=== PATIENT | female | born 1980 | race Caucasian/White ===

== ENCOUNTER 2022-08-13 17:31 | Emergency (ER) | payer MEDICAID, SELFPAY ==
[2022-08-13] VITALS (8 sets, daily range): BP systolic 149–160; BP diastolic 99–107; PULSE 104; RESP 18; TEMP 36.6; O2SAT 95–100; BMI 33.6
[2022-08-13 17:39] LABS: Glucometer 401 mg/dL (74-106)
[2022-08-13] MEDS: ONDANSETRON PF 4 MG/2 ML VIAL IV (17:53)
[2022-08-13] MEDS: 0.9 % SODIUM CHLORIDE 1,000 ML 1000 ML IV (17:53)
--- NOTE | 2022-08-13 17:57 | ED_ITS ---
HPI - General Adult General Chief complaint: Weakness Stated complaint: hyperglycemia Time Seen by Provider: 08/13/22 17:38 Source: patient Mode of arrival: Wheelchair Limitations: no limitations History of Present Illness HPI narrative: 41-year-old female past medical history type II diabetic presents with an elevated blood sugar reading with dizziness and nausea that started today. She states that her blood sugar was in the 400s. She is only on metformin and was recently diagnosed 2 months ago. Patient states that she has been compliant with her metformin and it has been August and has not been compliant with her eating regimen. Denies vision changes, abd or back pain, dysuria, v/d, SOB or CP Related Data Home Medications Medication Instructions Recorded Confirmed albuterol sulfate 90 mcg/actuation 1 inh inhalation Q4H PRN shortness 08/13/22 08/13/22 breath activated powder inhaler of breath or wheezing (ProAir RespiClick) alprazolam 0.5 mg tablet 0.5 mg PO DAILY PRN anxiety 08/13/22 08/13/22 aripiprazole 5 mg tablet 5 mg PO DAILY 08/13/22 08/13/22 atenolol 25 mg tablet 25 mg PO DAILY 08/13/22 08/13/22 buspirone 5 mg tablet 5 mg PO DAILY 08/13/22 08/13/22 fluoxetine 40 mg capsule 40 mg PO DAILY 08/13/22 08/13/22 lisdexamfetamine 60 mg capsule 60 mg PO DAILY 08/13/22 08/13/22 (Vyvanse) metformin 500 mg tablet 500 mg PO BID 08/13/22 08/13/22 trazodone 50 mg tablet 50 mg PO QPM 08/13/22 08/13/22 Allergies Allergy/AdvReac Type Severity Reaction Status Date / Time No Known Drug Allergies Allergy Verified 08/13/22 17:35 Review of Systems ROS Status of ROS 10 or more systems reviewed and unremarkable except as noted in history and below [facility] Medical History (Updated 08/13/22 @ 18:24 by EDWAR Sharp) Surgical History (Updated 08/13/22 @ 17:45 by Autumn Schuler) Exam Narrative Exam Narrative: General: A&Ox3, no distress, talking in full an complete sentences skin: warm, dry, intact head: normocephalic, atraumatic eyes: EOMI nose: nares patent neck: supple, trachea midline cardiac: +S1/S1. no murmur respiratory: lungs CTA, non-labored, no wheezing, no retractions chest wall: NT abdomen: soft, NT extremities: FROM x 4, strength +5/5 neuro: A&Ox3 psych: appropriate mood and affect, cooperative Constitutional Vital Signs - 24 hr 08/13/22 17:35 08/13/22 17:59 08/13/22 17:55 Temperature 97.8 F Pulse Rate [Monitor] 104 H Respiratory Rate 18 Blood Pressure Blood Pressure [Left Arm] 149/99 H Pulse Oximetry 100 97 97 Oxygen Delivery Method Room Air Room Air 08/13/22 18:00 08/13/22 18:10 08/13/22 18:22 Temperature Pulse Rate [Monitor] Respiratory Rate Blood Pressure Blood Pressure [Left Arm] Pulse Oximetry 97 96 97 Oxygen Delivery Method 08/13/22 18:30 08/13/22 18:31 08/13/22 18:31 Temperature Pulse Rate [Monitor] Respiratory Rate Blood Pressure 160/107 H Blood Pressure [Left Arm] Pulse Oximetry 96 97 95 Oxygen Delivery Method 08/13/22 18:31 Temperature Pulse Rate [Monitor] Respiratory Rate Blood Pressure 160/107 H Blood Pressure [Left Arm] Pulse Oximetry 97 Oxygen Delivery Method Course Vital Signs Vital signs: Vital Signs Temperature 97.8 F 08/13/22 17:35 Pulse Rate 104 H 08/13/22 17:35 Respiratory Rate 18 08/13/22 17:35 Blood Pressure 149/99 H 08/13/22 17:35 Pulse Oximetry 100 08/13/22 17:35 Oxygen Delivery Method Room Air 08/13/22 17:35 Temperature 97.8 F 08/13/22 17:35 Pulse Rate 104 H 08/13/22 17:35 Respiratory Rate 18 08/13/22 17:35 Blood Pressure 160/107 H 08/13/22 18:31 Pulse Oximetry 97 08/13/22 18:31 Oxygen Delivery Method Room Air 08/13/22 17:59 Medical Decision Making MDM Narrative Medical decision making narrative: Fingerstick glucose 401. She is started on IV fluids and given Zofran. Bicarb normal no signs of DKA. Serum glucose 418. Magnesium 1.7 will be given 400 mg oral magnesium. No other significant lab abnormalities. Repeat fingerstick 262. F/u with PCP and to call tomorrow to review medications. afebrile, not tachycardic, not hypoxic, non toxic appearing and ambulating at baseline and hemodynamically stable to be d/c. answered all questions. pt in agreement with tx. educated when to return to ER. Lab Data Lab results reviewed: Yes I reviewed the patient's lab results Labs: Lab Results 08/13/22 08/13/22 Range/Units 17:37 17:40 WBC 9.8 (4.0-11.0) 10^3/uL RBC 5.03 (4.20-5.40) 10^6/uL Hgb 15.3 (12.0-16.0) g/dL Hct 43.6 (36.0-48.0) % MCV 86.7 (81.0-99.0) fL MCH 30.4 (26.7-34.0) pg MCHC 35.1 (29.9-35.2) g/dL RDW 12.5 (11.0-15.0) % Plt Count 248 (150-450) 10^3/uL MPV 10.7 (9.5-13.5) fL Neut % (Auto) 55.6 (43.0-75.0) % Lymph % (Auto) 32.6 (20.5-60.0) % [place] % (Auto) 6.9 (1.7-12.0) % Eos % (Auto) 3.6 (0.9-7.0) % Baso % (Auto) 0.5 (0.2-2.0) % Neut # (Auto) 5.5 (1.4-6.5) 10^3/uL Lymph # (Auto) 3.2 (1.2-3.8) 10^3/uL [place] # (Auto) 0.7 (0.3-0.8) 10^3/uL Eos # (Auto) 0.4 (0.0-0.7) 10^3/uL Baso # (Auto) 0.1 (0.0-0.1) 10^3/uL Abs Immat Gran (auto) 0.08 H (0.00-0.03) 10^3/uL Imm/Tot Granulo (auto) 0.8 H (0.0-0.5) % Sodium 133 L (136-145) mmol/L Potassium 3.7 (3.5-5.1) mmol/L Chloride 100 (98-107) mmol/L Carbon Dioxide 21.2 (21.0-32.0) mmol/L Anion Gap 15.5 BUN 12.0 (7.0-18.0) mg/dL Creatinine 0.95 (0.55-1.02) mg/dL Est GFR ( Amer) >60 (>=60) Est GFR (Non-Af Amer) >60 (>=60) BUN/Creatinine Ratio 12.6 Glucose 418 H (74-106) mg/dL Calcium 8.6 (8.5-10.1) mg/dL Magnesium 1.7 L (1.8-2.4) mg/dL Total Bilirubin 0.4 (0.2-1.0) mg/dL AST 17 (15-37) U/L ALT 27 (14-59) U/L Alkaline Phosphatase 71 (46-116) U/L Total Protein 7.5 (6.4-8.2) g/dL Albumin 4.0 (3.4-5.0) g/dL Globulin 3.5 g/dL Albumin/Globulin Ratio 1.1 POC Glucose 401 H (74-106) mg/dL Discharge Plan Discharge Chief Complaint: Weakness Clinical Impression: Hypomagnesemia Hyperglycemia due to type 2 diabetes mellitus Qualifiers: Diabetes mellitus extermination supervisor insulin use: without extermination supervisor use Qualified Code(s): E11.65 - Type 2 diabetes mellitus with hyperglycemia Patient Disposition: Home, Self-Care Time of Disposition Decision: 19:08 Condition: Good Mode of Transportation: Private Vehicle Prescriptions / Home Meds: No Action ProAir RespiClick 90 mcg/actuation aerosol powdr breath activated 1 inh INHALATION Q4H PRN (Reason: shortness of breath or wheezing) alprazolam 0.5 mg tablet 0.5 mg PO DAILY PRN (Reason: anxiety) aripiprazole 5 mg tablet 5 mg PO DAILY atenolol 25 mg tablet 25 mg PO DAILY buspirone 5 mg tablet 5 mg PO DAILY fluoxetine 40 mg capsule 40 mg PO DAILY Vyvanse 60 mg capsule 60 mg PO DAILY metformin 500 mg tablet 500 mg PO BID trazodone 50 mg tablet 50 mg PO QPM Instructions: Hypomagnesemia (ED), Diabetic Hyperglycemia (ED) Stand Alone Forms: Portal Instructions Referrals: COLTEN ARITA [Physician] - As soon as possible Physician,Non-Staff, [Primary Care Provider] - 1 week
[2022-08-13 18:02] LABS: Basophils Absolute Auto 0.1 10^3/uL (0.0-0.1); Basophils Percent Auto 0.5 % (0.2-2.0); Eosinophils Absolute Auto 0.4 10^3/uL (0.0-0.7); Eosinophils Percent Auto 3.6 % (0.9-7.0); Hematocrit 43.6 % (36.0-48.0); Hemoglobin 15.3 g/dL (12.0-16.0); Immature Granulocytes Abs Auto 0.08 10^3/uL (0.00-0.03); Immature Granulocytes Pct Auto 0.8 % (0.0-0.5); Lymphocytes Absolute Auto 3.2 10^3/uL (1.2-3.8); Lymphocytes Percent Auto 32.6 % (20.5-60.0); Mean Corpuscular HGB Conc 35.1 g/dL (29.9-35.2); Mean Corpuscular Hemoglobin 30.4 pg (26.7-34.0); Mean Corpuscular Volume 86.7 fL (81.0-99.0); Mean Platelet Volume 10.7 fL (9.5-13.5); Monocytes Absolute Auto 0.7 10^3/uL (0.3-0.8); Monocytes Percent Auto 6.9 % (1.7-12.0); Neutrophils Absolute Auto 5.5 10^3/uL (1.4-6.5); Neutrophils Percent Auto 55.6 % (43.0-75.0); Platelet Count 248 10^3/uL (150-450); Red Blood Count 5.03 10^6/uL (4.20-5.40); Red Cell Distribution Width 12.5 % (11.0-15.0); White Blood Count 9.8 10^3/uL (4.0-11.0)
[2022-08-13 18:17] LABS: Alanine Aminotransferase 27 U/L (14-59); Albumin Globulin Ratio 1.1; Alkaline Phosphatase 71 U/L (46-116); Anion Gap 15.5; Aspartate Amino Transferase 17 U/L (15-37); BUN Creatinine Ratio 12.6; Bilirubin Total 0.4 mg/dL (0.2-1.0); Calcium 8.6 mg/dL (8.5-10.1); Carbon Dioxide 21.2 mmol/L (21.0-32.0); Chloride 100 mmol/L (98-107); Estimated GFR (African America >60 (>=60); Estimated GFR (Non-African Ame >60 (>=60); Globulin 3.5 g/dL; Glucose 418 mg/dL (74-106); Magnesium 1.7 mg/dL (1.8-2.4); Potassium 3.7 mmol/L (3.5-5.1); Sodium 133 mmol/L (136-145); Total Protein 7.5 g/dL (6.4-8.2)
[2022-08-13] MEDS: INSULIN REGULAR 300 UNITS/3 ML 6 UNIT INJ (18:33)
[2022-08-13] MEDS: MAGNESIUM OXIDE 400 MG TABLET PO (18:34)
[2022-08-13 19:07] LABS: Glucometer 262 mg/dL (74-106)
== END 2022-08-13 19:39 | disposition home or self-care (01) ==
PROVIDERS: Physician Assistant; Emergency Provider Emergency Medicine Emergency Medical Services
DX: E83.42 Hypomagnesemia (principal); E11.65 Type 2 diabetes mellitus with hyperglycemia; Z79.84 Long term (current) use of oral hypoglycemic drugs; Z79.899 Other long term (current) drug therapy
CPT/HCPCS: 36415; 80053; 83735; 85025; 96374; 99284

== ENCOUNTER 2023-03-11 17:45 | Emergency (ER) | payer MEDICAID, SELFPAY ==
[2023-03-11 17:52] VITALS: BP 125/94; PULSE 87; RESP 18; TEMP 36.9; O2SAT 98; BMI 35.1
--- NOTE | 2023-03-11 17:56 | CT_ITS ---
[address] [address] Patient Name: MAHOGANY CARNES MRN: [id number] date: 1980 Sex: F Assigned Patient Location: ER Current Patient Location: ED.MAIN Accession/Order Number: [id number] Exam Date: 03/11/2023 19:18 Report Date: 03/11/2023 20:18 At the request of: CHRISTA ARNDT Procedure: CT abdomen pelvis w con EXAM: CT abdomen pelvis w con HISTORY: Abdominal pain COMPARISON: None. TECHNIQUE: Enhanced helical acquisition obtained through the abdomen and the pelvis. FINDINGS: The visualized lung bases and the pleural spaces are clear. Beam-hardening artifact from thoracolumbar spinal fusion hardware. Prior cholecystectomy. Mild hepatic steatosis. The spleen, pancreas, adrenal glands, and the kidneys are unremarkable. No enlarged lymph nodes within the abdomen or the pelvis. IUD is present. Normal appendix. There are a few scattered colonic diverticula. Scattered gas and stool within nondistended small and large bowel. Postsurgical changes of the supraumbilical midline abdominal wall. CT/CT abdomen pelvis w con IMPRESSION: 1. Normal appendix. Diverticulosis without radiographic evidence of diverticulitis. No inflammatory changes within the abdomen or the pelvis. 2. Prior cholecystectomy. Hepatic steatosis. Electronically authenticated by: LY LE Date: 03/11/2023 20:18
--- NOTE | 2023-03-11 18:04 | ED_ITS ---
HPI - General Adult General Chief complaint: Abdominal Pain Stated complaint: Abdominal Pain Time Seen by Provider: 03/11/23 17:55 Source: patient Mode of arrival: walk-in Limitations: no limitations History of Present Illness HPI narrative: Patient is a 42-year-old female who presents to the emergency department for 3- day history of abdominal cramping, nausea. She reports associated diarrhea. She states today she had an increase in pain which prompted her PCP to recommend coming to the emergency department. She has had no objective fevers, upper respiratory symptoms or urinary symptoms. She had a previous cholecystectomy in 2019 and had a strangulated hernia repair last year. No other abdominal surgeries. She is not concerned for . No medications given prior to arrival. Related Data Home Medications Medication Instructions Recorded Confirmed albuterol sulfate 90 mcg/actuation 1 inh inhalation Q4H PRN shortness 08/13/22 03/11/23 breath activated powder inhaler of breath or wheezing (ProAir RespiClick) alprazolam 0.5 mg tablet 0.5 mg PO DAILY PRN anxiety 08/13/22 03/11/23 atenolol 25 mg tablet 25 mg PO DAILY 08/13/22 03/11/23 buspirone 5 mg tablet 5 mg PO DAILY 08/13/22 03/11/23 lisdexamfetamine 60 mg capsule 60 mg PO DAILY 08/13/22 03/11/23 (Vyvanse) metformin 500 mg tablet 500 mg PO BID 08/13/22 03/11/23 trazodone 50 mg tablet 50 mg PO QPM 08/13/22 03/11/23 Previous Rx's Medication Instructions Recorded dicyclomine 20 mg tablet 20 mg PO QID PRN abdominal pain 03/11/23 #12 tabs ketorolac 10 mg tablet 10 mg PO TID PRN pain #10 tabs 03/11/23 ondansetron 4 mg disintegrating 4 mg PO Q6H PRN nausea and 03/11/23 tablet vomiting #12 tabs Allergies Allergy/AdvReac Type Severity Reaction Status Date / Time No Known Drug Allergies Allergy Verified 08/13/22 17:35 Review of Systems ROS Constitutional Denies: fever or chills Ears, nose, mouth, and throat Denies: throat pain or nasal congestion Cardiovascular Denies: chest pain Respiratory Denies: shortness of breath or cough Gastrointestinal Reports: abdominal pain, nausea and diarrhea Musculoskeletal Denies: back pain Integumentary/Breast Denies: rash Neurological Denies: headache Hematologic/Lymphatic Denies: easy bruising PFSH PFS Medical History (Updated 03/11/23 @ 20:08 by EDWAR Taveras) Anxiety ?F41.9 - Anxiety disorder, unspecified (ICD-10) Hypertension ?I10 - Essential (primary) hypertension (ICD-10) Diabetes ?E11.9 - Type 2 diabetes mellitus without complications (ICD-10) Surgical History (Updated 08/13/22 @ 17:45 by Autumn Schuler) History of cholecystectomy ?Z90.49 - Acquired absence of other specified parts of digestive tract (ICD- 10) History of ?Z98.891 - History of uterine scar from previous surgery (ICD-10) Social History Smoking status: Current some day smoker Exam Narrative Exam Narrative: Gen.: Awake, alert, in no distress Head: Normocephalic, atraumatic ENT: Moist mucous membranes Respiratory: No respiratory distress, lungs clear bilaterally Cardio: Regular rate and rhythm Gastrointestinal: Abdomen is soft, nondistended and Diffusely mildly tender across the bilateral lower quadrants of the abdomen with no guarding or rebound Extremities: Moves extremities equally Psych: Normal mood and affect Neuro: No focal neuro deficit Skin: Warm, dry, intact Constitutional Vital Signs, click to edit/add: Last Vital Signs Temp 98.4 F 03/11/23 17:52 Pulse 73 03/11/23 20:22 Resp 16 03/11/23 20:22 BP 138/90 03/11/23 20:22 Pulse Ox 98 03/11/23 20:22 O2 Del Method Room Air 03/11/23 20:22 Course Vital Signs Vital signs: Vital Signs Temperature 98.4 F 03/11/23 17:52 Pulse Rate 87 03/11/23 17:52 Respiratory Rate 18 03/11/23 17:52 Blood Pressure 125/94 H 03/11/23 17:52 Pulse Oximetry 98 03/11/23 17:52 Oxygen Delivery Method Room Air 03/11/23 17:52 Temperature 98.4 F 03/11/23 17:52 Pulse Rate 73 03/11/23 20:22 Respiratory Rate 16 03/11/23 20:22 Blood Pressure 138/90 03/11/23 20:22 Pulse Oximetry 98 03/11/23 20:22 Oxygen Delivery Method Room Air 03/11/23 20:22 Medical Decision Making MDM Narrative Medical decision making narrative: Laboratory studies reviewed and noted within normal limits. Patient had a CT of the abdomen and pelvis with IV and oral contrast showing normal appendix and diverticulosis with no diverticulitis or other acute abnormalities. She will be medicated for symptoms for home with Zofran, Bentyl, Toradol for pain. Follow- up with PCP and return to the ER if symptoms change or worsen. Medical Records Medical records reviewed: Yes I reviewed the patient's medical records Lab Data Lab results reviewed: Yes I reviewed the patient's lab results Labs: Lab Results 03/11/23 03/11/23 Range/Units 18:20 18:29 WBC 11.3 H (4.0-11.0) 10^3/uL RBC 4.59 (4.20-5.40) 10^6/uL Hgb 14.3 (12.0-16.0) g/dL Hct 41.7 (36.0-48.0) % MCV 90.8 (81.0-99.0) fL MCH 31.2 (26.7-34.0) pg MCHC 34.3 (29.9-35.2) g/dL RDW 12.3 (11.0-15.0) % Plt Count 257 (150-450) 10^3/uL MPV 10.8 (9.5-13.5) fL Neut % (Auto) 50.6 (43.0-75.0) % Lymph % (Auto) 40.2 (20.5-60.0) % [place] % (Auto) 5.6 (1.7-12.0) % Eos % (Auto) 2.3 (0.9-7.0) % Baso % (Auto) 0.6 (0.2-2.0) % Neut # (Auto) 5.7 (1.4-6.5) 10^3/uL Lymph # (Auto) 4.5 H (1.2-3.8) 10^3/uL [place] # (Auto) 0.6 (0.3-0.8) 10^3/uL Eos # (Auto) 0.3 (0.0-0.7) 10^3/uL Baso # (Auto) 0.1 (0.0-0.1) 10^3/uL Abs Immat Gran (auto) 0.08 H (0.00-0.03) 10^3/uL Imm/Tot Granulo (auto) 0.7 H (0.0-0.5) % Sodium 134 L (136-145) mmol/L Potassium 3.9 (3.5-5.1) mmol/L Chloride 102 (98-107) mmol/L Carbon Dioxide 24.7 (21.0-32.0) mmol/L Anion Gap 11.2 BUN 9.0 (7.0-18.0) mg/dL Creatinine 0.66 (0.55-1.02) mg/dL Est GFR ( Amer) >60 (>=60) Est GFR (Non-Af Amer) >60 (>=60) BUN/Creatinine Ratio 13.6 Glucose 128 H (74-106) mg/dL Lactate 1.5 (0.4-2.0) mmol/L Calcium 9.0 (8.5-10.1) mg/dL Total Bilirubin 0.5 (0.2-1.0) mg/dL AST 20 (15-37) U/L ALT 29 (14-59) U/L Alkaline Phosphatase 59 (46-116) U/L Total Protein 7.8 (6.4-8.2) g/dL Albumin 3.8 (3.4-5.0) g/dL Globulin 4.0 g/dL Albumin/Globulin Ratio 0.9 Lipase 41.0 (16.0-77.0) U/L Urine Color Lt. yellow (YELLOW) Urine Clarity Clear (CLEAR) Urine pH 6.0 (5.0-9.0) Ur Specific [place] <=1.005 A (1.005-1.025) Urine Protein Negative (NEG/TRACE) mg/dL Urine Glucose (UA) Negative (NEGATIVE) mg/dL Urine Ketones Negative (NEGATIVE) mg/dL Urine Occult Blood Negative (NEGATIVE) Urine Nitrite Negative (NEGATIVE) Urine Bilirubin Negative (NEGATIVE) Urine Urobilinogen 0.2 (0.2-1.0) EU/dL Ur Leukocyte Esterase Negative (NEGATIVE) Urine HCG, Qual Negative (NEGATIVE) Imaging Data CT scan - abdomen: Attestation: I have reviewed the pertinent imaging results. Radiologist's impression: ITS Impressions Abdomen/Pelvis CT 03/11/23 17:56 IMPRESSION: 1. Normal appendix. Diverticulosis without radiographic evidence of diverticulitis. No inflammatory changes within the abdomen or the pelvis. 2. Prior cholecystectomy. Hepatic steatosis. Electronically authenticated by: LY LE Date: 03/11/2023 20:18 Discharge Plan Discharge Chief Complaint: Abdominal Pain Clinical Impression: Diarrhea, Abdominal pain Patient Disposition: Home, Self-Care Time of Disposition Decision: 20:08 Condition: Good Mode of Transportation: Private Vehicle Prescriptions / Home Meds: New ketorolac 10 mg tablet 10 mg PO TID PRN (Reason: pain) Qty: 10 0RF dicyclomine 20 mg tablet 20 mg PO QID PRN (Reason: abdominal pain) Qty: 12 0RF ondansetron 4 mg tablet,disintegrating 4 mg PO Q6H PRN (Reason: nausea and vomiting) Qty: 12 0RF No Action ProAir RespiClick 90 mcg/actuation aerosol powdr breath activated 1 inh INHALATION Q4H PRN (Reason: shortness of breath or wheezing) alprazolam 0.5 mg tablet 0.5 mg PO DAILY PRN (Reason: anxiety) atenolol 25 mg tablet 25 mg PO DAILY buspirone 5 mg tablet 5 mg PO DAILY lisdexamfetamine [Vyvanse] 60 mg capsule 60 mg PO DAILY metformin 500 mg tablet 500 mg PO BID trazodone 50 mg tablet 50 mg PO QPM Instructions: Acute Diarrhea (ED), Acute Abdominal Pain (ED) Stand Alone Forms: Portal Instructions Referrals: Physician,Non-Staff, MD [Primary Care Provider] - 1 week Discharge Date/Time: 03/11/23 20:24
[2023-03-11] MEDS: HYOSCYAMINE SULFATE 0.125 MG TAB.SUBL SL (18:20)
[2023-03-11] MEDS: 0.9 % SODIUM CHLORIDE 1,000 ML 1000 ML IV (18:29)
[2023-03-11] MEDS: ONDANSETRON PF 4 MG/2 ML VIAL IV (18:30)
[2023-03-11] MEDS: KETOROLAC TROMETHAMINE 30 MG/ML VIAL IVP (18:30)
[2023-03-11 18:40] LABS: Basophils Absolute Auto 0.1 10^3/uL (0.0-0.1); Basophils Percent Auto 0.6 % (0.2-2.0); Eosinophils Absolute Auto 0.3 10^3/uL (0.0-0.7); Eosinophils Percent Auto 2.3 % (0.9-7.0); Hematocrit 41.7 % (36.0-48.0); Hemoglobin 14.3 g/dL (12.0-16.0); Immature Granulocytes Abs Auto 0.08 10^3/uL (0.00-0.03); Immature Granulocytes Pct Auto 0.7 % (0.0-0.5); Lymphocytes Absolute Auto 4.5 10^3/uL (1.2-3.8); Lymphocytes Percent Auto 40.2 % (20.5-60.0); Mean Corpuscular HGB Conc 34.3 g/dL (29.9-35.2); Mean Corpuscular Hemoglobin 31.2 pg (26.7-34.0); Mean Corpuscular Volume 90.8 fL (81.0-99.0); Mean Platelet Volume 10.8 fL (9.5-13.5); Monocytes Absolute Auto 0.6 10^3/uL (0.3-0.8); Monocytes Percent Auto 5.6 % (1.7-12.0); Neutrophils Absolute Auto 5.7 10^3/uL (1.4-6.5); Neutrophils Percent Auto 50.6 % (43.0-75.0); Platelet Count 257 10^3/uL (150-450); Red Blood Count 4.59 10^6/uL (4.20-5.40); Red Cell Distribution Width 12.3 % (11.0-15.0); White Blood Count 11.3 10^3/uL (4.0-11.0)
[2023-03-11 18:52] LABS: Bilirubin Urine NEGATIVE (NEGATIVE); Blood Urine NEGATIVE (NEGATIVE); Clarity Urine CLEAR (CLEAR); Color Urine LT. YELLOW (YELLOW); Glucose Urine UA NEGATIVE (NEGATIVE); Ketones Urine NEGATIVE (NEGATIVE); Leukocyte Esterase Urine NEGATIVE (NEGATIVE); Nitrite Urine NEGATIVE (NEGATIVE); Protein Urine NEGATIVE (NEG/TRACE); Specific Gravity Urine <=1.005 (1.005-1.025); Urobilinogen Urine 0.2 EU/dL (0.2-1.0)
[2023-03-11 18:55] LABS: HCG Qualitative Urine* NEGATIVE (NEGATIVE)
[2023-03-11 18:56] LABS: Urine Microscopic Indicated NO
[2023-03-11 19:11] LABS: Alanine Aminotransferase 29 U/L (14-59); Albumin Globulin Ratio 0.9; Albumin Level 3.8 g/dL (3.4-5.0); Alkaline Phosphatase 59 U/L (46-116); Anion Gap 11.2; Aspartate Amino Transferase 20 U/L (15-37); BUN Creatinine Ratio 13.6; Bilirubin Total 0.5 mg/dL (0.2-1.0); Carbon Dioxide 24.7 mmol/L (21.0-32.0); Chloride 102 mmol/L (98-107); Estimated GFR (African America >60 (>=60); Estimated GFR (Non-African Ame >60 (>=60); Glucose 128 mg/dL (74-106); Potassium 3.9 mmol/L (3.5-5.1); Sodium 134 mmol/L (136-145); Total Protein 7.8 g/dL (6.4-8.2)
[2023-03-11 19:16] LABS: Lactate/Lactic Acid 1.5 mmol/L (0.4-2.0)
[2023-03-11 20:22] VITALS: BP 138/90; PULSE 73; RESP 16; O2SAT 98
== END 2023-03-11 20:24 | disposition home or self-care (01) ==
PROVIDERS: Physician Assistant; Emergency Provider Emergency Medicine
DX: R10.9 Unspecified abdominal pain (principal); R19.7 Diarrhea, unspecified; Z90.49 Acquired absence of other specified parts of digestive tract; Z79.899 Other long term (current) drug therapy; F41.9 Anxiety disorder, unspecified; I10 Essential (primary) hypertension; E11.9 Type 2 diabetes mellitus without complications; Z98.891 History of uterine scar from previous surgery; F17.210 Nicotine dependence, cigarettes, uncomplicated
CPT/HCPCS: 36415; 74177; 80053; 81003; 83605; 83690; 84703; 85025; 96374; 96375; 99285; J1885; J2405; Q9967

== ENCOUNTER 2023-11-05 13:45 | Emergency (ER) | payer SELFPAY ==
[2023-11-05 13:48] VITALS: BP 129/87; PULSE 78; TEMP 36.8; O2SAT 98; BMI 33.7
--- NOTE | 2023-11-05 14:00 | CT_ITS ---
The [address] [address] Patient Name: MAHOGANY CARNES MRN: [id number] date: 1980 Sex: F Assigned Patient Location: ER Current Patient Location: ED.MAIN Accession/Order Number: [id number] Exam Date: 11/05/2023 14:20 Report Date: 11/05/2023 15:01 At the request of: CHRISTA ARNDT Procedure: CT head/brain wo con EXAMINATION: CT head/brain wo con HISTORY: Headache COMPARISON: No relevant comparison available. TECHNIQUE: Axial CT images were obtained without IV contrast. Dose reduction techniques were achieved by using automated exposure control and/or adjustment of mA and/or kV according to patient size and/or use of iterative reconstruction technique. FINDINGS: BRAIN: No edema, hemorrhage, mass, acute infarction, or inappropriate atrophy. CSF SPACES: No hydrocephalus, subarachnoid hemorrhage, or mass. Appropriate for age. SKULL: No fracture, mass, or other significant visible lesion. SINUSES: No significant mucosal thickening or fluid on the limited views. ORBITS: No appreciable abnormality on the limited views. OTHER: Negative CT/CT head/brain wo con IMPRESSION: 1. Normal examination. Electronically authenticated by: TOMAS BUSH Date: 11/05/2023 15:01
[2023-11-05 14:01] VITALS: O2SAT 98
--- NOTE | 2023-11-05 14:02 | ED.GENADUL1 ---
HPI HPI - General Adult General Chief complaint: Headache Stated complaint: HEADACHE, NECK PAIN, NAUSEOUS Time Seen by Provider: 11/05/23 13:56 Source: patient Mode of arrival: walk-in History of Present Illness HPI narrative: Patient is a 43-year-old female who presents to the emergency department for evaluation of a migraine. She states she has a history of migraines. She reports pain in the right frontal denominational with radiation to the neck. Headache has been present for the last 3 days. She states she received Nurtec and Toradol in the PCP office yesterday and was told she can take 1 additional Nurtec today. She states she had some improvement yesterday but the headache returned today and was not improved with medication. She has not had any other associated fevers. She reports some occasional blurred vision. Last episode of vomiting was 3 days ago but she is persistently nauseous. She has no concern for . She states the frontal pain is typical of previous migraines but this headache is lasting longer than normal for her. No injury. Related Data Home Medications ?Medication ?Instructions ?Recorded ?Confirmed albuterol sulfate 90 mcg/actuation 1 inh inhalation Q4H PRN shortness 08/13/22 03/11/23 breath activated powder inhaler of breath or wheezing (ProAir RespiClick) alprazolam 0.5 mg tablet 0.5 mg PO DAILY PRN anxiety 08/13/22 03/11/23 atenolol 25 mg tablet 25 mg PO DAILY 08/13/22 03/11/23 buspirone 5 mg tablet 5 mg PO DAILY 08/13/22 03/11/23 lisdexamfetamine 60 mg capsule 60 mg PO DAILY 08/13/22 03/11/23 (Vyvanse) metformin 500 mg tablet 500 mg PO BID 08/13/22 03/11/23 trazodone 50 mg tablet 50 mg PO QPM 08/13/22 03/11/23 Previous Rx's ?Medication ?Instructions ?Recorded dicyclomine 20 mg tablet 20 mg PO QID PRN abdominal pain 03/11/23 #12 tabs ketorolac 10 mg tablet 10 mg PO TID PRN pain #10 tabs 03/11/23 ondansetron 4 mg disintegrating 4 mg PO Q6H PRN nausea and 03/11/23 tablet vomiting #12 tabs ketorolac 10 mg tablet 10 mg PO TID PRN pain #10 tabs 11/05/23 metoclopramide HCl 10 mg tablet 10 mg PO Q6H PRN nausea and 11/05/23 (Reglan) vomiting #12 tabs Allergies Allergy/AdvReac Type Severity Reaction Status Date / Time No Known Drug Allergies Allergy Verified 08/13/22 17:35 Opioid HPI Opioid Management Most Recent Opioid Data: Last Pain Scale 7 03/11/23 18:38 Review of Systems ROS Constitutional Denies: fever or chills Eyes Reports: blurry vision Ears, nose, mouth, and throat Reports: neck pain; Denies: throat pain or nasal congestion Cardiovascular Denies: chest pain Respiratory Denies: shortness of breath or cough Gastrointestinal Reports: nausea and vomiting Musculoskeletal Reports: neck pain; Denies: back pain, extremity pain, extremity swelling or joint pain Integumentary/Breast Denies: rash Neurological Reports: headache; Denies: numbness in extremities, weakness in extremities or dizziness Hematologic/Lymphatic Denies: easy bruising or easy bleeding PFSH PFSH Medical History (Updated 11/05/23 @ 15:13 by EDWAR Taveras) Anxiety ?F41.9 - Anxiety disorder, unspecified (ICD-10) Hypertension ?I10 - Essential (primary) hypertension (ICD-10) Diabetes ?E11.9 - Type 2 diabetes mellitus without complications (ICD-10) Surgical History (Updated 08/13/22 @ 17:45 by Autumn Schuler) History of cholecystectomy ?Z90.49 - Acquired absence of other specified parts of digestive tract (ICD-10) History of ?Z98.891 - History of uterine scar from previous surgery (ICD-10) Social History Smoking status: Current some day smoker Exam Narrative Exam Narrative: Gen.: Awake, alert, in no distress Head: Normocephalic, atraumatic ENT: Moist mucous membranes, no nuchal rigidity, no meningismus Respiratory: No respiratory distress Extremities: Moves extremities equally Psych: Normal mood and affect Neuro: No focal neuro deficit Skin: Warm, dry, intact Constitutional Vital Signs, click to edit/add: Last Vital Signs Temp 98.2 F 11/05/23 13:48 Pulse 78 11/05/23 13:48 Resp 16 11/05/23 13:48 BP 129/87 11/05/23 13:48 Pulse Ox 98 11/05/23 14:01 O2 Del Method Room Air 11/05/23 14:01 Course Vital Signs Vital signs: Vital Signs Temperature 98.2 F 11/05/23 13:48 Pulse Rate 78 11/05/23 13:48 Respiratory Rate 16 11/05/23 13:48 Blood Pressure 129/87 11/05/23 13:48 Pulse Oximetry 98 11/05/23 13:48 Oxygen Delivery Method Room Air 11/05/23 13:48 Temperature 98.2 F 11/05/23 13:48 Pulse Rate 78 11/05/23 13:48 Respiratory Rate 16 11/05/23 13:48 Blood Pressure 129/87 11/05/23 13:48 Pulse Oximetry 98 11/05/23 14:01 Oxygen Delivery Method Room Air 11/05/23 14:01 Medical Decision Making MDM Narrative Medical decision making narrative: Patient was treated with IV fluids, Reglan, Benadryl, Toradol. She was given additional IV Decadron. CT of the brain was performed which is unremarkable. Patient reports improvement with these medications. She will be discharged home with a copy of her CT scan for her primary care provider if she was supposed to have this test done as an outpatient. She will be discharged home with Toradol, Reglan for home. Follow-up with primary care and return to the ER if symptoms change or worsen. SHARED APC VISIT, PHYSICIAN ATTESTATION: [id number] I performed a substantive part of the MDM during the patient?s E/M visit. I personally evaluated and examined the patient. I personally made or approved the documented management plan and acknowledge its risk of complications. ? Medical Records Medical records reviewed: Yes I reviewed the patient's medical records Imaging Data CT scan - head: Attestation: I have reviewed the pertinent imaging results. Radiologist's impression: ITS Impressions Head CT 11/05/23 14:00 IMPRESSION: 1. Normal examination. Electronically authenticated by: TOMAS BUSH Date: 11/05/2023 15:01 Discharge Plan Discharge Chief Complaint: Headache Clinical Impression: Headache Patient Disposition: Home, Self-Care Time of Disposition Decision: 15:13 Condition: Good Prescriptions / Home Meds: New ketorolac 10 mg tablet 10 mg PO TID PRN (Reason: pain) Qty: 10 0RF metoclopramide HCl [Reglan] 10 mg tablet 10 mg PO Q6H PRN (Reason: nausea and vomiting) Qty: 12 0RF No Action ProAir RespiClick 90 mcg/actuation aerosol powdr breath activated 1 inh INHALATION Q4H PRN (Reason: shortness of breath or wheezing) alprazolam 0.5 mg tablet 0.5 mg PO DAILY PRN (Reason: anxiety) atenolol 25 mg tablet 25 mg PO DAILY buspirone 5 mg tablet 5 mg PO DAILY lisdexamfetamine [Vyvanse] 60 mg capsule 60 mg PO DAILY metformin 500 mg tablet 500 mg PO BID trazodone 50 mg tablet 50 mg PO QPM ketorolac 10 mg tablet 10 mg PO TID PRN (Reason: pain) Qty: 10 0RF dicyclomine 20 mg tablet 20 mg PO QID PRN (Reason: abdominal pain) Qty: 12 0RF ondansetron 4 mg tablet,disintegrating 4 mg PO Q6H PRN (Reason: nausea and vomiting) Qty: 12 0RF Print Language: Somali Instructions: Acute Headache (ED) Referrals: Physician,Non-Staff, MD [Primary Care Provider] - 1 week
--- OUTSIDE RECORDS SUMMARY | 2023-11-05 14:13 | XMS_ITS | CCD ---
Author Organization [facility] Care Team Providers Care Prick Stitcher Name Role Phone KEYANNA GARCIAS Consulting Unavailable REINECK, KEYANNA Correia Admitting Unavailable REINKEYANNA RUVALCABA Attending Unavailable MISC, DOCTOR Primary Care Unavailable MAST, LAZARO Consulting Unavailable MISC, DOCTOR Primary Care Unavailable REINECK, KEYANNA Correia Admitting Unavailable KEYANNA GARCIAS Attending Unavailable TAMARA MAYES Consulting Unavailable Case, SENIOR NETWORK ADMINISTRATOR-C Colten Crisostomo Primary Care Provider [phone] MD Rj Breen Emergency Provider VANESA Ro Attending Provider Cara Ro Unavailable MARBELLA Hendrix Attending Provider MD Martin Goodman Attending Provider MAST, LAZARO E Primary Care Physician MD James White Admitting Unavailable NONE, XXXX Referring Unavailable James White Attending Unavailable Case, SENIOR NETWORK ADMINISTRATOR-Crystal Crisostomo Primary Care Provider LAURA Munguia Emergency Provider [phone] Lázaro ROSS, Deirdre Chilel Primary Care Provider Case SENIOR NETWORK ADMINISTRATORColten Unavailable [phone] NON STAFF Primary Care Provider Unavailabl e Case, SENIOR NETWORK ADMINISTRATOR-Crystal Crisostomo Attending Provider Della Munguia Attending Unavailable Della Munguia Admitting Unavailable Case, Colten Crisostomo Primary Care Unavailable Case, Colten Crisostomo Attending Unavailable Case, Colten Crisostomo Admitting Unavailable NON STAFF Primary Care Unavailable Agustin Hendrix Attending Unavailable Agustin Hendrix Admitting Unavailable Case, Colten Crisostomo Primary Care Unavailable SARAH PÉREZ Attending Unavailable CASECOLTEN Attending Unavailable CASE, COLTEN Crisostomo Attending Unavailable CHERYL QUINTERO Attending Unavailab le CHERYL QUINTERO Attending Unavailab le COLTEN ARITA Attending Unavailable CHAZ OCONNELL Attending Unavailable CHAZ OCONNELL Referring Unavailable AGUSTIN HENDRIX Attending Unavailable AGUSTIN HENDRIX Referring Unavailable AGUSTIN HENDRIX Attending Unavailable CHERYL QUINTERO Attending Unavailab JAIRO Lovell Attending Unavailable Medications Current Medications Medication Drug Class(es) Dates Sig (Normalized) Sig (Original) acetaminophen 325 mg / HYDROcodone bitartrate 5 mg oral tablet (4 sources) Opioid Agonist Start: 03-13-2022 take 1 tablet by mouth every six hours Hydrocodone-Acetam inophen Active 1 TAB PO Q6H 28 March 13, 2022 amoxicillin 500 mg oral capsule (2 sources) Penicillin-class Antibacterial Start: 06-07-2023 take 500 mg by mouth three times daily Amoxicillin Active 500 MG PO Three times daily 08 12June 07, 2023 12:00am ARIPiprazole 5 mg oral tablet (9 sources) Atypical Antipsychotic Start: 11-20-2022 ARIPiprazole (Abilify) 5 MG tablet Indications: Mixed anxiety and depressive disorder Take 11/2 tabs 45 tablet 1 11/20/2022 Active Start: 02-27-2022 take 5 mg by mouth o nce daily in the morning Aripiprazole Active 5 MG PO Every morning February 27, 2022 1:00am ascorbic acid 60 mg / beta carotene 5000 unt / copper sulfate 40 mg / dl-alpha tocopheryl acetate 30 unt / sodium selenite 0.04 mg / zinc oxide 40 mg oral tablet (4 sources) Vitamin C Multiple Vitamin (Multivitamin Adult) tablet as directed Orally 0 Active atenolol 25 mg oral tablet (15 sources) beta-Adrenergic Zandra Start: 12-26-2021 take 25 mg by mouth once daily in the morning Atenolol Active 25 MG PO Every morning December 26, 2021 1:00am Start: 12-26-2021 Atenolol Activ e MG TABLET December 26, 2021 12:00am dicyclomine hydrochloride 20 mg oral tablet (15 sources) Anticholinergic Start: 12-26-2021 End: 03-23-2023 take 20 mg by mouth four times daily Dicyclomine Active 20 MG PO Four times daily February 27, 2022 2:56pm 0.5 ml dulaglutide 3 mg/ml auto-injector (4 sources) GLP-1 Receptor Agonist Start: 02-04-2023 inject 1.5 mg by subcutaneous injection every week dulaglutide (Trulicity) 1.5 MG/0.5ML solution pen-injector Indications: Type 2 diabetes mellitus with hyperglycemia, with long-term current use of insulin ([facility]) Inject 1.5 mg under the skin 1 (one) time per week 4 pen 11 02/04/2023 Active Lexapro (1 source) Serotonin Reuptake Inhibitor Start: 01-10-2020 Lexapro 20 mg, Daily, Refills(s) 0 Start Date: 01/10/20 Status: Ordered FLUoxetine 40 mg oral capsule (20 sources) Serotonin Reuptake Inhibitor Start: 12-26-2021 take 40 mg by mouth once daily in the morning Fluoxetine Active 40 MG PO Every morning December 26, 2021 1:00am Start: 12-26-2021 Fluoxetine Act tanisha MG December 26, 2021 12:00am Start: 02-10-2017 End: 09-28-2017 take 20 mg by mouth once daily Fluoxetine Discontinued 20 MG PO Daily February 10, 2017 1:00am September 28, 2017 11:00am take 1 capsule by [facility] once daily in the morning FLUoxetine HCl 20 MG 1 capsule in the morning Orally Once a day Active fluticasone propionate 0.05 mg/actuat metered dose nasal spray (2 sources) Corticosteroid Start: 06-07-2023 take 1 spray(s) nasal route once daily Fluticasone Propionate Active 2 SPRAY INTRANASAL Daily June 07, 2023 12:00am administer into each nostril hydrocortisone 10 mg/ml / neomycin 3.5 mg/ml / polymyxin b [id number] unt/ml otic suspension (2 sources) Aminoglycoside Antibacterial, Polymyxin-class Antibacterial, Corticosteroid Start: 06-07-2023 Neomycin-Polymyx in-Hc Active 3 DROPS OTIC Three times daily June 07, 2023 12:00am left ear hydrOXYzine pamoate 25 mg oral capsule (4 sources) Antihistamine Start: 11-20-2022 take 1 capsule by mouth every twenty-four hours as needed for anxiety and anxiety hydrOXYzine pamoate (Vistaril) 25 MG capsule Indications: Anxiety Take 1 capsule (25 mg) by mouth Daily as needed for itching. 30 capsule 1 11/20/2022 Active hyoscyamine sulfate 0.125 mg disintegrating oral tablet (2 sources) Start: 12-29-2021 take 1 tablet by mouth every eight hours as needed Hyoscyamine Sulfate 0.125 MG 1 tablet on the tongue and allow to dissolve as needed Orally every 8 hrs for 5 day(s) Dec, Active ibuprofen 800 mg oral tablet (20 sources) Nonsteroidal Anti-inflammatory Drug Start: 12-26-2021 take 800 mg by mouth three times daily Ibuprofen Active 800 MG PO Three times daily December 26, 2021 1:00am Start: 06-21-2020 take 1 tablet by pema th twice daily as needed for pain ibuprofen 600 mg Tab 600 mg = 1 tab(s), Oral, BID, PRN as needed for pain, # 60 tab(s), Refills(s) 0, Pharmacy: [facility] [address] [id number], 160, cm, 06/15/20 14:02:00 EDT, Height/Length Dosing, 87.5, kg, 06/15/20 14:02:00 EDT, Weight Dosing Start Date: 06/21/20 Status: Ordered Start: 09-04-2018 End: 11-16-2018 take 600 mg by mouth every six hours Ibuprofen Discontinued 600 MG PO Q6H September 04, 2018 12:00am November 16, 2018 9:16pm ibuprofen 800 MG tablet every 8 (eight) hours. 0 Active 3 ml insulin aspart, human 100 unt/ml pen injector (4 sources) Insulin Analog Start: 01-12-2023 End: 01-12-2024 insulin aspart (NovoLOG FLEXPEN) 100 UNIT/ML pen Indications: Type 2 diabetes mellitus with hyperglycemia, without long-term current use of insulin ([facility]) Inject 10 Units under the skin in the morning and 10 Units at noon and 10 Units in the evening. Inject with meals. 10 mL 12 01/12/2023 01/12/2024 Active ketorolac tromethamine 10 mg oral tablet (4 sources) Nonsteroidal Anti-inflammatory Drug, Cyclooxygenase Inhibitor Start: 03-11-2023 take 1 tablet by mouth three times daily as needed for pain ketorolac (Toradol) 10 MG tablet TAKE 1 TABLET BY MOUTH THREE TIMES A DAY NEEDED FOR PAIN 0 03/11/2023 Active levonorgestrel 0.992085 mg/hr intrauterine system (4 sources) Progestin, Progestin-containin g Intrauterine Device Start: 07-12-2019 Levonorgestrel (Liletta, 52 MG,) 19.5 MCG/DAY intrauterine device Liletta (52 MG) 0 07/12/2019 Active lisdexamfetamine dimesylate 60 mg oral capsule (6 sources) Central Nervous System Stimulant Start: 01-08-2023 End: 04-24-2023 take 1 capsule by mouth in the morning lisdexamfetamine (Vyvanse) 60 MG capsule Indications: Attention deficit hyperactivity disorder (ADHD), combined type (CMS/HCC) Take 1 capsule (60 mg) by mouth in the morning. 30 capsule 0 03/25/2023 04/24/2023 Active Start: 06-19-2022 take 1 capsule by [facility] once daily in the morning Vyvanse 60 mg oral capsule 60 mg = 1 cap(s), Oral, qAM, Refills(s) 0 Start Date: 06/19/22 Status: Ordered meloxicam 7.5 mg oral tablet (1 source) Nonsteroidal Anti-inflammatory Drug Start: 06-19-2022 take 1 tablet by mouth once daily as needed for pain Mobic 7.5 mg Tab 7.5 mg = 1 tab(s), Oral, Daily, PRN Pain, # 90 tab(s), Refills(s) 0, Pharmacy: [id number], 160, cm, 06/19/22 14:33:00 EDT, Height/Length Dosing Start Date: 06/19/22 Status: Ordered metFORMIN hydrochloride 500 mg oral tablet (4 sources) Biguanide Start: 03-09-2023 End: 03-08-2024 take 1 tablet by mouth in the morning metFORMIN (Glucophage) 500 MG tablet Indications: Type 2 diabetes mellitus with hyperglycemia, with long-term current use of insulin ([facility]) Take 1 tablet (500 mg) by mouth in the morning and 1 tablet (500 mg) in the evening. Take with meals. 180 tablet 3 03/09/2023 03/08/2024 Active metroNIDAZOLE 500 mg oral tablet (2 sources) Nitroimidazole Antimicrobial Start: 03-13-2023 End: 03-23-2023 take 1 tablet by mouth in the morning, then take 1 tablet by mouth in the evening, then take 1 tablet by mouth at bedtime metroNIDAZOLE (Flagyl) 500 MG tablet Indications: Diarrhea, unspecified type Take 1 tablet (500 mg) by mouth in the morning and 1 tablet (500 mg) in the evening and 1 tablet (500 mg) before bedtime. Do all this for 10 days. 30 tablet 0 03/13/2023 03/23/2023 Active Multivitamin preparation (7 sources) Start: 02-27-2022 take 1 tablet by mouth once daily in the morning Multivitamin Active 1 TAB PO Every morning February 27, 2022 1:00am Start: 02-27-2022 take 1 tablet by pema th once daily in the morning Multivitamin Active 1 TAB PO Every morning February 27, 2022 12:00am take 1 tablet by pema th once daily Multi Vitamin - 1 tablet Orally Once a day Active nitrofurantoin, macrocrystals 25 mg / nitrofurantoin, monohydrate 75 mg oral capsule (17 sources) Nitrofuran Antibacterial Start: 12-29-2021 take 1 capsule by mouth every twelve hours Macrobid 100 MG 1 capsule with food Orally every 12 hrs for 7 day(s) Dec, Active Start: 11-16-2018 End: 05-16-2020 take 1 capsule by mouth twice daily at mealtime Nitrofurantoin Monohyd/M-Cryst (Macrobid) 100 mg capsule Discontinued 100 MG PO Twice daily 14 November 16, 2018 12:00am May 16, 2020 4:43pm must administer with a meal/food Start: 06-20-2018 End: 09-04-2018 take 1 capsule by mouth twice daily at mealtime Nitrofurantoin Monohyd/M-Cryst (Macrobid) 100 mg capsule Discontinued 100 MG PO Twice daily 14 June 20, 2018 12:00am September 04, 2018 10:54am must administer with a meal/food nortriptyline 10 mg oral capsule (1 source) Tricyclic Antidepressant Start: 06-19-2022 End: 09-17-2022 take 1 capsule by mouth at bedtime nortriptyline 10 mg Cap 10 mg = 1 cap(s), Oral, Bedtime, X 90 day(s), # 90 cap(s), Refills(s) 0, Pharmacy: [id number], 160, cm, 06/19/22 14:33:00 EDT, Height/Length Dosing Start Date: 06/19/22 Stop Date: 09/17/22 Status: Ordered ondansetron 4 mg disintegrating oral tablet (5 sources) Serotonin-3 Receptor Antagonist Start: 03-11-2023 ondansetron ODT (Zofran-ODT) 4 MG disintegrating tablet DISSOLVE 1 TABLET ON TONGUE EVERY 6 HOURS NEEDED FOR NAUSEA AND VOMITING 0 03/11/2023 Active Start: 02-04-2022 take 1 tablet by pema th every eight hours as needed Zofran ODT 4 MG 1 tablet on the tongue and allow to dissolve Orally every 8 hrs as needed for 4 days Jan, Active ProAir HFA 108 (90 Base) MCG/ACT (2 sources) Start: 02-20-2015 ProAir HFA 108 (90 Base) MCG/ACT 2 puffs as needed Inhalation every 4 -6hrs Feb, Active traZODone hydrochloride 50 mg oral tablet (12 sources) Serotonin Reuptake Inhibitor Start: 02-18-2023 take 2 tablets by mouth at bedtime traZODone (Desyrel) 50 MG tablet Indications: Moderate episode of recurrent major depressive disorder (HCC) (CMS/HCC) Take 2 tablets (100 mg) by mouth at bedtime 180 tablet 0 02/18/2023 Active Start: 12-26-2021 take 50 mg by mouth once daily at bedtime Trazodone Active 50 MG PO Daily at bedtime December 26, 2021 1:00am Start: 12-26-2021 Trazodone Acti ve MG TABLET December 26, 2021 12:00am Completed/Discontinued Medications Medication Drug Class(es) Dates Sig (Normalized) Sig (Original) amphetamine aspartate 5 mg / amphetamine sulfate 5 mg / dextroamphetamine saccharate 5 mg / dextroamphetamine sulfate 5 mg oral tablet (8 sources) Central Nervous System Stimulant Start: 05-16-2020 End: 12-26-2021 take 1 tablet by mouth once daily Dextroamphetamine -Amphetamine (Adderall) 20 mg Tablet Discontinued 20 MG PO Daily May 16, 2020 12:00am December 26, 2021 5:38pm cephalexin 500 mg oral capsule (16 sources) Cephalosporin Antibacterial Start: 06-26-2018 End: 09-04-2018 take 1 capsule by mouth every six hours Cephalexin (Keflex) 500 mg capsule Discontinued 500 MG PO Q6H 40 June 26, 2018 12:00am September 04, 2018 10:54am Start: 02-10-2017 End: 02-17-2017 take 1 capsule by mouth three times daily Cephalexin (Keflex) 500 mg capsule Discontinued 500 MG PO Three times daily 29 08February 10, 2017 1:00am February 17, 2017 1:02am cyclobenzaprine hydrochloride 10 mg oral tablet (8 sources) Muscle Relaxant Start: 10-16-2016 End: 02-10-2017 take 10 mg by mouth three times daily Cyclobenzaprine Discontinued 10 MG PO Three times daily October 16, 2016 12:00am February 10, 2017 10:39pm insulin, regular, human 100 unt/ml injectable solution (8 sources) Insulin Start: 09-01-2018 End: 09-04-2018 inject 10 [IU] by subcutaneous injection twice daily Insulin Regular Human (Humulin R Regular U-100 Insuln) 100 unit/mL Solution Discontinued 10 UNIT SUBCUT Twice daily September 01, 2018 12:00am September 04, 2018 10:54am meclizine hydrochloride 25 mg oral tablet (8 sources) Antiemetic Start: 12-18-2017 End: 06-20-2018 take 25 mg by mouth three times daily Meclizine Discontinued 25 MG PO Three times daily December 18, 2017 1:00am June 20, 2018 6:15pm omeprazole 20 mg delayed release oral tablet (8 sources) Proton Pump Inhibitor Start: 06-27-2018 End: 11-16-2018 take 1 tablet by mouth twice daily Omeprazole Magnesium (Prilosec Otc) 20 mg tablet,delayed release (DR/EC) Discontinued 20 MG PO Twice daily 28 11June 27, 2018 12:00am November 16, 2018 9:16pm PARoxetine hydrochloride 20 mg oral tablet (16 sources) Serotonin Reuptake Inhibitor Start: 12-18-2017 End: 06-20-2018 take 10 mg by mouth twice daily Paroxetine Hcl Discontinued 10 MG PO Twice daily December 18, 2017 3:59pm June 20, 2018 6:15pm Start: 09-28-2017 End: 12-18-2017 take 20 mg by mouth once daily in the morning Paroxetine Hcl Discontinued 20 MG PO Every morning September 28, 2017 12:00am December 18, 2017 3:59pm phenazopyridine hydrochloride 200 mg oral tablet (8 sources) Start: 02-10-2017 End: 09-20-2017 take 1 tablet by mouth every eight hours at mealtime Phenazopyridine (Pyridium) 200 mg tablet Discontinued 200 MG PO Q8H February 10, 2017 1:00am September 20, 2017 8:05pm administer with food and large glass water [id number] Fumarate-Fa () 28-800 mg-mcg Tablet (8 sources) Start: 08-08-2018 End: 11-16-2018 take 1 tablet by mouth once daily [id number] Fumarate-Fa () 28-800 mg-mcg Tablet Discontinued 28 MG PO Daily August 08, 2018 12:00am November 16, 2018 9:16pm Start: 08-08-2018 End: 11-16-2018 take 1 tablet by mouth once daily [id number]-[id number] Fumarate-Fa () 28-800 mg-mcg Tablet Discontinued 28 MG PO Daily August 07, 2018 11:00pm November 16, 2018 8:16pm traMADol hydrochloride 50 mg oral tablet (8 sources) Opioid Agonist Start: 09-04-2018 End: 11-16-2018 take 50 mg by mouth every six hours Tramadol Discontinued 50 MG PO Q6H 20 September 04, 2018 12:00am November 16, 2018 9:16pm Problems Active Problems Problem Classification Problem Date Documented Date Episodic/Chronic Abdominal hernia (1 source) Hiatal hernia 04-05-2020 Episodic Abdominal pain (8 sources) Abdominal pain; Translations: [Unspecified abdominal pain] 12-26-2021 Episodic Anxiety disorders (20 sources) Anxiety; Translations: [Anxiety disorder, unspecified] Onset: 06-17-2022 Resolved: 2022 04-05-2020 Chronic Attention-deficit, conduct, and disruptive behavior disorders (5 sources) Attention deficit hyperactivity disorder, combined type; Translations: [Attention-deficit hyperactivity disorder, combined type] Onset: 06-17-2022 06-17-2022 Chronic Biliary tract disease (2 sources) Biliary calculus; Translations: [Calculus of gallbladder without cholecystitis without obstruction] Episodic Contraceptive and procreative management (2 sources) Intrauterine contraceptive device in situ; Translations: [Encounter for routine checking of intrauterine contraceptive device] 03-17-2023 Episodic Diabetes mellitus with complications (1 source) Type 2 diabetes mellitus with hyperglycemia; Translations: [Type 2 diabetes mellitus with hyperglycemia] Onset: 08-20-2022 Chronic Endometriosis (6 sources) Uterine adenomyosis; Translations: [Adenomyosis] Onset: 06-17-2022 03-19-2023 Chronic Essential hypertension (4 sources) Benign essential hypertension; Translations: [Essential (primary) hypertension] Onset: 06-17-2022 06-17-2022 Chronic Genitourinary symptoms and ill-defined conditions (1 source) Dysuria Episodic Menstrual disorders (8 sources) Amenorrhea; Translations: [Amenorrhea, unspecified] Onset: 09-22-2022 09-22-2022 Chronic Mood disorders (20 sources) Major depressive disorder; Translations: [Major depressive disorder, single episode, unspecified] Onset: 06-17-2022 Resolved: 2022 09-23-2017 Chronic Other complications of (8 sources) Abdominal pain in ; Translations: [Other specified related conditions, unspecified trimester] 06-26-2018 Episodic Other ear and sense organ disorders (2 sources) Unspecified otitis externa, left ear; Translations: [Infective otitis externa, unspecified] 06-07-2023 Chronic Other female genital disorders (4 sources) Postcoital bleeding; Translations: [Postcoital and contact bleeding] Onset: 06-17-2022 06-17-2022 Chronic Other injuries and conditions due to external causes (2 sources) Foreign body in ear; Translations: [Foreign body of ear, left] Episodic Other nervous system disorders (4 sources) Poor concentration; Translations: [Attention and concentration deficit] Onset: 06-17-2022 06-17-2022 Chronic Other nervous system disorders (4 sources) Acute postoperative pain; Translations: [Other acute postprocedural pain] 03-13-2022 Episodic Other nutritional; endocrine; and metabolic disorders (4 sources) Body mass index 30+ - obesity; Translations: [Obesity, unspecified] Onset: 06-17-2022 06-17-2022 Chronic Other upper respiratory infections (1 source) Acute upper respiratory infection, unspecified Episodic Otitis media and related conditions (2 sources) Otitis media, unspecified, left ear; Translations: [Unspecified otitis media] 06-07-2023 Episodic Spondylosis; intervertebral disc disorders; other back problems (3 sources) Low back pain; Translations: [Neck pain] Onset: 02-11-2018 Episodic Sprains and strains (8 sources) Strain of neck muscle; Translations: [Strain of muscle, fascia and tendon at neck level, initial encounter] 10-16-2016 Episodic Urinary tract infections (17 sources) Urinary tract infectious disease; Translations: [Urinary tract infection, site not specified] 11-16-2018 Episodic Past or Other Problems Problem Classification Problem Date Documented Da te Episodic/Chronic Conditions associated with dizziness or vertigo (9 sources) Vertigo; Translations: [Dizziness and giddiness] Onset: 3 05-16-2020 Episodic Diabetes mellitus without complication (5 sources) Hyperglycemia; Translations: [Hyperglycemia, unspecified] Onset: 3 08-14-2022 Episodic Malaise and fatigue (4 sources) Fatigue; Translations: [Other fatigue] Onset: 3 08-21-2022 Episodic Other complications of (4 sources) Maternal obesity complicating , childbirth and the puerperium, antepartum; Translations: [Obesity complicating , unspecified trimester] Onset: 3 Resolved: 3 2022 Chronic Other complications of (4 sources) Other specified diseases and conditions complicating , childbirth and the puerperium; Translations: [OTH DZ COMP PREG CHILDBIRTH PUERPER] Onset: 9 Episodic Other connective tissue disease (1 source) Pain in left thigh; Translations: [PAIN IN LEFT THIGH] Onset: 9 Episodic Other connective tissue disease (1 source) Pain in right thigh; Translations: [PAIN IN RIGHT THIGH] Onset: 9 Episodic Other female genital disorders (6 sources) Pain in female genitalia on intercourse; Translations: [Unspecified dyspareunia] Onset: 3 Resolved: 3 03-19-2023 Chronic Other female genital disorders (4 sources) Cervical intraepithelial neoplasia grade 1; Translations: [Mild cervical dysplasia] Onset: 3 06-17-2022 Episodic Other female genital disorders (4 sources) Cervical intraepithelial neoplasia grade 2; Translations: [Moderate cervical dysplasia] Onset: 3 06-17-2022 Episodic Other gastrointestinal disorders (4 sources) Constipation; Translations: [Constipation, unspecified] Onset: 3 Resolved: 3 2022 Episodic Other nervous system disorders (4 sources) Loss of sense of smell; Translations: [Anosmia] Onset: 3 Resolved: 3 08-05-2022 Episodic Other nervous system disorders (4 sources) Loss of taste; Translations: [Parageusia] Onset: 3 Resolved: 3 08-05-2022 Episodic Other screening for suspected conditions (not mental disorders or infectious disease) (6 sources) Abnormal cytology findings; Translations: [Abnormal cytological findings in specimens from other organs, systems and tissues] Onset: 3 06-17-2022 Episodic Other skin disorders (1 source) Generalized hyperhidrosis; Translations: [Generalized hyperhidrosis] Onset: 3 Episodic Residual codes; unclassified (4 sources) Difficulty sleeping ; Translations: [Sleep disorder, unspecified] Onset: 3 08-21-2022 Episodic Sexually transmitted infections (not HIV or hepatitis) (4 sources) Human papilloma virus deoxyribonucleic acid test positive, high risk on vaginal specimen; Translations: [Vaginal high risk human papillomavirus (HPV) DNA test positive] Onset: 3 06-17-2022 Episodic Unclassified (1 source) Cough R05.9 Results Test Name Value Interpretation Reference Range Facility Alanine aminotransferase [En zymatic activity/volume] in Serum or PlasmaOrdered By: Colten Arita on 07-10-2023 ALT [Catalytic activity/Vol] 26 U/L Normal 7-52 [facility] Comment on above: Performed By: #### I NSULIN, CPEP #### [facility] , Albumin [Mass/volume] in Ser um or Plasma by Bromocresol green (BCG) dye binding methoOrdered By: Colten Case on 07-10-2023 Albumin BCG dye [Mass/Vol] 4.1 g/dL 3.5-5.7 [facility] Alkaline phosphatase [Enzyma tic activity/volume] in Serum or PlasmaOrdered By: Colten Case on 07-10-2023 ALP [Catalytic activity/Vol] 56 U/L Normal 34-104 [facility] Comment on above: Performed By: #### I NSULIN, CPEP #### [facility] , Aspartate aminotransferase [ Enzymatic activity/volume] in Serum or PlasmaOrdered By: Colten Case on 07-10-2023 AST [Catalytic activity/Vol] 22 U/L Normal 13-39 [facility] Comment on above: Performed By: #### I NSULIN, CPEP #### [facility] , Automated basophil %Ordered By: Colten Case on 07-10-2023 Basophils/100 WBC (Bld) 1.0 % Normal . [facility] Comment on above: Performed By: #### I NSULIN, CPEP #### [facility] , Automated basophil countOrde red By: Colten Case on 07-10-2023 Basophils (Bld) [#/Vol] 0.1 10*3/uL Normal 0.0-0.2 [facility] Comment on above: Result Comment: PERF ORMED BY: [facility] [address] [place] [address] PATHOLOGIST BEHAVIORAL HEALTH CONSULTANT ISABELLA PATEL M.D. Performed By: #### I NSULIN, CPEP #### [facility] , Automated blood monocyte cou ntOrdered By: Colten Arita on 07-10-2023 Monocytes (Bld) [#/Vol] 0.4 10*3/uL Normal 0.0-0.8 [facility] [facility] Comment on above: Performed By: #### I NSULIN, CPEP #### [facility] , Automated eosinophil %Ordere d By: Colten Case on 07-10-2023 Eosinophils/100 WBC (Bld) 1.1 % Normal . [facility] Comment on above: Performed By: #### I NSULIN, CPEP #### [facility] , Automated eosinophil countOr dered By: Colten Case on 07-10-2023 Eosinophils (Bld) [#/Vol] 0.1 10*3/uL Normal 0.0-0.45 [facility] Comment on above: Performed By: #### I NSULIN, CPEP #### [facility] , Automated monocyte %Ordered By: Colten Case on 07-10-2023 Monocytes/100 WBC (Bld) 5.5 % Normal . [facility] Comment on above: Performed By: #### I NSULIN, CPEP #### [facility] , Automated neutrophil %Ordere d By: Colten Case on 07-10-2023 Neutrophils/100 WBC (Bld) 66.5 % Normal . [facility] Comment on above: Performed By: #### I NSULIN, CPEP #### [facility] , Bilirubin.total [Mass/volume ] in Serum or PlasmaOrdered By: Colten Case on 07-10-2023 Bilirubin [Mass/Vol] 0.7 mg/dL Normal 0.3-1.0 [facility] Comment on above: Performed By: #### I NSULIN, CPEP #### [facility] , Calcium [Mass/volume] in Ser um or PlasmaOrdered By: Colten Case on 07-10-2023 Calcium [Mass/Vol] 9.4 mg/dL Normal 8.6-10.3 [facility] Comment on above: Performed By: #### I NSULIN, CPEP #### [facility] , Carbon dioxide, total [Moles /volume] in Serum or PlasmaOrdered By: Colten Case on 07-10-2023 CO2 [Moles/Vol] 26.0 mmol/L Normal 21.0-31.0 [facility] Comment on above: Performed By: #### I NSULIN, CPEP #### [facility] , Chloride [Moles/volume] in S niraj or PlasmaOrdered By: Colten Case on 07-10-2023 Chloride [Moles/Vol] 102 mmol/L Normal 98-107 [facility] Comment on above: Performed By: #### I NSULIN, CPEP #### [facility] , Cholesterol [Mass/volume] in Serum or PlasmaOrdered By: Colten Case on 07-10-2023 Cholesterol [Mass/Vol] 161 mg/dL Normal 140-200 [facility] Comment on above: Chol less than 200 m g/dl low riskChol 201-239 mg/dl borderline riskChol 240 mg/dl and greater high risk Result Comment: Chol less than 200 mg/dl low risk Chol 201-239 mg/dl borderline risk Chol 240 mg/dl and greater high risk Performed By: #### I NSULIN, CPEP #### [facility] , Cholesterol in LDL Calc [Mas s/Vol]Ordered By: Colten Case on 07-10-2023 Cholesterol in LDL [Mass/Vol] 86 mg/dL 0-100 [facility] Comment on above: LDL ATP III CLASSIFI CATIONLDL less than 100 mg/dL OptimalLDL 100-129 mg/dL Near or above optimalLDL 130-159 mg/dL Borderline highLDL 160-189 mg/dL HighLDL greater than 189 mg/dL Very high Cholesterol in VLDL Calc [Ma ss/Vol]Ordered By: Colten Case on 07-10-2023 Cholesterol in VLDL [Mass/Vol] 35 mg/dL [facility] Complete Blood Count Auto Di ffon 07-10-2023 Mean Corpuscular HGB Conc 34.8 g/dL Normal 32.0-35.0 [facility] Comment on above: Performed By: #### I NSULIN, CPEP #### [facility] , NRBC% 0.0 /100{WBC} Normal 0-0.5 [facility] Comment on above: Performed By: #### I NSULIN, CPEP #### [facility] , Comprehensive Metabolic Pane mahendra 07-10-2023 Albumin [Mass/Vol] 4.1 g/dL Normal 3.5-5.7 [facility] Comment on above: Performed By: #### I NSULIN, CPEP #### [facility] , GFR/1.73 sq M.predicted MDRD (S/P/Bld) [Vol rate/Area] mL/min/{1.73_m2} Normal [facility] Comment on above: Performed By: #### I NSULIN, CPEP #### [facility] , Creatinine [Mass/volume] in Serum or PlasmaOrdered By: Colten Arita on 07-10-2023 Creatinine [Mass/Vol] 0.59 mg/dL Low 0.60-1.20 [facility] Comment on above: Performed By: #### I NSULIN, CPEP #### [facility] , Erythrocyte distribution wid th [Ratio] by Automated countOrdered By: Colten Arita on 07-10-2023 Erythrocyte distribution width (RBC) [Ratio] 12.2 % Normal 11.9-15.3 [facility] Comment on above: Performed By: #### I NSULIN, CPEP #### [facility] , Erythrocytes [#/volume] in B lood by Automated countOrdered By: Colten Arita on 07-10-2023 RBC (Bld) [#/Vol] 4.70 10*6/uL Normal 3.60-5.00 [facility] Comment on above: Performed By: #### I NSULIN, CPEP #### [facility] , Glucose [Mass/volume] in Ser um or PlasmaOrdered By: Colten Arita on 07-10-2023 Glucose [Mass/Vol] 261 mg/dL High 70-100 [facility] Comment on above: ADA recommended refe rence rangeRandom Glucose Reference Range is dependent on time and content of last meal. Glucose of more than 200 mg/dL in a nonstressed, ambulatory subject supports the diagnosis of Diabetes Mellitus. Result Comment: [place] om Glucose Reference Range is dependent on time and content of last meal. Glucose of more than 200 mg/dL in a nonstressed, ambulatory subject supports the diagnosis of Diabetes Mellitus. ADA recommended reference range Performed By: #### I NSULIN, CPEP #### [facility] , Hematocrit [Volume Fraction] of Blood by Automated countOrdered By: Colten Arita on 07-10-2023 Hematocrit (Bld) [Volume fraction] 42.6 % Normal 34.0-46.4 [facility] Comment on above: Performed By: #### I NSULIN, CPEP #### [facility] , Hemoglobin [Mass/volume] in BloodOrdered By: Colten Arita on 07-10-2023 Hemoglobin (Bld) [Mass/Vol] 14.8 g/dL Normal 11.8-15.4 [facility] Comment on above: Performed By: #### I NSSAWYER, CPEP #### [facility] , Leukocytes [#/volume] correc christen for nucleated erythrocytes in Blood by Automated counOrdered By: Colten Arita on 07-10-2023 WBC corrected for nucl RBC Auto (Bld) [#/Vol] 7.5 10*3/uL 3.8-11.6 [facility] Leukocytes [#/volume] in Blo od by Automated countOrdered By: Colten Arita on 07-10-2023 WBC (Bld) [#/Vol] 7.5 10*3/uL Normal 3.8-11.6 [facility] Comment on above: Performed By: #### I NSSAWYER, CPEP #### [facility] , Lipid Panelon 07-10-2023 LDL Cholesterol,Calculated 86 mg/dL Normal 0-100 [facility] Comment on above: Result Comment: LDL ATP III CLASSIFICATION LDL less than 100 mg/dL Optimal LDL 100-129 mg/dL Near or above optimal LDL 130-159 mg/dL Borderline high LDL 160-189 mg/dL High LDL greater than 189 mg/dL Very high Performed By: #### I NSULIN, CPEP #### [facility] , Triglyceride w/Reflex 175 mg/dL High 0-149 [facility] Comment on above: Result Comment: TRIG ATP III CLASSIFICATION TRIG less than 150 mg/dL Normal TRIG 150-199 mg/dL Borderline high TRIG 200-500 mg/dL High TRIG greater than 500 mg/dL Very high Standard traceable to the Center for Disease Conrtrol and Prevention (CDC) test method. Performed By: #### I NSULIN, CPEP #### [facility] , VLDL CHOLESTEROL 35 mg/dL Normal [facility] Comment on above: Performed By: #### I NSULIN, CPEP #### [facility] , Lymphocytes [#/volume] in Bl ood by Automated countOrdered By: Colten Efren on 07-10-2023 Lymphocytes (Bld) [#/Vol] 1.9 10*3/uL Normal 1.00-4.8 [facility] Comment on above: Performed By: #### I NSULIN, CPEP #### [facility] , Lymphocytes/100 leukocytes i n Blood by Automated countOrdered By: Colten Arita on 07-10-2023 Lymphocytes/100 WBC (Bld) 25.9 % Normal . [facility] Comment on above: Performed By: #### I NSSAWYER, CPEP #### [facility] , MCH [Entitic mass] by Automa christen countOrdered By: Colten Arita on 07-10-2023 MCH (RBC) [Entitic mass] 31.6 pg Normal 24.7-34.3 [facility] Comment on above: Performed By: #### I NSULIN, CPEP #### [facility] , MCHC Auto (RBC) [Mass/Vol]Or dered By: Colten Efren on 07-10-2023 MCHC (RBC) [Mass/Vol] 34.8 g/dL 32.0-35.0 [facility] MCV [Entitic volume] by Auto mated countOrdered By: Colten Case on 07-10-2023 MCV (RBC) [Entitic vol] 90.7 fL Normal 80-100 [facility] Comment on above: Performed By: #### I NSULIN, CPEP #### [facility] , Neutrophils [#/volume] in Bl ood by Automated countOrdered By: Colten Case on 07-10-2023 Neutrophils (Bld) [#/Vol] 5.0 10*3/uL Normal 1.8-7.7 [facility] Comment on above: Performed By: #### I NSULIN, CPEP #### [facility] , No Panel InformationOrdered By: Colten Case on 07-10-2023 Estimated GFR (CKD-EPI) > 60.0 mL/Min [facility] Creatinine Clearance (Chem N/A [facility] Nucleated erythrocytes [Pres ence] in Blood by Automated countOrdered By: Colten Arita on 07-10-2023 Nucleated RBC Auto Ql (Bld) 0.0 /100{WBC} 0-0.5 [facility] Platelet mean volume [Entiti c volume] in Blood by Automated countOrdered By: Colten Arita on 07-10-2023 Platelet mean volume (Bld) [Entitic vol] 8.9 fL Normal 6.3-10.7 [facility] Comment on above: Performed By: #### I NSULIN CPEP #### [facility] , Platelets [#/volume] in Bloo d by Automated countOrdered By: Colten Arita on 07-10-2023 Platelets (Bld) [#/Vol] 226 10*3/uL Normal 150-450 [facility] Comment on above: Performed By: #### I NSULIN, CPEP #### [facility] , Potassium [Moles/volume] in Serum or PlasmaOrdered By: Colten Arita on 07-10-2023 Potassium [Moles/Vol] 4.3 mmol/L Normal 3.5-5.1 [facility] Comment on above: Performed By: #### I NSULIN, CPEP #### [facility] , Protein [Mass/volume] in Ser um or PlasmaOrdered By: Colten Arita on 07-10-2023 Protein [Mass/Vol] 6.7 g/dL Normal 6.4-8.9 [facility] Comment on above: Performed By: #### I NSULIN, CPEP #### [facility] , Serum globulin measurement b y calculation (mass/volume)Ordered By: Colten Case on 07-10-2023 Globulin (S) [Mass/Vol] 2.6 g/dL Normal [facility] Comment on above: Performed By: #### I NSULIN, CPEP #### [facility] , Serum or plasma albumin/glob ulin mass ratioOrdered By: Colten Arita on 07-10-2023 Albumin/Globulin [Mass ratio] 1.6 {ratio} Normal [facility] Comment on above: Performed By: #### I NSULIN, CPEP #### [facility] , Serum or plasma anion gap de terminationOrdered By: Colten Arita on 07-10-2023 Anion gap [Moles/Vol] 12.3 mmol/L Normal 6.0-15.0 [facility] Comment on above: Performed By: #### I NSULIN, CPEP #### [facility] , Serum or plasma high density lipoprotein (HDL) cholesterol measurementOrdered By: Colten Case on 07-10-2023 Cholesterol in HDL [Mass/Vol] 40 mg/dL Normal 23-92 [facility] Comment on above: HDL CHOL ATP-III CLA SSIFICATION Cardiovascular RiskHDL > or equal to 60 mg/dL LOWHDL < 40 mg/dL HIGH Result Comment: HDL CHOL ATP-III CLASSIFICATION Cardiovascular Risk HDL > or equal to 60 mg/dL LOW HDL < 40 mg/dL HIGH Performed By: #### I NSULIN, CPEP #### [facility] , Serum or plasma total choles terol/high density lipoprotein (HDL) cholesterol mass ratOrdered By: Colten Case on 07-10-2023 Cholesterol.total/[place] sterol in HDL [Mass ratio] 4.0 {ratio} Normal <5.0 [facility] Comment on above: Performed By: #### I NSULIN, CPEP #### [facility] , Sodium [Moles/volume] in Ser um or PlasmaOrdered By: Colten Case on 07-10-2023 Sodium [Moles/Vol] 136 mmol/L Normal 136-145 [facility] Comment on above: Performed By: #### I NSULIN, CPEP #### [facility] , Thyroid Stim Hormone w/Rflxo n 07-10-2023 Thyroid Stim Hormone w/Rflx 2.88 u[iU]/mL Normal 0.45-5.33 [facility] Comment on above: Result Comment: PERF ORMED BY: [facility] [address] [place] [address] PATHOLOGIST BEHAVIORAL HEALTH CONSULTANT ISABELLA PATEL M.D. Performed By: #### I NSULIN, CPEP #### [facility] , Thyrotropin [Units/volume] i n Serum or PlasmaOrdered By: Colten Arita on 07-10-2023 TSH Qn 2.88 m[IU]/L 0.45-5.33 [facility] Triglyceride [Mass/volume] i n Serum or PlasmaOrdered By: Colten Case on 07-10-2023 Triglyceride [Mass/Vol] 175 mg/dL 0-149 [facility] Comment on above: TRIG ATP III CLASSIF ICATIONTRIG less than 150 mg/dL NormalTRIG 150-199 mg/dL Borderline highTRIG 200-500 mg/dL High TRIG greater than 500 mg/dL Very highStandard traceable to the Center for Disease Conrtrol and Prevention (CDC) test method. Urea nitrogen [Mass/volume] in Serum or PlasmaOrdered By: Colten Arita on 07-10-2023 Urea nitrogen [Mass/Vol] 12 mg/dL Normal 7-25 [facility] Comment on above: Performed By: #### I NSULIN, CPEP #### [facility] , BI MAMMOGRAM SCREENING TOMOS YJENNYIS BILATERALon 06-11-2023 BI MAMMOGRAM SCREENING TOMOSYNTHESIS BILATERAL This is a summary report. The complete report is available in the patient's medical record. If you cannot access the medical record, please contact the sending organization for a detailed fax or copy. EXAMINATION: BI MAMMOGRAM SCREENING TOMOSYNTHESIS BILATERAL CLINICAL HISTORY:screening COMPARISON: There are no previous mammograms available for comparison. RESULT: Digital mammography and 3D tomosynthesis of bilateral breasts was performed. Density: Almost entirely fatty [1] There is no suspicious mass, asymmetry, architectural distortion, or calcification IMPRESSION: BIRADS 1 - Negative Follow-up: Routine Screening Mamm Board Certified Radiologists. Accredited by the ACR and FDA. MAMMOGRAPHY IS VERY IMPORTANT TO YOUR HEALTH. THE [employer] GUIDELINES RECOMMEND THAT WOMEN 40 YEARS OF AGE AND OLDER SHOULD HAVE A MAMMOGRAM EVERY YEAR. A REMINDER LETTER WILL BE SENT AT THE APPROPRIATE TIME. THIS FACILITY UTILIZES A REMINDER SYSTEM TO ENSURE ALL PATIENTS RECEIVE REMINDER NOTIFICATIONS AT THE APPROPRIATE TIME BASED ON THE RECOMMENDATIONS OF THIS EXAM. THIS INCLUDES REMINDERS FOR ROUTINE SCREENING MAMMOGRAMS, DIAGNOSTIC MAMMOGRAMS IN WHICH THE PATIENT IS ASKED TO RETURN FOR ADDITIONAL VIEWS, OR OTHER BREAST IMAGING INTERVENTIONS WHEN APPROPRIATE. THE PATIENT WILL BE PLACED IN THE APPROPRIATE REMINDER SYSTEM INCLUDING A REMINDER AT THE APPROPRIATE TIME FOR ANY PENDING ADDITIONAL VIEWS. TRANSCRIBED BY: ELECTRONICALLY SIGNED BY: Gunnar Walker MD Normal Not Available XR CHEST 2 VIEWSon XR CHEST 2 VIEWS XR CHEST 2 VIEWS : 04/16/2023 3:24 PM CLINICAL HISTORY: ongoing cough; REYES; chest congestion. COMPARISON: None available. TECHNIQUE: ROUTINE FINDINGS: No consolidating pneumonia, pneumothorax or pleural effusion is seen on the right. There is haziness seen in the left base that may be soft tissue attenuation. The lung is otherwise clear. The cardiac silhouette is within normal limits of size. Spinal fixation hardware is again seen extending from the thoracic spine to the upper lumbar region.. IMPRESSION: NO ACUTE CARDIOPULMONARY PROCESS. GIVEN CHRONICITY CONSIDER CT OF THE CHEST ELECTRONICALLY SIGNED BY: Mark Moscoso DO Normal Not Available C-Peptideon 08-20-2022 C-Peptide 2.2 ng/mL Normal 1.1-4.4 [facility] Comment on above: Result Comment: C-Pe ptide reference interval is for fasting patients. PERFORMED BY: [place] [address] PATHOLOGIST BEHAVIORAL HEALTH CONSULTANT ISABELLA PATEL M.D. Performed By: #### I NSULIN, CPEP #### [facility] , Insulinon 08-20-2022 Insulin 9.5 u[iU]/mL Normal 2.6-24.9 [facility] Comment on above: Result Comment: Perf ormed at: CB - [facility] [address] [id number] [place] Supervisor: Dave Sanchez PhD, Phone: [phone] Performed By: #### I NSULIN, CPEP #### [facility] , Alanine aminotransferase [En zymatic activity/volume] in Serum or PlasmaOrdered By: Della Munguia on 08-14-2022 ALT [Catalytic activity/Vol] 22 U/L Normal 7-52 [facility] Comment on above: Performed By: #### B HOB, MG, CMP, HS TROP, CBC #### [facility] [address] [place] [address] [place] Albumin [Mass/volume] in Ser um or Plasma by Bromocresol green (BCG) dye binding methoOrdered By: Della Munguia on 08-14-2022 Albumin BCG dye [Mass/Vol] 4.3 g/dL 3.5-5.7 [facility] Alkaline phosphatase [Enzyma tic activity/volume] in Serum or PlasmaOrdered By: Della Munguia on 08-14-2022 ALP [Catalytic activity/Vol] 61 U/L Normal 34-104 [facility] Comment on above: Performed By: #### B HOB, MG, CMP, HS TROP, CBC #### [facility] [address] [place] [address] [place] Aspartate aminotransferase [ Enzymatic activity/volume] in Serum or PlasmaOrdered By: Della Munguia on 08-14-2022 AST [Catalytic activity/Vol] 22 U/L Normal 13-39 [facility] Comment on above: Performed By: #### B HOB, MG, CMP, HS TROP, CBC #### [address] Automated basophil %Ordered By: Della Munguia on 08-14-2022 Basophils/100 WBC (Bld) 0.8 % Normal . [facility] Comment on above: Performed By: #### B HOB, MG, CMP, HS TROP, CBC #### [address] Automated basophil countOrde red By: Della Munguia on 08-14-2022 Basophils (Bld) [#/Vol] 0.1 10*3/uL Normal 0.0-0.2 [facility] Comment on above: Result Comment: PERF ORMED BY: [place] [address] PATHOLOGIST BEHAVIORAL HEALTH CONSULTANT ISABELLA PATEL M.D. Performed By: #### B HOB, MG, CMP, HS TROP, CBC #### [address] Automated blood monocyte cou ntOrdered By: Della Munguia on 08-14-2022 Monocytes (Bld) [#/Vol] 0.5 10*3/uL Normal 0.0-0.8 [facility] Comment on above: Performed By: #### B HOB, MG, CMP, HS TROP, CBC #### [address] Automated eosinophil %Ordere d By: Della Munguia on 08-14-2022 Eosinophils/100 WBC (Bld) 0.9 % Normal . [facility] Comment on above: Performed By: #### B HOB, MG, CMP, HS TROP, CBC #### [address] Automated eosinophil countOr dered By: Della Savannatesha on 08-14-2022 Eosinophils (Bld) [#/Vol] 0.1 10*3/uL Normal 0.0-0.45 [facility] Comment on above: Performed By: #### B HOB, MG, CMP, HS TROP, CBC #### [facility] [address] Automated erythrocytes count in urine sediment (number/area)Ordered By: Della Savannatesha on 08-14-2022 RBC Auto (Urine sed) [#/Area] 1-2 [HPF] 0-4 [facility] Automated leukocytes count i n urine sediment (number/area)Ordered By: Della Savannatesha on 08-14-2022 WBC Auto (Urine sed) [#/Area] 3-4 [HPF] 0-4 [facility] Automated monocyte %Ordered By: Della Savannatesha on 08-14-2022 Monocytes/100 WBC (Bld) 5.1 % Normal . [facility] Comment on above: Performed By: #### B HOB, MG, CMP, HS TROP, CBC #### [address] Automated neutrophil %Ordere d By: Della Savannatesha on 08-14-2022 Neutrophils/100 WBC (Bld) 60.2 % Normal . [facility] Comment on above: Performed By: #### B HOB, MG, CMP, HS TROP, CBC #### [address] Automated urine color determ inationOrdered By: Della Munguia on 08-14-2022 Color (U) Yellow Normal Yellow [facility] Comment on above: Order Comment: Name Collection Type:: Clean-Voided Midstream Performed By: #### A DDONUAPLUS, [facility] #### [address] Beta Hydroxybuterateon 08-14 Beta Hydroxybuterate 0.20 mmol/L Normal 0.02-0.27 [facility] Comment on above: Result Comment: PERF ORMED BY: [place] [address] PATHOLOGIST BEHAVIORAL HEALTH CONSULTANT ISABELLA PATEL M.D. Performed By: #### B HOB, MG, CMP, HS TROP, CBC #### [address] Beta hydroxybutyrate [Moles/ volume] in Serum or PlasmaOrdered By: Della Munguia on 08-14-2022 Beta hydroxybutyrate [Moles/Vol] 0.20 mmol/L 0.02-0.27 [facility] Bilirubin Test strip Ql (U)O rdered By: Della Munguia on 08-14-2022 Bilirubin Ql (U) Negative Negative [facility] Bilirubin.total [Mass/volume ] in Serum or PlasmaOrdered By: Della Munguia on 08-14-2022 Bilirubin [Mass/Vol] 0.6 mg/dL Normal 0.3-1.0 [facility] Comment on above: Performed By: #### B HOB, MG, CMP, HS TROP, CBC #### [facility] [address] [place] [address] [place] Calcium [Mass/volume] in Ser um or PlasmaOrdered By: Della Munguia on 08-14-2022 Calcium [Mass/Vol] 9.0 mg/dL Normal 8.6-10.3 [facility] Comment on above: Performed By: #### B HOB, MG, CMP, HS TROP, CBC #### [facility] [address] [place] [address] [place] Carbon dioxide, total [Moles /volume] in Serum or PlasmaOrdered By: Della Munguia on 08-14-2022 CO2 [Moles/Vol] 26.0 mmol/L Normal 21.0-31.0 [facility] Comment on above: Performed By: #### B HOB, MG, CMP, HS TROP, CBC #### [facility] [address] [place] [address] [place] Chloride [Moles/volume] in S niraj or PlasmaOrdered By: Della Munguia on 08-14-2022 Chloride [Moles/Vol] 103 mmol/L Normal 98-107 [facility] Comment on above: Performed By: #### B HOB, MG, CMP, HS TROP, CBC #### [facility] [address] [place] [id number] [place] Complete Blood Count Auto Di ffon 08-14-2022 Mean Corpuscular HGB Conc 34.2 g/dL Normal 32.0-35.0 [facility] Comment on above: Performed By: #### B HOB, MG, CMP, HS TROP, CBC #### [address] Monocytes/100 WBC (Bld) 19.76 % Normal 0.00-20.00 [facility] Comment on above: Performed By: #### B HOB, MG, CMP, HS TROP, CBC #### [address] NRBC% 0.1 /100{WBC} Normal 0-0.5 [facility] Comment on above: Performed By: #### B HOB, MG, CMP, HS TROP, CBC #### [address] Comprehensive Metabolic Pane mahendra 08-14-2022 Albumin [Mass/Vol] 4.3 g/dL Normal 3.5-5.7 [facility] Comment on above: Performed By: #### B HOB, MG, CMP, HS TROP, CBC #### [address] Creatinine Clr Calc Pharmacy 135.50 Normal [facility] Comment on above: Performed By: #### B HOB, MG, CMP, HS TROP, CBC #### [address] GFR/1.73 sq M.predicted MDRD (S/P/Bld) [Vol rate/Area] mL/min/{1.73_m2} Normal [facility] Comment on above: Performed By: #### B HOB, MG, CMP, HS TROP, CBC #### [address] Creatinine [Mass/volume] in Serum or PlasmaOrdered By: Della Munguia on 08-14-2022 Creatinine [Mass/Vol] 0.58 mg/dL Low 0.60-1.20 [facility] Comment on above: Performed By: #### B HOB, MG, CMP, HS TROP, CBC #### [place] [address] [place] Dipstick and Microscopicon 0 08-14-2022 Appearance (U) Clear Normal Clear [facility] Comment on above: Order Comment: Name Collection Type:: Clean-Voided Midstream Performed By: #### A DDONUAPLUS, UHCG #### [address] Bacteria,Urine 1+ High None Seen [facility] Comment on above: Order Comment: Name Collection Type:: Clean-Voided Midstream Performed By: #### A DDONUAPLUS, UHCG #### [place] [address] [place] Bilirubin,Urine Negative Normal Negative [facility] Comment on above: Order Comment: Name Collection Type:: Clean-Voided Midstream Performed By: #### A DDONUAPLUS, UHCG #### [address] Glucose Ql (U) >=1000 High Normal [facility] Comment on above: Order Comment: Name Collection Type:: Clean-Voided Midstream Performed By: #### A DDONUAPLUS, UHCG #### [place] [address] [place] Hyaline Casts,Urine 0-8 Normal 0-8 [facility] Comment on above: Order Comment: Name Collection Type:: Clean-Voided Midstream Performed By: #### A DDONUAPLUS, UHCG #### [address] Ketones Ql (U) 1+ High Negative [facility] Comment on above: Order Comment: Name Collection Type:: Clean-Voided Midstream Performed By: #### A DDONUAPLUS, UHCG #### [address] Leukocyte esterase Test strip Ql (U) Negative Normal Negative [facility] Comment on above: Order Comment: Name Collection Type:: Clean-Voided Midstream Performed By: #### A DDONUAPLUS, UHCG #### [place] [address] [place] Nitrite,Urine Negative Normal Negative [facility] Comment on above: Order Comment: Name Collection Type:: Clean-Voided Midstream Performed By: #### A DDONUAPLUS, UHCG #### [address] Occult Blood,Urine Negative Normal Negative [facility] Comment on above: Order Comment: Name Collection Type:: Clean-Voided Midstream Performed By: #### A DDONUAPLUS, UHCG #### [place] [address] [place] Protein,Urine Trace High Negative [facility] Comment on above: Order Comment: Name Collection Type:: Clean-Voided Midstream Performed By: #### A DDONUAPLUS, UHCG #### [address] RBC,Urine 1-2 Normal 0-4 [facility] Comment on above: Order Comment: Name Collection Type:: Clean-Voided Midstream Performed By: #### A DDONUAPLUS, UHCG #### [place] [address] [place] Specificy Chicken,Urine 1.040 High 1.001-1.030 [facility] Comment on above: Order Comment: Name Collection Type:: Clean-Voided Midstream Performed By: #### A DDONUAPLUS, UHCG #### [place] [address] [place] Squamous Epithelial Cell,Urine 5-9 High 0-2 [facility] Comment on above: Order Comment: Name Collection Type:: Clean-Voided Midstream Performed By: #### A DDONUAPLUS, UHCG #### [address] Urobilinogen,Urine Normal Normal Normal [facility] Comment on above: Order Comment: Name Collection Type:: Clean-Voided Midstream Performed By: #### A DDONUAPLUS, UHCG #### [address] [place] [address] [place] WBC,Urine 3-4 Normal 0-4 [facility] Comment on above: Order Comment: Name Collection Type:: Clean-Voided Midstream Performed By: #### A DDONUAPLUS, CG #### [facility] [address] [place], [place] [id number] [facility] ECG 12 lead ECGon 08-14-2022 ECG 12 lead ECG [facility] Main [place] [address] [place] [address] Electrocardiograph Report Signed Patient: Yessy Carnes MR#: [id number] : 1980 Acct:[id number] Age/Sex: 41 / F ADM Date: 08/14/22 Loc: ER Room: Type: PRE ER Attending Dr: Ordering Provider: Della Munguia APRN Date of Service: 08/14/2208/01/1316 ECG/ECG 12 lead ECG: Recheck/Abnormal Lab/Rx Copies to: Test Reason : Blood Pressure : / mmHG Vent. Rate : 086 BPM Atrial Rate : 086 BPM P-R Int : 144 ms QRS Dur : 088 ms QT Int : 388 ms P-R-T Axes : 022 038 036 degrees QTc Int : 464 ms Normal sinus rhythm Confirmed by Gato Vargas DO ([id number]) on 08/14/2022 2:50:54 PM Referred By: Electronically Signed By:Gato Vargas DO Transcribed By: MUS Signed By Gato Vargas DO 1451 Normal [facility] Erythrocyte distribution wid th [Ratio] by Automated countOrdered By: Della Munguia on 08-14-2022 Erythrocyte distribution width (RBC) [Ratio] 12.7 % Normal 11.9-15.3 [facility] Comment on above: Performed By: #### B HOB, MG, CMP, HS TROP, CBC #### [facility] [address] [place], [place] [id number] [facility] Erythrocytes [#/volume] in B lood by Automated countOrdered By: Della Munguia on 08-14-2022 RBC (Bld) [#/Vol] 5.01 10*6/uL High 3.60-5.00 [facility] Comment on above: Performed By: #### B HOB, MG, CMP, HS TROP, CBC #### [facility] [address] Glucose [Mass/volume] in Ser um or PlasmaOrdered By: Della Munguia on 08-14-2022 Glucose [Mass/Vol] 198 mg/dL High 70-100 [facility] Comment on above: ADA recommended refe rence rangeRandom Glucose Reference Range is dependent on time and content of last meal. Glucose of more than 200 mg/dL in a nonstressed, ambulatory subject supports the diagnosis of Diabetes Mellitus. Result Comment: [place] Glucose Reference Range is dependent on time and content of last meal. Glucose of more than 200 mg/dL in a nonstressed, ambulatory subject supports the diagnosis of Diabetes Mellitus. ADA recommended reference range Performed By: #### B HOB, MG, CMP, HS TROP, CBC #### [facility] [address] HCG ( test) [place].rapi d Ql (U)Ordered By: Della Munguia on 08-14-2022 HCG ( test) Ql (U) Negative [facility] HCG,Urineon 08-14-2022 Beta HCG ( test) Ql (U) Negative Normal [facility] Comment on above: Order Comment: Name Collection Type:: Clean-Voided Midstream Result Comment: PERF ORMED BY: [place] [address] PATHOLOGIST BEHAVIORAL HEALTH CONSULTANT ISABELLA PATEL M.D. Performed By: #### I NSULIN, CPEP #### [facility] , Hematocrit [Volume Fraction] of Blood by Automated countOrdered By: Della Munguia on 08-14-2022 Hematocrit (Bld) [Volume fraction] 44.2 % Normal 34.0-46.4 [facility] Comment on above: Performed By: #### B HOB, MG, CMP, HS TROP, CBC #### [facility] [address] Hemoglobin [Mass/volume] in BloodOrdered By: Della Munguia on 08-14-2022 Hemoglobin (Bld) [Mass/Vol] 15.1 g/dL Normal 11.8-15.4 [facility] Comment on above: Performed By: #### B HOB, MG, CMP, HS TROP, CBC #### [facility] [address] Ketones Auto test strip (U) [Mass/Vol]Ordered By: Della Munguia on 08-14-2022 Ketones (U) [Mass/Vol] 1+ Negative [facility] - UrinalysisOrder ed By: Della Munguia on 08-14-2022 Hyaline casts LM Ql (Urine sed) 0-8 [LPF] 0-8 [facility] Leukocytes [#/volume] correc christen for nucleated erythrocytes in Blood by Automated counOrdered By: Della Munguia on 08-14-2022 WBC corrected for nucl RBC Auto (Bld) [#/Vol] 9.7 10*3/uL 3.8-11.6 [facility] Leukocytes [#/volume] in Blo od by Automated countOrdered By: Della Munguia on 08-14-2022 WBC (Bld) [#/Vol] 9.7 10*3/uL Normal 3.8-11.6 [facility] Comment on above: Performed By: #### B HOB, MG, CMP, HS TROP, CBC #### [facility] [address] [place] [address] [place] Lymphocytes [#/volume] in Bl ood by Automated countOrdered By: Della Munguia on 08-14-2022 Lymphocytes (Bld) [#/Vol] 3.2 10*3/uL Normal 1.00-4.8 [facility] Comment on above: Performed By: #### B HOB, MG, CMP, HS TROP, CBC #### [facility] [address] [place] [address] [place] Lymphocytes/100 leukocytes i n Blood by Automated countOrdered By: Della Munguia on 08-14-2022 Lymphocytes/100 WBC (Bld) 33.0 % Normal . [facility] Comment on above: Performed By: #### B HOB, MG, CMP, HS TROP, CBC #### [facility] [address] MCH [Entitic mass] by Automa christen countOrdered By: Della Munguia on 08-14-2022 MCH (RBC) [Entitic mass] 30.1 pg Normal 24.7-34.3 [facility] Comment on above: Performed By: #### B HOB, MG, CMP, HS TROP, CBC #### [facility] [address] MCHC Auto (RBC) [Mass/Vol]Or dered By: Della Munguia on 08-14-2022 MCHC (RBC) [Mass/Vol] 34.2 g/dL 32.0-35.0 [facility] MCV [Entitic volume] by Auto mated countOrdered By: Della Munguia on 08-14-2022 MCV (RBC) [Entitic vol] 88.1 fL Normal 80-100 [facility] Comment on above: Performed By: #### B HOB, MG, CMP, HS TROP, CBC #### [facility] [address] [place] [address] Magnesium [Mass/volume] in S niraj or PlasmaOrdered By: Della Munguia on 08-14-2022 Magnesium [Mass/Vol] 1.9 mg/dL Normal 1.9-2.7 [facility] Comment on above: Performed By: #### B HOB, MG, CMP, HS TROP, CBC #### [facility] [address] Monocyte distribution width [Entitic volume] in Blood by AutomatedOrdered By: Della Munguia on 08-14-2022 Monocyte distribution width Auto (Bld) [Entitic vol] 19.76 % 0.00-20.00 [facility] Neutrophils [#/volume] in Bl ood by Automated countOrdered By: Della Munguia on 08-14-2022 Neutrophils (Bld) [#/Vol] 5.8 10*3/uL Normal 1.8-7.7 [facility] Comment on above: Performed By: #### B HOB, MG, CMP, HS TROP, CBC #### [facility] [address] Nitrite Test strip Ql (U)Ord ered By: Della Munguia on 08-14-2022 Nitrite Ql (U) Negative Negative [facility] No Panel InformationOrdered By: Della Munguia on 08-14-2022 Blood Gas Critical Value See comment [facility] Comment on above: Critical Value jaimes d on: 08/14/2022 at 14:09 Blood Gas Sample Site Venous Fir [facility] FiO2 21 % [facility] Venous Blood Base Excess -4.2 mmol/L -3.0-3.0 [facility] Venous Blood Oxygen Saturation 62.8 % 73.0-76.0 [facility] Venous Blood Partial Pressure CO2 43.3 mm[Hg] 38.0-50.0 [facility] Venous Blood Partial Pressure O2 32.3 mm[Hg] 35.0-45.0 [facility] Venous Blood pH 7.32 7.32-7.43 [facility] Estimated GFR (CKD-EPI) > 60.0 mL/Min [facility] Creatinine Clearance (Chem 135.50 [facility] Nucleated erythrocytes [Pres ence] in Blood by Automated countOrdered By: Della Munguia on 08-14-2022 Nucleated RBC Auto Ql (Bld) 0.1 /100{WBC} 0-0.5 [facility] Platelet mean volume [Entiti c volume] in Blood by Automated countOrdered By: Della Munguia on 08-14-2022 Platelet mean volume (Bld) [Entitic vol] 8.9 fL Normal 6.3-10.7 [facility] Comment on above: Performed By: #### B HOB, MG, CMP, HS TROP, CBC #### [facility] [address] [place] [address] [place] Platelets [#/volume] in Bloo d by Automated countOrdered By: Della Munguia on 08-14-2022 Platelets (Bld) [#/Vol] 225 10*3/uL Normal 150-450 [facility] Comment on above: Performed By: #### B HOB, MG, CMP, HS TROP, CBC #### [facility] [address] Potassium [Moles/volume] in Serum or PlasmaOrdered By: Della Munguia on 08-14-2022 Potassium [Moles/Vol] 3.8 mmol/L Normal 3.5-5.1 [facility] Comment on above: Performed By: #### B HOB, MG, CMP, HS TROP, CBC #### [facility] [address] Protein Auto test strip (U) [Mass/Vol]Ordered By: Della Munguia on 08-14-2022 Protein (U) [Mass/Vol] Trace mg/dL Negative [facility] Protein [Mass/volume] in Ser um or PlasmaOrdered By: Della Munguia on 08-14-2022 Protein [Mass/Vol] 7.2 g/dL Normal 6.4-8.9 [facility] Comment on above: Performed By: #### B HOB, MG, CMP, HS TROP, CBC #### [facility] [address] [place] [address] Serum globulin measurement b y calculation (mass/volume)Ordered By: Della Munguia on 08-14-2022 Globulin (S) [Mass/Vol] 2.9 g/dL Normal F [facility] Comment on above: Performed By: #### B HOB, MG, CMP, HS TROP, CBC #### [facility] [address] Serum or plasma albumin/glob ulin mass ratioOrdered By: Della Munguia on 08-14-2022 Albumin/Globulin [Mass ratio] 1.5 {ratio} Normal [facility] Comment on above: Performed By: #### B HOB, MG, CMP, HS TROP, CBC #### [facility] [address] [place] [address] Serum or plasma anion gap de terminationOrdered By: Della Munguia on 08-14-2022 Anion gap [Moles/Vol] 9.8 mmol/L Normal 6.0-15.0 [facility] Comment on above: Performed By: #### B HOB, MG, CMP, HS TROP, CBC #### [facility] [address] Sodium [Moles/volume] in Ser um or PlasmaOrdered By: Della Munguia on 08-14-2022 Sodium [Moles/Vol] 135 mmol/L Low 136-145 [facility] Comment on above: Performed By: #### B HOB, MG, CMP, HS TROP, CBC #### [address] Specific gravity Auto test s trip (U) [Rel density]Ordered By: Della Munguia on 08-14-2022 Specific gravity (U) [Rel density] 1.040 1.001-1.030 [facility] Squamous epithelial cells de tection in urine sediment by light microscopyOrdered By: Della Munguia on 08-14-2022 Epithelial cells.squamous LM Ql (Urine sed) 5-9 [HPF] 0-2 [facility] Troponin I High Sensitivityo n 08-14-2022 Troponin I High Sensitivity < 2.3 Normal 0.0-15.0 [facility] Comment on above: Result Comment: PERF ORMED BY: [place] [address] PATHOLOGIST BEHAVIORAL HEALTH CONSULTANT ISABELLA PATEL M.D. Performed By: #### B HOB, MG, CMP, HS TROP, CBC #### [address] Troponin I.cardiac [Mass/vol ume] in Serum or Plasma by Detection limit <= 0.01 ng/Ordered By: Della Munguia on 08-14-2022 Troponin I.cardiac DL <= 0.01 ng/mL [Mass/Vol] < 2.3 pg/mL 0.0-15.0 [facility] Urea nitrogen [Mass/volume] in Serum or PlasmaOrdered By: Della Munguia on 08-14-2022 Urea nitrogen [Mass/Vol] 9 mg/dL Normal 7-25 [facility] Comment on above: Performed By: #### B HOB, MG, CMP, HS TROP, CBC #### [facility] [address] Urine bacteria detection by automated methodOrdered By: Della Munguia on 08-14-2022 Bacteria Auto Ql (U) 1+ None Seen [facility] Urine clarity by refractomet ry automatedOrdered By: Della Munguia on 08-14-2022 Clarity Refractometry automated (U) Clear Clear [facility] Urine glucose measurement by automated test strip (mass/volume)Ordered By: Della Munguia on 08-14-2022 Glucose Auto test strip (U) [Mass/Vol] >=1000 mg/dL Normal [facility] Urine hemoglobin detection b y automated test stripOrdered By: Della Munguia on 08-14-2022 Hemoglobin Auto test strip Ql (U) Negative Negative [facility] Urine leukocyte esterase det ection by automated test stripOrdered By: Della Munguia on 08-14-2022 Leukocyte esterase Auto test strip Ql (U) Negative Negative [facility] Urine pH measurement by auto mated test stripOrdered By: Della Munguia on 08-14-2022 pH (U) 5.5 [pH] Normal 5.0-9.0 [facility] Comment on above: Order Comment: Name Collection Type:: Clean-Voided Midstream Performed By: #### A DDONUAPLUS, UHCG #### [facility] [address] Urobilinogen Auto test strip (U) [Mass/Vol]Ordered By: Della Munguia on 08-14-2022 Urobilinogen (U) [Mass/Vol] Normal mg/dL Normal [facility] Venous Blood GasOrdered By: Della Munguia on 08-14-2022 CO2 [Moles/Vol] 23.2 mmol/L Low 24.0-29.0 [facility] Comment on above: Performed By: #### V BG #### Point of Care testing , HCO3 (Bld) [Moles/Vol] 21.9 mmol/L Low 23.0-29.0 [facility] Comment on above: Performed By: #### V BG #### Point of Care testing , Venous Blood Gason 3 Respiratory Critical Normal [facility] Comment on above: Result Comment: Crit ical Value called on: 08/14/2022 at 14:09 PERFORMED BY: [facility] [address] [place] [address] PATHOLOGIST BEHAVIORAL HEALTH CONSULTANT ISABELLA PATEL M.D. Performed By: #### V BG #### Point of Care testing , VBG Base Excess -4.2 mmol/L Low -3.0-3.0 [facility] Comment on above: Performed By: #### V BG #### Point of Care testing , VBG Draw Site Venous Normal [facility] Comment on above: Performed By: #### V BG #### Point of Care testing , VBG Frac Inspired O2 21 % Normal [facility] Comment on above: Performed By: #### V BG #### Point of Care testing , VBG Oxygen Saturation 62.8 % Low 73.0-76.0 [facility] Comment on above: Performed By: #### V BG #### Point of Care testing , VBG PCO2 43.3 mm[Hg] Normal 38.0-50.0 [facility] Comment on above: Performed By: #### V BG #### Point of Care testing , VBG PH Venous PH 7.32 Normal 7.32-7.43 [facility] Comment on above: Performed By: #### V BG #### Point of Care testing , VBG PO2 32.3 mm[Hg] Low 35.0-45.0 [facility] Comment on above: Performed By: #### V BG #### Point of Care testing , Legal Correspondence Officeo n 06-20-2022 Legal Correspondence Office [id number]# 1.00CD:127 Normal [facility] Consent for Treatmenton 06-09 Consent for Treatment [id number] [facility] [id number] #1.00CD:127 Normal [facility] Consultation Noteon 06-20-19 Consultation Note Chief complaint: Low back pain History of present illness: This is a 41-year-old female here for a chief complaint of bilateral lower back pain. The patient rates the pain as a 7 out of 10. She denies radiation down the extremities. Since her last visit she reports the symptoms have been persistent. She is using ibuprofen which helps a little bit. She reports the pain will keep her up at night. At her last visit with us a trial of lumbar medial branch blocks was discussed. She was fearful of that so she is only following up now. She denies numbness or weakness. She also has some neck pain but it is less of an issue. The patient denies additional neurologic symptoms or issues with bladder or bowel control. The patient's past medical, surgical, and social history along with medications and allergies were reviewed. Review of systems was done on 10 systems Physical examination: General: Pleasant white female in no acute distress. Patient appears well-nourished. Vital signs stable Head exam: Head is normocephalic and external ears are normal Neck exam: Mild bilateral cervical tenderness Cardiovascular exam: No signs of poor perfusion and no peripheral edema Respiratory exam: Breathing is unlabored and there is no wheezing present Abdomen exam: Abdomen soft and nondistended Back exam: Bilateral lumbar paraspinal tenderness exacerbated with facet loading Musculoskeletal exam: Strength 5 out of 5. Muscle tone is normal. Neurologic exam: Sensation intact. Reflexes normal and symmetric. Psych exam: Affect is appropriate. Alert and oriented Skin exam: No lesions Assessment: The patient's signs and symptoms are consistent with lumbosacral spondylosis, postlaminectomy syndrome, and scoliosis. We reviewed the patient's imaging. She has Joshi rods correcting a thoracolumbar scoliosis but her lower lumbar region has not been operated on. She has facet arthropathy with contrast enhancement indicating synovitis in the L4-5 and L5-S1 facet joints bilaterally. This correlates with her symptoms of facet arthropathy and spondylosis. Oswestry disability index score was 40% OARRS report was reviewed and was appropriate Plan: I addressed options with her. I will have her stop the ibuprofen and I will trial her on meloxicam 7.5 mg daily as needed. We will check some renal labs to make sure her kidney function is good. I will also put her on 10 mg of nortriptyline at bedtime to help with sleep. She will continue with her home exercises for her spine and I will also write her for a TENS unit. I also reiterated that a trial of bilateral diagnostic lumbar medial branch blocks from L3-L5 would be a reasonable treatment option. She is going to think it over. We discussed the potential risks and benefits of this plan and the patient was in agreement to proceed. I will see the patient for follow-up in 3 months for repeat evaluation. [facility] Comment on above: Result Comment: Elec tronically Signed By: Cindy ROSS, James\.br\Date and Time Signed: 06/19/22 21:55 EDT HIPAA Forms Officeon 023 HIPAA Forms Office [id number]# 1.00CD:127 [facility] Legal Correspondence Officeo n 06-19-2022 Legal Correspondence Office [id number]# 1.00CD:127 [facility] Office/Clinic Note-Physician on 06-19-2022 Office/Clinic Note-Physician [id number]# 1.00CD:127 [facility] Patient Correspondenceon Patient Correspondence [id number]# 1.00CD:127 [facility] Patient Correspondence [id number]# 1.00CD:127 [facility] Patient Correspondence [id number]# 1.00CD:127 [facility] Patient Correspondence [id number]# 1.00CD:127 [facility] Patient Correspondence [id number]# 1.00CD:127 Normal [facility] Patient Correspondence [id number]# 1.00CD:127 Normal [facility] Patient History Officeon Patient History Office [id number]# 1.00CD:127 Normal [facility] Patient History Office [id number]# 1.00CD:127 Normal [facility] Physician Orderon 06-19-2022 Physician Order [id number]# 1.00CD:127 Normal [facility] Physician Order [id number]# 1.00CD:127 Normal [facility] HCG ( test) [place].rapi d Ql (U)Ordered By: JONE VERDUGO on 03-13-2022 HCG ( test) Ql (U) Negative [facility] Creatinine and Glomerular fi ltration rate.predicted panel (S/P/Bld)Ordered By: Martin Goodman on 02-27-2022 Creatinine [Mass/Vol] 0.67 mg/dL 0.44-1.03 [facility] Estimated glomerular filtrat ion rate (GFR) non- AmericanOrdered By: Martin Goodman on 02-27-2022 GFR/1.73 sq M.predicted among non-blacks MDRD (S/P/Bld) [Vol rate/Area] > 60 mL/Min [facility] No Panel InformationOrdered By: Martin Goodman on 02-27-2022 Estimated GFR () > 60 mL/Min [facility] Comment on above: GFR estimated refere nce range: According to KDOQI guidelines, <60 ml/min/1.73m2 is sufficient to diagnose a patient with chronic kidney disease. Pharmacy Creatinine Clearance (Chem N/A [facility] Serum or plasma anion gap de terminationOrdered By: Martin Goodman on 02-27-2022 Anion gap [Moles/Vol] 13.2 mmol/L 6.0-15.0 [facility] Serum or plasma calcium artemio urement (mass/volume)Ordered By: Martin Goodman on 02-27-2022 Calcium [Mass/Vol] 8.5 mg/dL 8.2-10.2 [facility] Serum or plasma chloride bridgett surement (moles/volume)Ordered By: Martin Goodman on 02-27-2022 Chloride [Moles/Vol] 101 mmol/L 95-114 [facility] Serum or plasma glucose artemio urement (mass/volume)Ordered By: Martin Goodman on 02-27-2022 Glucose [Mass/Vol] 171 mg/dL 70-100 [facility] Comment on above: ADA recommended refe rence rangeRandom Glucose Reference Range is dependent on time and content of last meal. Glucose of more than 200 mg/dL in a nonstressed, ambulatory subject supports the diagnosis of Diabetes Mellitus. Serum or plasma potassium me asurement (moles/volume)Ordered By: Martin Goodman on 02-27-2022 Potassium [Moles/Vol] 3.4 mmol/L 3.5-5.1 [facility] Serum or plasma sodium measu rement (moles/volume)Ordered By: Martin Goodman on 02-27-2022 Sodium [Moles/Vol] 137 mmol/L 136-146 [facility] Serum or plasma total carbon dioxide measurement (moles/volume)Ordered By: Martin Goodman on 02-27-2022 CO2 [Moles/Vol] 26.2 mmol/L 22.0-30.0 [facility] Serum or plasma urea nitroge n measurement (mass/volume)Ordered By: Martin Goodman on 02-27-2022 Urea nitrogen [Mass/Vol] 10 mg/dL 9-23 [facility] COVID/FLU/RSV RT-PCRon 02-04 SARS-CoV-2 (COVID-19) RNA JUANA+probe Ql (Unsp spec) Negative [facility] Other COVID/FLU/RSV RT-PCR Negative [facility] Other COVID-19 Detected/Not Detect edOrdered By: Agustin Hendrix on 01-08-2022 SARS-CoV-2 (COVID-19) RNA JUANA+non-probe Ql (Nph) Not detected Not Detecte [facility] Comment on above: This is a duplicate RP2.1 COVID (PCR) result to be used for statistical tracking purpose only. No Panel InformationOrdered By: Agustin Hendrix on 01-08-2022 Respiratory Panel (PCR) F [facility] Respiratory pathogens DNA an d RNA panel - Nasopharynx by JUANA with non-probe detectionOrdered By: Agustin Hendrix on 01-08-2022 Respiratory pathogens DNA and RNA panel JUANA+non-probe (Nph) [facility] Urine culture routineOrdered By: CARA RO on 01-01-2022 Bacteria identified Cx Nom (U) Proteus mirabilis [facility] Urinalysis - AUTOMATEDon Appearance (U) CLEAR [employer] Other Bilirubin Ql (U) SMALL [facility] Other Color (U) DARK YELLOW [employer] Other Glucose Ql (U) Negative [employer] Other Hemoglobin Ql (U) Negative Alma Johns Other Ketones Ql (U) 15 [employer] Other Leukocyte esterase Test strip Ql (U) SMALL [employer] Other Nitrite Ql (U) Negative [employer] Other pH (U) 6.0 [pH] [employer] Other Protein Ql (U) TRACE [employer] Other Specific gravity (U) [Rel density] 1.025 [employer] Other Urobilinogen (U) [Mass/Vol] 0.2 mg/dL [employer] Other Urinalysis - AUTOMATED No rt [employer] Other Urine Cultureon 12-29-2021 Urine Culture 15,000 [employer] Other Urine Culture <16 Susceptible [employer] Other Urine Culture <8 Susceptible [employer] Other Urine Culture <4 Susceptible [employer] Other Urine Culture <2 Susceptible [employer] Other Urine Culture <1 Susceptible [employer] Other Urine Culture <0.5 Susceptible [employer] Other Urine Culture >64 Resistant [employer] Other Urine Culture >8 Resistant [employer] Other Urine Culture <2/38 Susceptible [employer] Other Urine culture routineOrdered By: CARA RO on 12-29-2021 Bacteria identified Cx Nom (U) Proteus mirabilis [facility] Albumin [Mass/volume] in Ser um or PlasmaOrdered By: Rj Breen on 12-26-2021 Albumin [Mass/Vol] 4.0 g/dL 3.2-5.5 [facility] Basophils Auto (Bld) [#/Vol] Ordered By: Rj Breen on 12-26-2021 Basophils (Bld) [#/Vol] 0.1 10*3/uL 0.0-0.2 [facility] Basophils/100 WBC Auto (Bld) Ordered By: Rj Breen on 12-26-2021 Basophils/100 WBC (Bld) 0.6 % . F [facility] Bilirubin Test strip Ql (U)O rdered By: Rj Breen on 12-26-2021 Bilirubin Ql (U) Negative Negative [facility] Color Auto (U)Ordered By: Guillermina Breen on 12-26-2021 Color (U) Yellow Yellow [facility] Creatinine and Glomerular fi ltration rate.predicted panel (S/P/Bld)Ordered By: Rj Breen on 12-26-2021 Creatinine [Mass/Vol] 0.65 mg/dL 0.44-1.03 Fir [facility] Eosinophils Auto (Bld) [#/Vo l]Ordered By: Rj Breen on 12-26-2021 Eosinophils (Bld) [#/Vol] 0.2 10*3/uL 0.0-0.45 [facility] Eosinophils/100 WBC Auto (Bl d)Ordered By: Rj Breen on 12-26-2021 Eosinophils/100 WBC (Bld) 2.0 % . [facility] Erythrocyte distribution wid th Auto (RBC) [Ratio]Ordered By: Rj Breen on 12-26-2021 Erythrocyte distribution width (RBC) [Ratio] 12.1 % 11.9-15.3 [facility] Estimated glomerular filtrat ion rate (GFR) non- AmericanOrdered By: Rj Breen on 12-26-2021 GFR/1.73 sq M.predicted among non-blacks MDRD (S/P/Bld) [Vol rate/Area] > 60 mL/Min [facility] Globulin Calc (S) [Mass/Vol] Ordered By: Rj Breen on 12-26-2021 Globulin (S) [Mass/Vol] 3.2 g/dL [facility] HCG ( test) IA.rapi d Ql (U)Ordered By: Rj Breen on 12-26-2021 HCG ( test) Ql (U) Negative [facility] Hematocrit Auto (Bld) [Volum e fraction]Ordered By: Rj Breen on 12-26-2021 Hematocrit (Bld) [Volume fraction] 44.1 % 34.0-46.4 [facility] Hemoglobin [Mass/volume] in BloodOrdered By: Rj Breen on 12-26-2021 Hemoglobin (Bld) [Mass/Vol] 14.9 g/dL 11.8-15.4 [facility] Ketones Auto test strip (U) [Mass/Vol]Ordered By: Rj Breen on 12-26-2021 Ketones (U) [Mass/Vol] Negative [facility] - Chemistry and C hemistry - challengeOrdered By: Rj Breen on 12-26-2021 Lipase [Catalytic activity/Vol] 35.0 U/L 22-51 [facility] Laboratory - Hematology and Cell countsOrdered By: Rj Breen on 12-26-2021 Nucleated RBC/100 WBC (Bld) [Ratio] 0.1 % 0-0.5 [facility] Leukocytes [#/volume] in Blo od by Automated countOrdered By: Rj Breen on 12-26-2021 WBC (Bld) [#/Vol] 9.7 10*3/uL 4.5-11.0 [facility] Lymphocytes Auto (Bld) [#/Vo l]Ordered By: Rj Breen on 12-26-2021 Lymphocytes (Bld) [#/Vol] 3.5 10*3/uL 1.00-4.8 [facility] Lymphocytes/100 WBC Auto (Bl d)Ordered By: Rj Breen on 12-26-2021 Lymphocytes/100 WBC (Bld) 36.1 % . [facility] MCH Auto (RBC) [Entitic mass ]Ordered By: Rj Breen on 12-26-2021 MCH (RBC) [Entitic mass] 30.7 pg 24.7-34.3 [facility] MCHC Auto (RBC) [Mass/Vol]Or dered By: Rj Breen on 12-26-2021 MCHC (RBC) [Mass/Vol] 33.8 g/dL 32.0-35.0 [facility] MCV Auto (RBC) [Entitic vol] Ordered By: Rj Breen on 12-26-2021 MCV (RBC) [Entitic vol] 90.7 fL 80-100 F [facility] Monocytes Auto (Bld) [#/Vol] Ordered By: Rj Breen on 12-26-2021 Monocytes (Bld) [#/Vol] 0.5 10*3/uL 0.0-0.8 [facility] Monocytes/100 WBC Auto (Bld) Ordered By: Rj Breen on 12-26-2021 Monocytes/100 WBC (Bld) 5.6 % . F [facility] Neutrophils Auto (Bld) [#/Vo l]Ordered By: Rj Breen on 12-26-2021 Neutrophils (Bld) [#/Vol] 5.4 10*3/uL 1.8-7.7 [facility] Neutrophils/100 WBC Auto (Bl d)Ordered By: Rj Breen on 12-26-2021 Neutrophils/100 WBC (Bld) 55.7 % . [facility] Nitrite Test strip Ql (U)Ord ered By: Rj Breen on 12-26-2021 Nitrite Ql (U) Negative Negative [facility] No Panel InformationOrdered By: Rj Breen on 12-26-2021 Estimated GFR () > 60 mL/Min [facility] Comment on above: GFR estimated refere nce range: According to KDOQI guidelines, <60 ml/min/1.73m2 is sufficient to diagnose a patient with chronic kidney disease. Pharmacy Creatinine Clearance (Chem 121.18 [facility] Platelet mean volume Auto (B ld) [Entitic vol]Ordered By: Rj Breen on 12-26-2021 Platelet mean volume (Bld) [Entitic vol] 8.3 fL 6.3-10.7 [facility] Platelets Auto (Bld) [#/Vol] Ordered By: Rj Breen on 12-26-2021 Platelets (Bld) [#/Vol] 302 10*3/uL 150-450 [facility] Protein Auto test strip (U) [Mass/Vol]Ordered By: Rj Breen on 12-26-2021 Protein (U) [Mass/Vol] Negative Negative [facility] Protein [Mass/volume] in Ser um or PlasmaOrdered By: Rj Breen on 12-26-2021 Protein [Mass/Vol] 7.2 g/dL 6.1-7.9 [facility] RBC Auto (Bld) [#/Vol]Ordere d By: Rj Breen on 12-26-2021 RBC (Bld) [#/Vol] 4.86 10*6/uL 3.60-5.00 [facility] Serum or plasma alanine maher otransferase measurement without P-5'-P (enzymatic activiOrdered By: Rj Breen on 12-26-2021 ALT No additional P-5'-P [Catalytic activity/Vol] 16 U/L 10-60 [facility] Serum or plasma albumin/glob ulin mass ratioOrdered By: Rj Breen on 12-26-2021 Albumin/Globulin [Mass ratio] 1.3 {ratio} [facility] Serum or plasma alkaline neda sphatase measurement (enzymatic activity/volume)Ordered By: Rj Breen on 12-26-2021 ALP [Catalytic activity/Vol] 55 U/L 32-92 [facility] Serum or plasma amylase artemio urement (enzymatic activity/volume)Ordered By: Rj Breen on 12-26-2021 Amylase [Catalytic activity/Vol] 51 U/L 28-100 [facility] Serum or plasma anion gap de terminationOrdered By: Rj Breen on 12-26-2021 Anion gap [Moles/Vol] 15.3 mmol/L 6.0-15.0 [facility] Serum or plasma aspartate am inotransferase measurement (enzymatic activity/volume)Ordered By: Rj Breen on 12-26-2021 AST [Catalytic activity/Vol] 21 U/L 10-42 [facility] Serum or plasma calcium artemio urement (mass/volume)Ordered By: Rj Breen on 12-26-2021 Calcium [Mass/Vol] 9.2 mg/dL 8.2-10.2 [facility] Serum or plasma chloride bridgett surement (moles/volume)Ordered By: Rj Breen on 12-26-2021 Chloride [Moles/Vol] 98 mmol/L 95-114 [facility] Serum or plasma glucose artemio urement (mass/volume)Ordered By: Rj Breen on 12-26-2021 Glucose [Mass/Vol] 199 mg/dL 70-100 [facility] Comment on above: ADA recommended refe rence rangeRandom Glucose Reference Range is dependent on time and content of last meal. Glucose of more than 200 mg/dL in a nonstressed, ambulatory subject supports the diagnosis of Diabetes Mellitus. Serum or plasma potassium me asurement (moles/volume)Ordered By: Rj Breen on 12-26-2021 Potassium [Moles/Vol] 3.7 mmol/L 3.5-5.1 [facility] Serum or plasma sodium measu rement (moles/volume)Ordered By: Rj Breen on 12-26-2021 Sodium [Moles/Vol] 133 mmol/L 136-146 [facility] Serum or plasma total biliru bin measurement (mass/volume)Ordered By: Rj Breen on 12-26-2021 Bilirubin [Mass/Vol] 0.6 mg/dL 0.3-1.2 [facility] Serum or plasma total carbon dioxide measurement (moles/volume)Ordered By: Rj Breen on 12-26-2021 CO2 [Moles/Vol] 23.4 mmol/L 22.0-30.0 [facility] Serum or plasma urea nitroge n measurement (mass/volume)Ordered By: Rj Breen on 12-26-2021 Urea nitrogen [Mass/Vol] 11 mg/dL 9- [facility] Specific gravity Auto test s trip (U) [Rel density]Ordered By: Rj Breen on 12-26-2021 Specific gravity (U) [Rel density] 1.009 1.001-1.030 [facility] Urine clarity by refractomet ry automatedOrdered By: Rj Breen on 12-26-2021 Clarity Refractometry automated (U) Clear Clear [facility] Urine glucose measurement by automated test strip (mass/volume)Ordered By: Rj Breen on 12-26-2021 Glucose Auto test strip (U) [Mass/Vol] Normal mg/dL Normal [facility] Urine hemoglobin detection b y automated test stripOrdered By: Rj Breen on 12-26-2021 Hemoglobin Auto test strip Ql (U) Negative Negative [facility] Urine leukocyte esterase det ection by automated test stripOrdered By: Rj Breen on 12-26-2021 Leukocyte esterase Auto test strip Ql (U) Negative Negative [facility] Urobilinogen Auto test strip (U) [Mass/Vol]Ordered By: Rj Breen on 12-26-2021 Urobilinogen (U) [Mass/Vol] Normal mg/dL Normal [facility] pH Auto test strip (U)Ordere d By: Rj Breen on 12-26-2021 pH (U) 6.5 [pH] 5.0-9.0 [facility] Q - CBC W/DIFF AND PLTon BASOABS 71 cells/uL Normal 0-200 [facility] Specialist Comment on above: Order Comment: [facility] performed at: QPT, [facility], [address], [address] [address], [place], [address], Billet Sawyer: Kurt Stock MD [facility] Date/Time: [facility] Results Received Date/Time: [facility] Reported Date/Time: Performed By: #### 1 [id number], [id number], [id number], [id number] #### [facility] [address] [place] [address] Basophils/100 WBC (Bld) 0.8 % Normal N [facility] Comment on above: Order Comment: [facility] performed at: [employer] [facility], [address] , [address] [place] [address], [phone], Billet Sawyer: Kurt Stock MD [facility] Date/Time: [facility] Received Date/Time: [facility] Reported Date/Time: Performed By: #### 1 [id number], [id number], [id number], [id number] #### [facility] [address] [place] [address] EOSABS 240 cells/uL Normal 15-500 [facility] Comment on above: Order Comment: [facility] performed at: [employer] [facility], [address] [facility], [address] [place] [address], [phone], Billet Sawyer: Kurt Stock MD [facility] Date/Time: [facility] Received Date/Time: [facility] Reported Date/Time: Performed By: #### 1 [id number], [id number], [id number], [id number] #### [facility] [address] [place] [address] Eosinophils/100 WBC (Bld) 2.7 % Normal [facility] Comment on above: Order Comment: [facility] performed at: [employer] [facility], [address] , [address] [place] [address], [phone], Billet Sawyer: Kurt Stock MD [facility] Date/Time: [facility] Received Date/Time: [facility] Reported Date/Time: Performed By: #### 1 [id number], 68800, [id number], [id number] #### [facility] [address] [place] [address] Erythrocyte distribution width (RBC) [Ratio] 11.7 % Normal 11.0-15.0 [facility] Office Coordinator Receptionist Comment on above: Order Comment: [facility] performed at: [employer] [facility], [address] [facility], [address] [place] [address], [address] [place] [address], Billet Sawyer: Kurt Stock MD [facility] Date/Time: [facility] Received Date/Time: [facility] Reported Date/Time: Performed By: #### 1 [id number], 79551, 86423I, [id number] #### [facility] [address] [place] [address] Hematocrit (Bld) [Volume fraction] 44.1 % Normal 35.0-45.0 [facility] Office Coordinator Receptionist Comment on above: Order Comment: [facility] performed at: [employer] [facility], [address] [facility], [address] [place] [address], [address] [place] [address], Billet Sawyer: Kurt Stock MD [facility] Date/Time: [facility] Received Date/Time: [facility] Reported Date/Time: Performed By: #### 1 [id number], 78887, [id number], [id number] #### [facility] [address] [place] [address] Hemoglobin (Bld) [Mass/Vol] 15.1 g/dL Normal 11.7-15.5 [facility] Office Coordinator Receptionist Comment on above: Order Comment: [facility] performed at: [employer] [facility], [address] [place] [address], [address] [place] [address], [address] [place] [address], Billet Sawyer: Kurt Stock MD [facility] Date/Time: [facility] Received Date/Time: [facility] Reported Date/Time: Performed By: #### 1 [id number], 33312, [id number], [id number] #### [facility] [address] [place] [address] Lymphocytes (Bld) [#/Vol] 2.875 10*3/uL Normal 850-3900 [facility] Office Coordinator Receptionist Comment on above: Order Comment: [facility] performed at: [employer] [facility], [address] [place] [address], [address] [place] [address], [address] [place] [address], Billet Sawyer: Kurt Stock MD [facility] Date/Time: [facility] Received Date/Time: [facility] Reported Date/Time: Performed By: #### 1 [id number], 56347, 54406M, [id number] #### [facility] [address] [place] [address] Lymphocytes/100 WBC (Bld) 32.3 % Normal [facility] Office Coordinator Receptionist Comment on above: Order Comment: [facility] performed at: [employer], [employer] [facility], [address] [place] [address], [address] [place] [address], [address] [place] [address], Billet Sawyer: Kurt Stock MD [facility] Date/Time: [facility] Received Date/Time: [facility] Reported Date/Time: Performed By: #### 1 [id number], 26538, [id number], [id number] #### [facility] [address] [place] [address] MCH (RBC) [Entitic mass] 31.0 pg Normal 27.0-33.0 [facility] Office Coordinator Receptionist Comment on above: Order Comment: [facility] performed at: [employer] [facility], [address] [place] [address], [address] [place] [address], [address] [place] [address], Billet Sawyer: Kurt Stock MD [facility] Date/Time: [facility] Results Received Date/Time: [facility] Reported Date/Time: Performed By: #### 1 [id number], 43420, [id number], [id number] #### [facility] Default [address] [place] [address] MCHC (RBC) [Mass/Vol] 34.2 g/dL Normal 32.0-36.0 [facility] Comment on above: Order Comment: [facility] performed at: [employer] [facility], [address] [facility], [address] [place] [address], [phone], Billet Sawyer: Kurt Stock MD [facility] Date/Time: [facility] Results Received Date/Time: [facility] Reported Date/Time: Performed By: #### 1 [id number], 72277, [id number], [id number] #### [facility] [address] [place] [address] MCV (RBC) [Entitic vol] 90.6 fL Normal 80.0-100.0 [facility] Specialist Comment on above: Order Comment: [facility] performed at: [employer] [facility], [address] [place] [address], [address] [place] [address], [phone], Billet Sawyer: Kurt Stock MD [facility] Date/Time: [facility] Results Received Date/Time: [facility] Reported Date/Time: Performed By: #### 1 [id number], 06324, [id number], [id number] #### [facility] [address] [place] [address] MONOABS 543 cells/uL Normal 200-[address] [facility] Specialist Comment on above: Order Comment: [facility] performed at: [employer] [facility], [address] [facility], [address] [place] [address], [phone], Billet Sawyer: Kurt Stock MD [facility] Date/Time: [facility] Results Received Date/Time: [facility] Reported Date/Time: Performed By: #### 1 [id number], 33339, [id number], [id number] #### [facility] [address] [place] [address] Monocytes/100 WBC (Bld) 6.1 % Normal N [facility] Specialist Comment on above: Order Comment: [facility] performed at: [employer] [facility], [address] [facility], [address] [place] [address], [phone], Billet Sawyer: Kurt Stock MD [facility] Date/Time: [facility] Results Received Date/Time: [facility] Reported Date/Time: Performed By: #### 1 [id number], 55786, 92300I, [id number] #### [facility] [address] [place] [address] Neutrophils (Bld) [#/Vol] 5.171 10*3/uL Normal 9437-0234 [facility] Office Coordinator Receptionist Comment on above: Order Comment: [facility] performed at: [employer] [facility], [address] [place] [address], [address] [place] [address], [address] [place] [address], Billet Sawyer: Kurt Stock MD [facility] Date/Time: [facility] Results Received Date/Time: [facility] Reported Date/Time: Performed By: #### 1 [id number], 18875, [id number], [id number] #### [facility] [address] [place] [address] Neutrophils/100 WBC (Bld) 58.1 % Normal [facility] Office Coordinator Receptionist Comment on above: Order Comment: [facility] performed at: [employer] [facility], [address] [place] [address], [address] [place] [address], [place], [address], Billet Sawyer: Kurt Stock MD [facility] Date/Time: [facility] Results Received Date/Time: [facility] Reported Date/Time: Performed By: #### 1 [id number], 98466, 24189S, [id number] #### [facility] Default [address] [place] [address] Platelet mean volume (Bld) [Entitic vol] 10.7 fL Normal 7.5-12.5 [facility] Office Coordinator Receptionist Comment on above: Order Comment: [facility] performed at: [employer] [facility], [address] [place] [address], [address] [place] [address], [address] [place] [address], Billet Sawyer: Kurt Stock MD [facility] Date/Time: [facility] Results Received Date/Time: [facility] Reported Date/Time: Performed By: #### 1 [id number], 20770, [id number], [id number] #### [facility] Default [address] [place] [address] Platelets (Bld) [#/Vol] 325 10*3/uL Normal 140-400 [facility] Comment on above: Order Comment: [facility] performed at: [employer], [employer] [facility], [address] , [address] [place] [address], [address] [place] [address], Billet Sawyer: Kurt Stock MD [facility] Date/Time: [facility] Results Received Date/Time: [facility] Reported Date/Time: Performed By: #### 1 [id number], 28266, 10196I, [id number] #### [facility] Default [address] [place] [address] RBC (Bld) [#/Vol] 4.87 10*6/uL Normal 3.80-5.10 [facility] Comment on above: Order Comment: [facility] performed at: [employer] [facility], [address], [address] [place] [address], [address] [place] [address], Billet Sawyer: Kurt Stock MD [facility] Date/Time: [facility] Results Received Date/Time: [facility] Reported Date/Time: Performed By: #### 1 [id number], 18781, [id number], [id number] #### [facility] Default [address] [place] [address] WBC (Bld) [#/Vol] 8.9 10*3/uL Normal 3.8-10.8 [facility] Comment on above: Order Comment: [facility] performed at: [facility], [employer] [facility], [address], [address] [place] [address], [address] [place] [address], Billet Sawyer: Kurt Stock MD [facility] Date/Time: [facility] Results Received Date/Time: [facility] Reported Date/Time: Performed By: #### 1 [id number], 53862, 06871O, [id number] #### [facility] Default [address] [place] [address] Q - COMPREHENSIVE METABOLIC PANEL W/EGFRon 03-19-2021 Albumin [Mass/Vol] 4.6 g/dL Normal 3.6-5.1 [facility] Comment on above: Order Comment: [facility] performed at: [employer] [facility], [address] [place] [address], [address] [place] [address], [address] [place] [address], Billet Sawyer: Kurt Stock MD [facility] Date/Time: [facility] Results Received Date/Time: [facility] Reported Date/Time: Performed By: #### 1 [id number], 86442, [id number], [id number] #### [facility] Default [address] [place] [address] Albumin/Globulin [Mass ratio] 1.6 {ratio} Normal 1.0-2.5 [facility] Office Coordinator Receptionist Comment on above: Order Comment: [facility] performed at: [employer] [facility], [address] [place] [address], [address] [place] [address], [address] [place] [address], Billet Sawyer: Kurt Stock MD [facility] Date/Time: [facility] Results Received Date/Time: [facility] Reported Date/Time: Performed By: #### 1 [id number], 53526, [id number], [id number] #### [facility] Default [address] [place] [address] ALP [Catalytic activity/Vol] 66 U/L Normal 31-125 [facility] Office Coordinator Receptionist Comment on above: Order Comment: [facility] performed at: [employer] [facility], [address] [place] [address], [address] [place] [address], [address] [place] [address], Billet Sawyer: Kurt Stock MD [facility] Date/Time: [facility] Results Received Date/Time: [facility] Reported Date/Time: Performed By: #### 1 [id number], 97112, [id number], [id number] #### [facility] Default [address] [place] [address] ALT [Catalytic activity/Vol] 15 U/L Normal 6-29 [facility] Office Coordinator Receptionist Comment on above: Order Comment: [facility] performed at: [employer] [facility], [address] [place] [address], [address] [place] [address], [phone], Billet Sawyer: Kurt Stock MD [facility] Date/Time: [facility] Results Received Date/Time: [facility] Reported Date/Time: Performed By: #### 1 [id number], 70905, [id number], 42A #### [facility] [address] [place] [address] AST [Catalytic activity/Vol] 17 U/L Normal 10-30 [facility] Office Coordinator Receptionist Comment on above: Order Comment: [facility] performed at: [employer] [facility] [facility], [address] [place] [address], [address] [place] [address], [phone], Billet Sawyer: Kurt Stock MD [facility] Collection Date/Time: [facility] Results Received Date/Time: [facility] Reported Date/Time: Performed By: #### 1 [id number], 77207, 92160N, 42A #### [facility] [address] [place] [address] Bilirubin [Mass/Vol] 0.4 mg/dL Normal 0.2-1.2 [facility] Comment on above: Order Comment: [facility] performed at: [employer] [facility], [address] [place] [address], [address] [place] [address], [phone], Billet Sawyer: Kurt Stock MD [facility] Date/Time: [facility] Results Received Date/Time: [facility] Reported Date/Time: Performed By: #### 1 [id number], 30127, 10909X, 42A #### [facility] [address] [place] [address] BUN/CREA 14 NOT APPLICABLE Normal 6-22 [facility] [place] Office Coordinator Receptionist Comment on above: Order Comment: [facility] performed at: [employer] [facility], [address] [facility], [address] [place] [address], [address] [place] [address], Billet Sawyer: Kurt Stock MD [facility] Date/Time: [facility] Results Received Date/Time: [facility] Reported Date/Time: Performed By: #### 1 [id number], 72300, 85077H, 42A #### [facility] [address] [place] [address] Calcium [Mass/Vol] 9.2 mg/dL Normal 8.6-10.2 [facility] Office Coordinator Receptionist Comment on above: Order Comment: [facility] performed at: [employer] [facility], [facility], [address] [place] [address], [address] [place] [address], Billet Sawyer: Kurt Stock MD [facility] Date/Time: [facility] Results Received Date/Time: [facility] Reported Date/Time: Performed By: #### 1 [id number], 84400, 71951A, 42A #### [facility] [address] [place] [address] Chloride [Moles/Vol] 101 mmol/L Normal 98-110 [facility] Office Coordinator Receptionist Comment on above: Order Comment: [facility] performed at: [employer] [facility], [facility], [address] [place] [address], [address] [place] [address], Billet Sawyer: Kurt Stock MD [facility] Date/Time: [facility] Results Received Date/Time: [facility] Reported Date/Time: Performed By: #### 1 [id number], 37089, 15886D, [id number] #### [facility] [address] [place] [address] CO2 [Moles/Vol] 25 mmol/L Normal 20-32 [facility] Comment on above: Order Comment: [facility] performed at: [employer] [facility], [address] [facility], [address] [place] [address], [address] [place] [address], Billet Sawyer: Kurt Stock MD [facility] Collection Date/Time: [facility] Results Received Date/Time: [facility] Reported Date/Time: Performed By: #### 1 [id number], 43179, 84250T, 42A #### [facility] [address] [place] [address] Creatinine [Mass/Vol] 0.66 mg/dL Normal 0.50-1.10 [facility] Comment on above: Order Comment: [facility] performed at: [employer] [facility], [address] [place] [address], [address] [place] [address], [address] [place] [address], Billet Sawyer: Kurt Stock MD [facility] Date/Time: [facility] Results Received Date/Time: [facility] Reported Date/Time: Performed By: #### 1 [id number], 96857, 07284G, 42A #### [facility] [address] [place] [address] eGFRAA 121 mL/min/1.73m2 Normal > OR = 60 [facility] [place] Comment on above: Order Comment: [facility] performed at: [employer] [facility], [facility], [address] [place] [address], [address] [place] [address], Billet Sawyer: Kurt Stock MD [facility] Date/Time: [facility] Results Received Date/Time: [facility] Reported Date/Time: Performed By: #### 1 [id number], 40574, 80371D, 42A #### [facility] [address] [place] [address] eGFRNAA 100 mL/min/1.73m2 Normal > OR = 60 [facility] Office Coordinator Receptionist Comment on above: Order Comment: [facility] performed at: [employer] [facility], [address] [place] [address], [address] [place] [address], [address] [place] [address], Billet Sawyer: Kurt Stock MD [facility] Date/Time: [facility] Results Received Date/Time: [facility] Reported Date/Time: Performed By: #### 1 [id number], 91361, 45641N, 42A #### [facility] [address] [place] [address] Globulin (S) [Mass/Vol] 2.9 g/dL Normal 1.9-3.7 [facility] Office Coordinator Receptionist Comment on above: Order Comment: [facility] performed at: [employer] [facility], [address] [place] [address], [address] [place] [address], [address] [place] [address], Billet Sawyer: Kurt Stock MD [facility] Date/Time: [facility] Results Received Date/Time: [facility] Reported Date/Time: Performed By: #### 1 [id number], 21426, 23598A, 42A #### [facility] [address] [place] [address] Glucose [Mass/Vol] 101 mg/dL High 65-99 [facility] Office Coordinator Receptionist Comment on above: Order Comment: [facility] performed at: [employer] [facility], [address] [place] [address], [address] [place] [address], [address] [place] [address], Billet Sawyer: Kurt Stock MD [facility] Date/Time: [facility] Results Received Date/Time: [facility] Reported Date/Time: Result Comment: Fasting reference interval For someone without known diabetes, a glucose value between 100 and 125 mg/dL is consistent with prediabetes and should be confirmed with a follow-up test. Performed By: #### 1 [id number], 88435, 96579D, 42A #### [facility] [address] [place] [address] Potassium [Moles/Vol] 3.7 mmol/L Normal 3.5-5.3 [facility] [place] Office Coordinator Receptionist Comment on above: Order Comment: [facility] performed at: [employer] [facility], [address] [place] [address], [address] [place] [address], [address] [place] [address], Billet Sawyer: Kurt Stock MD [facility] Date/Time: [facility] Results Received Date/Time: [facility] Reported Date/Time: Performed By: #### 1 [id number], 00515, 56927T, 42A #### [facility] [address] [place] [address] Protein [Mass/Vol] 7.5 g/dL Normal 6.1-8.1 [facility] [place] Office Coordinator Receptionist Comment on above: Order Comment: [facility] performed at: [employer] [facility], [address] [place] [address], [address] [place] [address], [address] [place] [address], Billet Sawyer: Kurt Stock MD [facility] Date/Time: [facility] Results Received Date/Time: [facility] Reported Date/Time: Performed By: #### 1 [id number], 82213, 87220B, 42A #### [facility] [address] [place] [address] Sodium [Moles/Vol] 136 mmol/L Normal 135-146 [facility] [place] Office Coordinator Receptionist Comment on above: Order Comment: [facility] performed at: [employer] [facility], [address] [place] [address], [address] [place] [address], [address] [place] [address], Billet Sawyer: Kurt Stock MD [facility] Date/Time: [facility] Results Received Date/Time: [facility] Reported Date/Time: Performed By: #### 1 [id number], 33440, 66404Z, 42A #### [facility] [address] [place] [address] Urea nitrogen [Mass/Vol] 9 mg/dL Normal 7-25 [facility] Office Coordinator Receptionist Comment on above: Order Comment: [facility] performed at: [facility], [address] , [address] [place] [address], [address] [place] [address], Billet Sawyer: Kurt Stock MD [facility] Date/Time: [facility] Results Received Date/Time: [facility] Reported Date/Time: Performed By: #### 1 [id number], 56848, 05719H, 42A #### [facility] [address] [place] [address] Q - HEMOGLOBIN A1C WITH EAGo n 03-19-2021 eAG (mmol/L) 6.5 mmol/L Normal [facility] Comment on above: Order Comment: [facility] performed at: [facility], [facility], [address] , [address] [place] [address], [address] [place] [address], Billet Sawyer: Kurt Stock MD [facility] Date/Time: [facility] Results Received Date/Time: [facility] Reported Date/Time: Performed By: #### 1 [id number], 05562, 05224H, 42A #### [facility] [address] [place] [address] HEMOGLOBIN A1c 5.7 % of total Hgb High <5.7 No rthern [place] Office Coordinator Receptionist Comment on above: Order Comment: [facility] performed at: [employer] [facility], [address] , [address] [place], [place], [address] [place] [address], Billet Sawyer: Kurt Stock MD [facility] Date/Time: [facility] Results Received Date/Time: [facility] Reported Date/Time: Result Comment: For someone without known diabetes, a hemoglobin A1c value between 5.7% and 6.4% is consistent with prediabetes and should be confirmed with a follow-up test. For someone with known diabetes, a value <7% indicates that their diabetes is well controlled. A1c targets should be individualized based on duration of diabetes, age, comorbid conditions, and other considerations. This assay result is consistent with an increased risk of diabetes. Currently, no consensus exists regarding use of hemoglobin A1c for diagnosis of diabetes for children. Performed By: #### 1 [id number], 71716, 73712R, 42A #### [facility] [address] [place] [address] Magnesium [Mass/Vol] 117 mg/dL Normal [facility] Comment on above: Order Comment: [facility] performed at: [employer] [facility], [address] [place] [address], [address] [place] [address], [address] [place] [address], Billet Sawyer: Kurt Stock MD [facility] Date/Time: [facility] Results Received Date/Time: [facility] Reported Date/Time: Performed By: #### 1 [id number], 19647, 99906M, 42A #### [facility] [address] [place] [address] Q - TSH WITH REFLEX TO FREE T4on 03-19-2021 TSH W/REFLEX TO FT4 4.00 mIU/L Normal [facility] Comment on above: Order Comment: [facility] performed at: [employer] [facility], [address] [place] [address], [address] [place] [address], [address] [place] [address], Billet Sawyer: Kurt Stock MD [facility] Date/Time: [facility] Results Received Date/Time: [facility] Reported Date/Time: Result Comment: Refe rence Range > or = 20 Years 0.40-4.50 Ranges First trimester 0.26-2.66 Second trimester 0.55-2.73 Third trimester 0.43-2.91 Performed By: #### 1 [id number], 16187, 37019L, 42A #### [facility] [address] [place] [address] CBC AUTO DIFFon 10-07-2018 Basophils (Bld) [#/Vol] 0.0 103/ul Normal 0.0-0.1 [facility] Comment on above: Performed By: #### C #### [facility] [address] [place], [place] [id number] Darleen Dahiana Basophils/100 WBC (Bld) 0.5 % Normal 0.2-2.0 [facility] Comment on above: Performed By: #### C BC #### [facility] [address] [place], [place] [address] Darleen Dahiana Eosinophils (Bld) [#/Vol] 0.2 103/ul Normal 0.0-0.7 [facility] Comment on above: Performed By: #### C BC #### [facility] [address] [place], [place] [address] Darleen Dahiana Eosinophils/100 WBC (Bld) 2.7 % Normal 0.9-7.0 [facility] Comment on above: Performed By: #### C BC #### [facility] [address] [place] [address] Darleen Dahiana Erythrocyte distribution width (RBC) [Ratio] 11.5 % Normal 11.0-15.0 [facility] Comment on above: Performed By: #### C BC #### [facility] [address] [place] [address] Darleen Dahiana Hematocrit (Bld) [Volume fraction] 39.5 % Normal 36.0-48.0 [facility] Comment on above: Performed By: #### C BC #### [facility] [address] [place], [place] [phone] Darleen Dahiana Hemoglobin (Bld) [Mass/Vol] 13.5 g/dL Normal 12.0-16.0 [facility] Comment on above: Performed By: #### C BC #### [facility] [address] [place] [address] Darleen Dahiana IG # 0.03 10e3/ul Normal 0.00-0.03 [facility] Comment on above: Performed By: #### C BC #### [facility] [address] [place] [address] Darleen Dahiana IG % 0.4 % Normal 0.0-0.5 [facility] Comment on above: Performed By: #### C BC #### [facility] [address] [place], [place] [address] Darleen Dahiana Lymphocytes (Bld) [#/Vol] 2.5 103/ul Normal 1.2-3.8 [facility] Comment on above: Performed By: #### C BC #### [facility] [address] [place], [place] [address] Darleen Dahiana Lymphocytes/100 WBC (Bld) 33.6 % Normal 20.5-60.0 [facility] Comment on above: Performed By: #### C BC #### [facility] [address] [place] [address] Darleen Dahiana MANUAL DIFF REQ NO Normal [facility] Comment on above: Performed By: #### C BC #### [facility] [address] [place], [place] [phone] Darleen Dahiana MCH (RBC) [Entitic mass] 31.5 pg Normal 26.7-34.0 [facility] Comment on above: Performed By: #### C BC #### [facility] [address] [place], [place] [phone] Darleen Dahiana MCHC (RBC) [Mass/Vol] 34.2 g/dL Normal 29.9-35.2 [facility] Comment on above: Performed By: #### C BC #### [facility] [address] [place] [address] Darleen Dahiana MCV (RBC) [Entitic vol] 92.1 fL Normal 81.0-99.0 [facility] Comment on above: Performed By: #### C BC #### [facility] [address] [place] [address] Darlene Dahiana Monocytes (Bld) [#/Vol] 0.6 103/ul Normal 0.3-0.8 [facility] Comment on above: Performed By: #### C BC #### [facility] [address] [place], [place] [address] Darleen Dahiana Monocytes/100 WBC (Bld) 8.2 % Normal 1.7-12.0 [facility] Comment on above: Performed By: #### C BC #### [facility] [address] [place], [place] [address] Darleen Dahiana Neutrophils (Bld) [#/Vol] 4.0 103/ul Normal 1.4-6.5 [facility] Comment on above: Performed By: #### C BC #### [facility] [address] [place], [place] [address] Darleen Dahiana Neutrophils/100 WBC (Bld) 54.6 % Normal 43.0-75.0 [facility] Comment on above: Performed By: #### C BC #### [facility] [address] [place], [place] [address] Darleen Dahiana Platelet mean volume (Bld) [Entitic vol] 9.9 fL Normal 9.5-13.5 [facility] Comment on above: Performed By: #### C BC #### [facility] [address] [place], [place] [address] Darleen Dahiana Platelets (Bld) [#/Vol] 258 103/ul Normal 150-450 [facility] Comment on above: Performed By: #### C BC #### [facility] [address] [place], [place] [address] Darleen Dahiana RBC (Bld) [#/Vol] 4.29 106/ul Normal 4.20-5.40 [facility] Comment on above: Performed By: #### C BC #### [facility] [address] [place], [place] [address] Darleen Dahiana WBC (Bld) [#/Vol] 7.4 103/ul Normal 4.0-11.0 [facility] Comment on above: Performed By: #### C BC #### [facility] [address] [place], [place] [address] Darleen Dahiana PREG HCG QUALon 10-07-2018 , QUAL Negative Normal NEGATIVE [facility] Comment on above: Performed By: #### P REG #### [facility] [address] [place], [place] [address] Darleenchris Webben PROF CHEM 8 (BAS METB)on Anion gap [Moles/Vol] 12.7 mmol/L Normal [facility] Comment on above: Performed By: #### B MP #### [facility] [address] [place] [address] Darleen Dahiana Calcium [Mass/Vol] 9.0 mg/dL Normal 8.4-10.2 [facility] Comment on above: Performed By: #### B MP #### [facility] [address] [place] [address] Darleen Dahiana Chloride [Moles/Vol] 103 mmol/L Normal 98-107 [facility] Comment on above: Performed By: #### B MP #### [facility] [address] [place] [address] Darleen Dahiana CO2 [Moles/Vol] 29.1 mmol/L Normal 22.0-30.0 [facility] Comment on above: Performed By: #### B MP #### [facility] [address] [place] [address] Darleen Dahiana Creatinine [Mass/Vol] 0.71 mg/dL Normal 0.52-1.04 [facility] Comment on above: Performed By: #### B MP #### [facility] [address] [place] [address] Darleen Dahiana EGFR-AF [place] >60 Normal >=60 [facility] Comment on above: Performed By: #### B MP #### [facility] [address] [place] [address] Darleen Dahiana EGFR-NON AF [place] >60 Normal >=60 [facility] Comment on above: Performed By: #### B MP #### [facility] [address] [place] [address] Darleen Dahiana Glucose [Mass/Vol] 100 mg/dL Normal 74-106 [facility] Comment on above: Performed By: #### B MP #### [facility] [address] [place] [address] Darleen Dahiana Potassium [Moles/Vol] 3.8 mmol/L Normal 3.4-5.0 [facility] Comment on above: Performed By: #### B MP #### [facility] [address] [place] [address] Darleen Dahiana Sodium [Moles/Vol] 141 mmol/L Normal 137-145 [facility] Comment on above: Performed By: #### B MP #### [facility] [address] [place], [place] [address] Darleen Dahiana Urea nitrogen [Mass/Vol] 11.0 mg/dL Normal 7.0-17.0 [facility] Comment on above: Performed By: #### B MP #### [facility] [address] [place] [address] Darleen Dahiana Urea nitrogen/Creatinine [Mass ratio] 15.5 mg/mg Normal [facility] Comment on above: Performed By: #### B MP #### [facility] [address] [place], [place] [address] Darleen Dahiana ER URINE PROFILEon 9 Bilirubin [Mass/Vol] Negative Normal NEGATIVE [facility] Comment on above: Performed By: #### E RUR #### [facility] [address] [place] [address] Darleen Dahiana BLOOD Negative Normal NEGATIVE [facility] Comment on above: Performed By: #### E RUR #### [facility] [address] [place], [place] [address] Darleen Dahiana Clarity (U) SL CLOUDY Normal [facility] Comment on above: Performed By: #### E RUR #### [facility] [address] [place], [place] [address] Darleen Dahiana Color (U) LT. YELLOW Normal YELLOW [facility] Comment on above: Performed By: #### E RUR #### [facility] [address] [place], [place] [address] Darleen Dahiana ERUAHD A micrscopic examination will be performed if indicated. Normal [facility] Comment on above: Performed By: #### E RUR #### [facility] [address] [place] [address] Darleen Dahiana Glucose [Mass/Vol] Negative Normal NEGATIVE [facility] Comment on above: Performed By: #### E RUR #### [facility] [address] [place] [address] Darleen Dahiana Ketones Ql (U) Negative Normal NEGATIVE [facility] Comment on above: Performed By: #### E RUR #### [facility] [address] [place], [place] [address] Darleen Dahiana Nitrite Ql (U) Negative Normal NEGATIVE [facility] Comment on above: Performed By: #### E RUR #### [facility] [address] [place], [place] [address] Darleen Dahiana pH (Bld) 7.0 Normal 5-9 [facility] Comment on above: Performed By: #### E RUR #### [facility] [address] [place], [place] [address] Darleen Dahiana Protein (U) [Mass/Vol] Negative Normal [facility] Comment on above: Performed By: #### E RUR #### [facility] [address] [place], [place] [address] Darleen Talbot SPEC GRAVITY 1.015 Normal 1.005-<=1.02 5 [facility] Comment on above: Performed By: #### E RUR #### [facility] [address] [place], [place] [address] Darleen Talbot UR MICRO IND NOT INDICATED Normal [facility] Comment on above: Performed By: #### E RUR #### [facility] [address] [place], [place] [address] Darleen Talbot Urobilinogen Qn (U) 0.2 EU/dl Normal [facility] [place] Comment on above: Performed By: #### E RUR #### [facility] [address] [place], [place] [address] Darleen Dahiana WBC (Bld) [#/Vol] Negative Normal NEGATIVE [facility] Comment on above: Performed By: #### E RUR #### [facility] [address] [place], [place] [address] Darleen Talbot Vital Signs Date Time Vital Sign Value Performing Clinician Facility 06-07-2023 13:[id number] Body height 160.02 cm [facility] 06-07-2023 13:03-0400 Body mass index (BMI) [Ratio] 33.8 kg/m2 [facility] 06-07-2023 13:03-0400 Body temperature 97.5 [degF] [facility] 06-07-2023 13:03-0400 Body weight 86.66 kg [facility] 06-07-2023 13:03-0400 Diastolic blood pressure 80 mm[Hg] [facility] 06-07-2023 13:03-0400 Heart rate 86 /min [facility] 06-07-2023 13:03-0400 Respiratory rate 16 /min [facility] 06-07-2023 13:03-0400 SaO2% (BldA) [Mass fraction] 95 % [facility] 06-07-2023 13:03-0400 Systolic blood pressure 131 mm[Hg] [facility] 03-19-2023 14:41-0500 Body mass index (BMI) [Ratio] 32.24 kg/m2 Jairo Ordaz MD Work Phone: [facility] 03-19-2023 14:41-0500 Body weight 82.56 kg Jairo Ordaz MD Work Phone: [facility] 03-19-2023 14:41-0500 Diastolic blood pressure 78 mm[Hg] Jairo Ordaz MD Work Phone: [facility] 03-19-2023 14:41-0500 Systolic blood pressure 126 mm[Hg] Jairo Ordaz MD Work Phone: [facility] 08-14-2022 15:10-0400 Diastolic blood pressure 88 mm[Hg] SENIOR NETWORK ADMINISTRATOR-C Colten Case Work Phone: [facility] 08-14-2022 15:10-0400 Heart rate 80 /min SENIOR NETWORK ADMINISTRATOR-C Colten Case Work Phone: [facility] 08-14-2022 15:10-0400 Respiratory rate 18 /min SENIOR NETWORK ADMINISTRATOR-C Colten Case Work Phone: [facility] 08-14-2022 15:10-0400 SaO2% (BldA) [Mass fraction] 100 % SENIOR NETWORK ADMINISTRATOR-C Colten Case Work Phone: [facility] 08-14-2022 15:10-0400 Systolic blood pressure 143 mm[Hg] SENIOR NETWORK ADMINISTRATOR-C Colten Case Work Phone: [facility] [facility] 08-14-2022 11:52-0400 Body height 160.02 cm SENIOR NETWORK ADMINISTRATOR-C Colten Case Work Phone: [facility] 08-14-2022 11:52-0400 Body temperature 98.1 [degF] SENIOR NETWORK ADMINISTRATOR-C Colten Case Work Phone: [facility] 08-14-2022 11:52-0400 Body weight 86.18 kg SENIOR NETWORK ADMINISTRATOR-C Colten Case Work Phone: [facility] 06-19-2022 14:19-0400 Diastolic blood pressure 86 mm[Hg] James Zumbar [facility] 06-19-2022 14:19-0400 Heart rate 86 /min James Zumbar [facility] 06-19-2022 14:19-0400 Mean blood pressure 100 mm[Hg] James Zumbar [facility] 06-19-2022 14:19-0400 Respiratory rate 14 /min James Zumbar [facility] 06-19-2022 14:19-0400 Systolic blood pressure 127 mm[Hg] James Zumbar [facility] 03-13-2022 11:47-0500 Diastolic blood pressure 63 mm[Hg] SENIOR NETWORK ADMINISTRATOR-C Colten Case Work Phone: [facility] 03-13-2022 11:47-0500 Heart rate 82 /min SENIOR NETWORK ADMINISTRATOR-C Colten Case Work Phone: [facility] 03-13-2022 11:47-0500 Respiratory rate 16 /min SENIOR NETWORK ADMINISTRATOR-C Colten Case Work Phone: [facility] 03-13-2022 11:47-0500 SaO2% (BldA) [Mass fraction] 95 % SENIOR NETWORK ADMINISTRATOR-C Colten Case Work Phone: [facility] 03-13-2022 11:47-0500 Systolic blood pressure 115 mm[Hg] SENIOR NETWORK ADMINISTRATOR-C Colten Case Work Phone: [facility] 03-13-2022 10:52-0500 Body temperature 97.8 [degF] SENIOR NETWORK ADMINISTRATOR-C Colten Case Work Phone: [facility] 03-13-2022 10:27-0500 Inhaled oxygen flow rate 10 L/min SENIOR NETWORK ADMINISTRATOR-C Colten Case Work Phone: [facility] 03-13-2022 07:09-0500 Body height 160.02 cm SENIOR NETWORK ADMINISTRATOR-C Colten Case Work Phone: [facility] 03-13-2022 07:09-0500 Body mass index (BMI) [Ratio] 35.1 kg/m2 SENIOR NETWORK ADMINISTRATOR-C Colten Case Work Phone: [facility] 03-13-2022 07:09-0500 Body weight 90 kg SENIOR NETWORK ADMINISTRATOR-C Colten Case Work Phone: [facility] 02-04-2022 13:15-0500 Body height 160.02 cm Cara Ro Other [employer] Other 02-04-2022 13:15-0500 Body mass index (BMI) [Ratio] 33.48 kg/m2 Cara Ro Other [employer] Other 02-04-2022 13:15-0500 Body temperature 98.4 [degF] Cara Ro Other [employer] Other 02-04-2022 13:15-0500 Body weight 85.73 kg Cara Ro Other [employer] Other 02-04-2022 13:15-0500 Respiratory rate 18 /min Cara Ro Other [employer] Other 02-04-2022 13:15-0500 SaO2% (BldA) [Mass fraction] 98 % Cara Ro Other [employer] Other 12-29-2021 10:35-0500 Body height 160.02 cm Cara Ro Other [employer] Other 12-29-2021 10:35-0500 Body mass index (BMI) [Ratio] 33.65 kg/m2 Cara Ro Other [employer] Other 12-29-2021 10:35-0500 Body temperature 98.4 [degF] Cara Ro Other [employer] Other 12-29-2021 10:35-0500 Body weight 86.18 kg Cara Ro Other [employer] Other 12-29-2021 10:35-0500 Diastolic blood pressure 103 mm[Hg] Cara Ro Other [employer] Other 12-29-2021 10:35-0500 Respiratory rate 20 /min Cara Zhangault Other [employer] Other 12-29-2021 10:35-0500 SaO2% (BldA) [Mass fraction] 98 % Cara Zhangault Other [employer] Other 12-29-2021 10:35-0500 Systolic blood pressure 138 mm[Hg] Cara Ro Other [facility] [employer] Other 12-26-2021 17:19-0500 Diastolic blood pressure 90 mm[Hg] SENIOR NETWORK ADMINISTRATOR-C Colten Case Work Phone: [facility] 12-26-2021 17:19-0500 Heart rate 81 /min SENIOR NETWORK ADMINISTRATOR-C Colten Case Work Phone: [facility] 12-26-2021 17:19-0500 Respiratory rate 18 /min SENIOR NETWORK ADMINISTRATOR-C Colten Case Work Phone: [facility] 12-26-2021 17:19-0500 SaO2% (BldA) [Mass fraction] 97 % SENIOR NETWORK ADMINISTRATOR-C Colten Case Work Phone: [facility] 12-26-2021 17:19-0500 Systolic blood pressure 132 mm[Hg] SENIOR NETWORK ADMINISTRATOR-C Colten Case Work Phone: [facility] 12-26-2021 15:37-0500 Body height 160.02 cm SENIOR NETWORK ADMINISTRATOR-C Colten Case Work Phone: [facility] 12-26-2021 15:37-0500 Body temperature 97.7 [degF] SENIOR NETWORK ADMINISTRATOR-C Colten Case Work Phone: [facility] 12-26-2021 15:37-0500 Body weight 86.55 kg SENIOR NETWORK ADMINISTRATOR-C Colten Case Work Phone: [facility] Encounters Encounter Date Encounter Type Care Provider Facility Start: 10-16-2023 End: 10-16-2023 ambulatory SARAH PHIPPSS Not Available Start: 08-27-2023 End: 08-27-2023 ambulatory SARAH PHIPPSS Not Available Start: 07-10-2023 End: 07-10-2023 Patient encounter procedure [facility] Work Phone: Start: 07-10-2023 End: 07-10-2023 ambulatory NON STAFF [facility] Work Phone: Start: 07-10-2023 Encounter for jarek l adult medical examination with abnormal findings Colten Arita [facility] Start: 07-01-2023 End: 07-01-2023 ambulatory CHERYL Chilel ISABEL-NOSSEK Not Available Start: 06-24-2023 End: 06-24-2023 ambulatory COLTEN ARITA Not Available Start: 06-19-2023 End: 06-19-2023 ambulatory CHAZ NO Not Available Start: 06-11-2023 End: 06-11-2023 ambulatory CHAZ NO Not Available Start: 06-07-2023 End: 06-07-2023 ambulatory [facility] Work Phone: Start: 06-07-2023 End: 06-07-2023 Patient encounter procedure [facility] Work Phone: Start: 05-06-2023 End: 05-06-2023 ambulatory AGUSTIN N SIMEON Not Available Start: 04-16-2023 End: 04-16-2023 ambulatory AGUSTIN N SIMEON Not Available Start: 04-16-2023 End: 04-16-2023 ambulatory AGUSTIN N SIMEON Not Available Start: 04-02-2023 End: 04-02-2023 ambulatory CHERYL Chilel ISABEL-NOSSEK Not Available Start: 03-25-2023 Telephone encounter Colten Arita SENIOR NETWORK ADMINISTRATOR Work Phone: [facility] Comment on above: Breast Cancer Screen ing Attention deficit hy peractivity disorder (ADHD), combined type (CMS/HCC) Start: 03-19-2023 End: 03-19-2023 Office outpatient visit 25 minutes Jairo Ordaz MD Work Phone: [facility] Comment on above: Intrauterine device surveillance; Dyspareunia in female; Adenomyosis Start: 03-19-2023 End: 03-19-2023 ambulatory JAIRO ORDAZ Not Available Start: 01-29-2023 End: 01-29-2023 ambulatory SARAH PÉREZ Not Available Start: 01-14-2023 End: 01-14-2023 ambulatory COLTEN L CASE Not Available Start: 01-12-2023 End: 01-12-2023 ambulatory COLTEN L CASE Not Available Start: 01-08-2023 End: 01-08-2023 ambulatory CHERYL Chilel LEON Not Available Start: 08-20-2022 End: 08-20-2022 ambulatory Agustin Hendrix Facility:[facility] Start: 08-14-2022 End: 08-14-2022 Emergency department patient visit SENIOR NETWORK ADMINISTRATOR-C Colten Case Work Phone: [facility] Work Phone: Start: 06-19-2022 End: 06-20-2022 ambulatory MD James White Facility:[facility] Start: 06-19-2022 End: 06-19-2022 Pain Management James White [facility] Start: 03-13-2022 End: 03-13-2022 Admission to same day surgery center SENIOR NETWORK ADMINISTRATOR-C Colten Case Work Phone: [facility] [place] Start: 03-13-2022 End: 03-13-2022 ambulatory SENIOR NETWORK ADMINISTRATOR-C Colten L Case Work Phone: [facility] Work Phone: Start: 02-27-2022 End: 02-27-2022 ambulatory SENIOR NETWORK ADMINISTRATOR-C Colten L Case Work Phone: [facility] Work Phone: Start: 02-27-2022 End: 02-27-2022 Patient encounter procedure SENIOR NETWORK ADMINISTRATOR-C Colten Case Work Phone: [facility] Work Phone: Start: 02-04-2022 End: 02-04-2022 ambulatory Cara Ro Other [employer] Other Start: 02-04-2022 Office outpatient vi sit 25 minutes Cara Ro [facility] Start: 01-08-2022 End: 01-08-2022 ambulatory SENIOR NETWORK ADMINISTRATOR-C Colten L Case Work Phone: [facility] Work Phone: Start: 01-08-2022 End: 01-08-2022 Patient encounter procedure SENIOR NETWORK ADMINISTRATOR-C Colten Case Work Phone: [facility] COVID Testing Start: 12-29-2021 Office outpatient ne w 20 minutes Cara Ro [facility] Start: 12-29-2021 End: 12-29-2021 ambulatory SENIOR NETWORK ADMINISTRATOR-C Colten L Case Work Phone: [facility] Work Phone: Start: 12-29-2021 End: 12-29-2021 Departed Referred SENIOR NETWORK ADMINISTRATOR-C Colten Case Work Phone: [facility] [place] Start: 12-26-2021 End: 12-26-2021 Emergency department patient visit SENIOR NETWORK ADMINISTRATOR-C Colten Case Work Phone: [facility] Start: 10-07-2018 End: 10-07-2018 Patient encounter procedure DOCTOR MISC Facility: Start: 02-09-2018 End: 02-09-2018 Patient encounter procedure KEYANNA GARCIAS Facility: Procedures Date Procedure Procedure Detail Performing Clinician Start: 03-13-2022 Repair of umbilical hernia SENIOR NETWORK ADMINISTRATOR-C Colten Case Work Phone: Start: 01-08-2022 Respiratory Panel (PCR) SENIOR NETWORK ADMINISTRATOR-C Colten Case Work Phone: Start: 12-29-2021 Piperacillin/tazobactam Cara Ro Other Start: 12-29-2021 Urine culture SENIOR NETWORK ADMINISTRATOR-C Justina kraig Case Work Phone: Start: 12-26-2021 CT of abdomen and pe lvis without contrast SENIOR NETWORK ADMINISTRATOR-C Colten Case Work Phone: section James collins Comment on above: 2018 H/O: section S/P SENIOR NETWORK ADMINISTRATORNellie Posada Case Work Phone: Laparoscopic repair of umbilical hernia James White Scoliosis deformity of spine (disorder) James White Comment on above: [facility] 1999 Urine culture SENIOR NETWORK ADMINISTRATORNellie Posada Case Work Phone: Plan of Treatment Date Care Activity Detail Author Start: 10-04-2023 Urine screening for protein Diabetes: Urine Protein Screening [facility] Start: 04-15-2023 Hemoglobin A1c measurement Diabetes: Hemoglobin A1C [facility] Start: 04-02-2023 End: 04-02-2023 Patient encounter procedure 04/02/2023 4:00 PM EST Office Visit [facility] [address] [facility] [address] [place] [address] Cheryl Quintero, FLAKER TENDER-[facility] [address] [facility] [address] [place] [address] [facility] Start: 03-25-2023 End: 05-23-2024 DBT Breast - bilateral screening Bilateral screening mammogram with tomosynthesis Imaging Routine Encounter for screening mammogram for malignant neoplasm of breast Expected: 03/25/2023, Expires: 05/23/2024 [facility] Work Phone: Comment on above: Expected: 03/25/2023 , Expires: 05/23/2024 Start: 2022 Screening for malignant neoplasm of breast Mammogram [facility] Start: 03-13-2022 [facility] Start: 03-13-2022 [facility] Start: 2012 Screening for malignant neoplasm of cervix [facility] Start: 09-25-2003 Screening for malignant neoplasm of cervix Pap Smear [facility] Start: 1992 Glaucoma screening Diabetes: R etinopathy Screening [facility] Bacteria identified in Urine by Culture Urine Culture [facility] Patient Education [facility] Work Phone: Patient referral [facility] Work Phone: Immunizations Immunization Date Immunization Notes Care Provider Kevin retana 11-18-2022 influenza, injectable, quadrivalent, preservative free Jairo Ordaz MD Work Phone: [facility] 12-26-2020 seasonal influenza, intradermal, preservative free Jairo Ordaz MD Work Phone: [facility] 03-22-2020 COVID-19 mRNA-1273 (Moderna) SENIOR NETWORK ADMINISTRATOR-C Colten Case Work Phone: [facility] 02-23-2020 COVID-19 mRNA-1273 (Moderna) SENIOR NETWORK ADMINISTRATOR-Crystal Posada Case Work Phone: [facility] 11-28-2019 seasonal influenza, intradermal, preservative free Jairo Ordaz MD Work Phone: [facility] 02-23-2018 hepatitis B vaccine, adult dosage Jairo Ordaz MD Work Phone: [facility] 02-23-2018 influenza, injectable, quadrivalent, preservative free Jairo Ordaz MD Work Phone: [facility] 11-25-2017 hepatitis B vaccine, adult dosage Jairo Ordaz MD Work Phone: [facility] 11-15-2015 influenza, injectable, quadrivalent, preservative free Jairo Ordaz MD Work Phone: [facility] 04-25-1994 measles, mumps and rubella virus vaccine Jairo Ordaz MD Work Phone: [facility] 05-17-1987 diphtheria, tetanus toxoids and acellular pertussis vaccine Jairo Ordaz MD Work Phone: [facility] 05-17-1987 trivalent poliovirus vaccine, live, oral Jairo Ordaz MD Work Phone: [facility] 04-20-1986 haemophilus influenzae type b vaccine, conjugate unspecified formulation Jairo Ordaz MD Work Phone: [facility] 04-13-1984 diphtheria, tetanus toxoids and acellular pertussis vaccine Jairo Ordaz MD Work Phone: [facility] 01-14-1984 measles, mumps and rubella virus vaccine Jairo Ordaz MD Work Phone: [facility] 03-12-1983 diphtheria, tetanus toxoids and pertussis vaccine Jairo Ordaz MD Work Phone: [facility] 03-12-1983 trivalent poliovirus vaccine, live, oral Jairo Ordaz MD Work Phone: [facility] 01-09-1983 diphtheria, tetanus toxoids and pertussis vaccine Jairo Ordaz MD Work Phone: [facility] 01-09-1983 trivalent poliovirus vaccine, live, oral Jairo Ordaz MD Work Phone: [facility] 1982 diphtheria, tetanus toxoids and pertussis vaccine Jairo Ordaz MD Work Phone: [facility] 1980 trivalent poliovirus vaccine, live, oral Jairo Ordaz MD Work Phone: [facility] NEGATED: Highlighted row has not occurred!09-02-2018 tetanus toxoid, reduced diphtheria toxoid, and acellular pertussis vaccine, adsorbed SENIOR NETWORK ADMINISTRATOR-C Colten Case Work Phone: [facility] Payers Date Payer Category Payer Private Health Insurance [id number] 2022 Self-pay [id number] 2022 Medicaid [place] [id number] 2022-Present [address] [place] [address] [id number] 2022 Unknown [id number] 1982 Unknown [id number] 2.16.840.1.124300.3.579.2. 593 1982 Unknown [id number] 2.840.1.585924.3.579.2. 593 1982 Unknown [id number] 2.840.1.236666.3.579.2. 727 1982 Unknown [id number] 2840.1.570557.3.579.2. 1258 1982 Unknown [id number] 2.840.1.395422.3.579.2. 1258 1982 Unknown [id number] .1.340647.3.579.2. 1258 1982 Unknown [id number] 2.0.1.645390.3.579.2. 1258 1982 Unknown [id number] .1.742131.3.579.2. 1258 1982 Unknown [id number] .1.855608.3.579.2. 1258 1982 Unknown [id number] 03.27.830.1.831979.3.579.2. 1258 1982 Unknown [id number] 840.1.189247.3.579.2. 1258 1982 Unknown [id number] .1.957925.3.579.2. 1258 1982 Unknown [id number] 840.1.458086.3.579.2. 1258 1982 Unknown [id number] 840.1.362099.3.579.2. 1258 1982 Unknown [id number] 840.1.489535.3.579.2. 1258 1982 Unknown [id number] 840.1.231280.3.579.2. 1258 1982 Unknown [id number] 840.1.449302.3.579.2. 1259 1982 Unknown [id number] 2.16.840.1.725458.3.579.2. 1259 1959 Unknown [id number] Medicaid [facility] [id number] Medicaid Anthem [place] Medicaid [id number] Unknown [id number] 2.16.840.1.475597.3.579.2. 531 Unknown [id number] 2.16.840.1.978574.3.579.2. 531 Unknown [id number] 2.16.840.1.619493.3.579.2. 531 Social History Date Type Detail Facility Start: 12-26-2021 End: 08-14-[address] [facility] Never smoked tobacco (finding) [facility] Start: 1980 Sex Assigned At Female F [facility] Start: 06-19-2022 End: 07-23-2022 Sex Assigned At [facility] Tobacco smoking status No Smokin g Status Entered [facility] Start: 06-19-2022 Tobacco use and exposure Smokeless tobacco non-user [facility] Start: 03-19-2023 Alcohol intake Current drinke r of alcohol (finding) [facility] Start: 07-23-2022 End: 03-19-2023 Alcohol intake [facility] How often to you hav e a drink containing alcohol? Monthly or less [facility] How many standard drinks containing alcohol do you have on a typical day? 1 or 2 [facility] How often do you hav e 6 or more drinks on 1 occasion? Less than monthly [facility] Start: 01-14-2023 Alcohol Comment 2 glasses on t weekend; caffeine intake : 1-2 cups per day ; coffee [facility] Start: 1980 Sex Assigned At Not on file [facility] Medical Equipment Procedure Code Equipment Code Equipment Origin al Text Equipment Identifier Dates Repair, hernia, umbilical Abdominal hernia surgical mesh, composite-polymer [id number] [facility] Start: 03-13-2022 Use as instructe d once a day [id number] Start: 08-05-2022 End: 08-05-2023 Administer [facility] [id number] Start: 08-15-2022 End: 08-15-2023 Use as instructed [id number] Start: 01-12-2023 End: 01-12-2024 Goals Date Patient Goal Desired Activity /State Functional Status Date Assessment Result Facility 06-19-2022 Functional Status N/A [facility] Clinical Notes 12-29-2021 to 03-25-2023 Telephone Encounter - Chaz Oconnell MD, IBCLC - 03/25/2023 10:49 AM ESTTelephone Encounter - Chaz Oconnell MD, IBCLC - 03/25/2023 10:49 AM Amanda Ordaz MD - 03/19/2023 2:45 PM EST Note Date & Type Note Facility 03-25-2023 Telephone encount er Note done [facility] 03-25-2023 Miscellaneous Notes Formattin g of this note might be different from the original. done Forwarding to Dr. Oconnell for order as Gely is out of the office Pt is asking for a new screening mammogram order be sent to [facility]. documented in this encounter [facility] 03-25-2023 Telephone encount er Note Forwarding to Dr. Oconnell for order as Gely is out of the office [facility] 03-25-2023 Telephone encount er Note Pt is asking for a new screening mammogram order be sent to [facility]. [facility] 03-19-2023 History of Presen t illness Narrative Images from the original note were not included. Jairo Ordaz MD Obstetrics and Gynecology Patient: Yessy Carnes, : 1980 (42 y.o.) DOS 03/19/23 Exam Date: 03/19/2023 HPI: Pt c/o abd pain and cramping intermittently. She is unable to determine if it is GI or uterine related. She does have pain with intercourse. She had Liletta in place. Sono 06/29 shows adenomyosis Visit Vitals BP 126/78 Wt 182 lb LMP 03/10/2023 BMI 32.24 kg/m OB Status Having periods Smoking Status Never BSA 1.92 m OB History Para Term AB Living 2 2 2 0 0 2 SAB IAB Ectopic Multiple Live Births 0 0 0 0 2 # Outcome Date GA Lbr Nick/2nd Weight Sex Delivery Anes PTL Lv 2 Term 1 Term Obstetric Comments Pap: 01/30-Neg DENNY: HPV Neg Liletta IUD-06/28; occasional spotting with IUD; LMP: 03/10/23 Medication and Allergies Medication Documentation Review Audit Reviewed by Elise Cheek MA (Production Clerks Supervisor) on 03/19/23 at 1442 Medication Order Taking? Sig Documenting Provider Last Dose Status ARIPiprazole (Abilify) 5 MG tablet [id number] Take 12/11 tabs Cheryl Diego-Jean, FLAKER TENDER-LITHOGRAPHIC PRESS FEEDER Active atenolol (Tenormin) 25 MG tablet [id number] Take 1 tablet (25 mg) by mouth in the morning. Colten Arita NP Active dicyclomine (Bentyl) 20 MG tablet [id number] Take 1 tablet (20 mg) by mouth in the morning and 1 tablet (20 mg) in the evening and 1 tablet (20 mg) before bedtime. Do all this for 10 days. Colten Arita NP Active dulaglutide (Trulicity) 1.5 MG/0.5ML solution pen-injector [id number] Inject 1.5 mg under the skin 1 (one) time per week Colten Arita NP Active FLUoxetine (PROzac) 40 MG capsule [id number] Take 1 capsule (40 mg) by mouth in the morning. Once a day. Cheryl Chilel Leon, FLAKER TENDER-[facility] 02/06/23 235 glucose blood test strip [id number] Use as instructed once a day Colten Arita NP Active hydrOXYzine pamoate (Vistaril) 25 MG capsule [id number] Take 1 capsule (25 mg) by mouth Daily as needed for itching. Cheryl M Leon, FLAKER TENDER-[facility] 01/19/23 235 ibuprofen 800 MG tablet [id number] every 8 (eight) hours. Historical Provider, Active insulin aspart (NovoLOG FLEXPEN) 100 UNIT/ML pen [id number] Inject 10 Units under the skin in the morning and 10 Units at noon and 10 Units in the evening. Inject with meals. Colten Arita NP Active ketorolac (Toradol) 10 MG tablet [id number] Yes TAKE 1 TABLET BY MOUTH THREE TIMES A DAY NEEDED FOR PAIN Jairo Ordaz MD Active Levonorgestrel (Liletta, 52 MG,) 19.5 MCG/DAY intrauterine device [id number] Liletta (52 MG) Historical Provider, Active lisdexamfetamine (Vyvanse) 60 MG capsule [id number] Take 1 capsule (60 mg) by mouth in the morning. Cheryl M Leon, FLAKER TENDER-[facility] 02/07/23 235 metFORMIN (Glucophage) 500 MG tablet [id number] Take 1 tablet (500 mg) by mouth in the morning and 1 tablet (500 mg) in the evening. Take with meals. Colten Arita NP Active metroNIDAZOLE (Flagyl) 500 MG tablet [id number] Take 1 tablet (500 mg) by mouth in the morning and 1 tablet (500 mg) in the evening and 1 tablet (500 mg) before bedtime. Do all this for 10 days. Colten Arita NP Active Multiple Vitamin (Multivitamin Adult) tablet [id number] as directed Orally Historical ProviderMD Active ondansetron ODT (Zofran-ODT) 4 MG disintegrating tablet [id number] Yes DISSOLVE 1 TABLET ON TONGUE EVERY 6 HOURS NEEDED FOR NAUSEA AND VOMITING Jairo Ordaz MD Active pen needle 32G x 4 mm [facility] [id number] Administer [facility] Agustin Hendrix NP Active pen needle 32G x 4 mm [facility] [id number] Use as instructed Colten Arita, SENIOR NETWORK ADMINISTRATOR Active traZODone (Desyrel) 50 MG tablet [id number] Take 2 tablets (100 mg) by mouth at bedtime Cheryl Quintero APRN-LITHOGRAPHIC PRESS FEEDER Active No Known Allergies Past Medical History: Diagnosis Date ADHD (attention deficit hyperactivity disorder) ([facility]) Allergies Anxiety 02/10/2008 Asthma ([facility]/HCC) COVID-19 Depression (CMS/HCC) Diabetes 1.5, 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CMS/[facility]) Frequent UTI H/O umbilical hernia repair 2022 Hypertension (CMS/HCC) Past Surgical History: Procedure Laterality Date BACK SURGERY 1997 SECTION, LOW TRANSVERSE 08/2018 CHOLECYSTECTOMY 2016 UMBILICAL HERNIA REPAIR 03/2022 repair with mesh- AVV VAGINAL DELIVERY 05/2006 VAGINAL DELIVERY Physical Exam: Objective Physical Exam Constitutional: Appearance: Normal appearance. Genitourinary: Vulva normal. No vaginal discharge. Right Adnexa: not tender and not palpable. Left Adnexa: not tender and not palpable. IUD strings visualized. Uterus is tender. Uterus is not enlarged. Pulmonary: Effort: Pulmonary effort is normal. Abdominal: Palpations: Abdomen is soft. Tenderness: There is no abdominal tenderness. Neurological: Mental Status: She is alert. Associated Treatments and Results - ICD-10-CM 1. Intrauterine device surveillance Z30.431 2. Dyspareunia in female N94.10 3. Adenomyosis N80.03 She does have a tender uterus c/w adenomyosis. I believe a hysterectomy would help her. I cannot be certain that her uterus is causing the pain she complains of. She will consoder Assessment/Plan documented in this encounter [facility] 06-19-2022 Evaluation + Plan note Extrac christen from: Title:Clinical Document Author:Elias White MD Date:06/19/22 Chief complaint: Low back pa in History of present illness: This is a 41-year-old female here for a chief complaint of bilateral lower back pain. The patient rates the pain as a 7 out of 10. She denies radiation down the extremities. Since her last visit she reports the symptoms have been persistent. She is using ibuprofen which helps a little bit. She reports the pain will keep her up at night. At her last visit with us a trial of lumbar medial branch blocks was discussed. She was fearful of that so she is only following up now. She denies numbness or weakness. She also has some neck pain but it is less of an issue. The patient denies additional neurologic symptoms or issues with bladder or bowel control. The patient's past medical, surgical, and social history along with medications and allergies were reviewed. Review of systems was done on 10 systems Physical examination: General: Pleasant white female in no acute distress. Patient appears well- nourished. Vital signs stable Head exam: Head is normocephalic and external ears are normal Neck exam: Mild bilateral cervical tenderness Cardiovascular exam: No signs of poor perfusion and no peripheral edema Respiratory exam: Breathing is unlabored and there is no wheezing present Abdomen exam: Abdomen soft and nondistended Back exam: Bilateral lumbar paraspinal tenderness exacerbated with facet loading Musculoskeletal exam: Strength 5 out of 5. Muscle tone is normal. Neurologic exam: Sensation intact. Reflexes normal and symmetric. Psych exam: Affect is appropriate. Alert and oriented Skin exam: No lesions Assessment: The patient's signs and symptoms are consistent with lumbosacral spondylosis, postlaminectomy syndrome, and scoliosis. We reviewed the patient's imaging. She has Joshi rods correcting a thoracolumbar scoliosis but her lower lumbar region has not been operated on. She has facet arthropathy with contrast enhancement indicating synovitis in the L4-5 and L5-S1 facet joints bilaterally. This correlates with her symptoms of facet arthropathy and spondylosis. Oswestry disability index score was 40% OARRS report was reviewed and was appropriate Plan: I addressed options with her. I will have her stop the ibuprofen and I will trial her on meloxicam 7.5 mg daily as needed. We will check some renal labs to make sure her kidney function is good. I will also put her on 10 mg of nortriptyline at bedtime to help with sleep. She will continue with her home exercises for her spine and I will also write her for a TENS unit. I also reiterated that a trial of bilateral diagnostic lumbar medial branch blocks from L3-L5 would be a reasonable treatment option. She is going to think it over. We discussed the potential risks and benefits of this plan and the patient was in agreement to proceed. I will see the patient for follow-up in 3 months for repeat evaluation. Future Appointments Appointment Date:09/18/2022 03:30:00 PM Scheduled Provider:James White MD Location:.[facility] Appointment Type:Pain Management - Follow Up (FT) [facility]12-27-2022 Evaluation note* Encounter Date Diagnosis Assessment Notes Treatment Notes Treatment Clinical Notes Jan, Cough (ICD-10 - R05.9) Jan, Viral URI (ICD-10 - J06.9) Symptoms appear viral today. Bacteria infections take several days to weeks of symptoms to develop. Use saline nasal spray before prescription one and you have better results. Recommend OTC medications such as Mucinex DM, Delsym, Cepocal Lozenges Continue tylenol/ibuprofen for general discomfort. Encourage fluids. Symptoms should improve within the next 10-14 days. If no improvement of symptoms in 14 days call primary care provider to discuss antibiotic therapy, Viral upper respiratory infection: adult home care material was printed [employer] Other 11-20-2022 Evaluation note* Encounter Date Diagnosis Assessment Notes Treatment Notes Treatment Clinical Notes Dec, Dysuria (ICD-10 - R30.0) Dec, Acute cystitis with hematuria (ICD-10 - N30.01) Take medication as directed. Urine analysis shows abnormalities today in office. Urine culture will be sent to lab. Will call with results if resistance present to antibiotic. Increase fluid intake. Follow hygiene guidelines such as wiping front to back, avoid using perfumed lotions, bath beads, bubble bath. Prevention tips inlcude urinating after sexual intercourse. Follow up with primary care provider or liquor rectifier if no improvement of symptoms. [employer] Other Evaluation noteNo assessment information available [facility] Work Phone: Evaluation note* Diagnosis Intrauterine device surveillance Dyspareunia in female Adenomyosis Endometriosis of uterus documented in this encounter [facility] HealthcareEvaluation note* Diagnosis Encounter for screening mammogram for malignant neoplasm of breast- Primary documented in this encounter [facility] HealthcareEvaluation note* Diagnosis Attention deficit hyperactivity disorder (ADHD), combined type (CMS/HCC) documented in this encounter [facility] HealthcareEvaluation note* Diagnosis Onset Date Resolution Status Left otitis media noneactive Left otitis externa noneacti ve [facility] Work Phone: History general Narrative - Reported* Type Description Date Medical History borderline anemia Medical History Anxiety attack Medical History HISTORY OF UTI Surgical History back surgery/scoliosis 1997 Hospitalization History SEE ABOVE SURGERY Hospitalization History child [facility] Other Hospital course Narrative No data available for this section [facility] Additional Instructions [facility] if [facility] Work Phone: Hospital Discharge instructions Additional Instructions 1. No driving if taking narcotic pain medication. 2. No lifting more than 20 pounds for 3 weeks. 3. May shower.[facility] Work Phone: Hospital Discharge instructions No data available for this section [facility] Additional Instructions Push fluids Rest Take your medications as prescribed Follow-up with your doctor call tomorrow for appointment Return here if you develop any dizziness, chest pain, shortness of breath, numbness, tingling, unilateral weakness or any other concernsC[facility] Work Phone: Progress note No data available for this section [facility] Summary Purpose Family History No Family History Records Found Relationship Condition Age at Onset Recorded Date/T vinny Not Specified Cerebrovascular accident (CVA) Unknown Relationship Condition Age at Onset Recorded Date/T vinny father History of coronary artery bypass surgery Unknown Controlled type 2 diabetes mellitus Unkno wn Chronic obstructive pulmonary disease Unk nown Not Specified Cerebrovascular accident (CVA) Unknown Pulmonary embolism Unknown Hypertension Unknown sister Asthma Unknown Relationship Condition Age at Onset Recorded Date/T vinny father History of coronary artery bypass surgery Unknown Controlled type 2 diabetes mellitus Unkno wn Chronic obstructive pulmonary disease Unk nown Not Specified Cerebrovascular accident (CVA) Unknown Pulmonary embolism Unknown Hypertension Unknown sister Asthma Unknown father Diabetes mellitus Unknown Advance Directives No Advanced Directives Records Found Advance Directive Response Recorded Date/ Time Advance Directives No October 10:08am Advance Directive Response Recorded Date/ Time Advance Directives No October 11:08am Chief Complaint and Reason for Visit Chief Complaint lower abd pain Chief Complaint lower abd pain R30.0 R05.1 R09.81 Chief Complaint lower abd pain R30.0 R05.1 R09.81 Umbilical Hernia Chief Complaint lower abd pain R30.0 R05.1 R09.81 Umbilical Hernia Umbilical Hernia Chief Complaint elevated blood sugar Chief Complaint Left ear pain, conge stion Reason for Visit Left otitis media Left otitis externa Reason for Referral Specialty Diagnoses / Procedures Referred By Contac t Referred To Contact Diagnoses Attention deficit hyperactivity disorder (ADHD), combined type (CMS/[facility]) Cheryl Quintero, FLAKER TENDER-LITHOGRAPHIC PRESS FEEDER [address] [place] [address] Referral ID Status Reason Start Date Expiration Date V isits Requested Visits Authorized [id number] Pending Review 1 1 Additional Source Comments INFORMATION SOURCE (unrecogn ized section and content) DATE CREATED AUTHOR 10/08/2018 [facility] DATE CREATED AUTHOR AUTHOR'S ORGANIZ ATION 03/21/2021 [facility] dical Specialist DATE CREATED AUTHOR AUTHOR'S ORGANIZ ATION 06/20/2022 [facility] DATE CREATED AUTHOR AUTHOR'S ORGANIZ ATION 07/24/2023 [facility] DATE CREATED AUTHOR AUTHOR'S ORGANIZ ATION 10/18/2023 [facility] dical Specialists EPIC Care Teams (unrecognized sec tion and content) Team Status: Inactive Member Role Status Dates Colten Arita , SENIOR NETWORK ADMINISTRATOR-C Primary Care Provider Active Rj Breen MD Emergency Provider Active Team Status: Active Member Role Status Dates Colten Arita SENIOR NETWORK ADMINISTRATOR-C Primary Care Provider Active Team Status: Inactive Member Role Status Dates Colten Arita , SENIOR NETWORK ADMINISTRATOR-C Primary Care Provider Active VANESA Maravilla Attending Provider Active Team Status: Inactive Member Role Status Dates Colten Arita SENIOR NETWORK ADMINISTRATOR-C Primary Care Provider Active MARBELLA Jensen Attending Provider Active Team Status: Inactive Member Role Status Dates Colten Arita , SENIOR NETWORK ADMINISTRATOR-C Primary Care Provider Active Martin Goodman MD Attending Provider Active Team Status: Inactive Member Role Status Dates Colten Arita , SENIOR NETWORK ADMINISTRATOR-C Primary Care Provider Active Della Munguia APRN Emergency Provider Active Prick Stitcher Relationship Specialty Start Date End Date Deirdre Sesay MD [address] [place] [address] PCP - General Family Medicine 06/20/22 Colten Arita NP [address] [facility] [place] [address] Nurse Practitioner Family Medicine 06/20/22 Prick Stitcher Relationship Specialty Start Date End Date Deirdre Sesay MD [address] [place], [place] [phone] PCP - General Family Medicine 06/20/22 Colten Arita NP [address] [place] [address] Nurse Practitioner Family Medicine 06/20/22 Prick Stitcher Relationship Specialty Start Date End Date Deirdre Sesay MD [address] [place], [place] [phone] PCP - General Family Medicine 06/20/22 Colten Arita NP [address] [place] [address] Nurse Practitioner Family Medicine 06/20/22 Team Status: Active Member Role Status Dates NON STAFF Primary Care Provider Active Team Status: Inactive Member Role Status Dates Nita Kong NP-C Attending Provider Active S tart: June 07, 2023 End: June 07, 2023 NON STAFF Primary Care Provider Active Start: June 07, 2023 End: June 07, 2023 Team Status: Inactive Member Role Status Dates NON STAFF Primary Care Provider Active Start: July 10, 2023 End: July 10, 2023 Colten Arita NP-Crystal Attending Provider Active Start: July 10, 2023 End: July 10, 2023 Goals (unrecognized section and content) Goals may be documented in a n alternate sectionGoals may be documented in an alternate sectionNo InformationGoals may be documented in an alternate sectionGoals may be documented in an alternate sectionNo Information No data available for this sectionGoals may be documented in an alternate sectionGoals may be documented in an alternate sectionGoals may be documented in an alternate section REASON FOR VISIT (unrecogniz ed section and content) Reason Onset Date Comments Breast Cancer Screening 03/25/2023 Reason Onset Date Comments Med Refill 03/25/2023 Pt requested RX Vyvanse. To [facility] [place] Has follow up FOR RECORDS PERTAINING TO PATIENTS WHO ARE OR HAVE BEEN ENROLLED IN A CHEMICAL DEPENDENCY/SUBSTANCEABUSE PROGRAM, SOME INFORMATION MAY BE OMITTED. This clinical summary was aggregated from multiple sources. Caution should be exercised in using it in the provision of clinical care. This summary normalizes information from multiple sources, and as a consequence, information in this document may materially change the coding, format and clinical context of patient data. In addition, data may be omitted in some cases. CLINICAL DECISIONS SHOULD BE BASED ON THE PRIMARY CLINICAL RECORDS. [employer] provides no warranty or guarantee of the accuracy or completeness of information in this document.
[2023-11-05] MEDS: DEXAMETHASONE SOD PHOS 10 MG/ML VIAL IV (14:18)
[2023-11-05] MEDS: 0.9 % SODIUM CHLORIDE 1,000 ML 999 ML IV (14:19)
[2023-11-05] MEDS: METOCLOPRAMIDE HCL 10 MG/2 ML VIAL IVP (14:19)
[2023-11-05] MEDS: KETOROLAC TROMETHAMINE 30 MG/ML VIAL IVP (14:19)
[2023-11-05] MEDS: DIPHENHYDRAMINE HCL 50 MG/ML VIAL 25 MG IV (14:19)
[2023-11-05 15:40] VITALS: BP 129/78; PULSE 72; O2SAT 99
== END 2023-11-05 15:40 | disposition home or self-care (01) ==
PROVIDERS: Emergency Provider Emergency Medicine
DX: R51.9 Headache, unspecified (principal); F17.200 Nicotine dependence, unspecified, uncomplicated
CPT/HCPCS: 70450; 96374; 96375; 99285; J1100; J1200; J1885; J2765

== ENCOUNTER 2024-01-09 19:37 | Emergency (ER) | payer OTHER, SELFPAY ==
[2024-01-09] VITALS (11 sets, daily range): BP systolic 140–164; BP diastolic 88–116; PULSE 91–109; TEMP 36.6; O2SAT 94–100; BMI 33.7
--- OUTSIDE RECORDS SUMMARY | 2024-01-09 19:48 | XMS_ITS | CCD ---
Author Organization [facility] Inform ion [facility] Care Team Providers Care Cushion Maker Name Role Phone KEYANNA GARCIAS Consulting Unavailable REINKEYANNA RUVALCABA Admitting Unavailable REINKEYANNA RUVALCABA Attending Unavailable MISC, DOCTOR Primary Care Unavailable MAST, LAZARO Consulting Unavailable MISC, DOCTOR Primary Care Unavailable KEYANNA GARCIAS Admitting Unavailable KEYANNA GARCIAS Attending Unavailable TAMARA MAYES Consulting Unavailable Case, HOSPITAL CLEANING SPECIALIST-C Colten Crisostomo Primary Care Provider [phone] MD Rj Breen Emergency Provider VANESA Ro Attending Provider [phone] Cara Ro Unavailable MARBELLA Hendrix Attending Provider MD Martin Goodman Attending Provider [phone] MAST, LAZARO E Primary Care Physician [phone] MD James White Admitting Unavailable NONE, XXXX Referring Unavailable James White Attending Unavailable Case, HOSPITAL CLEANING SPECIALIST-Crystal Crisostomo Primary Care Provider [phone] LAURA Munguia Emergency Provider [phone] Lázaro ROSS, Deirdre Chilel Primary Care Provider Case HOSPITAL CLEANING SPECIALISTColten Unavailable NON STAFF Primary Care Provider Unavailabl e Case, HOSPITAL CLEANING SPECIALIST-C Colten Crisostomo Attending Provider Della Munguia Attending Unavailable Della Munguia Admitting Unavailable Case, Colten Crisostomo Primary Care Unavailable Case, Colten Crisostomo Attending Unavailable Case, Colten Crisostomo Admitting Unavailable NON STAFF Primary Care Unavailable Agustin Hendrix Attending Unavailable Agustin Hendrix Admitting Unavailable Case, Colten Crisostomo Primary Care Unavailable Lázaro ROSS, Deirdre Chilel Unavailable JAIRO ORDAZ Attending Unavailable CHERYL QUINTERO Attending Unavailab le AGUSTIN HENDRIX Attending Unavailable AGUSTIN HENDRIX Referring Unavailable AGUSTIN HENDRIX Attending Unavailable CHAZ OCONNELL Referring Unavailable BRANDIECHERYL HARDY Attending Unavailab le CASE, COLTEN Crisostomo Attending Unavailable CASE, COLTEN Crisostomo Attending Unavailable NOCHAZ Attending Unavailable CASE, COLTEN Crisostomo Attending Unavailable BRANDIECHERYL MCDOWELL Attending Unavailab SARAH Ramirez Attending Unavailable CASE, COLTEN Crisostomo Attending Unavailable CASE, COLTEN Crisostomo Attending Unavailable NOCHAZ Attending Unavailable BRANDIE-NOSSECHERYL Dunne Attending Unavailab le NOCHAZ Attending Unavailable NOCHAZ Referring Unavailable BARRY SHEFFIELD Attending Unavailable BRANDIE-NOSSECHERYL Dunne Referring Unavailab le BRANDIE-NOSSECHERYL Dunne Attending Unavailab le Medications Current Medications Medication Drug Class(es) Dates Sig (Normalized) Sig (Original) acetaminophen 325 mg / HYDROcodone bitartrate 5 mg oral tablet (4 sources) Opioid Agonist Start: 03-13-2022 take 1 tablet by mouth every six hours Hydrocodone-Acetam inophen Active 1 TAB PO Q6H 28 March 13, 2022 [id number] 200 actuat albuterol 0.09 mg/actuat metered dose inhaler (18 sources) beta2-Adrenergic Agonist Start: 04-16-2023 End: 12-14-2023 take 2 puff(s) by inhalation every four hours for wheezing albuterol HFA (ProAir HFA) 90 mcg/act inhaler Indications: Cough in adult , Dyspnea on exertion , Chest congestion Inhale 2 puffs every 4 (four) hours if needed for wheezing or shortness of breath 18 g 1 12/14/2023 Active amoxicillin 500 mg oral capsule (2 sources) Penicillin-class Antibacterial Start: 06-07-2023 take 500 mg by mouth three times daily Amoxicillin Active 500 MG PO Three times daily 30 June 07, 2023 12:00am ascorbic acid 60 mg / beta carotene 5000 unt / copper sulfate 40 mg / dl-alpha tocopheryl acetate 30 unt / sodium selenite 0.04 mg / zinc oxide 40 mg oral tablet (20 sources) Vitamin C Multiple Vitamin (Multivitamin Adult) tablet as directed Orally Active atenolol 25 mg oral tablet (20 sources) beta-Adrenergic Zandra Start: 12-26-2021 take 1 tablet by mouth once daily atenolol (Tenormin) 25 MG tablet Indications: Benign essential hypertension (CMS/HCC) Take 1 tablet (25 mg) by mouth Daily 90 tablet 1 04/17/2023 Active Start: 12-26-2021 Atenolol Activ e MG TABLET December 26, 2021 12:00am dicyclomine hydrochloride 20 mg oral tablet (15 sources) Anticholinergic Start: 12-26-2021 End: 03-23-2023 take 20 mg by mouth four times daily Dicyclomine Active 20 MG PO Four times daily February 27, 2022 2:56pm doxycycline hyclate 100 mg oral capsule (6 sources) Tetracycline-class Drug Start: 12-10-2023 End: 12-20-2023 doxycycline (Vibramycin) 100 MG capsule Indications: Atypical pneumonia Take 1 capsule (100 mg) by mouth in the morning and 1 capsule (100 mg) before bedtime. Do all this for 10 days. Take with at least 8 ounces (large glass) of water, do not lie down for 30 minutes after. 20 capsule 12/10/2023 12/20/2023 Active 0.5 ml dulaglutide 3 mg/ml auto-injector (4 sources) GLP-1 Receptor Agonist Start: 02-04-2023 inject 1.5 mg by subcutaneous injection every week dulaglutide (Trulicity) 1.5 MG/0.5ML solution pen-injector Indications: Type 2 diabetes mellitus with hyperglycemia, with long-term current use of insulin (CMS/HCC) Inject 1.5 mg under the skin 1 (one) time per week 4 pen 11 02/04/2023 Active Lexapro (1 source) Serotonin Reuptake Inhibitor Start: 01-10-2020 Lexapro 20 mg, Daily, Refills(s) 0 Start Date: 01/10/20 Status: Ordered fluconazole 100 mg oral tablet (1 source) Azole Antifungal Start: 12-31-2023 End: 01-14-2024 take 1 tablet by mouth once daily fluconazole (Diflucan) 100 MG tablet Indications: Intertrigo Take 1 tablet (100 mg) by mouth Daily for 14 days 7 tablet 12/31/2023 01/14/2024 Active FLUoxetine 40 mg oral capsule (20 sources) Serotonin Reuptake Inhibitor Start: 10-23-2023 End: 02-28-2024 FLUoxetine (PROzac) 40 MG capsule Indications: Moderate episode of recurrent major depressive disorder (CMS/HCC) Take 1 capsule (40 mg) by mouth Daily Once a day 90 capsule 11/30/2023 02/28/2024 Active Start: 12-26-2021 take 40 mg by mouth once daily in the morning Fluoxetine Active 40 MG PO Every morning December 26, 2021 1:00am Start: 12-26-2021 Fluoxetine Act tanisha MG December 26, 2021 12:00am Start: 02-10-2017 End: 09-28-2017 take 20 mg by mouth once daily Fluoxetine Discontinued 20 MG PO Daily February 10, 2017 1:00am September 28, 2017 11:00am take 1 capsule by [facility] once daily in the morning FLUoxetine HCl [...] / neomycin 3.5 mg/ml / polymyxin b [id number] unt/ml otic suspension (2 sources) Aminoglycoside Antibacterial, Polymyxin-class Antibacterial, Corticosteroid Start: 06-07-2023 Neomycin-Polymyx in-Hc Active 3 DROPS OTIC Three times daily June 07, 2023 12:00am left ear hydrOXYzine pamoate 25 mg oral capsule (20 sources) Antihistamine Start: 07-01-2023 End: 02-28-2024 take 1 capsule by mouth every eight hours as needed for anxiety and anxiety and anxiety hydrOXYzine pamoate (Vistaril) 25 MG capsule Indications: Anxiety Take 1 capsule (25 mg) by mouth every 8 (eight) hours if needed for anxiety 90 capsule 11/30/2023 02/28/2024 Active Start: 11-20-2022 take 1 capsule by mo [facility] every twenty-four hours as needed for anxiety [...] Start: 06-21-2020 take 1 tablet by pema twice daily as needed for pain ibuprofen 600 mg Tab 600 mg = 1 tab(s), Oral, BID, PRN as needed for pain, # 60 tab(s), Refills(s) 0, Pharmacy: [id number], 160, cm, 06/15/20 14:02:00 EDT, Height/Length [...] hyperglycemia, without long-term current use of insulin ([facility]) Inject 10 Units under the skin in the morning and 10 Units at noon and 10 Units in the evening. Inject with meals. 10 mL 12 01/12/2023 01/12/2024 Active 3 ml insulin glargine 100 unt/ml pen injector (18 sources) Insulin Analog Start: 11-09-2023 End: 02-09-2024 insulin glargine (Basaglar KwikPen) 100 UNIT/ML pen Indications: Type 2 diabetes mellitus with hyperglycemia, with long-term current use of insulin ([facility]) Inject 16 Units under the skin at bedtime 9 mL 3 11/11/2023 02/09/2024 Active ketorolac tromethamine 10 mg oral tablet (4 sources) Nonsteroidal Anti-inflammatory Drug, Cyclooxygenase Inhibitor Start: 03-11-2023 take 1 tablet by mouth three times daily as needed for pain ketorolac (Toradol) 10 MG tablet TAKE 1 TABLET BY MOUTH THREE TIMES A DAY NEEDED FOR PAIN 0 03/11/2023 Active levonorgestrel 0.935284 mg/hr intrauterine system (20 sources) Progestin, Progestin-containin g Intrauterine Device Start: 07-12-2019 Levonorgestrel (Liletta, 52 MG,) 19.5 MCG/DAY intrauterine device Liletta (52 MG) 07/12/2019 Active lisinopril 2.5 mg oral tablet (15 sources) Angiotensin Converting Enzyme Inhibitor Start: 11-10-2023 End: 11-09-2024 take 1 tablet by mouth once daily lisinopril 2.5 MG tablet Indications: Type 2 diabetes mellitus with diabetic microalbuminuria, with long-term current use of insulin ([facility]) Take 1 tablet (2.5 mg) by mouth Daily 30 tablet 11 11/10/2023 11/09/2024 Active Lumateperone Tosylate (Caplyta) 21 MG capsule (3 sources) Start: 12-18-2023 End: 01-17-2024 take 1 capsule by mouth once daily Lumateperone Tosylate (Caplyta) 21 MG capsule Indications: Moderate episode of recurrent major depressive disorder ([facility]/HCC) Take 21 mg by mouth Daily 30 capsule 1 12/18/2023 01/17/2024 Active meloxicam 7.5 mg oral tablet (1 source) Nonsteroidal Anti-inflammatory Drug Start: 06-19-2022 take 1 tablet by mouth once daily as needed for pain Mobic 7.5 mg Tab 7.5 mg = 1 tab(s), Oral, Daily, PRN Pain, # 90 tab(s), Refills(s) 0, Pharmacy: [facility], 160, cm, 06/19/22 14:33:00 EDT, Height/Length Dosing Start Date: 06/19/22 Status: Ordered metFORMIN hydrochloride 1000 mg oral tablet (20 sources) Biguanide Start: 08-05-2023 take 1 tablet by mouth in the morning metFORMIN (Glucophage) 1000 MG tablet Indications: Type 2 diabetes mellitus with hyperglycemia, with long-term current use of insulin (CMS/HCC) Take 1 tablet (1,000 mg) by mouth in the morning and 1 tablet (1,000 mg) in the evening. Take with meals. 180 tablet 1 08/05/2023 Active Start: 03-09-2023 End: 03-08-2024 take 1 tablet by mouth in the morning metFORMIN (Glucophage) 500 MG tablet Indications: Type 2 diabetes mellitus with hyperglycemia, with long-term current use of insulin (CMS/HCC) Take 1 tablet (500 mg) by mouth [...] capsule Discontinued 100 MG PO Twice daily 22 08November 16, 2018 12:00am May 16, 2020 4:43pm must administer with a meal/food Start: 06-20-2018 End: 09-04-2018 take 1 capsule by mouth twice daily at mealtime Nitrofurantoin Monohyd/M-Cryst (Macrobid) 100 mg capsule Discontinued 100 MG PO Twice daily 22 08June 20, 2018 12:00am September 04, 2018 10:54am must administer with a meal/food nortriptyline 10 mg oral capsule (1 source) Tricyclic Antidepressant Start: 06-19-2022 End: 09-17-2022 take 1 capsule by mouth at bedtime nortriptyline 10 mg Cap 10 mg = 1 cap(s), Oral, Bedtime, X 90 day(s), # 90 cap(s), Refills(s) 0, Pharmacy: [facility], 160, cm, 06/19/22 14:33:00 EDT, Height/Length Dosing Start Date: 06/19/22 Stop Date: 09/17/22 Status: Ordered nystatin 100 unt/mg topical powder (1 source) Polyene Antifungal Start: 12-31-2023 End: 12-30-2024 nystatin (Mycostatin) [id number] UNIT/GM powder Indications: Intertrigo Apply topically 2 (two) times a day 60 g 3 12/31/2023 12/30/2024 Active omeprazole 20 mg delayed release oral capsule (20 sources) Proton Pump Inhibitor Start: 06-02-2023 take 1 capsule by mouth once daily before mealtime omeprazole (PriLOSEC) [address] capsule Indications: Chronic cough TAKE 1 CAPSULE BY MOUTH ONCE EVERY MORNING BEFORE MEALS *DO NOT CRUSH OR CHEW* 30 capsule 06/02/2023 Active Start: 06-27-2018 End: 11-16-2018 take 1 tablet by mouth twice daily Omeprazole Magnesium (Prilosec Otc) 20 mg tablet,delayed release (DR/EC) Discontinued 20 MG PO Twice daily 28 11June 27, 2018 12:00am November 16, 2018 9:16pm ondansetron 8 mg oral tablet (20 sources) Serotonin-3 Receptor Antagonist Start: 10-23-2023 take 1 tablet by mouth every eight hours as needed for nausea and vomiting and nausea and nausea ondansetron (Zofran) 8 MG tablet Indications: Nausea Take 1 tablet (8 mg) by mouth every 8 (eight) hours if needed for nausea or vomiting for up to 5 days 15 tablet 10/23/2023 Active Start: 03-11-2023 ondansetron OD T (Zofran-ODT) 4 MG disintegrating tablet DISSOLVE 1 TABLET ON TONGUE EVERY 6 HOURS NEEDED FOR NAUSEA AND VOMITING 0 03/11/2023 Active Start: 02-04-2022 take 1 tablet by pema th every eight hours as needed Zofran ODT 4 MG 1 tablet on the tongue and allow to dissolve Orally every 8 hrs as needed for 4 days Jan, Active predniSONE 20 mg oral tablet (4 sources) Start: 12-14-2023 End: 12-19-2023 take 1 tablet by mouth in the morning, then take 1 tablet by mouth in the evening, then take 1 tablet by mouth at bedtime predniSONE (Deltasone) 20 MG tablet Indications: Cough in adult , Dyspnea on exertion , Chest congestion Take 1 tablet (20 mg) by mouth in the morning and 1 tablet (20 mg) in the evening and 1 tablet (20 mg) before bedtime. Do all this for 5 days. 15 tablet 12/14/2023 12/19/2023 Active ProAir HFA 108 (90 Base) MCG/ACT (2 sources) Start: 02-20-2015 ProAir HFA 108 (90 Base) MCG/ACT 2 puffs as needed Inhalation every 4 -6hrs Feb, Active rosuvastatin calcium 5 mg oral tablet (15 sources) HMG-CoA Reductase Inhibitor Start: 11-10-2023 End: 11-09-2024 take 1 tablet by mouth once daily rosuvastatin (Crestor) 5 MG tablet Indications: Type 2 diabetes mellitus with hyperglycemia, with long-term current use of insulin ([facility]) Take 1 tablet (5 mg) by mouth Daily 30 tablet 11/10/2023 11/09/2024 Active semaglutide (Ozempic, 1 MG/DOSE,) 4 MG/3ML solution pen-injector (17 sources) Start: 11-04-2023 inject 1 mg by subcutaneous injection every week semaglutide (Ozempic, 1 MG/DOSE,) 4 MG/3ML solution pen-injector Indications: Type 2 diabetes mellitus with hyperglycemia, with long-term current use of insulin (CMS/HCC) Inject 1 mg under the skin 1 (one) time per week 3 mL 11 11/04/2023 Active Start: 11-04-2023 End: 12-04-2023 inject 1 mg by subcutaneous injection every week semaglutide (Ozempic, 1 MG/DOSE,) 4 MG/3ML solution pen-injector Indications: Type 2 diabetes mellitus with hyperglycemia, with long-term current use of insulin (CMS/HCC) Inject 1 mg under the skin 1 (one) time per week 3 mL 11/04/2023 12/04/2023 Active traZODone hydrochloride 50 mg oral tablet (20 sources) Serotonin Reuptake Inhibitor Start: 07-01-2023 take 2 tablets by mouth at bedtime traZODone (Desyrel) 50 MG tablet Indications: Moderate episode of recurrent major depressive disorder (CMS/HCC) Take 2 tablets (100 mg) by mouth at bedtime 180 tablet 07/01/2023 Active Start: 02-18-2023 take 2 tablets by mo [facility] at bedtime traZODone (Desyrel) 50 MG tablet [...] 16, 2020 12:00am December 26, 2021 5:38pm ARIPiprazole 5 mg oral tablet (18 sources) Atypical Antipsychotic Start: 07-01-2023 End: 11-30-2023 ARIPiprazole (Abilify) 5 MG tablet Indications: Mixed anxiety and depressive disorder Take 11/2 tabs 135 tablet 07/01/2023 11/30/2023 Discontinued Start: 11-20-2022 ARIPiprazole ( Abilify) 5 MG tablet Indications: Mixed anxiety and depressive disorder Take 11/2 tabs 45 tablet 1 11/20/2022 Active Start: 02-27-2022 take 5 mg by mouth o nce daily in the morning Aripiprazole Active 5 MG PO Every morning February 27, 2022 1:00am cephalexin 500 mg oral capsule (16 sources) [...] 01, 2018 12:00am September 04, 2018 10:54am lisdexamfetamine dimesylate 60 mg oral capsule (12 sources) Central Nervous System Stimulant Start: 08-18-2023 End: 11-25-2023 take 1 capsule by mouth in the morning lisdexamfetamine (Vyvanse) 60 MG capsule Indications: Attention deficit hyperactivity disorder (ADHD), combined type (CMS/HCC) Take 1 capsule (60 mg) by mouth in the morning. 30 capsule 08/18/2023 11/25/2023 Discontinued Start: 01-08-2023 End: 04-24-2023 take 1 capsule by mouth in the morning lisdexamfetamine (Vyvanse) 60 MG capsule Indications: Attention deficit hyperactivity disorder (ADHD), combined type (CMS/HCC) Take 1 capsule (60 mg) by mouth in the morning. 30 capsule 0 03/25/2023 04/24/2023 Active Start: 06-19-2022 take 1 capsule by mo uth once daily in the morning Vyvanse 60 mg oral capsule 60 mg = 1 cap(s), Oral, qAM, Refills(s) 0 Start Date: 06/19/22 Status: Ordered meclizine hydrochloride 25 mg oral tablet (8 sources) Antiemetic Start: 12-18-2017 End: 06-20-2018 take 25 mg by mouth three times daily Meclizine Discontinued 25 MG PO Three times daily December 18, 2017 1:00am June 20, 2018 6:15pm PARoxetine hydrochloride 20 mg oral tablet (16 [...] administer with food and large glass water [id number] Fumarate-Fa () 28-800 mg-mcg Tablet (8 sources) Start: 08-08-2018 End: 11-16-2018 take 1 tablet by mouth once daily [id number] Fumarate-Fa () 28-800 mg-mcg Tablet Discontinued 28 MG PO Daily August 08, 2018 12:00am November 16, 2018 9:16pm Start: 08-08-2018 End: 11-16-2018 take 1 tablet by mouth once daily [id number]-Qlbvxip Fumarate-Fa () 28-800 mg-mcg Tablet Discontinued 28 [...] Translations: [Anxiety disorder, unspecified] Onset: 06-17-2022 Resolved: 11-25-2023 04-05-2020 Chronic Attention-deficit, conduct, and disruptive behavior disorders (20 sources) Attention deficit hyperactivity disorder, combined type; Translations: [Attention-deficit hyperactivity disorder, combined type] Onset: 06-17-2022 06-17-2022 Chronic Biliary tract disease (2 sources) Biliary calculus; Translations: [Calculus of gallbladder without cholecystitis without obstruction] Episodic Contraceptive and procreative management (2 sources) Intrauterine contraceptive device in situ; Translations: [Encounter for routine checking of intrauterine contraceptive device] 03-17-2023 Episodic Diabetes mellitus with complications (6 sources) Type 2 diabetes mellitus with hyperglycemia; Translations: [Hyperglycemia due to type 2 diabetes mellitus] Onset: 08-20-2022 11-09-2023 Chronic Endometriosis (20 sources) Uterine adenomyosis; Translations: [Adenomyosis] Onset: 06-17-2022 03-19-2023 Chronic Essential hypertension (20 sources) Benign essential hypertension; Translations: [Essential (primary) hypertension] Onset: 06-17-2022 06-17-2022 Chronic Genitourinary symptoms and ill-defined conditions (1 source) Dysuria Episodic Headache; including migraine (2 sources) Refractory migraine; Translations: [Migraine, unspecified, intractable, with status migrainosus] 11-09-2023 Chronic Menopausal disorders (2 sources) Menopausal flushing; Translations: [Menopausal and female climacteric states] 11-09-2023 Chronic Menstrual disorders (20 sources) Amenorrhea; Translations: [Amenorrhea, unspecified] Onset: 09-22-2022 09-22-2022 Chronic Mood disorders (20 sources) Major depressive disorder; Translations: [Major depressive disorder, single episode, unspecified] Onset: 06-17-2022 Resolved: 2022 09-23-2017 Chronic Mood disorders (2 sources) Mood swings; Translations: [Emotional lability] 11-09-2023 Episodic Other circulatory disease (1 source) Pulmonary congestion ; Translations: [Other specified symptoms and signs involving the circulatory and respiratory systems] 12-14-2023 Episodic Other complications of (8 sources) Abdominal pain in ; Translations: [Other specified related conditions, unspecified trimester] 06-26-2018 Episodic Other ear and sense organ disorders (2 sources) Unspecified otitis externa, left ear; Translations: [Infective otitis externa, unspecified] 06-07-2023 Chronic Other female genital disorders (20 sources) Postcoital bleeding; Translations: [Postcoital and contact bleeding] Onset: 06-17-2022 06-17-2022 Chronic Other inflammatory condition of skin (1 source) Intertrigo; Translations: [Erythema intertrigo] 12-31-2023 Episodic Other injuries and conditions due to external causes (2 sources) Foreign body in ear; Translations: [Foreign body of ear, left] Episodic Other lower respiratory disease (2 sources) Dyspnea; Translations: [Shortness of breath] 12-10-2023 Episodic Other lower respiratory disease (1 source) Cough; Translations: [Cough in adult] 12-14-2023 Episodic Other lower respiratory disease (1 source) Dyspnea on exertion; Translations: [Other forms of dyspnea] 12-14-2023 Episodic Other nervous system disorders (20 sources) Poor concentration; Translations: [Attention and concentration deficit] Onset: 06-17-2022 06-17-2022 Chronic Other nervous system disorders (4 sources) Acute postoperative pain; Translations: [Other acute postprocedural pain] 03-13-2022 Episodic Other nutritional; endocrine; and metabolic disorders (20 sources) Body mass index 30+ - obesity; Translations: [Obesity, unspecified] Onset: 06-17-2022 06-17-2022 Chronic Other upper respiratory infections (1 source) Acute upper respiratory infection, unspecified Episodic Otitis media and related conditions (2 sources) Otitis media, unspecified, left ear; Translations: [Unspecified otitis media] 06-07-2023 Episodic Pneumonia (except that caused by tuberculosis or sexually transmitted disease) (2 sources) Atypical pneumonia; Translations: [Pneumonia, unspecified organism] 12-10-2023 Episodic Residual codes; unclassified (2 sources) Flushing; Translations: [Flushing] 11-09-2023 Episodic Spondylosis; intervertebral disc disorders; other back [...] Onset: 3 08-14-2022 Episodic Malaise and fatigue (20 sources) Fatigue; Translations: [Other fatigue] Onset: 3 08-21-2022 Episodic Mood disorders (10 sources) Mood disorders Onset: 4 11-30-2023 Other complications of (20 sources) Maternal obesity complicating , childbirth and [...] Onset: 9 Episodic Other female genital disorders (20 sources) Pain in female genitalia on intercourse; Translations: [Unspecified dyspareunia] Onset: 3 Resolved: 3 03-19-2023 Chronic Other female genital disorders (20 sources) Cervical intraepithelial neoplasia grade 1; Translations: [Mild cervical dysplasia] Onset: 3 06-17-2022 Episodic Other female genital disorders (20 sources) Cervical intraepithelial neoplasia grade 2; Translations: [Moderate cervical dysplasia] Onset: 3 06-17-2022 Episodic Other gastrointestinal disorders (20 sources) Constipation; Translations: [Constipation, unspecified] Onset: 3 Resolved: 3 2022 Episodic Other nervous system disorders (20 sources) Loss of sense of smell; Translations: [Anosmia] Onset: 3 Resolved: 3 08-05-2022 Episodic Other nervous system disorders (20 sources) Loss of taste; Translations: [Parageusia] Onset: 3 Resolved: 3 08-05-2022 Episodic Other screening for suspected conditions (not mental disorders or infectious disease) (20 sources) Abnormal cytology findings; Translations: [Abnormal cytological findings in specimens from other organs, systems and tissues] Onset: 3 06-17-2022 Episodic Other skin disorders (1 source) Generalized hyperhidrosis; Translations: [Generalized hyperhidrosis] Onset: 3 Episodic Residual codes; unclassified (20 sources) Difficulty sleeping ; Translations: [Sleep disorder, unspecified] Onset: 3 08-21-2022 Episodic Sexually transmitted infections (not HIV or hepatitis) (20 sources) Human papilloma virus deoxyribonucleic acid test positive, high risk on vaginal specimen; Translations: [Vaginal high risk human papillomavirus (HPV) DNA test positive] Onset: 3 06-17-2022 Episodic Unclassified (1 source) Cough R05.9 Results Test Name Value Interpretation Reference Range Facility XR CHEST 2 VIEWSon 4 XR CHEST 2 VIEWS Exam: XR - CHEST 2 VIEWS Reason for study: Shortness of breath, cough Comparison: Chest x-ray April 16, 2023 FINDINGS: Heart size is normal. The lungs are clear. No airspace infiltrates or effusions. There are Joshi rods in the spine, as seen before. IMPRESSION: No pneumonia or acute findings. Dictated on: 12/10/2023 12:41 PM This report has been electronically signed and approved by the interpreting Radiologist. Electronically Signed Nando Calderón D.O. 2023-12-10 12:43:31 Normal Not Available Alanine aminotransferase [En zymatic activity/volume] in Serum or PlasmaOrdered By: Colten Case on 07-10-2023 ALT [Catalytic activity/Vol] 26 U/L Normal 7-52 [facility] Comment on above: Performed By: #### I NSSAWYER CPEP #### [facility] , Albumin [Mass/volume] in Ser um or Plasma by Bromocresol green (BCG) dye binding methoOrdered By: Colten Case on 07-10-2023 Albumin BCG dye [Mass/Vol] 4.1 g/dL 3.5-5.7 [facility] Alkaline phosphatase [Enzyma tic activity/volume] in Serum or PlasmaOrdered By: Colten Case on 07-10-2023 ALP [Catalytic activity/Vol] 56 U/L Normal 34-104 [facility] Comment on above: Performed By: #### I NSULIN, CPEP #### [facility] , Aspartate aminotransferase [ Enzymatic activity/volume] in Serum or PlasmaOrdered By: Colten Case on 07-10-2023 AST [Catalytic activity/Vol] 22 U/L Normal 13-39 [facility] Comment on above: Performed By: #### I NSULIN, CPEP #### [facility] , Automated basophil %Ordered By: Colten Case on 07-10-2023 Basophils/100 WBC (Bld) 1.0 % Normal . [facility] Comment on above: Performed By: #### I NSULIN, CPEP #### [facility] , Automated basophil countOrde red By: Colten Case on 07-10-2023 Basophils (Bld) [#/Vol] 0.1 10*3/uL Normal 0.0-0.2 [facility] Comment on above: Result Comment: PERF ORMED BY: [facility] [address] [place] [address] PATHOLOGIST MANAGER ARCHITECTURE ISABELLA PATEL M.D. Performed By: #### I NSULIN, CPEP #### [facility] , Automated blood monocyte cou ntOrdered By: Colten Case on 07-10-2023 Monocytes (Bld) [#/Vol] 0.4 10*3/uL Normal 0.0-0.8 [facility] Comment on above: Performed By: #### I NSULIN, CPEP #### [facility] , Automated eosinophil %Ordere d By: Colten Case on 07-10-2023 Eosinophils/100 WBC (Bld) 1.1 % Normal . [facility] Comment on above: Performed By: #### I NSULIN, CPEP #### [facility] , Automated eosinophil countOr dered By: Colten Case on 07-10-2023 Eosinophils (Bld) [#/Vol] 0.1 10*3/uL Normal 0.0-0.45 [facility] Comment on above: Performed By: #### I NSULIN, CPEP #### [facility] , Automated monocyte %Ordered By: Colten Case on 07-10-2023 Monocytes/100 WBC (Bld) 5.5 % Normal . [facility] Comment on above: Performed By: #### I NSULIN, CPEP #### [facility] , Automated neutrophil %Ordere d By: Colten Case on 07-10-2023 Neutrophils/100 WBC (Bld) 66.5 % Normal . [facility] Comment on above: Performed By: #### I NSULIN, CPEP #### [facility] , Bilirubin.total [Mass/volume ] in Serum or PlasmaOrdered By: Cotlen Case on 07-10-2023 Bilirubin [Mass/Vol] 0.7 mg/dL Normal 0.3-1.[address] [facility] Comment on above: Performed By: #### I NSULIN, CPEP #### [facility] , Calcium [Mass/volume] in Ser um or PlasmaOrdered By: Colten Case on 07-10-2023 Calcium [Mass/Vol] 9.4 mg/dL Normal 8.6-10.3 [facility] Comment on above: Performed By: #### I NSULIN, CPEP #### [facility] , Carbon dioxide, total [Moles /volume] in Serum or PlasmaOrdered By: Colten Case on 07-10-2023 CO2 [Moles/Vol] 26.0 mmol/L Normal 21.0-31.0 [facility] Comment on above: Performed By: #### I NSULIN, CPEP #### [facility] , Chloride [Moles/volume] in S niraj or PlasmaOrdered By: Colten Case on 07-10-2023 Chloride [Moles/Vol] 102 mmol/L Normal 98-[address] [facility] Comment on above: Performed By: #### I NSULIN, CPEP #### [facility] , Cholesterol [Mass/volume] in Serum or PlasmaOrdered By: Colten Case on 07-10-2023 Cholesterol [Mass/Vol] 161 mg/dL Normal 140-200 [facility] Comment on above: Chol less than 200 m g/dl low riskChol 201-239 mg/dl borderline riskChol 240 mg/dl and greater high risk Result Comment: Chol less than 200 mg/dl low risk Chol 201-239 mg/dl borderline risk Chol 240 mg/dl and greater high risk Performed By: #### I NSULIN, CPEP #### [facility] , Cholesterol in LDL Calc [Mas s/Vol]Ordered By: Colten Schwartz on 07-10-2023 Cholesterol in LDL [Mass/Vol] 86 mg/dL 0-100 [facility] Comment on above: LDL ATP III CLASSIFI CATIONLDL less than 100 mg/dL OptimalLDL 100-129 mg/dL Near or above optimalLDL 130-159 mg/dL Borderline highLDL 160-189 mg/dL HighLDL greater than 189 mg/dL Very high Cholesterol in VLDL Calc [Ma ss/Vol]Ordered By: Colten Schwartz on 07-10-2023 Cholesterol in VLDL [Mass/Vol] 35 mg/dL [facility] Complete Blood Count Auto Di ffon 07-10-2023 Mean Corpuscular HGB Conc 34.8 g/dL Normal 32.0-35.0 [facility] Comment on above: Performed By: #### I NSULIN, CPEP #### [facility] , NRBC% 0.0 /100{WBC} Normal 0-0.[address] [facility] Comment on above: Performed By: #### I NSULIN, CPEP #### [facility] , Comprehensive Metabolic Pane mahendra 07-10-2023 Albumin [Mass/Vol] 4.1 g/dL Normal 3.5-5.7 [facility] Comment on above: Performed By: #### I NSULIN, CPEP #### [facility] , GFR/1.73 sq M.predicted MDRD (S/P/Bld) [Vol rate/Area] mL/min/{1.73_m2} Normal [facility] Comment on above: Performed By: #### I NSULIN, CPEP #### [facility] , Creatinine [Mass/volume] in Serum or PlasmaOrdered By: Colten Schwartz on 07-10-2023 Creatinine [Mass/Vol] 0.59 mg/dL Low 0.60-1.20 [facility] Comment on above: Performed By: #### I NSULIN, CPEP #### [facility] , Erythrocyte distribution wid th [Ratio] by Automated countOrdered By: Colten Efren on 07-10-2023 Erythrocyte distribution width (RBC) [Ratio] 12.2 % Normal 11.9-15.3 [facility] Comment on above: Performed By: #### I NSULIN, CPEP #### [facility] , Erythrocytes [#/volume] in B lood by Automated countOrdered By: Colten Efren on 07-10-2023 RBC (Bld) [#/Vol] 4.70 10*6/uL Normal 3.60-5.00 [facility] Comment on above: Performed By: #### I NSULIN, CPEP #### [facility] , Glucose [Mass/volume] in Ser um or PlasmaOrdered By: Colten Efren on 07-10-2023 Glucose [Mass/Vol] 261 mg/dL High 70-100 [facility] Comment on above: ADA recommended refe rence rangeRandom Glucose Reference Range is dependent on time and content of last meal. Glucose of more than 200 mg/dL in a nonstressed, ambulatory subject supports the diagnosis of Diabetes Mellitus. Result Comment: [place] om Glucose Reference Range is dependent on time and content of last meal. Glucose of more than 200 mg/dL in a nonstressed, ambulatory subject supports the diagnosis of Diabetes Mellitus. ADA recommended reference range Performed By: #### I NSULIN, CPEP #### [facility] , Hematocrit [Volume Fraction] of Blood by Automated countOrdered By: Colten Efren on 07-10-2023 Hematocrit (Bld) [Volume fraction] 42.6 % Normal 34.0-46.4 [facility] Comment on above: Performed By: #### I NSULIN, CPEP #### [facility] , Hemoglobin [Mass/volume] in BloodOrdered By: Colten Efren on 07-10-2023 Hemoglobin (Bld) [Mass/Vol] 14.8 g/dL Normal 11.8-15.4 [facility] Comment on above: Performed By: #### I NSULIN, CPEP #### [facility] , Leukocytes [#/volume] correc christen for nucleated erythrocytes in Blood by Automated counOrdered By: Colten Case on 07-10-2023 WBC corrected for nucl RBC Auto (Bld) [#/Vol] 7.5 10*3/uL 3.8-11.6 [facility] Leukocytes [#/volume] in Blo od by Automated countOrdered By: Colten Case on 07-10-2023 WBC (Bld) [#/Vol] 7.5 10*3/uL Normal 3.8-11.6 [facility] Comment on above: Performed By: #### I NSSAWYER, CPEP #### [facility] , Lipid Panelon 07-10-2023 LDL Cholesterol,Calculated 86 mg/dL Normal 0-100 [facility] Comment on above: Result Comment: LDL ATP III CLASSIFICATION LDL less than 100 mg/dL Optimal LDL 100-129 mg/dL Near or above optimal LDL 130-159 mg/dL Borderline high LDL 160-189 mg/dL High LDL greater than 189 mg/dL Very high Performed By: #### I NSSAWYER, CPEP #### [facility] , Triglyceride w/Reflex 175 mg/dL High 0-149 [facility] Comment on above: Result Comment: TRIG ATP III CLASSIFICATION TRIG less than 150 mg/dL Normal TRIG 150-199 mg/dL Borderline high TRIG 200-500 mg/dL High TRIG greater than 500 mg/dL Very high Standard traceable to the Center for Disease Conrtrol and Prevention (CDC) test method. Performed By: #### I NSULIN, CPEP #### [facility] , VLDL CHOLESTEROL 35 mg/dL Normal [facility] Comment on above: Performed By: #### I NSULIN, CPEP #### [facility] , Lymphocytes [#/volume] in Bl ood by Automated countOrdered By: Colten Schwartz on 07-10-2023 Lymphocytes (Bld) [#/Vol] 1.9 10*3/uL Normal 1.00-4.8 [facility] Comment on above: Performed By: #### I NSULIN, CPEP #### [facility] , Lymphocytes/100 leukocytes i n Blood by Automated countOrdered By: Colten Schwartz on 07-10-2023 Lymphocytes/100 WBC (Bld) 25.9 % Normal . [facility] Comment on above: Performed By: #### I NSULIN, CPEP #### [facility] , MCH [Entitic mass] by Automa christen countOrdered By: Colten Case on 07-10-2023 MCH (RBC) [Entitic mass] 31.6 pg Normal 24.7-34.3 [facility] Comment on above: Performed By: #### I NSULIN, CPEP #### [facility] , MCHC Auto (RBC) [Mass/Vol]Or dered By: Colten Case on 07-10-2023 MCHC (RBC) [Mass/Vol] 34.8 g/dL 32.0-35.0 [facility] MCV [Entitic volume] by Auto mated countOrdered By: Colten Schwartz on 07-10-2023 MCV (RBC) [Entitic vol] 90.7 fL Normal 80-100 [facility] Comment on above: Performed By: #### I NSULIN, CPEP #### [facility] , Neutrophils [#/volume] in Bl ood by Automated countOrdered By: Colten Schwartz on 07-10-2023 Neutrophils (Bld) [#/Vol] 5.0 10*3/uL Normal 1.8-7.7 [facility] Comment on above: Performed By: #### I NSULIN, CPEP #### [facility] , No Panel InformationOrdered By: Colten Schwartz on 07-10-2023 Estimated GFR (CKD-EPI) > 60.0 mL/Min [facility] Creatinine Clearance (Chem N/A [facility] Nucleated erythrocytes [Pres ence] in Blood by Automated countOrdered By: Colten Case on 07-10-2023 Nucleated RBC Auto Ql (Bld) 0.0 /100{WBC} 0-0.5 [facility] Platelet mean volume [Entiti c volume] in Blood by Automated countOrdered By: Colten Case on 07-10-2023 Platelet mean volume (Bld) [Entitic vol] 8.9 fL Normal 6.3-10.7 [facility] Comment on above: Performed By: #### I NSULIN, CPEP #### [facility] , Platelets [#/volume] in Bloo d by Automated countOrdered By: Colten Schwartz on 07-10-2023 Platelets (Bld) [#/Vol] 226 10*3/uL Normal 150-450 [facility] Comment on above: Performed By: #### I NSULIN, CPEP #### [facility] , Potassium [Moles/volume] in Serum or PlasmaOrdered By: oClten Schwartz on 07-10-2023 Potassium [Moles/Vol] 4.3 mmol/L Normal 3.5-5.1 [facility] Comment on above: Performed By: #### I NSULIN, CPEP #### [facility] , Protein [Mass/volume] in Ser um or PlasmaOrdered By: Colten Schwartz on 07-10-2023 Protein [Mass/Vol] 6.7 g/dL Normal 6.4-8.9 [facility] Comment on above: Performed By: #### I NSULIN, CPEP #### [facility] , Serum globulin measurement b y calculation (mass/volume)Ordered By: Colten Schwartz on 07-10-2023 Globulin (S) [Mass/Vol] 2.6 g/dL Normal [facility] Comment on above: Performed By: #### I NSULIN, CPEP #### [facility] , Serum or plasma albumin/glob ulin mass ratioOrdered By: Colten Schwartz on 07-10-2023 Albumin/Globulin [Mass ratio] 1.6 {ratio} Normal [facility] Comment on above: Performed By: #### I NSULIN, CPEP #### [facility] , Serum or plasma anion gap de terminationOrdered By: Colten Case on 07-10-2023 Anion gap [Moles/Vol] 12.3 mmol/L Normal 6.0-15.0 [facility] Comment on above: Performed By: #### I NSULIN, CPEP #### [facility] , Serum or plasma high density lipoprotein (HDL) cholesterol measurementOrdered By: Colten Case on 07-10-2023 Cholesterol in HDL [Mass/Vol] 40 mg/dL Normal 23-92 [facility] Comment on above: HDL CHOL ATP-III CLA [...] HDL [Mass ratio] 4.0 {ratio} Normal <5.0 [facility] Comment on above: Performed By: #### I NSULIN, CPEP #### [facility] , Sodium [Moles/volume] in Ser um or PlasmaOrdered By: Colten Case on 07-10-2023 Sodium [Moles/Vol] 136 mmol/L Normal 136-145 [facility] Comment on above: Performed By: #### I NSULIN, CPEP #### [facility] , Thyroid Stim Hormone w/Rflxo n 07-10-2023 Thyroid Stim Hormone w/Rflx 2.88 u[iU]/mL Normal 0.45-5.33 [facility] Comment on above: Result Comment: PERF ORMED BY: [facility] [address] [place] [address] PATHOLOGIST MANAGER ARCHITECTURE ISABELLA PATEL M.D. Performed By: #### I NSULIN, CPEP #### [facility] , Thyrotropin [Units/volume] i n Serum or PlasmaOrdered By: Colten Case on 07-10-2023 TSH Qn 2.88 m[IU]/L 0.45-5.33 [facility] Triglyceride [Mass/volume] i n Serum or PlasmaOrdered By: Colten Case on 07-10-2023 Triglyceride [Mass/Vol] 175 mg/dL 0-149 [facility] Comment on above: TRIG ATP III CLASSIF ICATIONTRIG less than 150 mg/dL NormalTRIG 150-199 mg/dL Borderline highTRIG 200-500 mg/dL High TRIG greater than 500 mg/dL Very highStandard traceable to the Center for Disease Conrtrol and Prevention (CDC) test method. Urea nitrogen [Mass/volume] in Serum or PlasmaOrdered By: Colten Case on 07-10-2023 Urea nitrogen [Mass/Vol] 12 mg/dL Normal 7-25 [facility] Comment on above: Performed By: #### I NSULIN, CPEP #### [facility] , BI MAMMOGRAM SCREENING TOMOS YNTSINAIS BILATERALon 06-11-2023 BI MAMMOGRAM SCREENING TOMOSYNTHESIS BILATERAL [...] IS VERY IMPORTANT TO YOUR HEALTH. THE [employer] GUIDELINES RECOMMEND THAT WOMEN 40 [...] 08-20-2022 C-Peptide 2.2 ng/mL Normal 1.1-4.4 [facility] Comment on above: Result Comment: C-Pe ptide reference interval is for fasting patients. PERFORMED BY: [address] [place] [address] PATHOLOGIST MANAGER ARCHITECTURE ISABELLA PATEL M.D. Performed By: #### I NSULIN, CPEP #### [facility] , Insulinon 08-20-2022 Insulin 9.5 u[iU]/mL Normal 2.6-24.9 [facility] Comment on above: Result Comment: Perf ormed at: - [facility] [address] [id number] Water Tanker Driver: Dave Sanchez PhD, Phone: [phone] Performed By: #### I NSULIN, CPEP #### [facility] , Alanine aminotransferase [En zymatic activity/volume] in Serum or PlasmaOrdered By: Della Munguia on 08-14-2022 ALT [Catalytic activity/Vol] 22 U/L Normal 7-52 [facility] Comment on above: Performed By: #### B HOB, MG, CMP, HS TROP, CBC #### [address] Albumin [Mass/volume] in Ser um or Plasma by Bromocresol green (BCG) dye binding methoOrdered By: Della Munguia on 08-14-2022 Albumin BCG dye [Mass/Vol] 4.3 g/dL 3.5-5.7 [facility] Alkaline phosphatase [Enzyma tic activity/volume] in Serum or PlasmaOrdered By: Della Munguia on 08-14-2022 ALP [Catalytic activity/Vol] 61 U/L Normal 34-104 [facility] Comment on above: Performed By: #### B HOB, MG, CMP, HS TROP, CBC #### [address] Aspartate aminotransferase [ Enzymatic activity/volume] in Serum or PlasmaOrdered By: Della Munguia on 08-14-2022 AST [Catalytic activity/Vol] 22 U/L Normal 13-39 [facility] Comment on above: Performed By: #### B HOB, MG, CMP, HS TROP, CBC #### [address] Automated basophil %Ordered By: Della Munguia on 08-14-2022 Basophils/100 WBC (Bld) 0.8 % Normal . [facility] Comment on above: Performed By: #### B HOB, MG, CMP, HS TROP, CBC #### [address] Automated basophil countOrde red By: Della Munguia on 08-14-2022 Basophils (Bld) [#/Vol] 0.1 10*3/uL Normal 0.0-0.2 [facility] Comment on above: Result Comment: PERF ORMED BY: [place] [address] PATHOLOGIST MANAGER ARCHITECTURE ISABELLA PATEL M.D. Performed By: #### B HOB, MG, CMP, HS TROP, CBC #### [facility] [address] Automated blood monocyte cou ntOrdered By: Della Munguia on 08-14-2022 Monocytes (Bld) [#/Vol] 0.5 10*3/uL Normal 0.0-0.8 [facility] Comment on above: Performed By: #### B HOB, MG, CMP, HS TROP, CBC #### [facility] [address] Automated eosinophil %Ordere d By: Della Munguia on 08-14-2022 Eosinophils/100 WBC (Bld) 0.9 % Normal . [facility] Comment on above: Performed By: #### B HOB, MG, CMP, HS TROP, CBC #### [address] Automated eosinophil countOr dered By: Della Munguia on 08-14-2022 Eosinophils (Bld) [#/Vol] 0.1 10*3/uL Normal 0.0-0.45 [facility] Comment on above: Performed By: #### B HOB, MG, CMP, HS TROP, CBC #### [facility] [address] [place] [address] Automated erythrocytes count in urine sediment (number/area)Ordered By: Della Munguia on 08-14-2022 RBC Auto (Urine sed) [#/Area] 1-2 [HPF] 0-4 [facility] Automated leukocytes count i n urine sediment (number/area)Ordered By: Della Munguia on 08-14-2022 WBC Auto (Urine sed) [#/Area] 3-4 [HPF] 0-4 [facility] Automated monocyte %Ordered By: Della Munguia on 08-14-2022 Monocytes/100 WBC (Bld) 5.1 % Normal . [facility] Comment on above: Performed By: #### B HOB, MG, CMP, HS TROP, CBC #### [facility] [address] [place] [address] Automated neutrophil %Ordere d By: Della Munguia on 08-14-2022 Neutrophils/100 WBC (Bld) 60.2 % Normal . [facility] Comment on above: Performed By: #### B HOB, MG, CMP, HS TROP, CBC #### [facility] [address] Automated urine color determ inationOrdered By: Della Munguia on 08-14-2022 Color (U) Yellow Normal Yellow [facility] Comment on above: Order Comment: Name Collection Type:: Clean-Voided Midstream Performed By: #### A DDONUAPLUS, UHCG #### [facility] [address] Beta Hydroxybuterateon 08-14 Beta Hydroxybuterate 0.20 mmol/L Normal 0.02-0.27 [facility] Comment on above: Result Comment: PERF ORMED BY: [place] [address] PATHOLOGIST MANAGER ARCHITECTURE ISABELLA PATEL M.D. Performed By: #### B HOB, MG, CMP, HS TROP, CBC #### [facility] [address] Beta hydroxybutyrate [Moles/ volume] in Serum or PlasmaOrdered By: Della Munguia on 08-14-2022 Beta hydroxybutyrate [Moles/Vol] 0.20 mmol/L 0.02-0.27 [facility] Bilirubin Test strip Ql (U)O rdered By: Della Munguia on 08-14-2022 Bilirubin Ql (U) Negative Negative [facility] Bilirubin.total [Mass/volume ] in Serum or PlasmaOrdered By: Della Munguia on 08-14-2022 Bilirubin [Mass/Vol] 0.6 mg/dL Normal 0.3-1.[address] [facility] Comment on above: Performed By: #### B HOB, MG, CMP, HS TROP, CBC #### [facility] [address] Calcium [Mass/volume] in Ser um or PlasmaOrdered By: Della Munguia on 08-14-2022 Calcium [Mass/Vol] 9.0 mg/dL Normal 8.6-10.3 [facility] Comment on above: Performed By: #### B HOB, MG, CMP, HS TROP, CBC #### [address] Carbon dioxide, total [Moles /volume] in Serum or PlasmaOrdered By: Della Munguia on 08-14-2022 CO2 [Moles/Vol] 26.0 mmol/L Normal 21.0-31.0 [facility] Comment on above: Performed By: #### B HOB, MG, CMP, HS TROP, CBC #### [address] Chloride [Moles/volume] in S niraj or PlasmaOrdered By: Della Munguia on 08-14-2022 Chloride [Moles/Vol] 103 mmol/L Normal 98-[address] [facility] Comment on above: Performed By: #### B HOB, MG, CMP, HS TROP, CBC #### [address] Complete Blood Count Auto Di ffon 08-14-2022 Mean Corpuscular HGB Conc 34.2 g/dL Normal 32.0-35.0 [facility] Comment on above: Performed By: #### B HOB, MG, CMP, HS TROP, CBC #### [address] Monocytes/100 WBC (Bld) 19.76 % Normal 0.00-20.00 [facility] Comment on above: Performed By: #### B HOB, MG, CMP, HS TROP, CBC #### [address] NRBC% 0.1 /100{WBC} Normal 0-0.[address] [facility] Comment on above: Performed By: #### B HOB, MG, CMP, HS TROP, CBC #### [address] Comprehensive Metabolic Pane mahendra 08-14-2022 Albumin [Mass/Vol] 4.3 g/dL Normal 3.5-5.7 [facility] Comment on above: Performed By: #### B HOB, MG, CMP, HS TROP, CBC #### [facility] [address] Creatinine Clr Calc Pharmacy 135.50 Normal [facility] Comment on above: Performed By: #### B HOB, MG, CMP, HS TROP, CBC #### [place] [address] [place] GFR/1.73 sq M.predicted MDRD (S/P/Bld) [Vol rate/Area] mL/min/{1.73_m2} Normal [facility] Comment on above: Performed By: #### B HOB, MG, CMP, HS TROP, CBC #### [address] Creatinine [Mass/volume] in Serum or PlasmaOrdered By: Della Munguia on 08-14-2022 Creatinine [Mass/Vol] 0.58 mg/dL Low 0.60-1.20 [facility] Comment on above: Performed By: #### B HOB, MG, CMP, HS TROP, CBC #### [place] [address] [place] Dipstick and Microscopicon 0 08-14-2022 Appearance (U) Clear Normal Clear [facility] Comment on above: Order Comment: Name Collection Type:: Clean-Voided Midstream Performed By: #### A DDONUAPLUS UHCG #### [place] [address] [place] Bacteria,Urine 1+ High None Seen [facility] Comment on above: Order Comment: Name Collection Type:: Clean-Voided Midstream Performed By: #### A DDONUAPLUS UHCG #### [place] [address] [place] Bilirubin,Urine Negative Normal Negative [facility] Comment on above: Order Comment: Name Collection Type:: Clean-Voided Midstream Performed By: #### A DDONUAPLUS UHCG #### [address] [place] [address] [place] Glucose Ql (U) >=1000 High Normal [facility] Comment on above: Order Comment: Name Collection Type:: Clean-Voided Midstream Performed By: #### A DDONUAPLUS, UHCG #### [place] [address] [place] Hyaline Casts,Urine 0-8 Normal 0-8 [facility] Comment on above: Order Comment: Name Collection Type:: Clean-Voided Midstream Performed By: #### A DDONUAPLUS, UHCG #### [address] Ketones Ql (U) 1+ High Negative [facility] Comment on above: Order Comment: Name Collection Type:: Clean-Voided Midstream Performed By: #### A DDONUAPLUS, UHCG #### [address] Leukocyte esterase Test strip Ql (U) Negative Normal Negative [facility] Comment on above: Order Comment: Name Collection Type:: Clean-Voided Midstream Performed By: #### A DDONUAPLUS, UHCG #### [place] [address] [place] Nitrite,Urine Negative Normal Negative [facility] Comment on above: Order Comment: Name Collection Type:: Clean-Voided Midstream Performed By: #### A DDONUAPLUS, UHCG #### [place] [address] [place] Occult Blood,Urine Negative Normal Negative [facility] Comment on above: Order Comment: Name Collection Type:: Clean-Voided Midstream Performed By: #### A DDONUAPLUS, UHCG #### [place] [address] [place] Protein,Urine Trace High Negative [facility] Comment on above: Order Comment: Name Collection Type:: Clean-Voided Midstream Performed By: #### A DDONUAPLUS, UHCG #### [place] [address] [place] RBC,Urine 1-2 Normal 0-4 [facility] Comment on above: Order Comment: Name Collection Type:: Clean-Voided Midstream Performed By: #### A DDONUAPLUS, UHCG #### [address] Specificy [place],Urine 1.040 High 1.001-1.030 [facility] Comment on above: Order Comment: Name Collection Type:: Clean-Voided Midstream Performed By: #### A DDONUAPLUS, UHCG #### [address] Squamous Epithelial Cell,Urine 5-9 High 0-2 [facility] Comment on above: Order Comment: Name Collection Type:: Clean-Voided Midstream Performed By: #### A DDONUAPLUS, UHCG #### [address] Urobilinogen,Urine Normal Normal Normal [facility] Comment on above: Order Comment: Name Collection Type:: Clean-Voided Midstream Performed By: #### A DDONUAPLUS, UHCG #### [address] WBC,Urine 3-4 Normal 0-4 [facility] Comment on above: Order Comment: Name Collection Type:: Clean-Voided Midstream Performed By: #### A DDONUAPLUS, UHCG #### [address] ECG 12 lead ECGon 08-14-2022 ECG 12 lead ECG [facility] [place] [address] Electrocardiograph Report Signed Patient: Yessy Do MR#: [id number] : 1980 Acct:[id number] Age/Sex: 41 / F ADM Date: 08/14/22 [...] sinus rhythm Confirmed by Gato Vargas DO ([id number]) on 08/14/2022 2:50:54 PM Referred By: Electronically Signed By:Gato Vargas DO Transcribed By: MUS Signed By Gato Vargas DO [id number] Normal [facility] Erythrocyte distribution wid th [Ratio] by Automated countOrdered By: Della Munguia on 08-14-2022 Erythrocyte distribution width (RBC) [Ratio] 12.7 % Normal 11.9-15.3 [facility] Comment on above: Performed By: #### B HOB, MG, CMP, HS TROP, CBC #### [facility] [address] [place] [address] [place] Erythrocytes [#/volume] in B lood by Automated countOrdered By: Della Munguia on 08-14-2022 RBC (Bld) [#/Vol] 5.01 10*6/uL High 3.60-5.00 [facility] Comment on above: Performed By: #### B HOB, MG, CMP, HS TROP, CBC #### [facility] [address] [place] [id number] [facility] Glucose [Mass/volume] in Ser um or PlasmaOrdered By: Della Munguia on 08-14-2022 Glucose [Mass/Vol] 198 mg/dL High 70-100 [facility] Comment on above: ADA recommended refe rence rangeRandom Glucose Reference Range is dependent on time and content of last meal. Glucose of more than 200 mg/dL in a nonstressed, ambulatory subject supports the diagnosis of Diabetes Mellitus. Result Comment: [place] Glucose Reference Range is dependent on time and content of last meal. Glucose of more than 200 mg/dL in a nonstressed, ambulatory subject supports the diagnosis of Diabetes Mellitus. ADA recommended reference range Performed By: #### B HOB, MG, CMP, HS TROP, CBC #### [facility] [address] [place] [address] HCG ( test) IA.rapi d Ql (U)Ordered By: Della Munguia on 08-14-2022 HCG ( test) Ql (U) Negative [facility] HCG,Urineon 08-14-2022 Beta HCG ( test) Ql (U) Negative Normal [facility] Comment on above: Order Comment: Name Collection Type:: Clean-Voided Midstream Result Comment: PERF ORMED BY: [place] [address] PATHOLOGIST MANAGER ARCHITECTURE SIABELLA PATEL M.D. Performed By: #### I NSULIN, CPEP #### [facility] , Hematocrit [Volume Fraction] of Blood by Automated countOrdered By: Della Munguia on 08-14-2022 Hematocrit (Bld) [Volume fraction] 44.2 % Normal 34.0-46.4 [facility] Comment on above: Performed By: #### B HOB, MG, CMP, HS TROP, CBC #### [facility] [address] [place] [address] Hemoglobin [Mass/volume] in BloodOrdered By: Della Munguia on 08-14-2022 Hemoglobin (Bld) [Mass/Vol] 15.1 g/dL Normal 11.8-15.4 [facility] Comment on above: Performed By: #### B HOB, MG, CMP, HS TROP, CBC #### [facility] [address] [place] [address] Ketones Auto test strip (U) [Mass/Vol]Ordered By: Della Munguia on 08-14-2022 Ketones (U) [Mass/Vol] 1+ Negative [facility] - UrinalysisOrder ed By: Della Munguia on 08-14-2022 Hyaline casts LM Ql (Urine sed) 0-8 [LPF] 0-8 [facility] Leukocytes [#/volume] correc christen for nucleated erythrocytes in Blood by Automated counOrdered By: Della Munguia on 08-14-2022 WBC corrected for nucl RBC Auto (Bld) [#/Vol] 9.7 10*3/uL 3.8-11.6 [facility] Leukocytes [#/volume] in Blo od by Automated countOrdered By: Della Munguia on 08-14-2022 WBC (Bld) [#/Vol] 9.7 10*3/uL Normal 3.8-11.6 [facility] Comment on above: Performed By: #### B HOB, MG, CMP, HS TROP, CBC #### [facility] [address] [place] [address] [place] Lymphocytes [#/volume] in Bl ood by Automated countOrdered By: Della Munguia on 08-14-2022 Lymphocytes (Bld) [#/Vol] 3.2 10*3/uL Normal 1.00-4.8 [facility] Comment on above: Performed By: #### B HOB, MG, CMP, HS TROP, CBC #### [facility] [address] [place] [address] [place] Lymphocytes/100 leukocytes i n Blood by Automated countOrdered By: Della Munguia on 08-14-2022 Lymphocytes/100 WBC (Bld) 33.0 % Normal . [facility] Comment on above: Performed By: #### B HOB, MG, CMP, HS TROP, CBC #### [facility] [address] [place] [address] MCH [Entitic mass] by Automa christen countOrdered By: Della Munguia on 08-14-2022 MCH (RBC) [Entitic mass] 30.1 pg Normal 24.7-34.3 [facility] Comment on above: Performed By: #### B HOB, MG, CMP, HS TROP, CBC #### [facility] [address] [place] [address] [place] MCHC Auto (RBC) [Mass/Vol]Or dered By: Della Munguia on 08-14-2022 MCHC (RBC) [Mass/Vol] 34.2 g/dL 32.0-35.0 [facility] MCV [Entitic volume] by Auto mated countOrdered By: Della Munguia on 08-14-2022 MCV (RBC) [Entitic vol] 88.1 fL Normal 80-100 [facility] Comment on above: Performed By: #### B HOB, MG, CMP, HS TROP, CBC #### [facility] [address] Magnesium [Mass/volume] in S niraj or PlasmaOrdered By: Della Munguia on 08-14-2022 Magnesium [Mass/Vol] 1.9 mg/dL Normal 1.9-2.[address] [facility] Comment on above: Performed By: #### B HOB, MG, CMP, HS TROP, CBC #### [facility] [address] Monocyte distribution width [Entitic volume] in Blood by AutomatedOrdered By: Della Munguia on 08-14-2022 Monocyte distribution width Auto (Bld) [Entitic vol] 19.76 % 0.00-20.00 [facility] Neutrophils [#/volume] in Bl ood by Automated countOrdered By: Della Munguia on 08-14-2022 Neutrophils (Bld) [#/Vol] 5.8 10*3/uL Normal 1.8-7.7 [facility] Comment on above: Performed By: #### B HOB, MG, CMP, HS TROP, CBC #### [facility] [address] Nitrite Test strip Ql (U)Ord ered By: Della Munguia on 08-14-2022 Nitrite Ql (U) Negative Negative [facility] No Panel InformationOrdered By: Della Munguia on 08-14-2022 Blood Gas Critical Value See comment [facility] Comment on above: Critical Value jaimes d on: 08/14/2022 at 14:09 Blood Gas Sample Site Venous Fir [facility] FiO2 21 % [facility] Venous Blood Base Excess -4.2 mmol/L -3.0-3.0 [facility] Venous Blood Oxygen Saturation 62.8 % 73.0-76.0 [facility] Venous Blood Partial Pressure CO2 43.3 mm[Hg] 38.0-50.0 [facility] Venous Blood Partial Pressure O2 32.3 mm[Hg] 35.0-45.0 [facility] Venous Blood pH 7.32 7.32-7.43 [facility] Estimated GFR (CKD-EPI) > 60.0 mL/Min [facility] Creatinine Clearance (Chem 135.50 [facility] Nucleated erythrocytes [Pres ence] in Blood by Automated countOrdered By: Della Munguia on 08-14-2022 Nucleated RBC Auto Ql (Bld) 0.1 /100{WBC} 0-0.5 [facility] Platelet mean volume [Entiti c volume] in Blood by Automated countOrdered By: Della Munguia on 08-14-2022 Platelet mean volume (Bld) [Entitic vol] 8.9 fL Normal 6.3-10.7 [facility] Comment on above: Performed By: #### B HOB, MG, CMP, HS TROP, CBC #### [facility] [address] [place] [address] [place] Platelets [#/volume] in Bloo d by Automated countOrdered By: Della Munguia on 08-14-2022 Platelets (Bld) [#/Vol] 225 10*3/uL Normal 150-450 [facility] Comment on above: Performed By: #### B HOB, MG, CMP, HS TROP, CBC #### [facility] [address] [place] [address] [place] Potassium [Moles/volume] in Serum or PlasmaOrdered By: Della Munguia on 08-14-2022 Potassium [Moles/Vol] 3.8 mmol/L Normal 3.5-5.1 [facility] Comment on above: Performed By: #### B HOB, MG, CMP, HS TROP, CBC #### [facility] [address] [place] [address] [place] Protein Auto test strip (U) [Mass/Vol]Ordered By: Della Munguia on 08-14-2022 Protein (U) [Mass/Vol] Trace mg/dL Negative [facility] Protein [Mass/volume] in Ser um or PlasmaOrdered By: Della Munguia on 08-14-2022 Protein [Mass/Vol] 7.2 g/dL Normal 6.4-8.9 [facility] Comment on above: Performed By: #### B HOB, MG, CMP, HS TROP, CBC #### [facility] [address] Serum globulin measurement b y calculation (mass/volume)Ordered By: Della uMnguia on 08-14-2022 Globulin (S) [Mass/Vol] 2.9 g/dL Normal [facility] Comment on above: Performed By: #### B HOB, MG, CMP, HS TROP, CBC #### [address] Serum or plasma albumin/glob ulin mass ratioOrdered By: Della Munguia on 08-14-2022 Albumin/Globulin [Mass ratio] 1.5 {ratio} Normal [facility] Comment on above: Performed By: #### B HOB, MG, CMP, HS TROP, CBC #### [address] Serum or plasma anion gap de terminationOrdered By: Della Munguia on 08-14-2022 Anion gap [Moles/Vol] 9.8 mmol/L Normal 6.0-15.0 [facility] Comment on above: Performed By: #### B HOB, MG, CMP, HS TROP, CBC #### [address] Sodium [Moles/volume] in Ser um or PlasmaOrdered By: Della Munguia on 08-14-2022 Sodium [Moles/Vol] 135 mmol/L Low 136-145 [facility] Comment on above: Performed By: #### B HOB, MG, CMP, HS TROP, CBC #### [address] Specific gravity Auto test s trip (U) [Rel density]Ordered By: Della Munguia on 08-14-2022 Specific gravity (U) [Rel density] 1.040 1.001-1.030 [facility] Squamous epithelial cells de tection in urine sediment by light microscopyOrdered By: Della Munguia on 08-14-2022 Epithelial cells.squamous LM Ql (Urine sed) 5-9 [HPF] 0-2 [facility] Troponin I High Sensitivityo n 08-14-2022 Troponin I High Sensitivity < 2.3 Normal 0.0-15.0 [facility] Comment on above: Result Comment: PERF ORMED BY: [address] [place] [address] PATHOLOGIST MANAGER ARCHITECTURE ISABELLA PATEL M.D. Performed By: #### B HOB, MG, CMP, HS TROP, CBC #### [facility] [address] [place] [address] Troponin I.cardiac [Mass/vol ume] in Serum or Plasma by Detection limit <= 0.01 ng/Ordered By: Della Munguia on 08-14-2022 Troponin I.cardiac DL <= 0.01 ng/mL [Mass/Vol] < 2.3 pg/mL 0.0-15.0 [facility] Urea nitrogen [Mass/volume] in Serum or PlasmaOrdered By: Della Munguia on 08-14-2022 Urea nitrogen [Mass/Vol] 9 mg/dL Normal 7-25 [facility] Comment on above: Performed By: #### B HOB, MG, CMP, HS TROP, CBC #### [facility] [address] [place] [address] [place] Urine bacteria detection by automated methodOrdered By: Della Munguia on 08-14-2022 Bacteria Auto Ql (U) 1+ None Seen [facility] Urine clarity by refractomet ry automatedOrdered By: Della Munguia on 08-14-2022 Clarity Refractometry automated (U) Clear Clear [facility] Urine glucose measurement by automated test strip (mass/volume)Ordered By: Della Munguia on 08-14-2022 Glucose Auto test strip (U) [Mass/Vol] >=1000 mg/dL Normal [facility] Urine hemoglobin detection b y automated test stripOrdered By: Della Munguia on 08-14-2022 Hemoglobin Auto test strip Ql (U) Negative Negative [facility] Urine leukocyte esterase det ection by automated test stripOrdered By: Della Munguia on 08-14-2022 Leukocyte esterase Auto test strip Ql (U) Negative Negative [facility] Urine pH measurement by auto mated test stripOrdered By: Della Munguia on 08-14-2022 pH (U) 5.5 [pH] Normal 5.0-9.0 [facility] Comment on above: Order Comment: Name Collection Type:: Clean-Voided Midstream Performed By: #### A DDONUAPLUS, UHCG #### [facility] [address] Urobilinogen Auto test strip (U) [Mass/Vol]Ordered By: Della Munguia on 08-14-2022 Urobilinogen (U) [Mass/Vol] Normal mg/dL Normal [facility] Venous Blood GasOrdered By: Della Munguia on 08-14-2022 CO2 [Moles/Vol] 23.2 mmol/L Low 24.0-29.0 [facility] Comment on above: Performed By: #### V BG #### Point of Care testing , HCO3 (Bld) [Moles/Vol] 21.9 mmol/L Low 23.0-29.0 [facility] Comment on above: Performed By: #### V BG #### Point of Care testing , Venous Blood Gason 3 Respiratory Critical Normal [facility] Comment on above: Result Comment: Crit ical Value called on: 08/14/2022 at 14:09 PERFORMED BY: [facility] [address] [place] [address] PATHOLOGIST MANAGER ARCHITECTURE ISABELLA PATEL M.D. Performed By: #### V BG #### Point of Care testing , VBG Base Excess -4.2 mmol/L Low -3.0-3.0 [facility] Comment on above: Performed By: #### V BG #### Point of Care testing , VBG Draw Site Venous Normal [facility] Comment on above: Performed By: #### V BG #### Point of Care testing , VBG Frac Inspired O2 21 % Normal [facility] Comment on above: Performed By: #### V BG #### Point of Care testing , VBG Oxygen Saturation 62.8 % Low 73.0-76.0 [facility] Comment on above: Performed By: #### V BG #### Point of Care testing , VBG PCO2 43.3 mm[Hg] Normal 38.0-50.0 [facility] Comment on above: Performed By: #### V BG #### Point of Care testing , VBG PH Venous PH 7.32 Normal 7.32-7.43 [facility] Comment on above: Performed By: #### V BG #### Point of Care testing , VBG PO2 32.3 mm[Hg] Low 35.0-45.0 [facility] Comment on above: Performed By: #### V BG #### Point of Care testing , Legal Correspondence Officeo n 06-20-2022 Legal Correspondence Office [id number]# 1.00CD:127 Normal [facility] Consent for Treatmenton 06-09 Consent for Treatment [id number] #1.00CD:127 Normal [facility] Consultation Noteon 06-20-19 23 Consultation Note Chief complaint: Low back pain [...] follow-up in 3 months for repeat evaluation. Normal [facility] Comment on above: Result Comment: Elec tronically Signed By: Cindy ROSS, James\.deanna\Date and Time Signed: 06/19/22 21:55 EDT HIPAA Forms Officeon 023 HIPAA Forms Office [id number]# 1.00CD:127 Normal [facility] Legal Correspondence Officeo n 06-19-2022 Legal Correspondence Office [id number]# 1.00CD:127 Normal [facility] Office/Clinic Note-Physician on 06-19-2022 Office/Clinic Note-Physician [id number]# 1.00CD:127 Normal [facility] Patient Correspondenceon Patient Correspondence [id number]# 1.00CD:127 Normal [facility] Patient Correspondence [id number]# 1.00CD:127 Normal [facility] Patient Correspondence [id number] [facility] [id number]# 1.00CD:127 Normal [facility] Patient Correspondence [id number]# 1.00CD:127 Normal [facility] Patient Correspondence [id number] [facility] [id number]# 1.00CD:127 Normal [facility] Patient Correspondence [id number]# 1.00CD:127 Normal [facility] Patient History Officeon Patient History Office [id number]# 1.00CD:127 Normal [facility] Patient History Office [id number]# 1.00CD:127 Normal [facility] Physician Orderon 06-19-2022 Physician Order [id number]# 1.00CD:127 Normal [facility] Physician Order [id number]# 1.00CD:127 Normal [facility] HCG ( test) IAtrevor d Ql (U)Ordered By: JONE VERDUGO on 03-13-2022 HCG ( test) Ql (U) Negative [facility] Creatinine and Glomerular fi ltration rate.predicted panel (S/P/Bld)Ordered By: Martin Goodman on 02-27-2022 Creatinine [Mass/Vol] 0.67 mg/dL 0.44-1.03 [facility] Estimated glomerular filtrat ion rate (GFR) non- AmericanOrdered By: Martin Goodman on 02-27-2022 GFR/1.73 sq M.predicted among non-blacks MDRD (S/P/Bld) [Vol rate/Area] > 60 mL/Min [facility] No Panel InformationOrdered By: Martin Goodman on 02-27-2022 Estimated GFR () > 60 mL/Min [facility] Comment on above: GFR estimated refere nce range: According to KDOQI guidelines, <60 ml/min/1.73m2 is sufficient to diagnose a patient with chronic kidney disease. Pharmacy Creatinine Clearance (Chem N/A [facility] Serum or plasma anion gap de terminationOrdered By: Martin Goodman on 02-27-2022 Anion gap [Moles/Vol] 13.2 mmol/L 6.0-15.0 [facility] Serum or plasma calcium artemio urement (mass/volume)Ordered By: Martin Goodman on 02-27-2022 Calcium [Mass/Vol] 8.5 mg/dL 8.2-10.2 [facility] Serum or plasma chloride bridgett surement (moles/volume)Ordered By: Martin Goodman on 02-27-2022 Chloride [Moles/Vol] 101 mmol/L 95-[address] [facility] Serum or plasma glucose artemio urement (mass/volume)Ordered By: Martin Goodman on 02-27-2022 Glucose [Mass/Vol] 171 mg/dL 70-100 [facility] Comment on above: ADA recommended refe rence rangeRandom Glucose Reference Range is dependent on time and content of last meal. Glucose of more than 200 mg/dL in a nonstressed, ambulatory subject supports the diagnosis of Diabetes Mellitus. Serum or plasma potassium me asurement (moles/volume)Ordered By: Martin Goodman on 02-27-2022 Potassium [Moles/Vol] 3.4 mmol/L 3.5-5.1 [facility] Serum or plasma sodium measu rement (moles/volume)Ordered By: Martin Goodman on 02-27-2022 Sodium [Moles/Vol] 137 mmol/L 136-146 [facility] Serum or plasma total carbon dioxide measurement (moles/volume)Ordered By: Martin Goodman on 02-27-2022 CO2 [Moles/Vol] 26.2 mmol/L 22.0-30.0 [facility] Serum or plasma urea nitroge n measurement (mass/volume)Ordered By: Martin Goodman on 02-27-2022 Urea nitrogen [Mass/Vol] 10 mg/dL 11-01 [facility] COVID/FLU/RSV RT-PCRon 02-04 SARS-CoV-2 (COVID-19) RNA JUANA+probe Ql (Unsp spec) Negative [employer] Other COVID/FLU/RSV RT-PCR Negative [facility] [employer] Other COVID-19 Detected/Not Detect edOrdered By: Agustin Hendrix on 01-08-2022 SARS-CoV-2 (COVID-19) RNA JUANA+non-probe Ql (Nph) Not detected Not Detecte [facility] Comment on above: This is a duplicate RP2.1 COVID (PCR) result to be used for statistical tracking purpose only. No Panel InformationOrdered By: Agustin Hendrix on 01-08-2022 Respiratory Panel (PCR) [facility] Respiratory pathogens DNA an d RNA panel - Nasopharynx by JUANA with non-probe detectionOrdered By: Agustin Hendrix on 01-08-2022 Respiratory pathogens DNA and RNA panel JUANA+non-probe (Nph) [facility] Urine culture routineOrdered By: CARA RO on 01-01-2022 Bacteria identified Cx Nom (U) Proteus mirabilis [facility] Urinalysis - AUTOMATEDon Appearance (U) CLEAR [employer] Other Bilirubin Ql (U) SMALL [employer] Other Color (U) DARK YELLOW [employer] Other Glucose Ql (U) Negative [employer] Other Hemoglobin Ql (U) Negative [employer] Other Ketones Ql (U) 15 [employer] Other Leukocyte esterase Test strip Ql (U) SMALL [employer] Other Nitrite Ql (U) Negative [employer] Other pH (U) 6.0 [pH] [employer] Other Protein Ql (U) TRACE [employer] Other Specific gravity (U) [Rel density] 1.025 [employer] Other Urobilinogen (U) [Mass/Vol] 0.2 mg/dL [employer] Other Urinalysis - AUTOMATED No rt [employer] Other Urine Cultureon 12-29-2021 Urine Culture 15,000 [employer] Other Urine Culture <16 Susceptible [employer] Other Urine Culture <8 Susceptible [employer] Other Urine Culture <4 Susceptible [employer] Other Urine Culture <2 Susceptible [employer] Other Urine Culture <1 Susceptible [employer] Other Urine Culture <0.5 Susceptible [employer] Other Urine Culture >64 Resistant [employer] Other Urine Culture >8 Resistant [employer] Other Urine Culture <2/38 Susceptible [employer] Other Urine culture routineOrdered By: CARA RO on 12-29-2021 Bacteria identified Cx Nom (U) Proteus mirabilis [facility] Albumin [Mass/volume] in Ser um or PlasmaOrdered By: Rj Breen on 12-26-2021 Albumin [Mass/Vol] 4.0 g/dL 3.2-5.5 [facility] Basophils Auto (Bld) [#/Vol] Ordered By: Rj Breen on 12-26-2021 Basophils (Bld) [#/Vol] 0.1 10*3/uL 0.0-0.2 [facility] Basophils/100 WBC Auto (Bld) Ordered By: Rj Breen on 12-26-2021 Basophils/100 WBC (Bld) 0.6 % . [facility] Bilirubin Test strip Ql (U)O rdered By: Rj Breen on 12-26-2021 Bilirubin Ql (U) Negative Negative [facility] Color Auto (U)Ordered By: Guillermina Breen on 12-26-2021 Color (U) Yellow Yellow [facility] Creatinine and Glomerular fi ltration rate.predicted panel (S/P/Bld)Ordered By: Rj Breen on 12-26-2021 Creatinine [Mass/Vol] 0.65 mg/dL 0.44-1.03 [facility] Eosinophils Auto (Bld) [#/Vo l]Ordered By: Rj Breen on 12-26-2021 Eosinophils (Bld) [#/Vol] 0.2 10*3/uL 0.0-0.45 [facility] Eosinophils/100 WBC Auto (Bl d)Ordered By: Rj Breen on 12-26-2021 Eosinophils/100 WBC (Bld) 2.0 % . [facility] Erythrocyte distribution wid th Auto (RBC) [Ratio]Ordered By: Rj Breen on 12-26-2021 Erythrocyte distribution width (RBC) [Ratio] 12.1 % 11.9-15.3 [facility] Estimated glomerular filtrat ion rate (GFR) non- AmericanOrdered By: Rj Breen on 12-26-2021 GFR/1.73 sq M.predicted among non-blacks MDRD (S/P/Bld) [Vol rate/Area] > 60 mL/Min [facility] Globulin Calc (S) [Mass/Vol] Ordered By: Rj Breen on 12-26-2021 Globulin (S) [Mass/Vol] 3.2 g/dL [facility] HCG ( test) IA.rapi d Ql (U)Ordered By: Rj Breen on 12-26-2021 HCG ( test) Ql (U) Negative [facility] Hematocrit Auto (Bld) [Volum e fraction]Ordered By: Rj Breen on 12-26-2021 Hematocrit (Bld) [Volume fraction] 44.1 % 34.0-46.4 [facility] Hemoglobin [Mass/volume] in BloodOrdered By: Rj Breen on 12-26-2021 Hemoglobin (Bld) [Mass/Vol] 14.9 g/dL 11.8-15.4 [facility] Ketones Auto test strip (U) [Mass/Vol]Ordered By: Rj Breen on 12-26-2021 Ketones (U) [Mass/Vol] Negative Negative Fi [facility] - Chemistry and C hemistry - challengeOrdered By: Rj Breen on 12-26-2021 Lipase [Catalytic activity/Vol] 35.0 U/L 22-51 [facility] - Hematology and Cell countsOrdered By: Rj Breen on 12-26-2021 Nucleated RBC/100 WBC (Bld) [Ratio] 0.1 % 0-0.5 [facility] Leukocytes [#/volume] in Blo od by Automated countOrdered By: Rj Breen on 12-26-2021 WBC (Bld) [#/Vol] 9.7 10*3/uL 4.5-11.0 [facility] Lymphocytes Auto (Bld) [#/Vo l]Ordered By: Rj Breen on 12-26-2021 Lymphocytes (Bld) [#/Vol] 3.5 10*3/uL 1.00-4.8 [facility] Lymphocytes/100 WBC Auto (Bl d)Ordered By: Rj Breen on 12-26-2021 Lymphocytes/100 WBC (Bld) 36.1 % . [facility] MCH Auto (RBC) [Entitic mass ]Ordered By: Rj Breen on 12-26-2021 MCH (RBC) [Entitic mass] 30.7 pg 24.7-34.3 [facility] MCHC Auto (RBC) [Mass/Vol]Or dered By: Rj Breen on 12-26-2021 MCHC (RBC) [Mass/Vol] 33.8 g/dL 32.0-35.0 [facility] MCV Auto (RBC) [Entitic vol] Ordered By: Rj Breen on 12-26-2021 MCV (RBC) [Entitic vol] 90.7 fL 80-100 [facility] Monocytes Auto (Bld) [#/Vol] Ordered By: Rj Breen on 12-26-2021 Monocytes (Bld) [#/Vol] 0.5 10*3/uL 0.0-0.8 [facility] Monocytes/100 WBC Auto (Bld) Ordered By: Rj Breen on 12-26-2021 Monocytes/100 WBC (Bld) 5.6 % . [facility] Neutrophils Auto (Bld) [#/Vo l]Ordered By: Rj Breen on 12-26-2021 Neutrophils (Bld) [#/Vol] 5.4 10*3/uL 1.8-7.7 [facility] Neutrophils/100 WBC Auto (Bl d)Ordered By: Rj Breen on 12-26-2021 Neutrophils/100 WBC (Bld) 55.7 % . [facility] Nitrite Test strip Ql (U)Ord ered By: Rj Breen on 12-26-2021 Nitrite Ql (U) Negative Negative [facility] No Panel InformationOrdered By: Rj Breen on 12-26-2021 Estimated GFR () > 60 mL/Min [facility] Comment on above: GFR estimated refere nce range: According to KDOQI guidelines, <60 ml/min/1.73m2 is sufficient to diagnose a patient with chronic kidney disease. Pharmacy Creatinine Clearance (Chem 121.18 [facility] Platelet mean volume Auto (B ld) [Entitic vol]Ordered By: Rj Breen on 12-26-2021 Platelet mean volume (Bld) [Entitic vol] 8.3 fL 6.3-10.7 [facility] Platelets Auto (Bld) [#/Vol] Ordered By: Rj Breen on 12-26-2021 Platelets (Bld) [#/Vol] 302 10*3/uL 150-450 [facility] Protein Auto test strip (U) [Mass/Vol]Ordered By: Rj Breen on 12-26-2021 Protein (U) [Mass/Vol] Negative Negative [facility] Protein [Mass/volume] in Ser um or PlasmaOrdered By: Rj Breen on 12-26-2021 Protein [Mass/Vol] 7.2 g/dL 6.1-7.9 [facility] RBC Auto (Bld) [#/Vol]Ordere d By: Rj Breen on 12-26-2021 RBC (Bld) [#/Vol] 4.86 10*6/uL 3.60-5.00 [facility] Serum or plasma alanine maher otransferase measurement without P-5'-P (enzymatic activiOrdered By: Rj Breen on 12-26-2021 ALT No additional P-5'-P [Catalytic activity/Vol] 16 U/L 10-60 [facility] Serum or plasma albumin/glob ulin mass ratioOrdered By: Rj Breen on 12-26-2021 Albumin/Globulin [Mass ratio] 1.3 {ratio} [facility] Serum or plasma alkaline neda sphatase measurement (enzymatic activity/volume)Ordered By: Rj Breen on 12-26-2021 ALP [Catalytic activity/Vol] 55 U/L 32-92 [facility] Serum or plasma amylase artemio urement (enzymatic activity/volume)Ordered By: Rj Breen on 12-26-2021 Amylase [Catalytic activity/Vol] 51 U/L 28-100 [facility] Serum or plasma anion gap de terminationOrdered By: Rj Breen on 12-26-2021 Anion gap [Moles/Vol] 15.3 mmol/L 6.0-15.0 [facility] Serum or plasma aspartate am inotransferase measurement (enzymatic activity/volume)Ordered By: Rj Breen on 12-26-2021 AST [Catalytic activity/Vol] 21 U/L 10-42 [facility] Serum or plasma calcium artemio urement (mass/volume)Ordered By: Rj Breen on 12-26-2021 Calcium [Mass/Vol] 9.2 mg/dL 8.2-10.2 [facility] Serum or plasma chloride bridgett surement (moles/volume)Ordered By: jR Breen on 12-26-2021 Chloride [Moles/Vol] 98 mmol/L 95-[address] [facility] Serum or plasma glucose artemio urement (mass/volume)Ordered By: Rj Breen on 12-26-2021 Glucose [Mass/Vol] 199 mg/dL 70-100 [facility] Comment on above: ADA recommended refe rence rangeRandom Glucose Reference Range is dependent on time and content of last meal. Glucose of more than 200 mg/dL in a nonstressed, ambulatory subject supports the diagnosis of Diabetes Mellitus. Serum or plasma potassium me asurement (moles/volume)Ordered By: Rj Breen on 12-26-2021 Potassium [Moles/Vol] 3.7 mmol/L 3.5-5.1 [facility] Serum or plasma sodium measu rement (moles/volume)Ordered By: Rj Breen on 12-26-2021 Sodium [Moles/Vol] 133 mmol/L 136-146 [facility] Serum or plasma total biliru bin measurement (mass/volume)Ordered By: Rj Breen on 12-26-2021 Bilirubin [Mass/Vol] 0.6 mg/dL 0.3-1.[address] [facility] Serum or plasma total carbon dioxide measurement (moles/volume)Ordered By: Rj Breen on 12-26-2021 CO2 [Moles/Vol] 23.4 mmol/L 22.0-30.0 [facility] Serum or plasma urea nitroge n measurement (mass/volume)Ordered By: Rj Breen on 12-26-2021 Urea nitrogen [Mass/Vol] 11 mg/dL 9-23 [facility] Specific gravity Auto test s trip (U) [Rel density]Ordered By: Rj Breen on 12-26-2021 Specific gravity (U) [Rel density] 1.009 1.001-1.030 [facility] Urine clarity by refractomet ry automatedOrdered By: Rj Breen on 12-26-2021 Clarity Refractometry automated (U) Clear Clear [facility] Urine glucose measurement by automated test strip (mass/volume)Ordered By: Rj Breen on 12-26-2021 Glucose Auto test strip (U) [Mass/Vol] Normal mg/dL Normal [facility] Urine hemoglobin detection b y automated test stripOrdered By: Rj Breen on 12-26-2021 Hemoglobin Auto test strip Ql (U) Negative Negative [facility] Urine leukocyte esterase det ection by automated test stripOrdered By: Rj Breen on 12-26-2021 Leukocyte esterase Auto test strip Ql (U) Negative Negative [facility] Urobilinogen Auto test strip (U) [Mass/Vol]Ordered By: Rj Breen on 12-26-2021 Urobilinogen (U) [Mass/Vol] Normal mg/dL Normal [facility] pH Auto test strip (U)Ordere d By: Rj Breen on 12-26-2021 pH (U) 6.5 [pH] 5.0-9.0 [facility] Q - CBC W/DIFF AND PLTon BASOABS 71 cells/uL Normal 0-200 [facility] Comment on above: Order Comment: [facility] performed at: [facility], [address] [facility], [address] [place] [address], [address] [place] [address], General Accountant: Kurt Stock MD [facility] Date/Time: [facility] Results Received Date/Time: [facility] Reported Date/Time: Performed By: #### 1 [id number], [id number], [id number], [id number] #### [facility] [address] [place] [place] [address] Basophils/100 WBC (Bld) 0.8 % Normal N [facility] Comment on above: Order Comment: [facility] performed at: [facility], [address] [facility], [address] [place] [address], [phone], General Accountant: Kurt Stock MD [facility] Date/Time: [facility] Results Received Date/Time: [facility] Reported Date/Time: Performed By: #### 1 [id number], 57554, 46414P, [id number] #### [facility] [address] [place] [place] [address] EOSABS 240 cells/uL Normal 15-500 [facility] Comment on above: Order Comment: [facility] performed at: [place], [address] [place] [address], [address] [place] [address], [address] [place] [address], General Accountant: Kurt Stock MD [facility] Date/Time: [facility] Results Received Date/Time: [facility] Reported Date/Time: Performed By: #### 1 [id number], 85419, 48248V, [id number] #### [facility] [address] [place] [address] Eosinophils/100 WBC (Bld) 2.7 % Normal [facility] Comment on above: Order Comment: [facility] performed at: [place], [address] [place] [address], [address] [place] [address], [address] [place] [address], General Accountant: Kurt Stock MD [facility] Date/Time: [facility] Results Received Date/Time: [facility] Reported Date/Time: Performed By: #### 1 [id number], 72699, 29886N, [id number] #### [facility] [address] [place] [address] Erythrocyte distribution width (RBC) [Ratio] 11.7 % Normal 11.0-15.0 [facility] Comment on above: Order Comment: [facility] performed at: [place], [address] [place] [address], [address] [place] [address], [address] [place] [address], General Accountant: Kurt Stock MD [facility] Date/Time: [facility] Results Received Date/Time: [facility] Reported Date/Time: Performed By: #### 1 [id number], 39259, 13421S, 42A #### [facility] [address] [place] [address] Hematocrit (Bld) [Volume fraction] 44.1 % Normal 35.0-45.0 [facility] Comment on above: Order Comment: [facility] performed at: [place], [address] , [address] [place] [address], [phone], General Accountant: Kurt Stock MD [facility] Date/Time: [facility] Results Received Date/Time: [facility] Reported Date/Time: Performed By: #### 1 [id number], 37299, 48235R, 42A #### [facility] [address] [place] [place] [address] Hemoglobin (Bld) [Mass/Vol] 15.1 g/dL Normal 11.7-15.5 [facility] Comment on above: Order Comment: [facility] performed at: [place], [address] , [address] [place] [address], [address] [place] [address], General Accountant: Kurt Stock MD [facility] Date/Time: [facility] Results Received Date/Time: [facility] Reported Date/Time: Performed By: #### 1 [id number], 53436, 22163B, [id number] #### [facility] [address] [place] [place] [address] Lymphocytes (Bld) [#/Vol] 2.875 10*3/uL Normal 850-3900 [facility] Comment on above: Order Comment: [facility] performed at: [place], [address] , [address] [place] [address], [phone], General Accountant: Kurt Stock MD [facility] Date/Time: [facility] Results Received Date/Time: [facility] Reported Date/Time: Performed By: #### 1 [id number], 86863, 65262Y, [id number] #### [facility] [address] [place] [place] [address] Lymphocytes/100 WBC (Bld) 32.3 % Normal [facility] Comment on above: Order Comment: [facility] performed at: [place], [address] [place] [address], [address] [place] [address], [address] [place] [address], General Accountant: Kurt Stock MD [facility] Date/Time: [facility] Results Received Date/Time: [facility] Reported Date/Time: Performed By: #### 1 [id number], 54270, 27092O, 42A #### [facility] [address] [place] [address] MCH (RBC) [Entitic mass] 31.0 pg Normal 27.0-33.0 [facility] Comment on above: Order Comment: [facility] performed at: [facility], [facility], [address] [place] [address], [address] [place] [address], [address] [place] [address], General Accountant: Kurt Stock MD [facility] Date/Time: [facility] Results Received Date/Time: [facility] Reported Date/Time: Performed By: #### 1 [id number], 09428, 27893J, [id number] #### [facility] [address] [place] [place] [address] MCHC (RBC) [Mass/Vol] 34.2 g/dL Normal 32.0-36.0 [facility] Comment on above: Order Comment: [facility] performed at: [facility], [facility], [address] [place] [address], [address] [place] [address], [address] [place] [address], General Accountant: Kurt Stock MD [facility] Date/Time: [facility] Results Received Date/Time: [facility] Reported Date/Time: Performed By: #### 1 [id number], 35940, 80072L, 42A #### [facility] [address] [place] [address] MCV (RBC) [Entitic vol] 90.6 fL Normal 80.0-100.0 N [facility] Comment on above: Order Comment: [facility] performed at: [facility], [facility], [address] [place] [address], [address] [place] [address], [address] [place] [address], General Accountant: Kurt Stokc MD [facility] Date/Time: [facility] Results Received Date/Time: [facility] Reported Date/Time: Performed By: #### 1 [id number], 30486, 74456R, 42A #### [facility] [address] [place] [place] [address] MONOABS 543 cells/uL Normal 200-950 [facility] Comment on above: Order Comment: [facility] performed at: [place], [address] [facility], [address] [place] [address], [address] [place] [address], General Accountant: Kurt Stock MD [facility] Date/Time: [facility] Results Received Date/Time: [facility] Reported Date/Time: Performed By: #### 1 [id number], 97101, 31093S, 42A #### [facility] [address] [place] [place] [address] Monocytes/100 WBC (Bld) 6.1 % Normal N [facility] Comment on above: Order Comment: [facility] performed at: [place], [address] [facility], [address] [place] [address], [address] [place] [address], General Accountant: Kurt Stock MD [facility] Date/Time: [facility] Results Received Date/Time: [facility] Reported Date/Time: Performed By: #### 1 [id number], 79428, 49268L, 42A #### [facility] [address] [place] [place] [address] Neutrophils (Bld) [#/Vol] 5.171 10*3/uL Normal 0047-9625 [facility] Comment on above: Order Comment: [facility] performed at: [place], [address] [facility], [address] [place] [address], [address] [place] [address], General Accountant: Kurt Stock MD [facility] Date/Time: [facility] Results Received Date/Time: [facility] Reported Date/Time: Performed By: #### 1 [id number], 59429, 55812B, 42A #### [facility] [address] [place] [place] [address] Neutrophils/100 WBC (Bld) 58.1 % Normal [facility] Comment on above: Order Comment: [facility] performed at: [place], [address] [facility], [address] [place] [address], [address] [place] [address], General Accountant: Kurt Stock MD [facility] Date/Time: [facility] Results Received Date/Time: [facility] Reported Date/Time: Performed By: #### 1 [id number], 63483, 08716X, 42A #### [facility] [address] [place] [place] [address] Platelet mean volume (Bld) [Entitic vol] 10.7 fL Normal 7.5-12.5 [facility] Comment on above: Order Comment: [facility] performed at: [place], [address] [place] [address], [address] [place] [address], [address] [place] [address], General Accountant: Kurt Stock MD [facility] Date/Time: [facility] Results Received Date/Time: [facility] Reported Date/Time: Performed By: #### 1 [id number], 91032, 44902X, 42A #### [facility] [address] [place] [place] [address] Platelets (Bld) [#/Vol] 325 10*3/uL Normal 140-400 [facility] Comment on above: Order Comment: [facility] performed at: [place], [address] , [address] [place] [address], [address] [place] [address], General Accountant: Kurt Stock MD [facility] Date/Time: [facility] Results Received Date/Time: [facility] Reported Date/Time: Performed By: #### 1 [id number], 21993, 58204T, 42A #### [facility] [address] [place] [place] [address] RBC (Bld) [#/Vol] 4.87 10*6/uL Normal 3.80-5.10 [facility] p[facility] [place] [facility] Comment on above: Order Comment: [facility] performed at: [place], [address] , [address] [place] [address], [address] [place] [address], General Accountant: Kurt Stock MD [facility] Date/Time: [facility] Results Received Date/Time: [facility] Reported Date/Time: Performed By: #### 1 [id number], 13588, 73904Q, 42A #### [facility] [address] [place] [place] [address] WBC (Bld) [#/Vol] 8.9 10*3/uL Normal 3.8-10.8 Prema edwards [place] [facility] Comment on above: Order Comment: [facility] performed at: [place], [address] , [address] [place] [address], [address] [place] [address], General Accountant: Kurt Stock MD [facility] Date/Time: [facility] Results Received Date/Time: [facility] Reported Date/Time: Performed By: #### 1 [id number], 71510, 59070M, 42A #### [facility] [address] [place] [place] [address] Q - COMPREHENSIVE METABOLIC PANEL W/EGFRon 03-19-2021 Albumin [Mass/Vol] 4.6 g/dL Normal 3.6-5.1 [facility] ed[facility] [place] [facility] [facility] Comment on above: Order Comment: [facility] performed at: [place], [facility], [address] [place] , [address] [place] [address], [address] [place] [address], General Accountant: Kurt Stock MD [facility] Date/Time: [facility] Results Received Date/Time: [facility] Reported Date/Time: Performed By: #### 1 [id number], 14968, 61698O, 42A #### [facility] [address] [place] [place] [address] Albumin/Globulin [Mass ratio] 1.6 {ratio} Normal 1.0-2.5 [facility] Comment on above: Order Comment: [facility] performed at: [place], [facility], [address] [place] [address], [address] [place] [address], [address] [place] [address], General Accountant: Kurt Stock MD [facility] Date/Time: [facility] Results Received Date/Time: [facility] Reported Date/Time: Performed By: #### 1 [id number], 11173, 79219C, 42A #### [facility] [address] [place] [place] [address] ALP [Catalytic activity/Vol] 66 U/L Normal 31-125 [facility] [facility] Comment on above: Order Comment: [facility] performed at: [place], [facility], [address] [place] [address], [address] [place] [address], [address] [place] [address], General Accountant: Kurt Stock MD [facility] Date/Time: [facility] Results Received Date/Time: [facility] Reported Date/Time: Performed By: #### 1 [id number], 48474, 54948L, 42A #### [facility] [address] [place] [place] [address] ALT [Catalytic activity/Vol] 15 U/L Normal 6-29 [facility] [facility] Comment on above: Order Comment: [facility] performed at: [place], [facility], [address] [place] [address], [address] [place] [address], [address] [place] [address], General Accountant: Kurt Stock MD [facility] Date/Time: [facility] Results Received Date/Time: [facility] Reported Date/Time: Performed By: #### 1 [id number], 81496, 89837V, 42A #### [facility] [address] [place] [address] AST [Catalytic activity/Vol] 17 U/L Normal 10-30 [facility] Comment on above: Order Comment: [facility] performed at: [place], [facility], [address] [facility], [address] [place] [address], [address] [place] [address], General Accountant: Kurt Stock MD [facility] Date/Time: [facility] Results Received Date/Time: [facility] Reported Date/Time: Performed By: #### 1 [id number], 52168, 93514K, 42A #### [facility] [address] [place] [address] Bilirubin [Mass/Vol] 0.4 mg/dL Normal 0.2-1.2 [facility] Comment on above: Order Comment: [facility] performed at: [place], [address] [place] [address], [address] [place] [address], [address] [place] [address], General Accountant: Kurt Stock MD [facility] Date/Time: [facility] Results Received Date/Time: [facility] Reported Date/Time: Performed By: #### 1 [id number], 49626, 85524G, 42A #### [facility] [address] [place] [address] BUN/CREA 14 NOT APPLICABLE Normal 6-22 [facility] [facility] Comment on above: Order Comment: [facility] performed at: [place], [address] [place] [address], [address] [place] [address], [address] [place] [address], General Accountant: Kurt Stock MD [facility] Date/Time: [facility] Results Received Date/Time: [facility] Reported Date/Time: Performed By: #### 1 [id number], 29761, 87065A, 42A #### [facility] [address] [place] [address] Calcium [Mass/Vol] 9.2 mg/dL Normal 8.6-10.2 [facility] [facility] Comment on above: Order Comment: [facility] performed at: [place], [facility], [address] [facility], [address] [place] [address], [address] [place] [address], General Accountant: Kurt Stock MD [facility] Date/Time: [facility] Results Received Date/Time: [facility] Reported Date/Time: Performed By: #### 1 [id number], 19369, 06138M, [id number] #### [facility] [address] [place] [address] Chloride [Moles/Vol] 101 mmol/L Normal 98-110 [facility] Comment on above: Order Comment: [facility] performed at: [place], [facility], [address] [facility], [address] [place] [address], [address] [place] [address], General Accountant: Kurt Stock MD [facility] Date/Time: [facility] Results Received Date/Time: [facility] Reported Date/Time: Performed By: #### 1 [id number], 41403, 26923M, [id number] #### [facility] [address] [place] [address] CO2 [Moles/Vol] 25 mmol/L Normal 20-32 [facility] Comment on above: Order Comment: [facility] performed at: [facility], [address] [facility], [address] [place] [address], [address] [place] [address], General Accountant: Kurt Stock MD [facility] Date/Time: [facility] Results Received Date/Time: [facility] Reported Date/Time: Performed By: #### 1 [id number], 22588, 07312D, [id number] #### [facility] [address] [place] [address] Creatinine [Mass/Vol] 0.66 mg/dL Normal 0.50-1.10 [facility] [facility] Comment on above: Order Comment: [facility] performed at: [facility], [address] [facility], [address] [place] [address], [address], General Accountant: Kurt Stock MD [facility] Date/Time: [facility] Results Received Date/Time: [facility] Reported Date/Time: Performed By: #### 1 [id number], 39393, 89024C, [id number] #### [facility] [address] [place] [address] eGFRAA 121 mL/min/1.73m2 Normal > OR = 60 [facility] [facility] Comment on above: Order Comment: [facility] performed at: [email or web address], [facility], [address] [place] [address], [address] [place] [address], [phone], General Accountant: Kurt Stock MD [facility] Date/Time: [facility] Results Received Date/Time: [facility] Reported Date/Time: Performed By: #### 1 [id number], 14427, 56200J, [id number] #### [facility] [address] [place] [place] [address] eGFRNAA 100 mL/min/1.73m2 Normal > OR = 60 [facility] [facility] Comment on above: Order Comment: [facility] performed at: [place], [facility], [address] [place] [address], [address] [place] [address], [phone], General Accountant: Kurt Stock MD [facility] Date/Time: [facility] Results Received Date/Time: [facility] Reported Date/Time: Performed By: #### 1 [id number], 00562, 55360C, [id number] #### [facility] [address] [place] [place] [address] Globulin (S) [Mass/Vol] 2.9 g/dL Normal 1.9-3.7 N [facility] Comment on above: Order Comment: [facility] performed at: [email or web address], [facility], [address] [place] [address], [address] [place] [address], [address], General Accountant: Kurt Stock MD [facility] Date/Time: [facility] Results Received Date/Time: [facility] Reported Date/Time: Performed By: #### 1 [id number], [id number], [id number], 42A #### [facility] [address] [place] [place] [address] Glucose [Mass/Vol] 101 mg/dL High 65-99 Prema edwards [place] [employer] Comment on above: Order Comment: [facility] performed at: [place], [address] [place] [address], [address] [place] [address], [phone], General Accountant: Kurt Stock MD [facility] Date/Time: [facility] Results Received Date/Time: [facility] Reported Date/Time: Result Comment: Fasting reference interval For someone without known diabetes, a glucose value between 100 and 125 mg/dL is consistent with prediabetes and should be confirmed with a follow-up test. Performed By: #### 1 [id number], 90478, [id number], 42A #### [facility] [address] [place] [address] Potassium [Moles/Vol] 3.7 mmol/L Normal 3.5-5.3 Matt sanz [place] [employer] Comment on above: Order Comment: [facility] performed at: [facility], [address] [facility], [address] [place] [address], [phone], General Accountant: Kurt Stock MD [facility] Date/Time: [facility] Results Received Date/Time: [facility] Reported Date/Time: Performed By: #### 1 [id number], 98475, 20554P, 42A #### [facility] [address] [place] [place] [address] Protein [Mass/Vol] 7.5 g/dL Normal 6.1-8.1 Prema edwards [place] [employer] Comment on above: Order Comment: [facility] performed at: [facility], [address] [facility], [address] [place] [address], [address] [place] [address], General Accountant: Kurt Stock MD [facility] Date/Time: [facility] Results Received Date/Time: [facility] Reported Date/Time: Performed By: #### 1 [id number], 04691, 16798B, 42A #### [facility] [address] [place] [place] [address] Sodium [Moles/Vol] 136 mmol/L Normal 135-146 [facility] Comment on above: Order Comment: [facility] performed at: [employer], [facility], [address] [place] [address], [address] [place] [address], [address] [place] [address], General Accountant: Kurt Stock MD [facility] Date/Time: [facility] Results Received Date/Time: [facility] Reported Date/Time: Performed By: #### 1 [id number], 41698, [id number], 42A #### [facility] [address] [place] [place] [address] Urea nitrogen [Mass/Vol] 9 mg/dL Normal 7-25 [facility] Multimedia Artist Comment on above: Order Comment: [facility] performed at: [place], [address] [facility], [address] [place] [address], [address] [place] [address], General Accountant: Kurt Stock MD [facility] Date/Time: [facility] Results Received Date/Time: [facility] Reported Date/Time: Performed By: #### 1 [id number], 17306, 54810R, 42A #### [facility] [address] [place] [place] [address] Q - HEMOGLOBIN A1C WITH EAGo n 03-19-2021 eAG (mmol/L) 6.5 mmol/L Normal [facility] Multimedia Artist Comment on above: Order Comment: [facility] performed at: [place], [address] [facility], [address] [place] [address], [address] [place] [address], General Accountant: Kurt Stock MD [facility] Date/Time: [facility] Results Received Date/Time: [facility] Reported Date/Time: Performed By: #### 1 [id number], 71234, 03720T, 42A #### [facility] [address] [place] [place] [address] HEMOGLOBIN A1c 5.7 % of total Hgb High <5.7 No rthern [place] [employer] Comment on above: Order Comment: [facility] performed at: [place], [address] , [address] [place], [place], , General Accountant: Kurt Stock MD [facility] Date/Time: [facility] [...] for children. Performed By: #### 1 [id number], 61793, 77936G, 42A #### [facility] [address] [place] [place] [address] Magnesium [Mass/Vol] 117 mg/dL Normal Nort fermín [place] [employer] Comment on above: Order Comment: [facility] performed at: [place], [address] , [address] [place], [address], General Accountant: Kurt Stock MD [facility] Date/Time: [facility] Results Received Date/Time: [facility] Reported Date/Time: Performed By: #### 1 [id number], 74144, 73910Q, 42A #### [facility] [address] [place] [place] [address] Q - TSH WITH REFLEX TO FREE T4on 03-19-2021 TSH W/REFLEX TO FT4 4.00 mIU/L Normal [facility] Multimedia Artist Comment on above: Order Comment: [facility] performed at: [facility], [address], [address] [facility], [place], [address], General Accountant: Kurt Stock MD [facility] Date/Time: [facility] Results Received Date/Time: [facility] Reported Date/Time: Result Comment: Refe rence Range > or = 20 Years 0.40-4.50 Ranges First trimester 0.26-2.66 Second trimester 0.55-2.73 Third trimester 0.43-2.91 Performed By: #### 1 [id number], 15974, 23436N, 42A #### [facility] [address] [place] [address] CBC AUTO DIFFon 10-07-2018 Basophils (Bld) [#/Vol] 0.0 103/ul Normal 0.0-0.1 [facility] Comment on above: Performed By: #### C BC #### [facility] [address] [place] [address] Darleen Dahiana Basophils/100 WBC (Bld) 0.5 % Normal 0.2-2.0 [facility] Comment on above: Performed By: #### C BC #### [facility] [address] [place] [address] Darleen Dahiana Eosinophils (Bld) [#/Vol] 0.2 103/ul Normal 0.0-0.7 [facility] Comment on above: Performed By: #### C BC #### [facility] [address] [place], [place] [address] Darleen Dahiana Eosinophils/100 WBC (Bld) 2.7 % Normal 0.9-7.0 [facility] Comment on above: Performed By: #### C BC #### [facility] [address] [place], [place] [address] Darleen Dahiana Erythrocyte distribution width (RBC) [Ratio] 11.5 % Normal 11.0-15.0 [facility] Comment on above: Performed By: #### C BC #### [facility] [address] [place] [address] Darleen Dahiana Hematocrit (Bld) [Volume fraction] 39.5 % Normal 36.0-48.0 [facility] Comment on above: Performed By: #### C BC #### [facility] [address] [place], [place] [id number] Darleen Dahiana Hemoglobin (Bld) [Mass/Vol] 13.5 g/dL Normal 12.0-16.0 [facility] Comment on above: Performed By: #### C BC #### [facility] [address] [place] [address] Darleen Dahiana IG # 0.03 10e3/ul Normal 0.00-0.03 [facility] Comment on above: Performed By: #### C BC #### [facility] [address] [place] [address] Darlene Dahiana IG % 0.4 % Normal 0.0-0.5 [facility] Comment on above: Performed By: #### C BC #### [facility] [address] [place], [place] [id number] Darleen Dahiana Lymphocytes (Bld) [#/Vol] 2.5 103/ul Normal 1.2-3.8 [facility] Comment on above: Performed By: #### C BC #### [facility] [address] [place], [place] [address] Darleen Dahiana Lymphocytes/100 WBC (Bld) 33.6 % Normal 20.5-60.0 [facility] Comment on above: Performed By: #### C BC #### [facility] [address] [place], [place] [address] Darleenchris Webben MANUAL DIFF REQ NO Normal [facility] Comment on above: Performed By: #### C BC #### [facility] [address] [place], [place] [address] Darleen Dahiana MCH (RBC) [Entitic mass] 31.5 pg Normal 26.7-34.0 [facility] Comment on above: Performed By: #### C BC #### [facility] [address] [place] [address] Darleenchris Talbot MCHC (RBC) [Mass/Vol] 34.2 g/dL Normal 29.9-35.2 [facility] Comment on above: Performed By: #### C BC #### [facility] [address] [place] [address] Darleen Dahiana MCV (RBC) [Entitic vol] 92.1 fL Normal 81.0-99.0 [facility] Comment on above: Performed By: #### C BC #### [facility] [address] [place], [place] [address] Darleen Dahiana Monocytes (Bld) [#/Vol] 0.6 103/ul Normal 0.3-0.8 [facility] Comment on above: Performed By: #### C BC #### [facility] [address] [place], [place] [address] Darleen Dahiana Monocytes/100 WBC (Bld) 8.2 % Normal 1.7-12.0 [facility] Comment on above: Performed By: #### C BC #### [facility] [address] [place], [place] [address] Darleen Dahiana Neutrophils (Bld) [#/Vol] 4.0 103/ul Normal 1.4-6.5 [facility] Comment on above: Performed By: #### C BC #### [facility] [address] [place], [place] [address] Darleen Dahiana Neutrophils/100 WBC (Bld) 54.6 % Normal 43.0-75.0 [facility] Comment on above: Performed By: #### C BC #### [facility] [address] [place], [place] [address] Darleen Dahiana Platelet mean volume (Bld) [Entitic vol] 9.9 fL Normal 9.5-13.5 [facility] Comment on above: Performed By: #### C BC #### [facility] [address] [place], [place] [address] Darleen Dahiana Platelets (Bld) [#/Vol] 258 103/ul Normal 150-450 [facility] Comment on above: Performed By: #### C BC #### [facility] [address] [place] [address] Darleen Dahiana RBC (Bld) [#/Vol] 4.29 106/ul Normal 4.20-5.40 [facility] Comment on above: Performed By: #### C BC #### [facility] [address] [place], [place] [address] Darleen Dahiana WBC (Bld) [#/Vol] 7.4 103/ul Normal 4.0-11.0 [facility] Comment on above: Performed By: #### C BC #### [facility] [address] [place], [place] [address] Darleen Dahiana PREG HCG QUALon 10-07-2018 , QUAL Negative Normal NEGATIVE [facility] Comment on above: Performed By: #### P REG #### [facility] [address] [place], [place] [address] Darleenchris Webben PROF CHEM 8 (BAS METB)on Anion gap [Moles/Vol] 12.7 mmol/L Normal [facility] Comment on above: Performed By: #### B MP #### [facility] [address] [place], [place] [address] Darleen Dahiana Calcium [Mass/Vol] 9.0 mg/dL Normal 8.4-10.2 [facility] Comment on above: Performed By: #### B MP #### [facility] [address] [place], [place] [address] Darleen Dahiana Chloride [Moles/Vol] 103 mmol/L Normal 98-107 [facility] Comment on above: Performed By: #### B MP #### [facility] [address] [place], [place] [address] Darleen Dahiana CO2 [Moles/Vol] 29.1 mmol/L Normal 22.0-30.0 [facility] Comment on above: Performed By: #### B MP #### [facility] [address] [place], [place] [address] Darleen Dahiana Creatinine [Mass/Vol] 0.71 mg/dL Normal 0.52-1.04 [facility] Comment on above: Performed By: #### B MP #### [facility] [address] [place], [place] [address] Darleen Dahiana EGFR-AF NIGERIAN >60 Normal >=60 [facility] Comment on above: Performed By: #### B MP #### [facility] [address] [place], [place] [address] Darleen Dahiana EGFR-NON AF NIGERIAN >60 Normal >=60 [facility] Comment on above: Performed By: #### B MP #### [facility] [address] [place] [id number] Darleen Dahiana Glucose [Mass/Vol] 100 mg/dL Normal 74-106 [facility] Comment on above: Performed By: #### B MP #### [facility] [address] [place], [place] [address] Darleen Dahiana Potassium [Moles/Vol] 3.8 mmol/L Normal 3.4-5.0 [facility] Comment on above: Performed By: #### B MP #### [facility] [address] [place] [id number] Darleen Dahiana Sodium [Moles/Vol] 141 mmol/L Normal 137-145 [facility] Comment on above: Performed By: #### B MP #### [facility] [address] [place], [place] [address] Darleen Dahiana Urea nitrogen [Mass/Vol] 11.0 mg/dL Normal 7.0-17.0 [facility] Comment on above: Performed By: #### B MP #### [facility] [address] [place], [place] [address] Darleen Dahiana Urea nitrogen/Creatinine [Mass ratio] 15.5 mg/mg Normal [facility] Comment on above: Performed By: #### B MP #### [facility] [address] [place], [place] [address] Darleen Dahiana ER URINE PROFILEon 9 Bilirubin [Mass/Vol] Negative Normal NEGATIVE [facility] Comment on above: Performed By: #### E RUR #### [facility] [address] [place] [address] Darleen Dahiana BLOOD Negative Normal NEGATIVE [facility] Comment on above: Performed By: #### E RUR #### [facility] [address] [place] [address] Darleen Dahiana Clarity (U) SL CLOUDY Normal [facility] Comment on above: Performed By: #### E RUR #### [facility] [address] [place] [address] Darleen Dahiana Color (U) LT. YELLOW Normal YELLOW [facility] Comment on above: Performed By: #### E RUR #### [facility] [address] [place] [address] Darleen Dahiana ERUAHD A micrscopic examination will be performed if indicated. Normal [facility] Comment on above: Performed By: #### E RUR #### [facility] [address] [place] [address] Darleen Dahiana Glucose [Mass/Vol] Negative Normal NEGATIVE [facility] Comment on above: Performed By: #### E RUR #### [facility] [address] [place] [address] Darleen Dahiana Ketones Ql (U) Negative Normal NEGATIVE [facility] Comment on above: Performed By: #### E RUR #### [facility] [address] [place] [address] Darleen Dahiana Nitrite Ql (U) Negative Normal NEGATIVE [facility] Comment on above: Performed By: #### E RUR #### [facility] [address] [place] [address] Darleen Dahiana pH (Bld) 7.0 Normal 5-9 [facility] Comment on above: Performed By: #### E RUR #### [facility] [address] [place] [address] Darleen Dahiana Protein (U) [Mass/Vol] Negative Normal [facility] Comment on above: Performed By: #### E RUR #### [facility] [address] [place] [address] Darlene Dahiana SPEC GRAVITY 1.015 Normal 1.005-<=1.02 5 [facility] Comment on above: Performed By: #### E RUR #### [facility] [address] [place] [id number] Darleen Talbot UR MICRO IND NOT INDICATED Normal [facility] Comment on above: Performed By: #### E RUR #### [facility] [address] [place] [id number] Darleen Talbot Urobilinogen Qn (U) 0.2 EU/dl Normal [facility] Comment on above: Performed By: #### E RUR #### [facility] [address] [place] [id number] Darleen Talbot WBC (Bld) [#/Vol] Negative Normal NEGATIVE [facility] Comment on above: Performed By: #### E RUR #### [facility] [address] [place] [id number] Darleen Talbot Vital Signs Date Time Vital Sign Value Performing Clinician Facility 12-10-2023 11:15040 Body height 160 cm Chaz Oconnell MD, IBCLC Work Phone: [facility] 12-10-2023 11:15-0400 Body mass index (BMI) [Ratio] 33.66 kg/m2 Chaz Oconnell MD, IBCLC Work Phone: [facility] 12-10-2023 11:15-0400 Body temperature 97 [degF] Chaz Oconnell MD, IBCLC Work Phone: [facility] 12-10-2023 11:15-0400 Body weight 86.18 kg Chaz Oconnell MD, IBCLC Work Phone: [facility] 12-10-2023 11:15-0400 Diastolic blood pressure 72 mm[Hg] Chaz Oconnell MD, IBCLC Work Phone: [facility] 12-10-2023 11:15-0400 Heart rate 100 /min Chaz Oconnell MD, IBCLC Work Phone: [facility] 12-10-2023 11:15-0400 SaO2% (BldA) [Mass fraction] 99 % Chaz Oconnell MD, IBCLC Work Phone: [facility] 12-10-2023 11:15-0400 Systolic blood pressure 138 mm[Hg] Chaz Oconnell MD, IBCLC Work Phone: [facility] 11-30-2023 11:25-0400 Body mass index (BMI) [Ratio] 31.76 kg/m2 Cheryl Brandie-Nossek DOCK HAND-AUTOMATIC GLUING MACHINE OPERATOR Work Phone: [facility] 11-30-2023 11:25-0400 Body weight 83.92 kg Cheryl Brandie-Nossek DOCK HAND-AUTOMATIC GLUING MACHINE OPERATOR Work Phone: [facility] 11-30-2023 11:25-0400 Diastolic blood pressure 106 mm[Hg] Cheryl Brandie-Nossek DOCK HAND-AUTOMATIC GLUING MACHINE OPERATOR Work Phone: [facility] 11-30-2023 11:25-0400 Heart rate 107 /min Cheryl Brandie-Nossek DOCK HAND-AUTOMATIC GLUING MACHINE OPERATOR Work Phone: [facility] 11-30-2023 11:25-0400 Systolic blood pressure 154 mm[Hg] Cheryl Brandie-Nossek DOCK HAND-AUTOMATIC GLUING MACHINE OPERATOR Work Phone: [facility] 11-25-2023 11:41-0400 Body height 162.6 cm Chaz Oconnell MD, IBCLC Work Phone: [facility] 11-25-2023 11:41-0400 Body mass index (BMI) [Ratio] 32.44 kg/m2 Chaz Oconnell MD, IBCLC Work Phone: [facility] 11-25-2023 11:41-0400 Body temperature 96.91 [degF] Chaz Oconnell MD, IBCLC Work Phone: [facility] 11-25-2023 11:41-0400 Body weight 85.73 kg Chaz Oconnell MD, IBCLC Work Phone: [facility] 11-25-2023 11:41-0400 Diastolic blood pressure 72 mm[Hg] Chaz Oconnell MD, IBCLC Work Phone: [facility] 11-25-2023 11:41-0400 Heart rate 98 /min Chaz Oconnell MD, IBCLC Work Phone: [facility] 11-25-2023 11:41-0400 SaO2% (BldA) [Mass fraction] 98 % Chaz Oconnell MD, IBCLC Work Phone: [facility] 11-25-2023 11:41-0400 Systolic blood pressure 130 mm[Hg] Chaz Oconnell MD, IBCLC Work Phone: [facility] 11-09-2023 16:10-0400 Body height 160 cm Colten Case HOSPITAL CLEANING SPECIALIST Work Phone: [facility] 11-09-2023 16:10-0400 Body mass index (BMI) [Ratio] 32.95 kg/m2 Colten Case HOSPITAL CLEANING SPECIALIST Work Phone: [facility] 11-09-2023 16:10-0400 Body temperature 97 [degF] Colten Case HOSPITAL CLEANING SPECIALIST Work Phone: [facility] 11-09-2023 16:10-0400 Body weight 84.37 kg Colten Case HOSPITAL CLEANING SPECIALIST Work Phone: [facility] 11-09-2023 16:10-0400 Diastolic blood pressure 68 mm[Hg] Colten Case HOSPITAL CLEANING SPECIALIST Work Phone: [facility] 11-09-2023 16:10-0400 Heart rate 94 /min Colten Case HOSPITAL CLEANING SPECIALIST Work Phone: [facility] 11-09-2023 16:10-0400 SaO2% (BldA) [Mass fraction] 98 % Colten Case HOSPITAL CLEANING SPECIALIST Work Phone: [facility] 11-09-2023 16:10-0400 Systolic blood pressure 120 mm[Hg] Colten Case HOSPITAL CLEANING SPECIALIST Work Phone: [facility] 06-07-2023 13:03-0400 Body height 160.02 cm [facility] 06-07-2023 13:03-0400 Body mass index (BMI) [Ratio] 33.8 kg/m2 [facility] 06-07-2023 13:03-0400 Body temperature 97.5 [degF] [facility] 06-07-2023 13:03-0400 Body weight 86.66 kg [facility] 06-07-2023 13:03-0400 Diastolic blood pressure 80 mm[Hg] [facility] 06-07-2023 13:03-0400 Heart rate 86 /min [facility] 06-07-2023 13:03-0400 Respiratory rate 16 /min [facility] 06-07-2023 13:03-0400 SaO2% (BldA) [Mass fraction] 95 % [facility] 06-07-2023 13:03-0400 Systolic blood pressure 131 mm[Hg] [facility] 03-19-2023 14:41-0500 Body mass index (BMI) [Ratio] 32.24 kg/m2 Jairo Ordaz MD Work Phone: [facility] 03-19-2023 14:41-0500 Body weight 82.56 kg Jairo Ordaz MD Work Phone: [facility] 03-19-2023 14:41-0500 Diastolic blood pressure 78 mm[Hg] Jairo Ordaz MD Work Phone: [facility] 03-19-2023 14:41-0500 Systolic blood pressure 126 mm[Hg] Jairo Ordaz MD Work Phone: [facility] 08-14-2022 15:10-0400 Diastolic blood pressure 88 mm[Hg] HOSPITAL CLEANING SPECIALIST-C Colten Case Work Phone: [facility] 08-14-2022 15:10-0400 Heart rate 80 /min HOSPITAL CLEANING SPECIALIST-C Colten Case Work Phone: [facility] 08-14-2022 15:10-0400 Respiratory rate 18 /min HOSPITAL CLEANING SPECIALIST-C Colten Case Work Phone: [facility] 08-14-2022 15:10-0400 SaO2% (BldA) [Mass fraction] 100 % HOSPITAL CLEANING SPECIALIST-C Colten Case Work Phone: [facility] 08-14-2022 15:10-0400 Systolic blood pressure 143 mm[Hg] HOSPITAL CLEANING SPECIALIST-C Colten Case Work Phone: [facility] 08-14-2022 11:52-0400 Body height 160.02 cm HOSPITAL CLEANING SPECIALIST-C Colten Case Work Phone: [facility] 08-14-2022 11:52-0400 Body temperature 98.1 [degF] HOSPITAL CLEANING SPECIALIST-C Colten Case Work Phone: [facility] 08-14-2022 11:52-0400 Body weight 86.18 kg HOSPITAL CLEANING SPECIALIST-C Colten Case Work Phone: [facility] 06-19-2022 14:19-0400 Diastolic blood pressure 86 mm[Hg] [facility] 06-19-2022 14:19-0400 Heart rate 86 /min [facility] 06-19-2022 14:19-0400 Mean blood pressure 100 mm[Hg] [facility] 06-19-2022 14:19-0400 Respiratory rate 14 /min [facility] 06-19-2022 14:19-0400 Systolic blood pressure 127 mm[Hg] [facility] 03-13-2022 11:47-0500 Diastolic blood pressure 63 mm[Hg] HOSPITAL CLEANING SPECIALIST-C Colten Case Work Phone: [facility] 03-13-2022 11:47-0500 Heart rate 82 /min HOSPITAL CLEANING SPECIALIST-C Colten Case Work Phone: [facility] 03-13-2022 11:47-0500 Respiratory rate 16 /min HOSPITAL CLEANING SPECIALIST-C Colten Case Work Phone: [facility] 03-13-2022 11:47-0500 SaO2% (BldA) [Mass fraction] 95 % HOSPITAL CLEANING SPECIALIST-C Colten Case Work Phone: [facility] 03-13-2022 11:47-0500 Systolic blood pressure 115 mm[Hg] HOSPITAL CLEANING SPECIALIST-C Colten Case Work Phone: [facility] 03-13-2022 10:52-0500 Body temperature 97.8 [degF] HOSPITAL CLEANING SPECIALIST-C Colten Case Work Phone: [facility] 03-13-2022 10:27-0500 Inhaled oxygen flow rate 10 L/min HOSPITAL CLEANING SPECIALIST-C Colten Case Work Phone: [facility] 03-13-2022 07:09-0500 Body height 160.02 cm HOSPITAL CLEANING SPECIALIST-C Colten Case Work Phone: [facility] 03-13-2022 07:09-0500 Body mass index (BMI) [Ratio] 35.1 kg/m2 HOSPITAL CLEANING SPECIALIST-C Colten Case Work Phone: [facility] 03-13-2022 07:09-0500 Body weight 90 kg HOSPITAL CLEANING SPECIALIST-C Colten Case Work Phone: [facility] 02-04-2022 13:15-0500 Body height 160.02 cm Cara Ro Other [employer] Other 02-04-2022 13:15-0500 Body mass index (BMI) [Ratio] 33.48 kg/m2 Cara Ro Other [employer] Other 02-04-2022 13:15-0500 Body temperature 98.4 [degF] Cara Ro Other [employer] Other 02-04-2022 13:15-0500 Body weight 85.73 kg Cara Ro Other [facility] [facility] Other 02-04-2022 13:15-0500 Respiratory rate 18 /min Cara Ro Other [employer] Other 02-04-2022 13:15-0500 SaO2% (BldA) [Mass fraction] 98 % Cara Zhangault Other [facility] Other 12-29-2021 10:35-0500 Body height 160.02 cm Cara Ro Other [facility] [facility] Other 12-29-2021 10:35-0500 Body mass index (BMI) [Ratio] 33.65 kg/m2 Cara [facility] Other [facility] Other 12-29-2021 10:35-0500 Body temperature 98.4 [degF] Cara oR Other [facility] Other 12-29-2021 10:35-0500 Body weight 86.18 kg Cara Ro Other [facility] Other 12-29-2021 10:35-0500 Diastolic blood pressure 103 mm[Hg] Cara Marjorie Other [facility] Other 12-29-2021 10:35-0500 Respiratory rate 20 /min Cara Marjorie Other [facility] Other 12-29-2021 10:35-0500 SaO2% (BldA) [Mass fraction] 98 % Cara Marjorie Other [facility] Other 12-29-2021 10:35-0500 Systolic blood pressure 138 mm[Hg] Cara Ro Other [facility] Other 12-26-2021 17:19-0500 Diastolic blood pressure 90 mm[Hg] HOSPITAL CLEANING SPECIALIST-C Colten Case Work Phone: [facility] 12-26-2021 17:19-0500 Heart rate 81 /min HOSPITAL CLEANING SPECIALIST-C Colten Case Work Phone: [facility] 12-26-2021 17:19-0500 Respiratory rate 18 /min HOSPITAL CLEANING SPECIALIST-C Colten Case Work Phone: [facility] 12-26-2021 17:19-0500 SaO2% (BldA) [Mass fraction] 97 % HOSPITAL CLEANING SPECIALIST-C Colten Case Work Phone: [facility] 12-26-2021 17:19-0500 Systolic blood pressure 132 mm[Hg] HOSPITAL CLEANING SPECIALIST-C Colten Case Work Phone: [facility] 12-26-2021 15:37-0500 Body height 160.02 cm HOSPITAL CLEANING SPECIALIST-C Colten Case Work Phone: [facility] 12-26-2021 15:37-0500 Body temperature 97.7 [degF] HOSPITAL CLEANING SPECIALIST-C Colten Case Work Phone: [facility] 12-26-2021 15:37-0500 Body weight 86.55 kg HOSPITAL CLEANING SPECIALIST-C Colten Case Work Phone: [facility] Encounters Encounter Date Encounter Type Care Provider Facility Start: 12-31-2023 End: 12-31-2023 Telephone encounter Deirdre Sesay MD Work Phone: [facility] Start: 12-23-2023 End: 12-23-2023 ambulatory JAIRO ORDAZ Not Available Start: 12-18-2023 End: 12-18-2023 ambulatory CHERYL Chilel BRANDIE-NOSSEK Not Available Start: 12-18-2023 End: 12-18-2023 Office outpatient visit 15 minutes Cheryl Chilel Brandie-Nossek DOCK HAND-AUTOMATIC GLUING MACHINE OPERATOR Work Phone: [facility] Comment on above: Moderate episode of recurrent major depressive disorder (CMS/HCC) Start: 12-15-2023 End: 12-15-2023 Bamboo flowsheet Barry Andrewsicki [employer] [facility] Start: 12-15-2023 End: 12-15-2023 Bamboo flowsheet Barry Andrewsicki [employer]PER[employer] [facility] Start: 12-15-2023 End: 12-15-2023 ambulatory BARRY BROWNI Not Available Start: 12-14-2023 End: 12-14-2023 Telephone encounter Edyta Prerna MCLAUGHLIN Work Phone: [facility] Start: 12-10-2023 End: 12-10-2023 Bamboo flowsheet Chaz Oconnell MD, IBCLC Work Phone: [facility] Start: 12-10-2023 End: 12-10-2023 Bamboo flowsfrancisca Oconnell MD, IBCLC Work Phone: [facility] Start: 12-10-2023 End: 12-10-2023 ambulatory CHAZ NO Not Available Start: 12-10-2023 End: 12-10-2023 Office outpatient visit 25 minutes Chaz Oconnell MD, IBCLC Work Phone: [facility] Comment on above: Shortness of breath (Primary Dx); Atypical pneumonia Start: 12-10-2023 End: 12-10-2023 ambulatory CHAZ NO Not Available Start: 11-30-2023 End: 11-30-2023 Bamboo flowsheet Cheryl Chilel Brandie-Nossek DOCK HAND-AUTOMATIC GLUING MACHINE OPERATOR Work Phone: [facility] Start: 11-30-2023 End: 11-30-2023 Bamboo flowsheet Cheryl Chilel Brandie-Nossek DOCK HAND-AUTOMATIC GLUING MACHINE OPERATOR Work Phone: [facility] Start: 11-30-2023 End: 11-30-2023 Office outpatient visit 25 minutes Cheryl [facility]intero [facility] Work Phone: [facility] Comment on above: Anxiety; Moderate episode of recurrent major depressive disorder (CMS/HCC); Generalized anxiety disorder (CMS/HCC); Attention deficit hyperactivity disorder (ADHD), combined type (CMS/HCC) Start: 11-30-2023 End: 11-30-2023 ambulatory CHERYL Chilel LEON Not Available Start: 11-25-2023 End: 11-25-2023 ambulatory CHAZ OCONNELL Not Available Start: 11-25-2023 End: 11-25-2023 Office outpatient visit 25 minutes Chaz [facility]connell MD, [facility] Work Phone: [facility] Comment on above: Anxiety (Primary Dx) ; Moderate episode of recurrent major depressive disorder (CMS/HCC) Start: 11-11-2023 End: 11-11-2023 Telephone encounter Colten Schwartz HOSPITAL CLEANING SPECIALIST Work Phone: [facility] Comment on above: medication Start: 11-10-2023 End: 11-10-2023 ambulatory JAIRO ORDZA Not Available Start: 11-10-2023 End: 11-10-2023 Telephone encounter Colten Schwartz HOSPITAL CLEANING SPECIALIST Work Phone: [facility] Comment on above: starting paulino/statin Start: 11-09-2023 End: 11-09-2023 Office outpatient visit 25 minutes Colten Schwartz HOSPITAL CLEANING SPECIALIST Work Phone: [facility] Comment on above: Type 2 diabetes barbra itus with hyperglycemia, with long-term current use of insulin (CMS/HCC) (Primary Dx); Intractable migraine with status migrainosus, unspecified migraine type (CMS/HCC); Perimenopausal vasomotor symptoms; Hot flashes; Mood swings; Amenorrhea Start: 11-09-2023 End: 11-09-2023 ambulatory COLTEN Crisostomo CASE Not Available Start: 11-04-2023 End: 11-04-2023 ambulatory COLTEN L CASE Not Available Start: 10-16-2023 End: 10-16-2023 ambulatory JAIRO PRINTY Not Available Start: 08-27-2023 End: 08-27-2023 ambulatory JAIRO PRINTY Not Available Start: 07-10-2023 End: 07-10-2023 Patient encounter procedure [facility] [place] Work Phone: Start: 07-10-2023 End: 07-10-2023 ambulatory NON STAFF [facility] Work Phone: Start: 07-10-2023 Encounter for genera l adult medical examination with abnormal findings Colten L Case [facility] Start: 07-01-2023 End: 07-01-2023 ambulatory CHERYL DIEGO-NOSSEK Not Available Start: 06-24-2023 End: 06-24-2023 ambulatory COLTEN L CASE Not Available Start: 06-19-2023 End: 06-19-2023 ambulatory CHAZ NO Not Available Start: 06-11-2023 End: 06-11-2023 ambulatory CHAZ NO Not Available Start: 06-07-2023 End: 06-07-2023 ambulatory [facility] Work Phone: Start: 06-07-2023 End: 06-07-2023 Patient encounter procedure [facility] [place] Work Phone: Start: 05-06-2023 End: 05-06-2023 ambulatory AGUSTIN N SIMEON Not Available Start: 04-16-2023 End: 04-16-2023 ambulatory AGUSTIN N SIMEON Not Available Start: 04-16-2023 End: 04-16-2023 ambulatory AGUSTIN N SIMEON Not Available Start: 04-02-2023 End: 04-02-2023 ambulatory CHERYL Chilel BRANDIE-NOSSEK Not Available Start: 03-25-2023 Telephone encounter Colten Crisostomo Case HOSPITAL CLEANING SPECIALIST Work Phone: [facility] Comment on above: Breast Cancer Screen ing Attention deficit hy peractivity disorder (ADHD), combined type (CMS/[facility]) Start: 03-19-2023 End: 03-19-2023 Office outpatient visit 25 minutes Jairo Ordaz MD Work Phone: [facility] Comment on above: Intrauterine device surveillance; Dyspareunia in female; Adenomyosis Start: 03-19-2023 End: 03-19-2023 ambulatory JAIRO ORDAZ Not Available Start: 01-29-2023 End: 01-29-2023 ambulatory SARAH Russ PÉREZ Not Available Start: 01-14-2023 End: 01-14-2023 ambulatory COLTEN L CASE Not Available Start: 01-12-2023 End: 01-12-2023 ambulatory COLTEN L CASE Not Available Start: 01-08-2023 End: 01-08-2023 ambulatory CHERYL Getachew QUINTERO Not Available Start: 08-20-2022 End: 08-20-2022 ambulatory Agustin Hendrix Facility:[facility] Start: 08-14-2022 End: 08-14-2022 Emergency department patient visit HOSPITAL CLEANING SPECIALIST-C Colten Case Work Phone: [facility]-Emergency Room Work Phone: Start: 06-19-2022 End: 06-20-2022 ambulatory MD James White Facility:[facility] Start: 06-19-2022 End: 06-19-2022 Pain Management [facility] Start: 03-13-2022 End: 03-13-2022 Admission to same day surgery center HOSPITAL CLEANING SPECIALIST-C Colten Case Work Phone: [facility] [place] Start: 03-13-2022 End: 03-13-2022 ambulatory HOSPITAL CLEANING SPECIALIST-C Colten L Case Work Phone: [facility] Work Phone: Start: 02-27-2022 End: 02-27-2022 ambulatory HOSPITAL CLEANING SPECIALIST-C Colten L Case Work Phone: [facility] Work Phone: Start: 02-27-2022 End: 02-27-2022 Patient encounter procedure HOSPITAL CLEANING SPECIALIST-C Colten Case Work Phone: [facility]-Pre-Surgical Testing Work Phone: Start: 02-04-2022 End: 02-04-2022 ambulatory Cara Ro Other [facility] Other Start: 02-04-2022 Office outpatient vi sit 25 minutes Cara Ro [facility] [place] Start: 01-08-2022 End: 01-08-2022 ambulatory HOSPITAL CLEANING SPECIALIST-C Colten L Case Work Phone: [facility] Work Phone: Start: 01-08-2022 End: 01-08-2022 Patient encounter procedure HOSPITAL CLEANING SPECIALIST-C Colten Case Work Phone: [facility]-[place] COVID Testing Start: 12-29-2021 Office outpatient ne w 20 minutes Cara Ro [facility] [place] Start: 12-29-2021 End: 12-29-2021 ambulatory HOSPITAL CLEANING SPECIALIST-C Colten L Case Work Phone: [facility] Work Phone: Start: 12-29-2021 End: 12-29-2021 Departed Referred HOSPITAL CLEANING SPECIALIST-C Colten Case Work Phone: [facility] [place] Start: 12-26-2021 End: 12-26-2021 Emergency department patient visit HOSPITAL CLEANING SPECIALIST-C Colten Case Work Phone: [facility]Emergency Room Start: 10-07-2018 End: 10-07-2018 Patient encounter procedure DOCTOR KELSEY Facility:[facility] Start: 02-09-2018 End: 02-09-2018 Patient encounter procedure KEYANNA GARCIAS Facility:[facility] Procedures Date Procedure Procedure Detail Performing Clinician Start: 06-11-2023 Mammography Colten Case HOSPITAL CLEANING SPECIALIST Work Phone: Start: 03-13-2022 Repair of umbilical hernia HOSPITAL CLEANING SPECIALIST-C Colten Case Work Phone: Start: 01-09-2022 Microscopic observat ion [Identifier] in Cervix by Cyto stain Colten Schwartz HOSPITAL CLEANING SPECIALIST Work Phone: Start: 01-08-2022 Respiratory Panel (PCR) HOSPITAL CLEANING SPECIALIST-Crystal Posada Case Work Phone: Start: 12-29-2021 Piperacillin/tazobactam Cara Ro Other Start: 12-29-2021 Urine culture HOSPITAL CLEANING SPECIALIST-C Justina cornell Case Work Phone: Start: 12-26-2021 CT of abdomen and pe lvis without contrast HOSPITAL CLEANING SPECIALIST-Crystal Posada Case Work Phone: section James collins Comment on above: 2018 H/O: section S/P HOSPITAL CLEANING SPECIALIST-Crystal Posada Case Work Phone: Laparoscopic repair of umbilical hernia [facility] Scoliosis deformity of spine (disorder) James White Comment on above: [facility] 1998 Urine culture HOSPITAL CLEANING SPECIALIST-Crystal Posada Case Work Phone: Plan of Treatment Date Care Activity Detail Author Start: 01-09-2025 Screening for malign ant neoplasm of cervix [facility] Start: 11-09-2024 Urine screening for protein Diabetes: Urine Protein Screening [facility] Start: 06-10-2024 Screening for malign ant neoplasm of breast Mammogram [facility] Start: 02-03-2024 Hemoglobin A1c measurement Diabetes: Hemoglobin A1C [facility] Start: 01-19-2024 End: 01-19-2024 Social Work 01/19/2024 10:00 AM EST Social Work [facility] [address] [place] [address] Barry Sheffield LPC [facility] Start: 01-12-2024 End: 01-12-2024 Patient encounter procedure 01/12/2024 4:00 PM EST Office Visit [facility] [address] [place] [address] Cheryl Quintero, DOCK HAND-AUTOMATIC GLUING MACHINE OPERATOR [address] [place] [address] [facility] Start: 12-29-2023 End: 12-29-2023 Social Work 12/29/2023 9:00 AM EST Social Work [facility] [address] [place] [address] Barry Sheffield, NOEL [facility] Start: 12-18-2023 End: 12-18-2023 Telemedicine consultation with patient 12/18/2023 8:30 AM EST Telemedicine [facility] [address] [place] [address] Cheryl Quintero, DOCK HAND-AUTOMATIC GLUING MACHINE OPERATOR [address] [facility] [address] [place] [address] [facility] Start: 12-15-2023 End: 12-15-2023 Social Work [facility] Comment on above: Arrived Start: 12-14-2023 End: 12-14-2023 Patient encounter procedure 12/14/2023 4:00 PM EST Office Visit [facility] [address] [place] [address] Cheryl Quintero, DOCK HAND-AUTOMATIC GLUING MACHINE OPERATOR [address] [place] [address] [facility] Start: 12-10-2023 End: 12-09-2024 XR Chest 2 Views [facility] Work Phone: Comment on above: Expected: 12/10/2023 , Expires: 12/09/2024 Start: 12-10-2023 End: 12-10-2023 Patient encounter procedure 12/10/2023 11:40 AM EDT Office Visit [facility] [address] [place] [address] Chaz Oconnell MD, IBCLC [address] [place] [address] Arrived [facility] Comment on above: Arrived Start: 12-08-2023 End: 12-08-2023 Social Work 12/08/2023 2:00 PM EDT Social Work [facility] [address] [place] [address] Barry Sheffield LPC [facility] Start: 12-03-2023 End: 12-03-2023 Patient encounter procedure 12/03/2023 2:00 PM EDT Office Visit [facility] [address] [place] [address] Cheryl Quintero, DOCK HAND-AUTOMATIC GLUING MACHINE OPERATOR [address] [place] [address] [facility] Start: 11-30-2023 End: 11-30-2023 Patient encounter procedure 11/30/2023 11:30 AM EDT Office Visit [facility] [address] [place] [address] Cheryl Quintero, DOCK HAND-AUTOMATIC GLUING MACHINE OPERATOR [address] [place] [address] Arrived [facility] Comment on above: Arrived Start: 11-09-2023 End: 11-08-2024 Estradiol Estradiol Lab Routine Perimenopausal vasomotor symptoms Hot flashes Mood swings Amenorrhea Expected: 11/09/2023 (Approximate), Expires: 11/08/2024 [facility] Comment on above: Expected: 11/09/2023 (Approximate), Expires: 11/08/2024 Start: 11-09-2023 End: 11-08-2024 [facility] Lab Routine Perimenopausal vasomotor symptoms Hot flashes Mood swings Amenorrhea Expected: 11/09/2023 (Approximate), Expires: 11/08/2024 [facility] Work Phone: Comment on above: Expected: 11/09/2023 (Approximate), Expires: 11/08/2024 Start: 11-09-2023 End: 11-08-2024 Luteinizing hormone Luteinizing hormone Lab Routine Perimenopausal vasomotor symptoms Hot flashes Mood swings Amenorrhea Expected: 11/09/2023 (Approximate), Expires: 11/08/2024 [facility] Comment on above: Expected: 11/09/2023 (Approximate), Expires: 11/08/2024 Start: 10-11-2023 Influenza vaccination Influenza Vacc ine (#1) [facility] Start: 10-04-2023 Urine screening for protein Diabetes: Urine Protein Screening [facility] Start: 04-15-2023 Hemoglobin A1c measurement Diabetes: Hemoglobin A1C [facility] Start: 04-02-2023 End: 04-02-2023 Patient encounter procedure 04/02/2023 4:00 PM EST Office Visit [facility] [address] [facility] [address] [place] [address] Cheryl Quintero, [facility] [address] [facility] [address] [place] [address] [facility] Start: 03-25-2023 End: 05-23-2024 DBT Breast - bilateral screening Bilateral screening mammogram with tomosynthesis Imaging Routine Encounter for screening mammogram for malignant neoplasm of breast Expected: 03/25/2023, Expires: 05/23/2024 [facility] Work Phone: Comment on above: Expected: 03/25/2023 , Expires: 05/23/2024 Start: 2022 Screening for malign ant neoplasm of breast Mammogram [facility] Start: 03-13-2022 [facility] Start: 03-13-2022 [facility] Start: 2012 Screening for malign ant neoplasm of cervix [facility] Start: 09-25-2003 Screening for malign ant neoplasm of cervix Pap Smear [facility] Start: 1992 Glaucoma screening Diabetes: R etinopathy Screening [facility] Bacteria identified in Urine by Culture Urine Culture [facility] Patient Education [facility] Work Phone: Patient referral [facility] Work Phone: Immunizations Immunization Date Immunization Notes Care Provider [facility] 12-23-2023 influenza, seasonal, injectable, preservative free Deirdre Sesay MD Work Phone: [facility] 11-18-2022 influenza, injectable, quadrivalent, preservative free Jairo Ordaz MD Work Phone: [facility] 11-18-2022 influenza virus vaccine, unspecified formulation Colten Case HOSPITAL CLEANING SPECIALIST Work Phone: [facility] 12-26-2020 seasonal influenza, intradermal, preservative free Jairo Ordaz MD Work Phone: [facility] 03-22-2020 COVID-19 mRNA-1273 (Moderna) HOSPITAL CLEANING SPECIALIST-C Colten Case Work Phone: [facility] 02-23-2020 COVID-19 mRNA-1273 (Moderna) HOSPITAL CLEANING SPECIALIST-C Colten Case Work Phone: [facility] 11-28-2019 seasonal influenza, intradermal, preservative free Jairo Ordaz MD Work Phone: [facility] 02-23-2018 hepatitis B vaccine, adult dosage Jairo Ordaz MD Work Phone: [facility] 02-23-2018 influenza, injectable, quadrivalent, preservative free Jairo Ordaz MD Work Phone: [facility] 11-25-2017 hepatitis B vaccine, adult dosage Jairo Ordaz MD Work Phone: [facility] 11-15-2015 influenza, injectable, quadrivalent, preservative free Jairo Ordaz MD Work Phone: [facility] 04-25-1994 measles, mumps and rubella virus vaccine Jairo Ordaz MD Work Phone: [facility] 05-17-1987 diphtheria, tetanus toxoids and acellular pertussis vaccine Jairo Ordaz MD Work Phone: [facility] 05-17-1987 trivalent poliovirus vaccine, live, oral Jairo Ordaz MD Work Phone: [facility] 04-20-1986 haemophilus influenzae type b vaccine, conjugate unspecified formulation Jairo Ordaz MD Work Phone: [facility] 04-13-1984 diphtheria, tetanus toxoids and acellular pertussis vaccine Jairo Ordaz MD Work Phone: [facility] 01-14-1984 measles, mumps and rubella virus vaccine Jairo Ordaz MD Work Phone: [facility] 03-12-1983 diphtheria, tetanus toxoids and pertussis vaccine Jairo Ordaz MD Work Phone: [facility] 03-12-1983 trivalent poliovirus vaccine, live, oral Jairo Ordaz MD Work Phone: [facility] 01-09-1983 diphtheria, tetanus toxoids and pertussis vaccine Jairo Ordaz MD Work Phone: [facility] 01-09-1983 trivalent poliovirus vaccine, live, oral Jairo Ordaz MD Work Phone: [facility] 1982 diphtheria, tetanus toxoids and pertussis vaccine Jairo Ordaz MD Work Phone: [facility] 1982 trivalent poliovirus vaccine, live, oral Jairo Ordaz MD Work Phone: [facility] NEGATED: Highlighted row has not occurred!09-02-2018 tetanus toxoid, reduced diphtheria toxoid, and acellular pertussis vaccine, adsorbed HOSPITAL CLEANING SPECIALIST-C Colten Case Work Phone: [facility] Payers Date Payer Category Payer Private Health Insurance [id number] 2023 Private Health Insurance [id number] 2022 Self-pay [id number] 2022 Medicaid [place] [id number] 2022-Present [address] [place] [address] [id number] 2022 Unknown [id number] 2..[id number] 1982 Unknown [id number] 2.840.1.098801.3.579.2. 593 1982 Unknown [id number] 2.840.1.822436.3.579.2. 59 1982 Unknown [id number] 840.1.438477.3.579.2. 727 1982 Unknown [id number] 840.1.549523.3.579.2. 1258 1982 Unknown [id number] 03.27.830.1.418814.3.579.2. 1258 1982 Unknown [id number] 840.1.927850.3.579.2. 1258 1982 Unknown [id number] 840.1.325875.3.579.2. 1258 1982 Unknown [id number] 840.1.636984.3.579.2. 1258 1982 Unknown [id number] 840.1.971243.3.579.2. 1258 1982 Unknown [id number] 840.1.585976.3.579.2. 1258 1982 Unknown [id number] 840.1.626974.3.579.2. 1258 1982 Unknown [id number] 840.1.452497.3.579.2. 1258 1982 Unknown [id number] 840.1.755236.3.579.2. 1258 1982 Unknown [id number] 2.16.840.1.897131.3.579.2. 1258 1982 Unknown [id number] 2.16.840.1.206107.3.579.2. 1258 1982 Unknown [id number] 2.16.840.1.352209.3.579.2. 1258 1982 Unknown [id number] 2..840.1.404545.3.579.2. 1258 1982 Unknown [id number] 2.16.840.1.216694.3.579.2. 1258 1982 Unknown [id number] 2..840.1.419993.3.579.2. 1258 1982 Unknown [id number] 2..840.1.469262.3.579.2. 1258 1982 Unknown [id number] 2.840.1.976087.3.579.2. 1258 1982 Unknown [id number] 2.840.1.289371.3.579.2. 1258 1982 Unknown [id number] 2.840.1.322656.3.579.2. 1258 1982 Unknown [id number] 2.16.840.1.753910.3.579.2. 1258 1982 Unknown [id number] 2.840.1.147993.3.579.2. 1258 1982 Unknown [id number] 2.16.840.1.683389.3.579.2. 1258 1982 Unknown [id number] 2.840.1.517784.3.579.2. 1258 1982 Unknown [id number] 2.16840.1.299880.3.579.2. 9 1959 Unknown [id number] Medicaid [facility] [id number] Medicaid Anthem [place] Medicaid [id number] Unknown [id number] 2.16.840.1.673314.3.579.2. 531 Unknown [id number] 2.840.1.124513.3.579.2. 531 Unknown [id number] 2..840.1.172480.3.579.2. 531 Social History Date Type Detail Facility Start: 12-26-2021 End: 06-19-2022 Tobacco smoking status NHIS Never smoked tobacco (finding) [facility] Start: 1980 Sex Assigned At Female F [facility] Start: 06-19-2022 End: 06-17-2023 Sex Assigned At [facility] Tobacco smoking status No Smokin g Status Entered [facility] Start: 06-19-2022 Tobacco use and exposure Smoke less tobacco non-user [facility] Start: 03-19-2023 End: 12-10-2023 Alcohol intake Current drinker of alcohol (finding) [facility] Start: 03-19-2023 End: 06-17-2023 Alcohol intake [facility] How often to you hav e a drink containing alcohol? Monthly or less [facility] How many standard dr inks containing alcohol do you have on a typical day? 1 or 2 [facility] How often do you hav e 6 or more drinks on 1 occasion? Less than monthly [facility] Start: 01-14-2023 Alcohol Comment 2 glasses on ; caffeine intake : 1-2 cups per day ; coffee [facility] Start: 1980 Sex Assigned At Not on file [facility] Frequency of Communication with Friends and Family Not on file [facility] Do you belong to any clubs or organizations such as sikh groups, unions, fraternal or athletic groups, or school groups? Yes [facility] Are you now , , , , never or living with a partner? Never [facility] How often do you hav e 6 or more drinks on 1 occasion? Never [facility] How hard is it for y ou to pay for the very basics like food, housing, medical care, and heating Not very hard [facility] Do you feel stress - tense, restless, nervous, or anxious, or unable to sleep at night because your mind is troubled all the time - these days [OSQ] To some extent [facility] The food that (I/we) bought just didn't last, and (I/we) didn't have money to get more. Never true [facility] In the past 12 month s, was there a time when you were not able to pay the mortgage or rent on time? No [facility] Start: 06-24-2023 Alcohol Comment 1-2 glasses of wine on weekend [facility] Start: 11-30-2023 Alcohol Comment 1-2 glasses of wine on weekend caffiene 1-2 cups coffee [facility] Medical Equipment Procedure Code Equipment Code Equipment Origin al Text Equipment Identifier Dates Repair, hernia, umbilical Abdominal hernia surgical mesh, composite-polymer [id number] FDA Start: 03-13-2022 [id number] Start: 08-05-2022 End: 06-14-2024 Administer [facility] [id number] Start: 08-15-2022 End: 08-15-2023 Use as instructed [id number] Start: 01-12-2023 End: 01-12-2024 1 m Daily [id number] Start: 06-12-2023 1 m Daily [id number] Start: 06-15-2023 End: 06-14-2024 1 each by Other route Daily Use as instructed once a day [id number] Start: 06-12-2023 1 [facility] Daily [id number] Start: 06-12-2023 End: 06-11-2024 Goals Date Patient Goal Desired Activity /State Functional Status Date Assessment Result Facility 06-19-2022 Functional Status N/A [facility] Clinical Notes 12-29-2021 to 12-31-2023 Telephone Encounter - Deirdre Sesay MD - 12/31/2023 12:44 PM ESTTelephone Encounter - Deirdre Sesay MD - 12/31/2023 12:44 PM Adam Quintero APRN-AUTOMATIC GLUING MACHINE OPERATOR - 12/18/2023 8:30 AM EST Note Date & Type Note Facility 12-31-2023 Telephone encount er Note Patient with intertrigo and yeast infection after recent abx use. Under breasts are red and moist- will call in medication. Recommend holding statin while on diflucan [facility] 12-31-2023 Miscellaneous Notes Formattin g of this note might be different from the original. Patient with intertrigo and yeast infection after recent abx use. Under breasts are red and moist- will call in medication. Recommend holding statin while on diflucan documented in this encounter [facility] 12-18-2023 History of Presen t illness Narrative Images from the original note were not included. Yessy Do is a 43 y.o. female presents for Medication Management. HPI: This is a televisit for medication follow up. Patient consents for audio and video. Patient location is work. Late for appt and had to leave early due to patient. Patient has improved since last appt. Patient was started on Caplyta as last visit. Doing well. Mood is reported as much less depressed. . Anxiety is improved. Sleeping 5 hours over worrying. Has not taken Did attend counseling. Medication compliant. No reported side effects. Denies abuse of substances. Medical problems since last visit. Had walking pneumonia. Psychosocial stressors include less stress at work. Dealing with stress of parents. SUBJECTIVE: PAST MEDICAL HISTORY: Past Medical History: Diagnosis Date ADHD (attention deficit hyperactivity disorder) ([facility]) Allergies Anxiety 02/10/2008 Asthma ([facility]) COVID-19 Depression ([facility]) Diabetes 1.5, 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[facility]) Frequent UTI H/O umbilical hernia repair 2022 Hypertension ([facility]) ALLERGIES: No Known Allergies SURGICAL HISTORY: Past Surgical History: Procedure Laterality Date BACK SURGERY 1997 SECTION, LOW TRANSVERSE 08/2018 CHOLECYSTECTOMY 2016 UMBILICAL HERNIA REPAIR 03/2022 repair with mesh- AVV VAGINAL DELIVERY 05/2006 VAGINAL DELIVERY FAMILY HISTORY: Family History Problem Relation Name Age of Onset Breast cancer Mother tristan do Hypertension Mother tristan do Stroke Mother tristan do Diabetes Father david do Heart disease Father david do No Known Problems Sister No Known Problems Brother No Known Problems Son No Known Problems Son Hypertension Maternal Grandmother Breast cancer Maternal Grandmother SOCIAL HISTORY: Social History Tobacco Use Smoking status: Never Smokeless tobacco: Never Vaping Use Vaping status: Never Used Substance Use Topics Alcohol use: Yes Alcohol/week: 2.0 standard drinks of alcohol Types: 2 Glasses of wine per week Comment: 1-2 glasses of wine on weekend caffiene 1-2 cups coffee Drug use: Never Depression: At risk (11/30/2023) PHQ-2 PHQ-2 Score: 6 REVIEW OF SYMPTOMS - MENTAL STATUS EXAM Appearance Appearance: Casual dress, normal grooming and hygiene Attitude Attitude: Cooperative, conversant, engaged, and with good eye contact. Behavior Cooperative, conversant, engaged, and with good eye contact. Speech Normal, clear, regular rate, rhythm and volume Affect full affect appropriate with mood Mood euthymic Thought Process Organized and Clear Thought Content No Suicidal Ideation and No Homicidal ideation Perception No perceptual abnormalities noted Orientation Appropriate to age, Person, Place, and Time Memory/Concentration Short term intact and chcf intact Insight/Judgement Fair OBJECTIVE: Visit Vitals OB Status Oral Contraception Smoking Status Never No results found for: TSH Lab Results Component Value Date GLU >=1000mg/dl 08/27/2023 CALCIUM 9.4 07/10/2023 NA 136 07/10/2023 K 4.3 07/10/2023 CO2 26.0 07/10/2023 CL 102 07/10/2023 BUN 12 07/10/2023 CREATININE 0.59 (L) 07/10/2023 Lab Results Component Value Date WBC 7.5 07/10/2023 HGB 14.8 07/10/2023 HCT 42.6 07/10/2023 MCV 90.7 07/10/2023 PLT 226 07/10/2023 No results found for: CHOL No results found for: HDL No results found for: LDLCALC No results found for: TRIG ASSESSMENT AND PLAN: Assessment/Plan Attention deficit hyperactivity disorder (ADHD), combined type (CMS/HCC) Generalized anxiety disorder (CMS/HCC) Moderate episode of recurrent major depressive disorder (HCC) (CMS/HCC) R/O Bipolar Disorder Psych Medication List Stopped abilify Capltya 21mg po x2 add on -off label- for depression -come in for samples will send R/O Bipolar Disorder Dt patient concern Regarding weight gain and instability of mood. Trazodone 50mg po every day Vistaril 25mg q8 prn prozac 40mg po every day Continue counseling Patient was seen Face to Face, Reviewed chart documents and documentation, Visit time :20min F/U 3 weeks documented in this encounter [facility] 12-14-2023 Telephone encount er Note Rx sent for albuterol and steroid burst. Since CXR was read as normal. Pt informed [facility] 12-14-2023 Miscellaneous Notes Formattin g of this note might be different from the original. Rx sent for albuterol and steroid burst. Since CXR was read as normal. Pt informed Pt is still not feeling well and having some sob. She is requesting an inhaler to [facility] documented in this encounter [facility] 12-14-2023 Telephone encount er Note Pt is still not feeling well and having some sob. She is requesting an inhaler to [facility] 12-10-2023 History of Presen t illness Narrative Images from the original note were not included. Pt is here for a cough and SOB X 2 weeks SUBJECTIVE: History Provided by: patient History of Present Illness The patient presents for evaluation of a cough. She reports a worsening of her breathing, accompanied by a persistent cough, runny nose, and headache. The symptoms have been present for approximately 2 weeks, with the cough and shortness of breath being the most prominent. The shortness of breath began a few days ago. She notes that her cough is productive in the mornings. She has been self-medicating with [id number] Mucinex 12-hour. Despite not having a fever, she expresses concern about the possibility of pneumonia. She is not experiencing fevers or chills but admits to feeling more fatigued than usual and experiencing body aches. She is not aware of any pre-existing lung conditions. Additionally, she mentions that her son has been coughing for the past 3 weeks. FAMILY HISTORY Her sister has underlying lung issues. Past medical history, allergies, surgical history, family history, and social history were reviewed. Current Outpatient Medications Medication Instructions albuterol HFA (ProAir HFA) 90 mcg/act inhaler 2 puffs, Inhalation, Every 4 hours PRN atenolol (TENORMIN) 25 mg, Oral, Daily Basaglar KwikPen 16 Units, Subcutaneous, Nightly Blood Gluc Meter Disp-Strips device 1 m, Does not apply, Daily doxycycline (VIBRAMYCIN) 100 mg, Oral, 2 times daily, Take with at least 8 ounces (large glass) of water, do not lie down for 30 minutes after FLUoxetine (PROZAC) 40 mg, Oral, Daily, Once a day Glucose Blood (Blood Glucose Test) strip 1 each by Other route Daily Use as instructed once a day hydrOXYzine pamoate (VISTARIL) 25 mg, Oral, Every 8 hours PRN Lancets misc 1 Lancet , Does not apply, Daily Levonorgestrel (Liletta, 52 MG,) 19.5 MCG/DAY intrauterine device Liletta (52 MG) lisinopril 2.5 mg, Oral, Daily metFORMIN (GLUCOPHAGE) 1,000 mg, Oral, 2 times daily with meals Multiple Vitamin (Multivitamin Adult) tablet as directed Orally omeprazole (PriLOSEC) [address] capsule TAKE 1 CAPSULE BY MOUTH ONCE EVERY MORNING BEFORE MEALS *DO NOT CRUSH OR CHEW* ondansetron (ZOFRAN) 8 mg, Oral, Every 8 hours PRN Ozempic (1 MG/DOSE) 1 mg, Subcutaneous, Weekly pen needle 32G x 4 mm misc Use as instructed rosuvastatin (CRESTOR) 5 mg, Oral, Daily traZODone (DESYREL) 100 mg, Oral, Nightly I have reviewed and reconciled the history and medication list with the patient today. OBJECTIVE: BP 138/72 Pulse 100 Temp 97 F Ht 5' 3 Wt 190 lb SpO2 99% BMI 33.66 kg/m Physical Exam Constitutional: General: She is not in acute distress. Appearance: Normal appearance. Eyes: Conjunctiva/sclera: Conjunctivae normal. Cardiovascular: Rate and Rhythm: Normal rate and regular rhythm. Heart sounds: Normal heart sounds. Pulmonary: Effort: Pulmonary effort is normal. Breath sounds: Decreased air movement present. Examination of the right-middle field reveals decreased breath sounds. Examination of the right-lower field reveals decreased breath sounds. Examination of the left-lower field reveals decreased breath sounds. Decreased breath sounds present. No wheezing or rales. Comments: Prolonged inspiration, dry cough Musculoskeletal: General: No swelling. Normal range of motion. Cervical back: Normal range of motion and neck supple. Skin: General: Skin is warm and dry. Neurological: General: No focal deficit present. Mental Status: She is alert. Psychiatric: Attention and Perception: Attention and perception normal. Mood and Affect: Mood and affect normal. Speech: Speech normal. Behavior: Behavior normal. Behavior is cooperative. Thought Content: Thought content normal. [facility] I personally reviewed the images which demonstrate diffuse interstitial markings with increased interstitial her markings in bilateral lower lobes. Hilar nodularity although this is present on previous x-rays as well. No lobar consolidation ASSESSMENT AND PLAN: Problem List Items Addressed This Visit None Visit Diagnoses Shortness of breath - Primary Relevant Orders XR chest 2 views Atypical pneumonia Relevant Medications doxycycline (Vibramycin) 100 MG capsule Given the persistence of systemic & respiratory symptoms and her radiograph findings, I do have suspicion for atypical pneumonia. Patient has no allergies to antibiotics. I recommend empiric coverage with doxycycline both for antimicrobial and anti-inflammatory properties. I will retest with the patient in a few days to ensure improvement. Recommend continued hydration and supportive [id number] measures. Reviewed return precautions. Follow up as needed Chaz Oconnell MD, IBCLC [facility] documented in this encounter [facility] 11-30-2023 History of Presen t illness Narrative Images from the original note were not included. Yessy Do is a 43 y.o. female presents for Medication Management. HPI: Patient is here for medication follow up. Patient has decompensated since last appt. Mood is reported as more depressed dt overwelming and rates 10 (10worst) Denies suicidal ideation. Does not feel like finding ean in things. Anxiety is 10 (10worst). Sleep is broken up. Medication compliant. No reported side effects. Denies missing medications, Denies abuse of substances. A bottle of wine per night on weekend. Medical problems since last visit. Diabetes . Psychosocial stressors include Had a compete meltdown. SUBJECTIVE: PAST MEDICAL HISTORY: Past Medical History: Diagnosis Date ADHD (attention deficit hyperactivity disorder) ([facility]) Allergies Anxiety 02/10/2008 Asthma ([facility]) COVID-19 Depression ([facility]) Diabetes 1.5, 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[facility]) Frequent UTI H/O umbilical hernia repair 2022 Hypertension ([facility]) ALLERGIES: No Known Allergies SURGICAL HISTORY: Past Surgical History: Procedure Laterality Date BACK SURGERY 1997 SECTION, LOW TRANSVERSE 08/2018 CHOLECYSTECTOMY 2016 UMBILICAL HERNIA REPAIR 03/2022 repair with mesh- AVV VAGINAL DELIVERY 05/2006 VAGINAL DELIVERY FAMILY HISTORY: Family History Problem Relation Name Age of Onset Breast cancer Mother tristan do Hypertension Mother tristan do Stroke Mother tristan do Diabetes Father david do Heart disease Father david do No Known Problems Sister No Known Problems Brother No Known Problems Son No Known Problems Son Hypertension Maternal Grandmother Breast cancer Maternal Grandmother SOCIAL HISTORY: Social History Tobacco Use Smoking status: Never Smokeless tobacco: Never Vaping Use Vaping status: Never Used Substance Use Topics Alcohol use: Yes Alcohol/week: 2.0 standard drinks of alcohol Types: 2 Glasses of wine per week Comment: 1-2 glasses of wine on weekend caffiene 1-2 cups coffee Drug use: Never Depression: At risk (11/30/2023) PHQ-2 PHQ-2 Score: 6 REVIEW OF SYMPTOMS - MENTAL STATUS EXAM Appearance Appearance: Casual dress, normal grooming and hygiene Attitude Attitude: Cooperative, conversant, engaged, and with good eye contact. Behavior Cooperative, conversant, engaged, and with good eye contact. Speech Normal, clear, regular rate, rhythm and volume Affect full affect appropriate with mood Mood Depressed and Anxious Thought Process Organized and Clear Thought Content No Suicidal Ideation and No Homicidal ideation Perception No perceptual abnormalities noted Orientation Appropriate to age, Person, Place, and Time Memory/Concentration Short term intact and chcf intact Insight/Judgement Good OBJECTIVE: Visit Vitals BP (!) 154/106 (BP Location: Right arm, Patient Position: Sitting) Pulse 107 Wt 185 lb BMI 31.76 kg/m OB Status Oral Contraception Smoking Status Never BSA 1.95 m No results found for: TSH Lab Results Component Value Date GLU >=1000mg/dl 08/27/2023 CALCIUM 9.4 07/10/2023 NA 136 07/10/2023 K 4.3 07/10/2023 CO2 26.0 07/10/2023 CL 102 07/10/2023 BUN 12 07/10/2023 CREATININE 0.59 (L) 07/10/2023 Lab Results Component Value Date WBC 7.5 07/10/2023 HGB 14.8 07/10/2023 HCT 42.6 07/10/2023 MCV 90.7 07/10/2023 PLT 226 07/10/2023 No results found for: CHOL No results found for: HDL No results found for: LDLCALC No results found for: TRIG ASSESSMENT AND PLAN: Assessment/Plan AAttention deficit hyperactivity disorder (ADHD), combined type (CMS/HCC) Generalized anxiety disorder (CMS/HCC) Moderate episode of recurrent major depressive disorder (HCC) (CMS/HCC)ssess/Plan SmartLinks: Psych Medication List Stop abilify Capltya 10.5 mg x2 Capltya 21mg po x2 add on -off label- for depression Dt patient concern Regarding weight gain and instability of mood. Patient was instructed to hold trazodone until she sees how much sedation she has from the caplyta. Trazodone 50mg po every day Vistaril 25mg q8 prn prozac 40mg po every day Refer to counseling Patient was seen Face to Face, Reviewed chart documents and documentation, Visit time : 30min Note given for work -not to return to work as patient presented in much distress F/U 3 weeks documented in this encounter [facility] 11-25-2023 History of Presen t illness Narrative Images from the original note were not included. Pt is here for depression SUBJECTIVE: History Provided by: patient History of Present Illness The patient presents for evaluation of depression. She has been experiencing emotional distress for the past 3 days, which she attributes to her parents' health issues and relationship problems with her partner. She reports frequent crying spells and difficulty controlling her emotions. Despite taking Vistaril, she continues to feel depressed and unmotivated. Her symptoms have been escalating over the past 3 days. She is currently on Abilify, which she has been taking for nearly 2 years, and fluoxetine 40 mg. She also takes trazodone as needed at night. She reports poor sleep quality, often waking up during the night and being unable to fall back asleep. She feels unsupported and overwhelmed by her current circumstances, including her mother's hospitalization, her father's stress, and her partner's anger issues. She is considering individual counseling for her partner and herself. She finds ean in her children but lacks time for other activities. She does not engage in regular exercise. She is contemplating ending her relationship due to her partner's lack of support and understanding. She is also dealing with her father's emotional distress and her mother's potential move to a alf. She is concerned about maintaining her job and managing her emotional health. Past medical history, allergies, surgical history, family history, and social history were reviewed. Current Outpatient Medications Medication Instructions albuterol HFA (ProAir HFA) 90 mcg/act inhaler 2 puffs, Inhalation, Every 4 hours PRN atenolol (TENORMIN) 25 mg, Oral, Daily Basaglar KwikPen 16 Units, Subcutaneous, Nightly Blood Gluc Meter Disp-Strips device 1 m, Does not apply, Daily Blood Gluc Meter Disp-Strips device 1 m, Does not apply, Daily FLUoxetine (PROZAC) 40 mg, Oral, Daily, Once a day Glucose Blood (Blood Glucose Test) strip 1 each by Other route Daily Use as instructed once a day hydrOXYzine pamoate (VISTARIL) 25 mg, Oral, Every 8 hours PRN Lancets misc 1 Lancet , Does not apply, Daily Levonorgestrel (Liletta, 52 MG,) 19.5 MCG/DAY intrauterine device Liletta (52 MG) lisinopril 2.5 mg, Oral, Daily metFORMIN (GLUCOPHAGE) 1,000 mg, Oral, 2 times daily with meals Multiple Vitamin (Multivitamin Adult) tablet as directed Orally omeprazole (PriLOSEC) [address] capsule TAKE 1 CAPSULE BY MOUTH ONCE EVERY MORNING BEFORE MEALS *DO NOT CRUSH OR CHEW* ondansetron (ZOFRAN) 8 mg, Oral, Every 8 hours PRN Ozempic (1 MG/DOSE) 1 mg, Subcutaneous, Weekly pen needle 32G x 4 mm misc Use as instructed rosuvastatin (CRESTOR) 5 mg, Oral, Daily traZODone (DESYREL) 100 mg, Oral, Nightly I have reviewed and reconciled the history and medication list with the patient today. OBJECTIVE: BP 130/72 Pulse 98 Temp 96.9 F Ht 5' 4 Wt 189 lb SpO2 98% BMI 32.44 kg/m Physical Exam Constitutional: General: She is not in acute distress. Appearance: Normal appearance. She is not ill-appearing. Eyes: General: No scleral icterus. Conjunctiva/sclera: Conjunctivae normal. Pulmonary: Effort: Pulmonary effort is normal. No respiratory distress. Musculoskeletal: General: No deformity. Normal range of motion. Skin: General: Skin is warm and dry. Neurological: General: No focal deficit present. Mental Status: She is alert. Motor: Motor function is intact. Gait: Gait is intact. Psychiatric: Attention and Perception: Attention and perception normal. Mood and Affect: Mood is depressed. Affect is tearful. Behavior: Behavior normal. Behavior is cooperative. Thought Content: Thought content normal. Thought content does not include homicidal or suicidal ideation. Thought content does not include homicidal or suicidal plan. Judgment: Judgment normal. Physical Exam Results ASSESSMENT AND PLAN: Problem List Items Addressed This Visit Anxiety - Primary Moderate episode of recurrent major depressive disorder ([facility]) Assessment & Plan 1. Depression. She reports feeling increasingly depressed over the past three days, exacerbated by family stress and relationship issues. She has been crying frequently and struggling to control her emotions. She is currently taking Vistaril as needed, which helps calm her but does not alleviate the sadness. Her fluoxetine dosage will be increased from 40 mg to 60 mg daily, which equates to taking 1.5 tablets. She was advised to take an additional dose of Vistaril to see if it helps, but to inform if it causes excessive drowsiness. The potential benefits and side effects of Wellbutrin were discussed, and she was advised to consult with Cheryl regarding this medication. She was encouraged to engage in physical exercise, even indoors, as it can benefit mental health. Limiting contact with her parents for a few days to reduce stress was also recommended. She was advised to communicate openly about her feelings and keep updated on her progress. 2. Anxiety. She is experiencing significant anxiety related to her family and relationship issues. She was advised to continue taking Vistaril as needed and to consider increasing the dose to 50 mg if necessary, though it may cause drowsiness. Counseling was recommended as the next best step to manage her anxiety. She was encouraged to find time for herself, such as through physical exercise or other activities she enjoys, to help manage her anxiety. 3. Sleep Disturbance. She reports difficulty staying asleep, waking up and being unable to fall back asleep. She was advised to continue taking trazodone at night as needed. She was also encouraged to engage in activities that promote relaxation and reduce stress before bedtime. She has an appt with power systems engineer on Thursday Chaz Oconenll MD, IBCLC [facility] documented in this encounter [facility] 11-11-2023 Telephone encount er Note Sent in [facility] 11-11-2023 Miscellaneous Notes Formattin g of this note might be different from the original. Sent in [facility] Pt states the lantus was denied and they recommend to try basaglar. Sending to Gely aparicio documented in this encounter [facility] 11-11-2023 Telephone encount er Note Pt states the lantus was denied and they recommend to try basaglar. Sending to Gely to advise [facility] 11-10-2023 Telephone encount er Note She Is agreeable to statin and PAULINO, sent to pharmacy [facility] 11-10-2023 Miscellaneous Notes Formattin g of this note might be different from the original. She Is agreeable to statin and PAULINO, sent to pharmacy The patient's urine is showing positive micro. Discussed with her starting a PAULINO and a statin. documented in this encounter [facility] 11-10-2023 Telephone encount er Note The patient's urine is showing positive micro. Discussed with her starting a PAULINO and a statin. [facility] 11-09-2023 History of Presen t illness Narrative Images from the original note were not included. Yessy Do is a 43 y.o. female presents with chief complaint of No chief complaint on file. HPI: History of Present Illness The patient is a 43-year-old female who is here today to discuss her diabetes as well as headaches. She was recently seen on 11/04/2023 due to a severe migraine. She had already taken Excedrin Migraine and Nurtec, which provided no relief. On 11/05/2023, she ended up in the emergency room due to a severe headache where Nurtec and other medications were also ineffective. She experienced a headache earlier today, but it was manageable with medication. She had a severe migraine on the first day, accompanied by blurred vision, but this symptom has not recurred. She does not experience daily headaches, having had one on Thursday and another today. She still has some Nurtec left. She did have a CT in the ER which was negative for any acute findings At her appointment on 11/04/2023, an A1c test was performed, which was found to be elevated at 8.7 percent. Her Ozempic dosage was increased to 1 mg at that time. However, she has not yet obtained the prescribed Ozempic 1 mg. Her morning blood sugar levels range between 200 and 300. She reports no increased thirst, hunger, or urination. She has lost approximately 8 pounds since starting Ozempic. She reports no open sores on her toes. She experiences symptoms of low blood sugar such as dizziness, nervousness, anxiety, and confusion but can recognize when her sugar levels are low. She has an intrauterine device (IUD) and does not menstruate. She is curious if menopause could be causing her symptoms and wonders how to test for its onset. She reports hot flashes but no sleep disturbances or vasomotor symptoms. Her mother underwent natural menopause. Diabetes She presents for her follow-up diabetic visit. She has type 2 diabetes mellitus. Her disease course has been worsening. Hypoglycemia symptoms include headaches. Pertinent negatives for diabetes include no blurred vision, no polydipsia, no polyphagia and no polyuria. There are no hypoglycemic complications. Symptoms are worsening. Risk factors for coronary artery disease include diabetes mellitus, obesity and sedentary lifestyle. She is following a generally healthy diet. Her breakfast blood glucose is taken between 7-8 am. Her breakfast blood glucose range is generally >200 mg/dl. SUBJECTIVE: PAST MEDICAL HISTORY: Past Medical History: Diagnosis Date ADHD (attention deficit hyperactivity disorder) ([facility]) Allergies Anxiety 02/10/2008 Asthma ([facility]) COVID-19 Depression ([facility]) Diabetes 1.5, 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[facility]) Frequent UTI H/O umbilical hernia repair 2022 Hypertension ([facility]) MEDICATIONS: Current Outpatient Medications Medication Instructions albuterol HFA (ProAir HFA) 90 mcg/act inhaler 2 puffs, Inhalation, Every 4 hours PRN ARIPiprazole (Abilify) 5 MG tablet Take 11/2 tabs atenolol (TENORMIN) 25 mg, Oral, Daily Blood Gluc Meter Disp-Strips device 1 m, Does not apply, Daily Blood Gluc Meter Disp-Strips device 1 m, Does not apply, Daily FLUoxetine (PROZAC) 40 mg, Oral, Daily, Once a day Glucose Blood (Blood Glucose Test) strip 1 each by Other route Daily Use as instructed once a day hydrOXYzine pamoate (VISTARIL) 25 mg, Oral, Every 8 hours PRN Lancets misc 1 Lancet , Does not apply, Daily Levonorgestrel (Liletta, 52 MG,) 19.5 MCG/DAY intrauterine device Liletta (52 MG) lisdexamfetamine (VYVANSE) 60 mg, Oral, Every morning metFORMIN (GLUCOPHAGE) 1,000 mg, Oral, 2 times daily with meals Multiple Vitamin (Multivitamin Adult) tablet as directed Orally omeprazole (PriLOSEC) [address] capsule TAKE 1 CAPSULE BY MOUTH ONCE EVERY MORNING BEFORE MEALS *DO NOT CRUSH OR CHEW* ondansetron (ZOFRAN) 8 mg, Oral, Every 8 hours PRN Ozempic (1 MG/DOSE) 1 mg, Subcutaneous, Weekly pen needle 32G x 4 mm misc Use as instructed traZODone (DESYREL) 100 mg, Oral, Nightly ALLERGIES: No Known Allergies SURGICAL HISTORY: Past Surgical History: Procedure Laterality Date BACK SURGERY 1997 SECTION, LOW TRANSVERSE 08/2018 CHOLECYSTECTOMY 2017 UMBILICAL HERNIA REPAIR 03/2022 repair with mesh- AVV VAGINAL DELIVERY 05/2006 VAGINAL DELIVERY FAMILY HISTORY: Family History Problem Relation Name Age of Onset Breast cancer Mother tristan do Hypertension Mother tristan do Stroke Mother tristan do Diabetes Father david do Heart disease Father david do No Known Problems Sister No Known Problems Brother No Known Problems Son No Known Problems Son Hypertension Maternal Grandmother Breast cancer Maternal Grandmother SOCIAL HISTORY: Social History Tobacco Use Smoking status: Never Smokeless tobacco: Never Vaping Use Vaping status: Never Used Substance Use Topics Alcohol use: Yes Alcohol/week: 2.0 standard drinks of alcohol Types: 2 Glasses of wine per week Comment: 1-2 glasses of wine on weekend Drug use: Never Depression: Not at risk (07/23/2022) PHQ-2 PHQ-2 Score: 0 REVIEW OF SYMPTOMS: Review of Systems Constitutional: Positive for diaphoresis and hot flashes. Negative for activity change and appetite change. HENT: Negative. Eyes: Negative for blurred vision. Respiratory: Negative. Cardiovascular: Negative. Gastrointestinal: Negative. Musculoskeletal: Negative. Neurological: Positive for headaches. Endocrine: Negative for polydipsia, polyphagia and polyuria. OBJECTIVE: Visit Vitals BP 120/68 Pulse 94 Temp 97 F Ht 5' 3 Wt 186 lb SpO2 98% BMI 32.95 kg/m OB Status Oral Contraception Smoking Status Never BSA 1.94 m Physical Exam Vitals and nursing note reviewed. Constitutional: General: She is not in acute distress. Appearance: Normal appearance. She is not toxic-appearing. HENT: Head: Normocephalic and atraumatic. Neck: Vascular: No carotid bruit. Cardiovascular: Rate and Rhythm: Normal rate and regular rhythm. Pulses: Normal pulses. Heart sounds: Normal heart sounds. No murmur heard. No friction rub. No gallop. Pulmonary: Effort: Pulmonary effort is normal. No respiratory distress. Breath sounds: Normal breath sounds. No stridor. No wheezing, rhonchi or rales. Musculoskeletal: General: Normal range of motion. Cervical back: No rigidity. Lymphadenopathy: Cervical: No cervical adenopathy. Skin: General: Skin is warm and dry. Capillary Refill: Capillary refill takes less than 2 seconds. Findings: No lesion or rash. Neurological: General: No focal deficit present. Mental Status: She is alert and oriented to person, place, and time. Coordination: Coordination normal. Gait: Gait normal. Psychiatric: Mood and Affect: Mood normal. Behavior: Behavior normal. Thought Content: Thought content normal. Judgment: Judgment normal. Results Laboratory Studies A1c was found to be elevated at 8.7%. Morning blood sugar levels are running between 200-300. ASSESSMENT AND PLAN: Assessment & Plan 1. Diabetes Mellitus. Elevated blood sugar levels persist, with morning readings between 200-300 mg/dL. A prescription for Lantus insulin, 16 units nightly, will be initiated. This will be in conjunction with her current Ozempic 1 mg weekly regimen. The goal is to achieve morning blood sugar levels below 130 mg/dL. She is advised to monitor her blood sugar levels closely and report any significant changes. Return in 3M 2. Migraine. She experienced a severe migraine on 11/05/2023, which led to an emergency room visit. Nurtec will be continued for headache management. If her headaches persist despite improved blood sugar control, Qulipta may be considered as a preventive measure. She is advised to keep a headache diary to track the frequency and severity of her migraines. 3. Amenorrhea. Her amenorrhea is likely due to her intrauterine device (IUD). Hormone level testing, including estrogen, progesterone, estradiol, and testosterone, will be ordered to rule out menopause. She reports symptoms that may be indicative of menopause, such as hot flashes and sleeping issues. Assessment/Plan 1. 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 Today at your visit we reviewed the possible complications of diabetes, including loss of vision, kidney failure and increased risk of heart attacks and stroke. We made recommendations on how to control your blood sugars, and minimize your risk of these complications. We discussed your current barriers to a healthy living and importance of healthy diet and exercise. In addition we discussed your medications, the importance of taking them as prescribed. You have voiced that you understand your medications and plan of care. As a diabetic, I recommend checking your feet daily for any open areas, ulcers or injuries and reporting them immediately. Always wear hard soled shoes, never go barefoot. You may benefit from seeing a Chisel Mortiser Operator for foot and nail care. Our goal for your A1C is < 7.0% with a morning fasting sugar of < 130. If you ever experience signs of HYPOGLYCEMIA, low sugar (cold, clammy, dizzy, confused) with a blood sugar < 70, please call 911 or the office immediately. - insulin glargine (Lantus SoloStar) 100 UNIT/ML pen; Inject 16 Units under the skin at bedtime Dispense: 9 mL; Refill: 3 2. Intractable migraine with status migrainosus, unspecified migraine type (CMS/HCC) Continue nurtec. May consider qulipta as daily preventative 3. Perimenopausal vasomotor symptoms Check labs - FSH; Future - Estradiol; Future - Luteinizing hormone; Future - FSH - Estradiol - Luteinizing hormone 4. Hot flashes Check labs- could be from hyperglycemia - FSH; Future - Estradiol; Future - Luteinizing hormone; Future - FSH - Estradiol - Luteinizing hormone 5. Mood swings Check labs - FSH; Future - Estradiol; Future - Luteinizing hormone; Future - FSH - Estradiol - Luteinizing hormone 6. Amenorrhea Check labs - FSH; Future - Estradiol; Future - Luteinizing hormone; Future - FSH - Estradiol - Luteinizing hormone I spent greater than 30 minutes on the date of service which included preparing to see the patient, reviewing applicable health maintenance guidelines, [id number] patient care, completing clinical documentation, obtaining and/or reviewing separately obtained history, performing a clinically focused physical examination, counseling and educating the patient/family/caregiver and ordering medications, referrals tests, and applicable procedures. The patient/family/caregiver was counseled on when to call the office if referrals or results have not been called to them within one week of the order/completion of labs/diagnostics. documented in this encounter [facility] 03-25-2023 Telephone encount er Note done [facility] 03-25-2023 Miscellaneous Notes Formattin g of this note might be different from the original. done Forwarding to Dr. Oconnell for order as Gely is out of the office Pt is asking for a new screening mammogram order be sent to [facility]. documented in this encounter [facility] 03-25-2023 Telephone encount er Note Forwarding to Dr. Oconnell for order as Gely is out of the office [facility] 03-25-2023 Telephone encount er Note Pt is asking for a new screening mammogram order be sent to [facility]. [facility] 03-19-2023 History of Presen t illness Narrative Images from the original note were not included. Jairo Ordaz MD Obstetrics and Gynecology Patient: Yessy Do, : 1980 (42 y.o.) DOS 03/19/23 Exam [...] Review Audit Reviewed by Elise Cheek MA (Make Ready Mechanic) on 03/19/23 at 1442 Medication Order Taking? Sig Documenting Provider Last Dose Status ARIPiprazole (Abilify) 5 MG tablet [id number] Take / tabs Cheryl Diego-Jean, DOCK HAND-AUTOMATIC GLUING MACHINE OPERATOR Active atenolol (Tenormin) 25 MG tablet [id number] Take 1 tablet (25 mg) by mouth in the morning. Colten Schwartz NP Active dicyclomine (Bentyl) 20 MG tablet [id number] Take 1 tablet (20 mg) by mouth in the morning and 1 tablet (20 mg) in the evening and 1 tablet (20 mg) before bedtime. Do all this for 10 days. Colten Schwartz NP Active dulaglutide (Trulicity) 1.5 MG/0.5ML solution pen-injector [id number] Inject 1.5 mg under the skin 1 (one) time per week Colten Schwartz NP Active FLUoxetine (PROzac) 40 MG capsule [id number] Take 1 capsule (40 mg) by mouth in the morning. Once a day. Cheryl Getachew Leon, DOCK HAND-[facility] 02/06/23 235 glucose blood test strip [id number] Use as instructed once a day Colten Schwartz NP Active hydrOXYzine pamoate (Vistaril) 25 MG capsule [id number] Take 1 capsule (25 mg) by mouth Daily as needed for itching. Cheryl Getachew Leon, DOCK HAND-[facility] 01/19/23 235 ibuprofen 800 MG tablet [id number] every 8 (eight) hours. Historical ProviderMD Active insulin aspart (NovoLOG FLEXPEN) 100 UNIT/ML pen [id number] Inject 10 Units under the skin in the morning and 10 Units at noon and 10 Units in the evening. Inject with meals. Colten Schwartz NP Active ketorolac (Toradol) 10 MG tablet [id number] Yes TAKE 1 TABLET BY MOUTH THREE TIMES A DAY NEEDED FOR PAIN Jairo Ordaz MD Active Levonorgestrel (Liletta, 52 MG,) 19.5 MCG/DAY intrauterine device [id number] Liletta (52 MG) Historical Provider, Active lisdexamfetamine (Vyvanse) 60 MG capsule [id number] Take 1 capsule (60 mg) by mouth in the morning. Cheryl Getachew Leon, DOCK HAND-[facility] 02/07/23 235 metFORMIN (Glucophage) 500 MG tablet [id number] Take 1 tablet (500 mg) by mouth in the morning and 1 tablet (500 mg) in the evening. Take with meals. Colten Schwartz NP Active metroNIDAZOLE (Flagyl) 500 MG tablet [id number] Take 1 tablet (500 mg) by mouth in the morning and 1 tablet (500 mg) in the evening and 1 tablet (500 mg) before bedtime. Do all this for 10 days. Colten Schwartz NP Active Multiple Vitamin (Multivitamin Adult) tablet [id number] as directed Orally Historical Provider, Active ondansetron ODT (Zofran-ODT) 4 MG disintegrating tablet [id number] Yes DISSOLVE 1 TABLET ON TONGUE EVERY 6 HOURS NEEDED FOR NAUSEA AND VOMITING Jairo Ordaz MD Active pen needle 32G x 4 mm [facility] [id number] Administer QHS Agustin Hendrix NP Active pen needle 32G x 4 mm misc [id number] Use as instructed Colten Schwartz NP Active traZODone (Desyrel) 50 MG tablet [id number] Take 2 tablets (100 mg) by mouth at bedtime Cheryl Quintero, DOCK HAND-AUTOMATIC GLUING MACHINE OPERATOR Active No Known Allergies Past Medical History: Diagnosis Date ADHD (attention deficit hyperactivity disorder) ([facility]) Allergies Anxiety 02/10/2008 Asthma ([facility]/HCC) COVID-19 Depression ([facility]) Diabetes 1.5, 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[facility]) Frequent UTI H/O umbilical hernia repair 2022 Hypertension ([facility]) Past Surgical History: Procedure Laterality Date BACK SURGERY 1997 SECTION, LOW TRANSVERSE 08/2018 CHOLECYSTECTOMY 2017 UMBILICAL HERNIA REPAIR 03/2022 repair with mesh- [...] will consoder Assessment/Plan documented in this encounter [facility] 06-19-2022 Evaluation + Plan note Extrac christen from: Title:Clinical Document Author:Cindy ROSS, Elias cohen Date:06/19/22 Chief complaint: Low back pa in [...] Date:09/18/2022 03:30:00 PM Scheduled Provider:James White MD Location:.[facility] Appointment Type:Pain Management - Follow Up (FT) [facility]12-27-2022 Evaluation note* Encounter Date Diagnosis Assessment Notes [...] infection: adult home care material was printed [facility] Other 11-20-2022 Evaluation note* Encounter Date Diagnosis [...] Follow up with primary care provider or welding machine operator friction if no improvement of symptoms. [facility] Other Evaluation noteNo assessment information available [facility] Work Phone: Evaluation note* Diagnosis Intrauterine device surveillance Dyspareunia in female Adenomyosis Endometriosis of uterus [facility] Diagnosis Encounter for screening mammogram for malignant neoplasm of breast- Primary [facility]* Diagnosis Attention deficit hyperactivity disorder (ADHD), combined type ([facility]/HCC) [facility]* Diagnosis Onset Date Resolution Status Left otitis media noneactive Left otitis externa noneacti [facility] Work Phone: Evaluation note* Diagnosis Type 2 diabetes mellitus with hyperglycemia, with long-term current use of insulin ([facility])- Primary Intractable migraine with status migrainosus, unspecified migraine type ([facility]) Perimenopausal vasomotor symptoms Hot flashes Mood swings Other specified episodic mood disorder Amenorrhea Absence of menstruation [facility]* Diagnosis Type 2 diabetes mellitus with diabetic microalbuminuria, with long-term current use of insulin ([facility])- Primary Type 2 diabetes mellitus with hyperglycemia, with long-term current use of insulin ([facility]) [facility] Diagnosis Type 2 diabetes mellitus with hyperglycemia, with long-term current use of insulin ([facility]/HCC)- Primary [facility]* Diagnosis Anxiety Anxiety state, unspecified Moderate episode of recurrent major depressive disorder (CMS/HCC) Generalized anxiety disorder ([facility]/HCC) Generalized anxiety disorder Attention deficit hyperactivity disorder (ADHD), combined type ([facility]) [facility] Diagnosis Anxiety- Primary Anxiety state, unspecified Moderate episode of recurrent major depressive disorder (CMS/HCC) [facility]* Diagnosis Shortness of breath- Primary Atypical pneumonia Pneumonia, organism unspecified [facility]* Diagnosis Cough in adult Dyspnea on exertion Other dyspnea and respiratory abnormality Chest congestion Other symptoms involving respiratory system and chest [facility]* Diagnosis Moderate episode of recurrent major depressive disorder (CMS/HCC) [facility]* Diagnosis Intertrigo- Primary Other specified erythematous condition [facility] Narrative - Reported* Type Description Date Medical History borderline anemia Medical History Anxiety attack Medical History HISTORY OF UTI Surgical History back surgery/scoliosis 1997 Hospitalization History SEE ABOVE SURGERY Hospitalization History child [facility] Other Hospital course Narrative No data available for this section [facility] Work [facility]: Hospital Discharge instructions Additional Instructions 1. No driving if taking narcotic pain medication. 2. No lifting more than 20 pounds for 3 weeks. 3. May shower.[facility] Work Phone: Hospital Discharge instructions No data available for this section [facility] Additional Instructions Push fluids Rest Take your medications as prescribed Follow-up with your doctor call tomorrow for appointment Return here if you develop any dizziness, chest pain, shortness of breath, numbness, tingling, unilateral weakness or any other concernsAs[facility] Work Phone: Progress note No data available for this section [facility] Summary Purpose Family History Relationship Condition Age at Onset Recorded Date/T [...] Unknown father Diabetes mellitus Unknown Advance Directives Advance Directive Response Recorded Date/ Time Advance [...] Referral Specialty Diagnoses / Procedures Referred By New mccurdy Referred To Contact Diagnoses Attention deficit hyperactivity disorder (ADHD), combined type (CMS/[facility]) Cheryl Quintero, DOCK HAND-AUTOMATIC GLUING MACHINE OPERATOR [address] [address] Referral ID Status Reason Start Date Expiration Date V isits Requested Visits Authorized [id number] Pending Review 1 1 Additional Source Comments INFORMATION SOURCE (unrecogn ized section and content) DATE CREATED AUTHOR 10/08/2018 [facility] DATE CREATED AUTHOR AUTHOR'S ORGANIZ ATION 03/21/2021 [facility] dical Specialist DATE CREATED AUTHOR AUTHOR'S ORGANIZ ATION 06/20/2022 [facility] DATE CREATED AUTHOR AUTHOR'S ORGANIZ ATION 07/24/2023 [facility] DATE CREATED AUTHOR AUTHOR'S ORGANIZ ATION 12/25/2023 [facility] dical Specialists EPIC Care Teams (unrecognized sec tion and content) Team Status: Inactive Member Role Status Dates Colten Schwartz , HOSPITAL CLEANING SPECIALIST-C Primary Care Provider Active Rj Breen MD Emergency Provider Active Team Status: Active Member Role Status Dates Colten Schwartz , HOSPITAL CLEANING SPECIALIST-C Primary Care Provider Active Team Status: Inactive Member Role Status Dates Colten Schwartz , HOSPITAL CLEANING SPECIALIST-C Primary Care Provider Active ZOEY Maravilla-C Attending Provider Active Team Status: Inactive Member Role Status Chantel Schwartz , HOSPITAL CLEANING SPECIALIST-C Primary Care Provider Active gAustin Hendrix HOSPITAL CLEANING SPECIALIST-C Attending Provider Active Team Status: Inactive Member Role Status Chantel Schwartz , HOSPITAL CLEANING SPECIALIST-C Primary Care Provider Active Martin Goodman MD Attending Provider Active Team Status: Inactive Member Role Status Dates Colten Schwartz , HOSPITAL CLEANING SPECIALIST-C Primary Care Provider Active Della Munguia APRN Emergency Provider Active Cushion Maker Relationship Specialty Start Date End Date Deirdre Sesay MD [address] [place] [address] PCP - General Family Medicine 06/20/22 Colten Schwarzt NP [address] [facility], [place] [id number] Nurse Practitioner Family Medicine 06/20/22 Cushion Maker Relationship Specialty Start Date End Date Deirdre Sesay MD [address] [facility], [place] [id number] PCP - General Family Medicine 06/20/22 Colten Schwartz NP [address] [facility], [place] [id number] Nurse Practitioner Family Medicine 06/20/22 Cushion Maker Relationship Specialty Start Date End Date Deirdre Sesay MD [address] [facility] [place] [phone] PCP - General Family Medicine 06/20/22 Colten Schwartz NP [address] [place], [place] [phone] Nurse Practitioner Family Medicine 06/20/22 Team Status: Active Member Role Status Dates NON STAFF Primary Care Provider Active Team Status: Inactive Member Role Status Dates MARBELLA Montiel Attending Provider Active S tart: June 07, 2023 End: June 07, 2023 NON STAFF Primary Care Provider Active Start: June 07, 2023 End: June 07, 2023 Team Status: Inactive Member Role Status Dates NON STAFF Primary Care Provider Active Start: July 10, 2023 End: July 10, 2023 Colten Schwartz HOSPITAL CLEANING SPECIALIST-C Attending Provider Active Start: July 10, 2023 End: July 10, 2023 Cushion Maker Relationship Specialty Start Date End Date Deirdre Sesay MD [address] [facility] [place] [phone] PCP - General Family Medicine 06/20/22 Deirdre Sesay MD [address] [place] [address] PCP - [facility] ENDS BREAKAGE CLERK 05/11/23 Case, Colten Crisostomo NP [address] [place] [address] Nurse Practitioner Family Medicine 06/20/22 Cushion Maker Relationship Specialty Start Date End Date Deirdre Sesay MD [address] [place] [address] PCP - General Family Medicine 06/20/22 Deirdre Sesay MD [address] [place] [address] PCP - [facility] ENDS BREAKAGE CLERK 05/11/23 Case, Colten Crisostomo NP [address] [place] [address] Nurse Practitioner Family Medicine 06/20/22 Cushion Maker Relationship Specialty Start Date End Date Deirdre Sesay MD [address] [place] [address] PCP - General Family Medicine 06/20/22 Deirdre Sesay MD [address] [place] [address] PCP - [facility] ENDS BREAKAGE CLERK 05/11/23 Case, Colten Crisostomo NP [address] [place] [address] Nurse Practitioner Family Medicine 06/20/22 Cushion Maker Relationship Specialty Start Date End Date Deirdre Sesay MD [address] [place] [address] PCP - General Family Medicine 06/20/22 Deirdre Sesay MD [address] [place] [facility] [place] [address] PCP - NOMWes Eli ENDS BREAKAGE CLERK 05/11/23 Colten Schwartz NP [address] [place] [address] Nurse Practitioner Family Medicine 06/20/22 Cushion Maker Relationship Specialty Start Date End Date Deirdre Sesay MD [address] [place] [address] PCP - General Family Medicine 06/20/22 Deirdre Sesay MD [address] [place] [address] PCP - NOMWes Eli [facility] 05/11/23 Colten Schwartz NP [address] [place] [address] Nurse Practitioner Family Medicine 06/20/22 Cushion Maker Relationship Specialty Start Date End Date Deirdre Sesay MD [address] [facility] [place] [address] PCP - General Family Medicine 06/20/22 Deirdre Sesay MD [address] [place] [address] PCP - NOMS Alcira ENDS BREAKAGE CLERK 05/11/23 Colten Schwartz NP [address] [place] [place] [address] Nurse Practitioner Family Medicine 06/20/22 Cushion Maker Relationship Specialty Start Date End Date Deirdre Sesay MD [address] [place], [place] [id number] PCP - General Family Medicine 06/20/22 Colten Schwartz NP [address] [place] [address] Nurse Practitioner Family Medicine 06/20/22 Cushion Maker Relationship Specialty Start Date End Date Deirdre Sesay MD [address] [place] [address] PCP - General Family Medicine 06/20/22 Colten Schwartz NP [address] [place] [address] Nurse Practitioner Family Medicine 06/20/22 Goals (unrecognized section and content) Goals may [...] 03/25/2023 Pt requested RX Vyvanse. To [facility] Has follow up Reason Onset Date Comments starting paulino/statin 11/10/2023 Reason Onset Date Comments medication 11/11/2023 Reason Comments Med Management Follow-up Having increased dep ression/anxiety. Stress at work, home. Mother fell was in hospital now home but father wants to put her in a alf. Work load doubled for her. She is overwhelming. She dreads going to work. FOR RECORDS PERTAINING TO PATIENTS WHO ARE [...] BE BASED ON THE PRIMARY CLINICAL RECORDS. [facility] [employer] [facility]. provides no warranty or guarantee of the accuracy or completeness of information in this document.
--- NOTE | 2024-01-09 19:49 | ED.SOB1 ---
HPI - SOB/Dyspnea General Chief Complaint: Shortness of Breath/Dyspnea Stated Complaint: DIFF BREATHING Time Seen by Provider: 01/09/24 19:44 History of Present Illness HPI Narrative: Pt complains of shortness of breath. Said that she has been coughing for about 3-4 weeks. She went to urgent care yesterday and had a negative CXR and was told she had clinical walking pneumonia. She was prescribed medrol dose pack and azithromycin but it was apparently sent to the wrong pharmacy. She has not been able to pick it up - it m\was not ready this afternoon - it may be ready tomorrow. She had a home albuterol mdi but I have used it all up . She also complains, on questioning, of some mild diarrhea. No prior hx of asthma but she gets recurrent bronchitis and pneumonia, she told us. Non smoker and does not vape. Related Data Home Medications ?Medication ?Instructions ?Recorded ?Confirmed albuterol sulfate 90 mcg/actuation 1 inh inhalation Q4H PRN shortness 08/13/22 03/11/23 breath activated powder inhaler of breath or wheezing (ProAir RespiClick) alprazolam 0.5 mg tablet 0.5 mg PO DAILY PRN anxiety 08/13/22 03/11/23 atenolol 25 mg tablet 25 mg PO DAILY 08/13/22 03/11/23 buspirone 5 mg tablet 5 mg PO DAILY 08/13/22 03/11/23 lisdexamfetamine 60 mg capsule 60 mg PO DAILY 08/13/22 03/11/23 (Vyvanse) metformin 500 mg tablet 500 mg PO BID 08/13/22 03/11/23 trazodone 50 mg tablet 50 mg PO QPM 08/13/22 03/11/23 Previous Rx's ?Medication ?Instructions ?Recorded dicyclomine 20 mg tablet 20 mg PO QID PRN abdominal pain 03/11/23 #12 tabs ketorolac 10 mg tablet 10 mg PO TID PRN pain #10 tabs 03/11/23 ondansetron 4 mg disintegrating 4 mg PO Q6H PRN nausea and 03/11/23 tablet vomiting #12 tabs ketorolac 10 mg tablet 10 mg PO TID PRN pain #10 tabs 11/05/23 metoclopramide HCl 10 mg tablet 10 mg PO Q6H PRN nausea and 11/05/23 (Reglan) vomiting #12 tabs albuterol sulfate 90 mcg/actuation 2 inh inhalation Q6H PRN shortness 01/09/24 aerosol inhaler of breath or wheezing #6.7 grams Allergies Allergy/AdvReac Type Severity Reaction Status Date / Time No Known Drug Allergies Allergy Verified 01/09/24 19:49 PFSH PFSH Medical History (Updated 01/09/24 @ 20:46 by Ruben Choe) Anxiety ?F41.9 - Anxiety disorder, unspecified (ICD-10) Hypertension ?I10 - Essential (primary) hypertension (ICD-10) Diabetes ?E11.9 - Type 2 diabetes mellitus without complications (ICD-10) Surgical History (Updated 08/13/22 @ 17:45 by Autumn Schuler) History of cholecystectomy ?Z90.49 - Acquired absence of other specified parts of digestive tract (ICD-10) History of ?Z98.891 - History of uterine scar from previous surgery (ICD-10) Social History Smoking status: Current some day smoker Exam Narrative Exam Narrative: Nurses notes and vital signs reviewed and patient is not hypoxic. afebrile Hypertensive General: Very anxious. Tachypneic -appears to be hyperventilating. Skin: Warm, dry, no pallor noted. Head: Normocephalic, atraumatic. Neck: Supple, non-tender. No cervical lymphadenopathy Eye: Pupils are equal, round and EOMI. No scleral icterus. Ears, Nose, Mouth, and Throat: Oral mucosa is moist Cardiovascular: Regular Rate and Rhythm without murmur, gallop or rub. Respiratory: No accessory muscle use or respiratory distress. Lungs are clear to auscultation, no wheezing, rales or rhonchi Musculoskeletal: normal ROM, no calf or popliteal tenderness, no lower extremity edema/swelling GI: Abdomen is soft, non-distended. Normal bowel sounds. No masses appreciated. No tenderness to palpation. No rebound, guarding, or rigidity noted. Neurological: A&O x4. No cranial nerve dysfunction observed. No truncal ataxia. Moves all extremities. Sensation intact. Psychiatric: Cooperative and interactive. Normal mood and affect. Constitutional Vital Signs, click to edit/add: Last Vital Signs Temp 98 F 01/09/24 19:41 Pulse 103 H 01/09/24 20:14 Resp 20 01/09/24 20:04 BP 140/95 H 01/09/24 20:14 Pulse Ox 98 01/09/24 20:12 O2 Del Method Room Air 01/09/24 20:04 Course Vital Signs Vital signs: Vital Signs Temperature 98 F 01/09/24 19:41 Pulse Rate 109 H 01/09/24 19:41 Respiratory Rate 28 H 01/09/24 19:41 Blood Pressure 164/116 H 01/09/24 19:41 Pulse Oximetry 99 01/09/24 19:41 Oxygen Delivery Method Room Air 01/09/24 19:41 Temperature 98 F 01/09/24 19:41 Pulse Rate 103 H 01/09/24 20:14 Respiratory Rate 20 01/09/24 20:04 Blood Pressure 140/95 H 01/09/24 20:14 Pulse Oximetry 98 01/09/24 20:12 Oxygen Delivery Method Room Air 01/09/24 20:04 MDM - SOB/Dyspnea MDM Narrative Medical decision making narrative: Patient was placed on pvc monitor and EKG obtained. Blood drawn and sent for evaluation. Swabs were obtained for influenza and COVID. She was given a DuoNeb treatment. She was also given an oral dose of prednisone 40 mg and her first dose of azithromycin 500 mg. Swabs for influenza and covid were negative. EKG normal. On recheck at 2039, the patient reported almost complete resolution of symptoms. No more shortness of breath and cough is much better. She has a little bit of albuterol left in her MDI - I told her to take no more than 2 puffs every 4 hours - she was over-using it before. Pt discharged home with prescription for albuterol mdi - she already has prescriptions to picker and sorter load and unload for azithromycin and prednisone. ED return if she worsens. Lab Data Attestation: I reviewed the patient's lab results. Labs: Lab Results 01/09/24 Range/Units 19:56 Influenza Type A Ag Negative Influenza Type B Ag Negative SARS-CoV-2 Ag (CV2AG) Negative (NEGATIVE) ECG Data Attestation: I personally reviewed and interpreted this ECG as follows: Interpretation: EKG interpretation: Emergency Department physician interpretation. Normal sinus rhythm at 95bpm. Normal axis, normal intervals and no ST segment elevation or depression. Normal EKG. Discharge Plan Discharge Chief Complaint: Shortness of Breath/Dyspnea Clinical Impression: Community acquired pneumonia Patient Disposition: Home, Self-Care Time of Disposition Decision: 20:46 Prescriptions / Home Meds: New albuterol sulfate 90 mcg/actuation HFA aerosol inhaler 2 inh inhalation Q6H PRN (Reason: shortness of breath or wheezing) Qty: 6.7 0RF No Action ProAir RespiClick 90 mcg/actuation aerosol powdr breath activated 1 inh INHALATION Q4H PRN (Reason: shortness of breath or wheezing) alprazolam 0.5 mg tablet 0.5 mg PO DAILY PRN (Reason: anxiety) atenolol 25 mg tablet 25 mg PO DAILY buspirone 5 mg tablet 5 mg PO DAILY lisdexamfetamine [Vyvanse] 60 mg capsule 60 mg PO DAILY metformin 500 mg tablet 500 mg PO BID trazodone 50 mg tablet 50 mg PO QPM ketorolac 10 mg tablet 10 mg PO TID PRN (Reason: pain) Qty: 10 0RF dicyclomine 20 mg tablet 20 mg PO QID PRN (Reason: abdominal pain) Qty: 12 0RF ondansetron 4 mg tablet,disintegrating 4 mg PO Q6H PRN (Reason: nausea and vomiting) Qty: 12 0RF ketorolac 10 mg tablet 10 mg PO TID PRN (Reason: pain) Qty: 10 0RF metoclopramide HCl [Reglan] 10 mg tablet 10 mg PO Q6H PRN (Reason: nausea and vomiting) Qty: 12 0RF Print Language: South Korean Instructions: Community Acquired Pneumonia (ED) Referrals: Physician,Non-Staff, MD [Primary Care Provider] - 1 week
--- NOTE | 2024-01-09 19:53 | ECG_ITS ---
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
[2024-01-09] MEDS: IPRATROPIUM/ALBUTEROL SULFATE 3 ML AMPUL.NEB IH (19:57)
[2024-01-09] MEDS: PREDNISONE 20 MG TABLET 40 MG PO (20:07)
[2024-01-09] MEDS: AZITHROMYCIN 250 MG TABLET 500 MG PO (20:07)
[2024-01-09 20:16] LABS: Influenza Virus A Antigen Negative; Influenza Virus B Antigen Negative; Internal Control Within Normal Limits; SARS-CoV-2 Ag NEGATIVE (NEGATIVE)
== END 2024-01-09 20:58 | disposition home or self-care (01) ==
PROVIDERS: Emergency Provider Emergency Medicine
DX: J18.9 Pneumonia, unspecified organism (principal); Z90.49 Acquired absence of other specified parts of digestive tract; F17.200 Nicotine dependence, unspecified, uncomplicated
CPT/HCPCS: 87804; 87811; 93005; 94640; 99285; J7512

== ENCOUNTER 2024-06-03 10:27 | Emergency (ER) | payer OTHER, SELFPAY ==
[2024-06-03 10:30] VITALS: BP 164/100; PULSE 97; TEMP 36.9; O2SAT 97; BMI 33.7
--- NOTE | 2024-06-03 10:32 | ECG_ITS ---
[facility] Test Date: 2024-06-03 Pat Name: MAHOGANY CARNES Department: Room: - Gender: Female Transcribing Operator Head: : 1980 Requested By: 1030 Order Number: [id number] Reading MD: KERRI HOLCOMB M.D. Measurements Intervals [place] Rate: 91 P: 45 [place]: 140 QRS: 35 QRSD: 88 T: 25 QT: 360 QTc: 409 Interpretive Statements 1100 Sinus rhythm 9110 normal ECG Compared to ECG 01/09/2024 19:52:17 No significant changes Electronically Signed On 06-03-2024 12:16:16 EDT by KERRI HOLCOMB M.D.
[2024-06-03 10:45] LABS: Basophils Percent Auto 0.4 % (0.2-2.0); Eosinophils Percent Auto 0.1 % (0.9-7.0); Hematocrit 41.4 % (36.0-48.0); Hemoglobin 14.7 g/dL (12.0-16.0); Immature Granulocytes Abs Auto 0.03 10^3/uL (0.00-0.03); Immature Granulocytes Pct Auto 0.3 % (0.0-0.5); Lymphocytes Absolute Auto 2.9 10^3/uL (1.2-3.8); Lymphocytes Percent Auto 31.7 % (20.5-60.0); Mean Corpuscular HGB Conc 35.5 g/dL (29.9-35.2); Monocytes Absolute Auto 0.6 10^3/uL (0.3-0.8); Monocytes Percent Auto 6.1 % (1.7-12.0); Neutrophils Absolute Auto 5.6 10^3/uL (1.4-6.5); Neutrophils Percent Auto 61.4 % (43.0-75.0); Platelet Count 268 10^3/uL (150-450); Red Cell Distribution Width 11.6 % (11.0-15.0); White Blood Count 9.2 10^3/uL (4.0-11.0)
[2024-06-03 10:47] LABS: Bilirubin Urine NEGATIVE (NEGATIVE); Blood Urine MODERATE (NEGATIVE); Clarity Urine CLEAR (CLEAR); Color Urine LT. YELLOW (YELLOW); Glucose Urine UA NEGATIVE (NEGATIVE); Ketones Urine NEGATIVE (NEGATIVE); Leukocyte Esterase Urine NEGATIVE (NEGATIVE); Nitrite Urine NEGATIVE (NEGATIVE); Protein Urine NEGATIVE (NEG/TRACE); Specific Gravity Urine <=1.005 (1.005-1.025); Urobilinogen Urine 0.2 EU/dL (0.2-1.0)
[2024-06-03 10:58] LABS: WBC Urine NONE SEEN #/HPF (NONE SEEN)
[2024-06-03 10:59] LABS: Bacteria Urine TRACE #/HPF (NONE SEEN); Cast Seen? NONE SEEN #/LPF (NONE SEEN); Crystals Seen? None Seen #/HPF (None Seen); Mucus Urine NONE SEEN (NONE SEEN); RBC Urine 0-2 #/HPF (0-2); Squamous Epithelial Cell Urine FEW #/LPF (NONE/RARE); Urine Culture Indicated NO
[2024-06-03 11:00] LABS: Anion Gap 15.7; Calcium 8.9 mg/dL (8.5-10.1); Carbon Dioxide 24.4 mmol/L (21.0-32.0); Chloride 102 mmol/L (98-107); Estimated GFR (African America >60 (>=60 mL/min/1.73m^2); Estimated GFR (Non-African Ame >60 (>=60 mL/min/1.73m^2); Ethanol <3 mg/dL; Glucose 199 mg/dL (74-106); HCG Qualitative NEGATIVE (NEGATIVE); Internal Control Within Normal Limits; Potassium 4.1 mmol/L (3.5-5.1); Salicylate <2.8 mg/dL (<=19.9); Sodium 138 mmol/L (136-145)
[2024-06-03 11:03] LABS: Amphetamine Screen Urine NEGATIVE (NEGATIVE); Barbiturates Screen Urine NEGATIVE (NEGATIVE); Benzodiazepines Screen Urine NEGATIVE (NEGATIVE); Buprenorphine Screen Urine NEGATIVE (NEGATIVE); Cannabinoid Screen Urine NEGATIVE (NEGATIVE); Cocaine Screen Urine NEGATIVE (NEGATIVE); Methadone Screen Urine NEGATIVE (NEGATIVE); Methamphetamines Screen Urine NEGATIVE (NEGATIVE); Opiate Screen Urine NEGATIVE (NEGATIVE); Oxycodone Screen Urine NEGATIVE (NEGATIVE); Phencyclidine Screen Urine NEGATIVE (NEGATIVE); Tricyclic Antidepressant Urine NEGATIVE (NEGATIVE)
[2024-06-03 11:09] LABS: Acetaminophen <2.0 ug/mL (10.0-30.0)
--- NOTE | 2024-06-03 11:47 | ED_ITS ---
HPI HPI - General Adult General Chief complaint: Psychiatric Symptoms Stated complaint: SUICIDAL Time Seen by Provider: 06/03/24 10:31 Source: patient Mode of arrival: law enforcement Limitations: no limitations History of Present Illness HPI narrative: 43-year-old female presents to the emergency department for depression. She has been going through significant stressors recently. Her lost his job and her child was taken away from her by children services last week and sent to her sisters. Her sister had received some concerning text messages and contacted the police and they transported her here. She denies any physical complaints such as fever vomiting or chest pain. She states she is depressed and just wants to sleep. She does not intend on hurting herself. Related Data Home Medications ?Medication ?Instructions ?Recorded ?Confirmed albuterol sulfate 90 mcg/actuation 1 inh inhalation Q4H PRN shortness 08/13/22 03/11/23 breath activated powder inhaler of breath or wheezing (ProAir RespiClick) alprazolam 0.5 mg tablet 0.5 mg PO DAILY PRN anxiety 08/13/22 03/11/23 atenolol 25 mg tablet 25 mg PO DAILY 08/13/22 03/11/23 buspirone 5 mg tablet 5 mg PO DAILY 08/13/22 03/11/23 lisdexamfetamine 60 mg capsule 60 mg PO DAILY 08/13/22 03/11/23 (Vyvanse) metformin 500 mg tablet 500 mg PO BID 08/13/22 03/11/23 trazodone 50 mg tablet 50 mg PO QPM 08/13/22 03/11/23 Previous Rx's ?Medication ?Instructions ?Recorded dicyclomine 20 mg tablet 20 mg PO QID PRN abdominal pain 03/11/23 #12 tabs ketorolac 10 mg tablet 10 mg PO TID PRN pain #10 tabs 03/11/23 ondansetron 4 mg disintegrating 4 mg PO Q6H PRN nausea and 03/11/23 tablet vomiting #12 tabs ketorolac 10 mg tablet 10 mg PO TID PRN pain #10 tabs 11/05/23 metoclopramide HCl 10 mg tablet 10 mg PO Q6H PRN nausea and 11/05/23 (Reglan) vomiting #12 tabs albuterol sulfate 90 mcg/actuation 2 inh inhalation Q6H PRN shortness 01/09/24 aerosol inhaler of breath or wheezing #6.7 grams Allergies Allergy/AdvReac Type Severity Reaction Status Date / Time No Known Drug Allergies Allergy Verified 01/09/24 19:49 Opioid HPI Opioid Management Most Recent Opioid Data: Last Pain Scale 5 01/09/24 20:00 01/09/24 Ur Phencyclidine Scrn Negative (NEGATIVE) 06/03/24 10:35 0407/03 Review of Systems ROS Narrative A ten point review of systems is negative except as noted above. PFSH PFSH Medical History (Updated 06/03/24 @ 12:13 by Carlos Valle MD) Anxiety ?F41.9 - Anxiety disorder, unspecified (ICD-10) Hypertension ?I10 - Essential (primary) hypertension (ICD-10) Diabetes ?E11.9 - Type 2 diabetes mellitus without complications (ICD-10) Surgical History (Updated 08/13/22 @ 17:45 by Autumn Schuler) History of cholecystectomy ?Z90.49 - Acquired absence of other specified parts of digestive tract (ICD- 10) History of ?Z98.891 - History of uterine scar from previous surgery (ICD-10) Social History Smoking status: Current some day smoker Little interest or pleasure in doing things: not at all Feeling down, depressed, or hopeless: not at all Exam Narrative Exam Narrative: Nurses note and vital signs reviewed and patient is not hypoxic. General: The patient appears well and in no apparent distress. Patient is resting comfortably on cart. Skin: Warm, dry, no pallor noted. There is no rash noted. Head: Normocephalic, atraumatic Eye: Normal conjunctiva, no drainage Ears, Nose, Mouth, and Throat: oral mucosa is moist. Nares patent. Cardiovascular: Regular Rate and Rhythm Respiratory: Patient is in no distress, no accessory muscle use, lungs are clear to auscultation, no wheezing, rales or rhonchi Back: non-tender GI: Soft and nontender Musculoskeletal: The patient has no evidence of calf tenderness, no pitting edema, symmetrical pulses noted bilaterally Neurological: A&O, normal speech Psychiatric: Cooperative, appears mildly anxious Constitutional Vital Signs, click to edit/add: Last Vital Signs Temp 98.4 F 06/03/24 10:30 Pulse 97 H 06/03/24 10:30 Resp 20 06/03/24 10:30 BP 164/100 H 06/03/24 10:30 Pulse Ox 97 06/03/24 10:30 O2 Del Method Room Air 06/03/24 10:30 Course Vital Signs Vital signs: Vital Signs Temperature 98.4 F 06/03/24 10:30 Pulse Rate 97 H 06/03/24 10:30 Respiratory Rate 20 06/03/24 10:30 Blood Pressure 164/100 H 06/03/24 10:30 Pulse Oximetry 97 06/03/24 10:30 Oxygen Delivery Method Room Air 06/03/24 10:30 Temperature 98.4 F 06/03/24 10:30 Pulse Rate 97 H 06/03/24 10:30 Respiratory Rate 20 06/03/24 10:30 Blood Pressure 164/100 H 06/03/24 10:30 Pulse Oximetry 97 06/03/24 10:30 Oxygen Delivery Method Room Air 06/03/24 10:30 Medical Decision Making MDM Narrative Medical decision making narrative: The patient has been interviewed by mental health services and they have spoken to the patient's sister as well. She is being cleared by them to go home with a safety plan and I am comfortable with that plan. She is medically cleared. Treatment diagnosis and follow-up were discussed with the patient. Differential Diagnosis Differential Diagnosis: Depression, anxiety, situational anxiety Lab Data Lab results reviewed: Yes I reviewed the patient's lab results Labs: Lab Results 06/03/24 06/03/24 Range/Units 10:35 10:38 WBC 9.2 (4.0-11.0) 10^3/uL RBC 4.60 (4.20-5.40) 10^6/uL Hgb 14.7 (12.0-16.0) g/dL Hct 41.4 (36.0-48.0) % MCV 90.0 (81.0-99.0) fL MCH 32.0 (26.7-34.0) pg MCHC 35.5 H (29.9-35.2) g/dL RDW 11.6 (11.0-15.0) % Plt Count 268 (150-450) 10^3/uL MPV 10.0 (9.5-13.5) fL Neut % (Auto) 61.4 (43.0-75.0) % Lymph % (Auto) 31.7 (20.5-60.0) % Hendricks % (Auto) 6.1 (1.7-12.0) % Eos % (Auto) 0.1 L (0.9-7.0) % Baso % (Auto) 0.4 (0.2-2.0) % Neut # (Auto) 5.6 (1.4-6.5) 10^3/uL Lymph # (Auto) 2.9 (1.2-3.8) 10^3/uL Hendricks # (Auto) 0.6 (0.3-0.8) 10^3/uL Eos # (Auto) 0.0 (0.0-0.7) 10^3/uL Baso # (Auto) 0.0 (0.0-0.1) 10^3/uL Abs Immat Gran (auto) 0.03 (0.00-0.03) 10^3/uL Imm/Tot Granulo (auto) 0.3 (0.0-0.5) % Sodium 138 (136-145) mmol/L Potassium 4.1 (3.5-5.1) mmol/L Chloride 102 (98-107) mmol/L Carbon Dioxide 24.4 (21.0-32.0) mmol/L Anion Gap 15.7 BUN 10.0 (7.0-18.0) mg/dL Creatinine 0.83 (0.55-1.02) mg/dL Est GFR ( Amer) >60 (>=60 mL/min/1.73m^2) Est GFR (Non-Af Amer) >60 (>=60 mL/min/1.73m^2) BUN/Creatinine Ratio 12.0 Glucose 199 H (74-106) mg/dL Calcium 8.9 (8.5-10.1) mg/dL Serum HCG, Qual Negative (NEGATIVE) Urine Color Lt. yellow (YELLOW) Urine Clarity Clear (CLEAR) Urine pH 6.0 (5.0-9.0) Ur Specific Chandler <=1.005 A (1.005-1.025) Urine Protein Negative (NEG/TRACE) mg/dL Urine Glucose (UA) Negative (NEGATIVE) mg/dL Urine Ketones Negative (NEGATIVE) mg/dL Urine Occult Blood Moderate A (NEGATIVE) Urine Nitrite Negative (NEGATIVE) Urine Bilirubin Negative (NEGATIVE) Urine Urobilinogen 0.2 (0.2-1.0) EU/dL Ur Leukocyte Esterase Negative (NEGATIVE) Urine RBC 0-2 (0-2) #/HPF Urine WBC None seen (NONE SEEN) #/HPF Ur Squamous Epith Cells Few A (NONE/RARE) #/LPF Urine Crystals None seen (None Seen) #/HPF Urine Bacteria Trace A (NONE SEEN) #/HPF Urine Casts None seen (NONE SEEN) #/LPF Urine Mucus None seen (NONE SEEN) Ur Culture Indicated? No Salicylates <2.8 (<=19.9) mg/dL Urine Opiates Screen Negative (NEGATIVE) Ur Buprenorphine Scrn Negative (NEGATIVE) Ur Oxycodone Screen Negative (NEGATIVE) Urine Methadone Screen Negative (NEGATIVE) Acetaminophen <2.0 L (10.0-30.0) ug/mL Ur Barbiturates Screen Negative (NEGATIVE) U Tricyclic Antidepress Negative (NEGATIVE) Ur Phencyclidine Scrn Negative (NEGATIVE) Ur Amphetamines Screen Negative (NEGATIVE) U Methamphetamines Scrn Negative (NEGATIVE) U Benzodiazepines Scrn Negative (NEGATIVE) Urine Cocaine Screen Negative (NEGATIVE) U Cannabinoids Screen Negative (NEGATIVE) Ethanol Quant <3 mg/dL ECG Data Attestation: I personally reviewed and interpreted this ECG as follows: (EKG on my interpretation shows normal sinus rhythm with a rate of 91 and no acute change.) Discharge Plan Discharge Chief Complaint: Psychiatric Symptoms Clinical Impression: Depression Patient Disposition: Home, Self-Care Time of Disposition Decision: 12:13 Condition: Good Mode of Transportation: Private Vehicle Prescriptions / Home Meds: No Action ProAir RespiClick 90 mcg/actuation aerosol powdr breath activated 1 inh INHALATION Q4H PRN (Reason: shortness of breath or wheezing) alprazolam 0.5 mg tablet 0.5 mg PO DAILY PRN (Reason: anxiety) atenolol 25 mg tablet 25 mg PO DAILY buspirone 5 mg tablet 5 mg PO DAILY lisdexamfetamine [Vyvanse] 60 mg capsule 60 mg PO DAILY metformin 500 mg tablet 500 mg PO BID trazodone 50 mg tablet 50 mg PO QPM ketorolac 10 mg tablet 10 mg PO TID PRN (Reason: pain) Qty: 10 0RF dicyclomine 20 mg tablet 20 mg PO QID PRN (Reason: abdominal pain) Qty: 12 0RF ondansetron 4 mg tablet,disintegrating 4 mg PO Q6H PRN (Reason: nausea and vomiting) Qty: 12 0RF ketorolac 10 mg tablet 10 mg PO TID PRN (Reason: pain) Qty: 10 0RF metoclopramide HCl [Reglan] 10 mg tablet 10 mg PO Q6H PRN (Reason: nausea and vomiting) Qty: 12 0RF albuterol sulfate 90 mcg/actuation HFA aerosol inhaler 2 inh inhalation Q6H PRN (Reason: shortness of breath or wheezing) Qty: 6.7 0RF Print Language: [place] Instructions: Depression (ED) Referrals: Physician,Non-Staff, MD [Primary Care Provider] - 1 week
--- NOTE | 2024-06-03 12:05 | PC.NURSE ---
[place]ule[place] [facility] [facility] [place] to say pt will be sent home with safety plan, lunch ordered for pt
== END 2024-06-03 12:26 | disposition home or self-care (01) ==
PROVIDERS: Emergency Provider Emergency Medicine
DX: F32.A Depression, unspecified (principal); Z59.89 Other problems related to housing and economic circumstances; Z90.49 Acquired absence of other specified parts of digestive tract; F17.200 Nicotine dependence, unspecified, uncomplicated
CPT/HCPCS: 36415; 80048; 80179; 80307; 80320; 80329; 81001; 84703; 85025; 93005; 99284

== ENCOUNTER 2024-07-02 19:33 | Emergency (ER) | payer OTHER, SELFPAY ==
--- OUTSIDE RECORDS SUMMARY | 2024-06-29 09:48 | XMS_ITS ---
Author Name Auto Generated Organization OHIP Support Name Relationship Address Phone CARNESJOESPH ISABELICA Next of Kin Unknown +[phone] STACEY CARNES Next of Kin Unknown [phone] MYRIAM CARNSE Next of Kin Unknown +[phone] DEYVI STACEY Next of Kin Unknown [phone] JOESPH CARNESICA Next of Kin Unknown +[phone] STACEY CARNES Next of Kin Unknown [phone] ANIBAL CARNESSSICA Next of Kin Unknown +[phone] DEYVI STACEY Next of Kin Unknown [phone] Stacey Carnes Next of Kin [address] [place] [address] + [place] [address] [phone] JOESPH CARNESICA Next of Kin Unknown +[phone] STACEY CARNES Next of Kin Unknown [phone] ANIBAL CARNESSSICA Next of Kin Unknown +([phone] STACEY CARNES Next of Kin Unknown [phone] ANIBAL CARNESSSICA Next of Kin Unknown +(419) STACEY CARNES Next of Kin Unknown [phone] ANIBAL CARNESSSICA Next of Kin Unknown +([phone] STACEY CARNES Next of Kin Unknown [phone] ANIBAL CARNESSSICA Next of Kin Unknown +([phone] CARNES, STACEY Next of Kin Unknown [phone] CARNES, MYRIAM Next of Kin Unknown +[phone] CARNES, STACEY Next of Kin Unknown [phone] CARNES, MYRIAM Next of Kin Unknown +[phone] CARNES, STACEY Next of Kin Unknown [phone] CARNES, MYRIAM Next of Kin Unknown +[phone] CARNES, STACEY Next of Kin Unknown [phone] CARNES, MYRIAM Next of Kin Unknown +([phone] CARNES, STACEY Next of Kin Unknown [phone] CARNES, MYRIAM Next of Kin Unknown +([phone] CARNES, STACEY Next of Kin Unknown [phone] CARNES, MYRIAM Next of Kin Unknown +[phone] CARNES, STACEY Next of Kin Unknown [phone] CARNES, MYRIAM Next of Kin Unknown +[phone] CARNES, STACEY Next of Kin Unknown [phone] CARNES, MYRIAM Next of Kin Unknown +[phone] CARNES, STACEY Next of Kin Unknown [phone] CARNES, MYRIAM Next of Kin Unknown +([phone] CARNES, STACEY Next of Kin Unknown [phone] CARNES, MYRIAM Next of Kin Unknown +([phone] CARNES, STACEY Next of Kin Unknown [phone] CARNES, MYRIAM Next of Kin Unknown +([phone] CARNES, STACEY Next of Kin Unknown [phone] CARNES, MYRIAM Next of Kin Unknown +([phone] CARNES, STACEY Next of Kin Unknown [phone] CARNES, MYRIAM Next of Kin Unknown +([phone] CARNES, STACEY Next of Kin Unknown [phone] Carnes, Stacey Next of Kin [address] [place] [address] + Carnes, [place] [address] +[phone] CARNES, MYRIAM Next of Kin Unknown [phone] CARNES, STACEY Next of Kin Unknown [phone] CARNES, MYRIAM Next of Kin Unknown +[phone] CARNES, STACEY Next of Kin Unknown [phone] CARNES, MYRIAM Next of Kin Unknown +[phone] CARNES, STACEY Next of Kin Unknown [phone] CARNES, MYRIAM Next of Kin Unknown +([phone] CARNES, STACEY Next of Kin Unknown [phone] CARNES, MYRIAM Next of Kin Unknown +([phone] CARNES, STACEY Next of Kin Unknown [phone] CARNES, MYRIAM Next of Kin Unknown +([phone] CARNES, STACEY Next of Kin Unknown [phone] CARNES, MYRIAM Next of Kin Unknown +([phone] CARNES, STACEY Next of Kin Unknown [phone] CARNES, MYRIAM Next of Kin Unknown +([phone] CARNES, STACEY Next of Kin Unknown [phone] CARNES, MYRIAM Next of Kin Unknown +[phone] CARNES, STACEY Next of Kin Unknown +[phone] CARNES, MYRIAM Next of Kin Unknown +([phone] CARNES, STACEY Next of Kin Unknown +[phone] CARNES, MYRIAM Next of Kin Unknown +[phone] CARNES, STACEY Next of Kin Unknown +[phone] CARNES, MYRIAM Next of Kin Unknown [phone] STACEY CARNES Next of Kin Unknown [phone] Stacey Carnes Next of Kin [address] [place] [address] + [place] [address] [phone] Care Team Providers Care Security Assessor Name Role Phone CHERYL QUINTERO Attending Unavailab le ISABEL-NOSSEKCHERYL Attending Unavailab le MALICKEDUARDO Shoemaker Attending Unavailable NOCHAZ Attending Unavailable ISABEL-NOSSEK, CHERYL Chilel Attending Unavailab le CASE, COLTEN Crisostomo Attending Unavailable ISABEL-NOSSEKCHERYL Attending Unavailab le MALEDUARDO CHAIDEZ Attending Unavailable ISABEL-NOSSEK, CHERYL Chilel Attending Unavailab le ISABEL-NOSSEKCHERYL Referring Unavailab le MALEDUARDO CHAIDEZ Attending Unavailable MALEDUARDO CHAIDEZ Attending Unavailable ISABEL-NOSSEK, CHERYL Chilel Attending Unavailab le CASE, COLTEN Crisostomo Attending Unavailable CASE, COLTEN Crisostomo Attending Unavailable NOCHAZ Attending Unavailable ISABEL-NOSSEK, CHERYL Chilel Attending Unavailab le NOCHAZ Attending Unavailable NOCHAZ FLOYD Referring Unavailable MALEDUARDO CHAIDEZ Attending Unavailable ISABEL-NOSSEK, CHERYL Chilel Referring Unavailab le ISABEL-NOSSEK, CHERYL Chilel Attending Unavailab le ISABEL-NOSSEKCHERYL Attending Unavailab AGUSTIN Michelle Attending Unavailable ISABEL-NOSSEK, CHERYL Chilel Attending Unavailab le MALEDUARDO CHAIDEZ Attending Unavailable AGUSTIN HENDRIX Referring Unavailable CASE, COLTEN Crisostomo Attending Unavailable NOCHAZ Attending Unavailable CASE, COLTEN Crisostomo Attending Unavailable NON STAFF Primary Care Unavailable Dany, Ariel Admitting Unavailable Dany, Ariel Attending Unavailable Elise Sanches Attending Unavailable NON STAFF Primary Care Unavailable Elise Sanches Admitting Unavailable NON STAFF Primary Care Unavailable Case, Colten Crisostomo Admitting Unavailable Case, Colten Crisostomo Attending Unavailable PROBLEMS DATE TYPE CONDITION / CODE ATTENDING STATUS [facility] 06/07/2024 Unknown Depression, unspecified / F32.A(ICD-10) Ariel Saenz [facility] 06/07/2024 Unknown Anxiety disorder , unspecified / F41.9(ICD-10) Ariel Saenz [facility] 01/08/2024 Unknown Shortness of ekaterina ath / R06.02(ICD-10) Elise Sanches [facility] 07/10/2023 Unknown Encounter for banneral adult medical examination with abnormal findings / Z00.01(ICD-10) Efren, Colten Crisostomo [facility] PROCEDURES No Procedure Records Found RESULTS GLUCOSE POCT GLUCOMETERS Collected: 06/09/2024 11:22 AM Status: F Source: [facility] TYPE CODE TESTS RESULT OUT OF RANGE REFERENCE UNITS LAB GLUPOC Glucose Poc Glucometers 186 mg/dL Result Comment: Random Gluco se Reference Range is dependent on time and content of last meal. Glucose of more than 200 mg/dL in a nonstressed, ambulatory subject supports the diagnosis of Diabetes Mellitus. PERFORMED BY: [facility] [address] [place] [address] PATHOLOGIST BRICK OFF BEARER JEZ CHEN M.D. Performed By: #### GLULS ### # Point of Care testing , GLUCOSE POCT GLUCOMETERS Collected: 06/09/2024 6:34 A M Status: F Source: [facility] TYPE CODE TESTS RESULT OUT OF RANGE REFERENCE UNITS LAB GLUPOC Glucose Poc Glucometers 161 mg/dL Result Comment: Random Gluco se Reference Range is dependent on time and content of last meal. Glucose of more than 200 mg/dL in a nonstressed, ambulatory subject supports the diagnosis of Diabetes Mellitus. PERFORMED BY: [facility] [address] [address] PATHOLOGIST [employer]AR[employer] JEZ CHEN M.D. Performed By: #### GLULS ### # Point of Care testing , GLUCOSE POCT GLUCOMETERS Collected: 06/08/2024 8:22 P M Status: F Source: [facility] TYPE CODE TESTS RESULT OUT OF RANGE REFERENCE UNITS LAB GLUPOC Glucose Poc Glucometers 211 mg/dL Result Comment: Random Gluco se Reference Range is dependent on time and content of last meal. Glucose of more than 200 mg/dL in a nonstressed, ambulatory subject supports the diagnosis of Diabetes Mellitus. LAB COMM1 Commemt1 Glu2: Cleaned Meter Result Comment: PERFORMED BY : [place] [id number] PATHOLOGIST [employer]ARER JEZ CHEN M.D. Performed By: #### GLULS ### # Point of Care testing , GLUCOSE POCT GLUCOMETERS Collected: 06/08/2024 4:00 P M Status: F Source: [facility] TYPE CODE TESTS RESULT OUT OF RANGE REFERENCE UNITS LAB GLUPOC Glucose Poc Glucometers 110 mg/dL Result Comment: Random Gluco se Reference Range is dependent on time and content of last meal. Glucose of more than 200 mg/dL in a nonstressed, ambulatory subject supports the diagnosis of Diabetes Mellitus. PERFORMED BY: [place] [id number] PATHOLOGIST BR[employer] BEARER JEZ CHEN M.D. Performed By: #### GLULS ### # Point of Care testing , GLUCOSE POCT GLUCOMETERS Collected: 06/08/2024 11:05 AM Status: F Source: [facility] TYPE CODE TESTS RESULT OUT OF RANGE REFERENCE UNITS LAB GLUPOC Glucose Poc Glucometers 186 mg/dL Result Comment: Random Gluco se Reference Range is dependent on time and content of last meal. Glucose of more than 200 mg/dL in a nonstressed, ambulatory subject supports the diagnosis of Diabetes Mellitus. PERFORMED BY: [place] [id number] PATHOLOGIST BR[employer] BEARER JEZ CHEN M.D. Performed By: #### GLULS ### # Point of Care testing , ECG 12 LEAD ECG Observed: 06/08/2024 7:16 AM Status: COMPLETED Source: [facility] [address] [address] Electrocardiograph Report Signed Patient: Yessy Carnes MR#: [id number] : 1980 Acct:[id number] Age/Sex: 43 / F ADM Date: 06/07/24 Loc: Room: [address] [place] [address] Type: ADM IN Attending Dr: Ariel Saenz MD Ordering Provider: Ariel Saenz MD Date of Service: 06/08/24 ECG/ECG 12 lead ECG: baseline Copies to: Test Reason : Blood Pressure : */* mmHG Vent. Rate : 84 BPM Atrial Rate : 84 BPM P-R Int : 156 ms QRS Dur : 90 ms QT Int : 388 ms P-R-T Axes : 39 26 28 degrees QTcB Int : 458 ms Normal sinus rhythm Normal ECG When compared with ECG of 14-Aug-2022 14:02, No significant change was found Confirmed by Oni Casey ([id number]) on 06/08/2024 8:32:15 AM Referred By: Electronically Signed By: Oni Casey Transcribed By: MUS Signed By Oni Casey MD 06/08/24 0832 GLUCOSE POCT GLUCOMETERS Collected: 06/08/2024 6:38 A M Status: F Source: [facility] TYPE CODE TESTS RESULT OUT OF RANGE REFERENCE UNITS LAB GLUPOC Glucose Poc Glucometers 197 mg/dL Result Comment: Random Gluco se Reference Range is dependent on time and content of last meal. Glucose of more than 200 mg/dL in a nonstressed, ambulatory subject supports the diagnosis of Diabetes Mellitus. PERFORMED BY: [facility] [address] [place] [address] PATHOLOGIST BR[employer] BEARER JEZ CHEN M.D. Performed By: #### GLULS ### # Point of Care testing , LIPID PANEL Collected: 06/08/2024 6:06 AM Status: F Source: [facility] TYPE CODE TESTS RESULT OUT OF RANGE REFERENCE UNITS LAB CHOL Cholesterol 141 Normal 140-200 mg/dL Result Comment: Chol less th an 200 mg/dl low risk Chol 201-239 mg/dl borderline risk Chol 240 mg/dl and greater high risk LAB HDL HDL Cholesterol 43 Normal 23-92 mg/dL Result Comment: HDL CHOL ATP -III CLASSIFICATION Cardiovascular Risk HDL > or equal to 60 mg/dL LOW HDL < 40 mg/dL HIGH LAB TRIG W REF Triglyceride w/Reflex 108 Normal 0-149 mg/dL Result Comment: TRIG ATP III CLASSIFICATION TRIG less than 150 mg/dL Normal TRIG 150-199 mg/dL Borderline high TRIG 200-500 mg/dL High TRIG greater than 500 mg/dL Very high Standard traceable to the Center for Disease Conrtrol and Prevention (CDC) test method. LAB LDLC LDL Cholesterol,Calc ulated 76 Normal 0-100 mg/dL Result Comment: LDL ATP III CLASSIFICATION LDL less than 100 mg/dL Optimal LDL 100-129 mg/dL Near or above optimal LDL 130-159 mg/dL Borderline high LDL 160-189 mg/dL High LDL greater than 189 mg/dL Very high LAB VLDL VLDL CHOLESTEROL 21 mg/dL LAB CHLHDL Chol/HDL Ratio 3.3 <5.0 Performed By: #### LIPID, TS H3 wRFLX, [id number] #### [facility] [address] [place], [place] [id number] [facility] THYROID STIM HORMONE W/RFLX Collected: 06/08/2024 6:06 AM Status: F Source: [facility] TYPE CODE TESTS RESULT OUT OF RANGE REFERENCE UNITS LAB TSH3 wRFLX Thyroid Stim Hormone w/Rflx 4.37 Normal 0.45-5.33 u[iU]/mL Performed By: #### LIPID, TS H3 wRFLX, [id number] #### [facility] [address] [place], [place] [id number] [facility] VITAMIN D 25 HYDROXY TOTAL Collected: 06/08/2024 6:06 AM Status: F Source: [facility] TYPE CODE TESTS RESULT OUT OF RANGE REFERENCE UNITS LAB [id number] Vitamin D 25 Hydroxy Total 17.2 Low 30-100 ng/mL Result Comment: VITAMIN D ST ATUS 25(OH)VITAMIN D RANGE (ng/mL) Deficient <20 Insufficient 20 to <30 Sufficient 30 to 100 Reference: Clemente MF,Kadeem NC, Aure PICKARD, et al. Evaluation,treatment, and prevention of vitamin D deficiency; an Endocrine Society clinical practice guideline. JCEM. 2010; 96(7):1911-30. PERFORMED BY: [place] [address] PATHOLOGIST BRICK OFF BEARER JEZ CHEN M.D. Performed By: #### LIPID, TS H3 wRFLX, [id number] #### [facility] [address] [place] [address] [facility] GLUCOSE POCT GLUCOMETERS Collected: 06/07/2024 8:16 P M Status: F Source: [facility] TYPE CODE TESTS RESULT OUT OF RANGE REFERENCE UNITS LAB GLUPOC Glucose Poc Glucometers 249 mg/dL Result Comment: Random Gluco se Reference Range is dependent on time and content of last meal. Glucose of more than 200 mg/dL in a nonstressed, ambulatory subject supports the diagnosis of Diabetes Mellitus. PERFORMED BY: [facility] [address] [place] [address] PATHOLOGIST BR[employer] BEARER JEZ CHEN M.D. Performed By: #### GLULS ### # Point of Care testing , GLUCOSE POCT GLUCOMETERS Collected: 06/07/2024 3:52 P M Status: F Source: [facility] TYPE CODE TESTS RESULT OUT OF RANGE REFERENCE UNITS LAB GLUPOC Glucose Poc Glucometers 183 mg/dL Result Comment: Random Gluco se Reference Range is dependent on time and content of last meal. Glucose of more than 200 mg/dL in a nonstressed, ambulatory subject supports the diagnosis of Diabetes Mellitus. PERFORMED BY: [place] [id number] PATHOLOGIST BR[employer] OFF BEARER JEZ CHEN M.D. Performed By: #### GLULS ### # Point of Care testing , URINALYSIS Collected: 06/07/2024 9:30 AM Status: F Source: [facility] Order Comment: Name Collecti on Type:: Clean-Voided Midstream TYPE CODE TESTS RESULT OUT OF RANGE REFERENCE UNITS LAB UCOL Color,Urine Light-Yellow Yellow LAB UAPP Appearance,Uri ne Clear Clear LAB USG Specificy [place],Urine 1.032 High 1.001-1.030 LAB UPH pH,Urine 6.0 Normal 5.0-9.0 LAB ULE Leukocyte Esterase,Urine Negative Negative LAB UNIT Nitrite,Urine Negative Negative LAB UPRO Protein,Urine Negative Negative LAB UGL Glucose,Urine (UA) 300 High Normal mg/dL LAB UKET Ketones,Urine Trace High Negative LAB UURO Urobilinogen,U rine Normal Normal LAB UBIL Bilirubin,Urin e Negative Negative LAB UBLD Occult Blood,Urine Negative Negative Performed By: #### TOM, [facility], UA #### [place] [id number] [facility] HCG,URINE Collected: 06/07/2024 9:30 AM Status: F Source: [facility] Order Comment: Name Collecti on Type:: Clean-Voided Midstream TYPE CODE TESTS RESULT OUT OF RANGE REFERENCE UNITS LAB UHCGQ HCG Qualitative,U rine Negative Result Comment: PERFORMED BY : [place] [address] PATHOLOGIST BR[employer] OFF BEARER JEZ CHEN M.D. Performed By: #### TOM, [facility], UA #### [place] [id number] [facility] DRUG SCREEN,URINE Collected: 06/07/2024 9:30 AM Stat us: F Source: [facility] TYPE CODE TESTS RESULT OUT OF RANGE REFERENCE UNITS LAB URAMPS Amphetamine Screen,Urine Negative Negative LAB URBARBS Barbiturate Screen,Urine Negative Negative LAB URBENZS Benzodiazepines Screen,Urine Negative Negative LAB URCOCS Cocaine Screen,Urine Negative Negative LAB UROPIS Opiate Screen,Urine Negative Negative LAB URPCPS Phencyclidine Screen,Urine Negative Negative LAB URTHCS Cannabinoid Screen,Urine Positive High Negative Result Comment: These are un confirmed results and should not be used for legal purposes. Drug Cut-Off Concentration: AMPH 1000 ng/mL LYNDA 200 ng/mL OSMEL 200 ng/mL COCM 300 ng/mL OP 300 ng/mL PCP 25 ng/mL THC 20 ng/mL PERFORMED BY: [place] [address] PATHOLOGIST BRICK OFF BEARER JEZ CHEN M.D. Performed By: #### TOM, [facility], UA #### [place] [id number] [facility] COMPLETE BLOOD COUNT AUTO DIFF Collected: 06/07/2024 8:40 AM Status: F Source: F [facility] TYPE CODE TESTS RESULT OUT OF RANGE REFERENCE UNITS LAB WBC White Blood Count 9.2 Normal 3.8-11.6 10*3/uL LAB UNWBC Uncorrected WBC 9.2 Normal 3.8-11.6 10*3/uL LAB RBC Red Blood Count 4.66 Normal 3.60-5.00 10*6/u L LAB HGB Hemoglobin 14.8 Normal 11.8-15.4 g/dL LAB HCT Hematocrit 42.2 Normal 34.0-46.4 % LAB MCV Mean Corpuscular Volume 90.5 Normal 80-100 fL LAB MCH Mean Corpuscular Hemoglobin 31.7 Normal 24.7-34.3 pg LAB MCHC Mean Corpuscular HGB Conc 35.1 High 32.0-35.0 g/dL LAB RDW Red Cell Distribution Width 12.7 Normal 11.9-15.3 % LAB PLT Platelet Count 275 Normal 150-450 10*3/uL LAB MPV Mean Platelet Volume 8.6 Normal 6.3-10.7 fL LAB MDW Monocyte Distribution Width 17.04 Normal 0.00-20.00 % LAB NE% Neutrophils % (Auto) 67.3 . % LAB LY% Lymphocytes % (Auto) 25.7 . % LAB MO% Monocytes % (Auto) 5.0 . % LAB EO% Eosinophils % (Auto) 1.1 . % LAB BA% Basophils % (Auto) 0.9 . % LAB NRBC% NRBC% 0.1 Normal 0-0.5 /100{WBC } LAB NE# Neutrophils # (Auto) 6.2 Normal 1.8-7.7 10*3/uL LAB LY# Lymphocytes # (Auto) 2.4 Normal 1.00-4.8 10*3/uL LAB MO# Monocytes # (Auto) 0.5 Normal 0.0-0.8 10*3/uL LAB EO# Eosinophils # (Auto) 0.1 Normal 0.0-0.45 10*3/uL LAB BA# Basophils # (Auto) 0.1 Normal 0.0-0.2 10*3/uL Result Comment: PERFORMED BY : [facility] [address] [place] [address] PATHOLOGIST BRICK OFF BEARER JEZ CHEN M.D. Performed By: #### CBC, CMP, ETOH #### [facility] [address] ETHYL ALCOHOL PROFILE Collected: 06/07/2024 8:40 AM Status: F Source: [facility] TYPE CODE TESTS RESULT OUT OF RANGE REFERENCE UNITS LAB ETHYALC Ethanol <10 mg/dL LAB ETHYLALC% Percent Ethanol Test not performed Result Comment: PERFORMED BY : [place] [id number] PATHOLOGIST BRICK OFF BEARER JEZ CHEN M.D. Performed By: #### CBC, CMP, ETOH #### [place] [id number] [facility] COMPREHENSIVE METABOLIC PANEL Collected: 06/07/2024 8 :40 AM Status: F Source: [facility] TYPE CODE TESTS RESULT OUT OF RANGE REFERENCE UNITS LAB GLU Glucose 204 High 70-100 mg/dL Result Comment: Random Gluco se Reference Range is dependent on time and content of last meal. Glucose of more than 200 mg/dL in a nonstressed, ambulatory subject supports the diagnosis of Diabetes Mellitus. ADA recommended reference range LAB BUN Blood Urea Nitrogen 14 Normal 7-25 mg/d L LAB CREATT Creatinine 0.67 Normal 0.60-1.20 mg/dL LAB GFReNR Estimated GFR >60.0 mL/Min LAB NA Sodium 136 Normal 136-145 mmol/L LAB K Potassium 3.9 Normal 3.5-5.1 mmol/L LAB CL Chloride 105 Normal 98-107 mmol/L LAB CO2 Carbon Dioxide 21.1 Normal 21.0-31.0 mmol/L LAB GAP Anion Gap 13.8 Normal 6.0-15.0 meq/L LAB CA Calcium 9.3 Normal 8.6-10.3 mg/dL LAB TP Total Protein 7.1 Normal 6.4-8.9 g/dL LAB ALB Albumin Level 4.3 Normal 3.5-5.7 g/dL LAB GLOB Globulin 2.8 g/dL LAB AGRATIO Albumin/Globulin Ratio 1.5 LAB BILIT Bilirubin,Total 0.4 Normal 0.3-1.0 mg/dL LAB AST Aspartate Amino Transferase 14 Normal 13-39 U/L LAB ALT Alanine Aminotransferase 15 Normal 7-52 U/L LAB ALP Alkaline Phosphatase 51 Normal 34-104 U/L LAB CRCLPHA Creatinine Clr C alc Pharmacy 115.55 Result Comment: PERFORMED BY : [facility] [place] [address] PATHOLOGIST BRICK OFF BEARER JEZ CHEN M.D. Performed By: #### CBC, CMP, ETOH #### [address] XR CHEST 2 VIEWS Observed: 01/22/2024 1:03 PM Status: F Source: [facility] TITLE OF EXAM: XR CHEST 2 EWS REASON FOR EXAM: Productive cough, shortness of breath for three weeks TECHNIQUE: 2 radiographs of the chest. COMPARISON: None FINDINGS: Normal lung expansion. No diffuse or focal pulmonary abnormality. No significant effusion or pneumothorax. The cardiomediastinal silhouette is normal. No acute osseous or upper abdominal abnormality. Scoliotic stabilization rods without evidence of failure. IMPRESSION: No evidence of pneumonia or other acute cardiopulmonary abnormality. DICTATED ON: 01/22/2024 11:46 AM This report has been electronically signed and approved by the interpreting radiologist. XR CHEST 2V* Observed: 01/08/2024 4:15 PM Status: COMPLETED Source: [facility] [place] [address] XRay Report Signed Patient: Yessy Carnes MR#: [id number] : 1980 Acct:[id number] Age/Sex: 43 / F ADM Date: 01/08/24 Loc: [facility] Room: Type: [facility] Attending Dr: Elise Sanches RESPIRATORY THERAPY MANAGER Copies to: Elise Sanches APRN Ordering Provider: Elise Sanches APRN Date of Service: 01/08/24 XR/XR chest 2V*: COUGH Chest 2 views CLINICAL HISTORY: Dry cough for 3 weeks, sweats.. COMPARISON: None FINDINGS: Heart normal in size. Lungs are clear. No free air. Partially visualized spinal fixation hardware. XR/XR chest 2V* IMPRESSION: NO ACUTE CARDIOPULMONARY ABNORMALITY. Impression dictated by: Gunnar Seymour Jr., D.O.01/08/2024 4:16 PM Dictation Location: [facility]18 Transcribed By: [facility] 01/08/24 1616 Dictated By: Gunnar Seymour Jr, DO 01/08/24 1615 Signed By: <Electronically signed by Gunnar Seymour Jr DO in OV> 01/08/24 1616 XR CHEST 2 VIEWS Observed: 12/10/2023 12:16 PM Status: F Source: [facility] Exam: XR - CHEST 2 VIEWS Reason [...] Electronically Signed Nando Calderón D.O. 2023-12-10 12:43:31 COMPLETE BLOOD COUNT AUTO DIFF Collected: 07/10/2023 7:25 AM Status: F Source: F [facility] TYPE CODE TESTS RESULT OUT OF RANGE REFERENCE UNITS LAB WBC White Blood Count 7.5 Normal 3.8-11.6 10*3/uL LAB UNWBC Uncorrected WBC 7.5 Normal 3.8-11.6 10*3/uL LAB RBC Red Blood Count 4.70 Normal 3.60-5.00 LAB HGB Hemoglobin 14.8 Normal 11.8-15.4 g/dL LAB HCT Hematocrit 42.6 Normal 34.0-46.4 % LAB MCV Mean Corpuscular Volume 90.7 Normal 80-100 fL LAB MCH Mean Corpuscular Hemoglobin 31.6 Normal 24.7-34.3 pg LAB MCHC Mean Corpuscular HGB Conc 34.8 Normal 32.0-35.0 g/dL LAB RDW Red Cell Distribution Width 12.2 Normal 11.9-15.3 % LAB PLT Platelet Count 226 Normal 150-450 10*3/uL LAB MPV Mean Platelet Volume 8.9 Normal 6.3-10.7 fL LAB NE% Neutrophils % (Auto) 66.5 . % LAB LY% Lymphocytes % (Auto) 25.9 . % LAB MO% Monocytes % (Auto) 5.5 . % LAB EO% Eosinophils % (Auto) 1.1 . % LAB BA% Basophils % (Auto) 1.0 . % LAB NRBC% NRBC% 0.0 Normal 0-0.5 /100{WBC} LAB NE# Neutrophils # (Auto) 5.0 Normal 1.8-7.7 10*3/uL LAB LY# Lymphocytes # (Auto) 1.9 Normal 1.00-4.8 10*3/uL LAB MO# Monocytes # (Auto) 0.4 Normal 0.0-0.8 10*3/uL LAB EO# Eosinophils # (Auto) 0.1 Normal 0.0-0.45 10*3/uL LAB BA# Basophils # (Auto) 0.1 Normal 0.0-0.2 10*3/uL Result Comment: PERFORMED BY : [place] [address] PATHOLOGIST BRICK OFF BEARER ISABELLA PATEL M.D. Performed By: #### CMP, TSH3 wRFLX, CBC, LIPID #### [address] COMPREHENSIVE METABOLIC PANEL Collected: 07/10/2023 7 :25 AM Status: F Source: [facility] TYPE CODE TESTS RESULT OUT OF RANGE REFERENCE UNITS LAB GLU Glucose 261 High 70-100 mg/dL Result Comment: Random Gluco se Reference Range is dependent on time and content of last meal. Glucose of more than 200 mg/dL in a nonstressed, ambulatory subject supports the diagnosis of Diabetes Mellitus. ADA recommended reference range LAB BUN Blood Urea Nitrogen 12 Normal 7-25 mg/d L LAB CREATT Creatinine 0.59 Low 0.60-1.20 mg/dL LAB GFReNR Estimated GFR > 60.0 LAB NA Sodium 136 Normal 136-145 mmol/L LAB K Potassium 4.3 Normal 3.5-5.1 mmol/L LAB CL Chloride 102 Normal 98-107 mmol/L LAB CO2 Carbon Dioxide 26.0 Normal 21.0-31.0 mmol/L LAB GAP Anion Gap 12.3 Normal 6.0-15.0 LAB CA Calcium 9.4 Normal 8.6-10.3 mg/dL LAB TP Total Protein 6.7 Normal 6.4-8.9 g/dL LAB ALB Albumin Level 4.1 Normal 3.5-5.7 g/dL LAB GLOB Globulin 2.6 g/dL LAB AGRATIO Albumin/Globulin Ratio 1.6 LAB BILIT Bilirubin,Total 0.7 Normal 0.3-1.0 mg/dL LAB AST Aspartate Amino Transferase 22 Normal 13-39 U/L LAB ALT Alanine Aminotransferase 26 Normal 7-52 U/L LAB ALP Alkaline Phosphatase 56 Normal 34-104 U/L Performed By: #### CMP, TSH3 wRFLX, CBC, LIPID #### [facility] [address] [place] [address] [facility] LIPID PANEL Collected: 07/10/2023 7:25 AM Status: F Source: [facility] TYPE CODE TESTS RESULT OUT OF RANGE REFERENCE UNITS LAB CHOL Cholesterol 161 Normal 140-200 mg/dL Result Comment: Chol less th an 200 mg/dl low risk Chol 201-239 mg/dl borderline risk Chol 240 mg/dl and greater high risk LAB HDL HDL Cholesterol 40 Normal 23-92 mg/dL Result Comment: HDL CHOL ATP -III CLASSIFICATION Cardiovascular Risk HDL > or equal to 60 mg/dL LOW HDL < 40 mg/dL HIGH LAB TRIG W REF Triglyceride w/Reflex 175 High 0-149 mg/dL Result Comment: TRIG ATP III CLASSIFICATION TRIG less than 150 mg/dL Normal TRIG 150-199 mg/dL Borderline high TRIG 200-500 mg/dL High TRIG greater than 500 mg/dL Very high Standard traceable to the Center for Disease Conrtrol and Prevention (CDC) test method. LAB LDLC LDL Cholesterol,Calc ulated 86 Normal 0-100 mg/dL Result Comment: LDL ATP III CLASSIFICATION LDL less than 100 mg/dL Optimal LDL 100-129 mg/dL Near or above optimal LDL 130-159 mg/dL Borderline high LDL 160-189 mg/dL High LDL greater than 189 mg/dL Very high LAB VLDL VLDL CHOLESTEROL 35 mg/dL LAB CHLHDL Chol/HDL Ratio 4.0 <5.0 Performed By: #### CMP, TSH3 wRFLX, CBC, LIPID #### [facility] [address] [place] [address] [facility] THYROID STIM HORMONE W/RFLX Collected: 07/10/2023 7:25 AM Status: F Source: [facility] TYPE CODE TESTS RESULT OUT OF RANGE REFERENCE UNITS LAB TSH3 wRFLX Thyroid Stim Hormone w/Rflx 2.88 Normal 0.45-5.33 u[iU]/mL Result Comment: PERFORMED BY : [place] [address] PATHOLOGIST [employer]ER ISABELLA PATEL M.D. Performed By: #### CMP, TSH3 wRFLX, CBC, LIPID #### [address] ALLERGIES DATE TYPE / CODE NAME / CODE REACTION SEVERITY SOURCE 06/07/2024 Drug Allergy/[id number] (SNOMED CT) No Known Allergies/[id number] 88(RXNORM) Unknown [facility] ENCOUNTERS ADMIT/DISCHARGE ACCOUNT NUMBER ADMITTING ENCOUNTER CLASS LOCATION SOURCE 06/29/2024/06/30/19 [id number] Ambulatory Building:[facility] 06/28/2024/06/29/19 [id number] Ambulatory Building:[facility] 06/16/2024/06/17/19 [id number] Ambulatory Building:[facility] 06/15/2024/06/16/19 [id number] Ambulatory Building:[facility] 06/07/2024/06/10/19 [id number] [facility]: [id number] 06/06/2024/06/07/19 [id number] Ambulatory Building:[facility] 06/01/2024/06/02/19 25 [id number] Ambulatory Building:[facility] 05/25/2024/05/26/19 25 [id number] Ambulatory Building:[facility] 05/19/2024/05/20/19 25 [id number] Ambulatory Building:[facility] 05/09/2024/05/10/19 25 [id number] Ambulatory Building:[facility] 04/04/2024/04/04/19 25 [id number] Ambulatory Building:[facility] 03/28/2024/03/28/19 25 [id number] Ambulatory Building:[facility] 03/24/2024/03/24/19 25 [id number] Ambulatory Building:[facility] 03/22/2024/03/22/19 25 [id number] Ambulatory Building:[facility] 03/17/2024/03/17/19 25 [id number] Ambulatory Building:[facility] 03/15/2024/03/15/19 25 [id number] Ambulatory Building:[facility] 03/01/2024/03/01/19 25 [id number] Ambulatory Building:[facility] 02/16/2024/02/15/19 25 [id number] Ambulatory Building:[facility] 01/28/2024/01/28/20 24 [id number] Ambulatory Building:[facility] 01/25/2024/01/25/20 24 [id number] Ambulatory Building:[facility] 01/22/2024/01/22/20 24 [id number] Ambulatory Building:[facility] 01/22/2024/01/22/20 24 [id number] Ambulatory Building:[facility] 01/19/2024/01/19/20 24 [id number] Ambulatory Building:[facility] 01/08/2024/01/08/20 24 [id number] [facility]ise Sanches [facility]/23/2023/12/23/19 24 [id number] Ambulatory Building:[facility] 12/18/2023/12/18/19 24 [id number] Ambulatory Building:[facility] 12/15/2023/12/15/19 24 [id number] Ambulatory Building:[facility] 12/10/2023/12/10/19 24 [id number] Ambulatory Building:[facility] 12/10/2023/12/10/19 24 [id number] Ambulatory Building:[facility] 11/30/2023/11/30/19 24 [id number] Ambulatory Building:[facility] 11/25/2023/11/25/19 24 [id number] Ambulatory Building:[facility] 11/10/2023/11/10/19 24 [id number] Ambulatory Building:[facility] 11/09/2023/11/09/19 24 [id number] Ambulatory Building:[facility] 11/04/2023/11/04/19 24 [id number] Ambulatory Building:[facility] 10/16/2023/10/16/19 24 [id number] Ambulatory Building:[facility] 08/27/2023/08/27/19 24 [id number] Ambulatory Building:[facility] 07/10/2023/07/10/19 24 [id number] Colten Schwartz [facility] PAYERS ENCOUNTER GUARANTOR PAYER SUBSCRIBER SOURCE 06/29/2024 YESSY ALEXB: [place], [place] [address]Zha: (HP) (WP) Primary Insurance:QualMetrixPolicy Number: [id number] Date:2024-04-09 YESSY ALEXB: [id number] [place] [address] [facility] 06/28/2024 YESSY ALEXB: [place], [place] [address]Qgf: (HP) (WP) Primary Insurance:SU Coordi-Care'sPLACEPolicy Number: [id number] Date:2024-04-09 YESSY ALEXB: [id number] [place] [address] [facility] 06/16/2024 YESSY ALEXB: [place], [place] [address]Ibf: (HP) (WP) Primary Insurance:SU MARKETPLACEPolicy Number: [id number] Date:2024-04-09 YESSY ALEXB: [id number] [place] [address] [facility] 06/15/2024 YESSY ALEXB: [place], [place] [address]Nhg: (HP) (WP) Primary Insurance:SU MARKETPLACEPolicy Number: [id number] Date:2024-04-09 YESSY ALEXB: [id number] [place] [address] [facility] 06/07/[address] [place], [place] [address]Tel: () Primary Insurance:Su [employer] ACAPolicy Number: [id number] Date:[id number] [address]BD: Yessy AlexB: [id number] [place] [address]Rlc: () [facility] 06/07/2024 Secondary Insura nce:FAP ActivePolicy Number: [id number] Date:2024-06-07 - [id number]% from 06/07/24 to 06/09/24OON one-time [place], [place] [address]PJ: [phone] Yessy AlexB: [id number] [place] [address]Ycd: () [facility] 06/07/2024 Tertiary Insuran ce:Self PayPolicy Number: Effective Date:2024-06-07 [facility] 06/06/2024 YESSY CARNESB: [place], [place] [address]Udc: (HP) (WP) Primary Insurance:QualMetrixPolicy Number: [id number] Date:2024-04-09 YESSY CARNESB: [id number] [place] [address] [facility] 06/01/2024 YESSY CARNESB: [place], [place] [address]Ect: (HP) (WP) Primary Insurance:[employer] Number: [id number] Date:2024-04-09 YESSY CARNESB: [id number] [place] [address] [facility] 05/25/2024 YESSY CARNESB: [place], [place] [address]Uos: (HP) (WP) Primary Insurance:[employer] Number: [id number] Date:2024-04-09 YESSY CARNESB: [id number] [place] [address] [facility] 05/19/2024 YESSY CARNESB: [place], [place] [address]Sbw: (HP) (WP) Primary Insurance:QualMetrixPolicy Number: [id number] Date:2024-04-09 YESSY LONGBEBOB: [id number] [place] [address] [facility] 05/09/2024 YESSY ISAIB: [place], [place] [address]Tva: (HP) (WP) Primary Insurance:SU [facility]Policy Number: [id number] Date:2024-04-09 YESSY CLEVELANDSIMAB: [id number] [place] [address] [facility] 04/04/2024 YESSY ISAIB: [place], [place] [address]Ppa: (HP) (WP) [facility] Insurance:[facility] Number: [id number] Date:2023-07-11 YESSYDEONTE ALEXB: [id number] [place] [address] [facility] 03/28/2024 YESSY ALEXB: [place], [place] [address]Udo: (HP) (WP) Primary Insurance:[facility]Policy Number: [id number] Date:2023-07-11 YESSYDEONTE ALEXB: [id number] [place] [address] [facility] 03/24/2024 YESSY ISAIB: [place], [place] [address]Eqo: (HP) (WP) Primary Insurance:[place] [employer]Policy Number: [id number] Date:2023-07-11 YESSY LONGBEBOB: [id number] [place] [address] [facility] 03/22/2024 YESSY ALEXB: [place], [place] [address]Zck: (HP) (WP) Primary Insurance:[employer] SystemsPolicy Number: [id number] Date:2023-07-11 YESSY ALEXB: [id number] [place] [address] [facility] 03/17/2024 YESSY ALEXB: [place], [place] [address]Jnp: (HP) (WP) Primary Insurance:[facility] Number: [id number] Date:2023-07-11 YESSY ALEXB: [id number] [place] [address] [facility] 03/15/2024 YESSY ALEXB: [place], [place] [address]Ogi: (HP) (WP) Primary Insurance:[facility] Number: [id number] Date:2023-07-11 YESSY ALEXB: [id number] [place] [address] [facility] 03/01/2024 YESSY ALEXB: [place], [place] [address]Bxq: (HP) (WP) Primary Insurance:[facility] Number: [id number] Date:2023-07-11 YESSYDEONTE ALEXB: [id number] [place] [address] [facility] 02/16/2024 YESSY ALEXB: [place], [place] [address]Qud: (HP) (WP) Primary Insurance:[facility]Policy Number: [id number] Date:2023-07-11 YESSY ALEXB: [id number] [place] [address] [facility] 01/28/2024 YESSY ALEXB: [place], [place] [address]Auu: (HP) (WP) Primary Insurance:[facility]Policy Number: [id number] Date:2023-07-11 YESSY ISAIB: [id number] [place] [address] [facility] 01/25/2024 YESSY ISAIB: [place], [place] [address]Rjg: (HP) (WP) Primary Insurance:[employer] [employer] BeautyPolicy Number: [id number] Date:2023-07-11 YESSY ISAIB: [id number] [place] [address] [facility] 01/22/2024 YESSY ALEXB: [place], [place] [address]Tqq: (HP) (WP) Primary Insurance:[employer] Security SystemsPolicy Number: [id number] Date:2023-07-11 YESSY ISAIB: [id number] [place] [address] [facility] 01/22/2024 YESSY ISAIB: [place], [place] [address]Yih: (HP) (WP) Primary Insurance:[employer] [employer] BeautyPolicy Number: [id number] Date:2023-07-11 YESSY ISAIB: [id number] [place] [address] [facility] 01/19/2024 YESSY ALEXB: [place], [place] [address]Buq: (HP) (WP) Primary Insurance:[employer] [employer] BeautyPolicy Number: [id number] Date:2023-07-11 YESSY ALEXB: [id number] [place] [address] [facility] 01/08/2024 Yessy Montoya [id number] [place], [place] [address]Xck: (HP) Primary Insurance:United HealthcarePolicy Number: [id number] Date:2024-01-08 Yessy Montoya IsaiB: [id number] [address] [place], [place] [address]Ais: (HP) [facility] 01/08/2024 Secondary Insura nce:Self PayPolicy Number: Effective Date:2024-01-08 [facility] 12/23/2023 YESSY ALEXB: [place], [place] [address]Arl: (HP) (WP) Primary Insurance:UNITED HEALTHCAREPolicy Number: [id number] Date:2023-07-11 YESSY ALEXB: [id number] [place] [address] [facility] 12/18/2023 YESSY ALEXB: [place], [place] [address]Rij: (HP) (WP) Primary Insurance:UNITED HEALTHCAREPolicy Number: [id number] Date:2023-07-11 YESSY ALEXB: [id number] [place] [address] [facility] 12/15/2023 YESSY ALEXB: [place], [place] [address]Sou: (HP) (WP) Primary Insurance:UNITED HEALTHCAREPolicy Number: [id number] Date:2023-07-11 YESSY ALEXB: [id number] [place] [address] [facility] 12/10/2023 YESSY ISAIB: [place], [place] [address]Cbo: (HP) (WP) Primary Insurance:[facility] Number: [id number] Date:2023-07-11 YESSY ISAIB: [id number] [place] [address] [facility] 12/10/2023 YESSY ALEXB: [place], [place] [address]Aay: (HP) (WP) Primary Insurance:[facility]Policy Number: [id number] Date:2023-07-11 YESSY ISAIB: [id number] [place] [address] [facility] 11/30/2023 YESSY ALEXB: [place], [place] [address]Nxj: (HP) (WP) Primary Insurance:[facility]Policy Number: [id number] Date:2023-07-11 YESSY LONGBEBOB: [id number] [place] [address] [facility] 11/25/2023 YESSYDEONTE ALEXB: [place], [place] [address]Wnc: (HP) (WP) Primary Insurance:[facility]Policy Number: [id number] Date:2023-07-11 YESSY ISAIB: [id number] [place] [address] [facility] 11/10/2023 YESSY ALEXB: [place], [place] [address]Ikr: (HP) (WP) Primary Insurance:[facility]Policy Number: [id number] Date:2023-07-11 YESSY ISAIB: [id number] [place] [address] [facility] 11/09/2023 YESSY ISAIB: [place], [place] [address]Sxf: (HP) (WP) Primary Insurance:[facility]Policy Number: [id number] Date:2023-07-11 YESSY ALEXB: [id number] [place] [address] [facility] 11/04/2023 YESSY ALEXB: [place], [place] [address]Jia: (HP) (WP) Primary Insurance:[facility]Policy Number: [id number] Date:2023-07-11 YESSY ISAIB: [id number] [place] [address] [facility] 10/16/2023 YESSY ISAIB: [place], [place] [address]Lta: (HP) (WP) Primary Insurance:[facility]Policy Number: [id number] Date:2023-07-11 YESSY ISAIB: [id number] [place] [address] [facility] 08/27/2023 YESSY ALEXB: [place], [place] [address]Wxe: (HP) (WP) Primary Insurance:[facility]Policy Number: [id number] Date:2023-07-11 YESSY ALEXB: [id number] [place] [address] [facility] 07/10/2023 Yessy Longick[address] [place] [address]Lzn: (HP) Primary Insurance:[facility] MedicaidPolicy Number: [id number] Date:8320-02-75[address] [address], [place] [address]XJ: Yessy AlexB: [id number] [place] [address]Lgg: () [facility] 07/10/2023 Secondary Insura nce:Self PayPolicy Number: Effective Date:2023-07-10 [facility]
[2024-07-02] VITALS (16 sets, daily range): BP systolic 127–145; BP diastolic 82–103; PULSE 93–105; TEMP 36.6; O2SAT 94–98; BMI 27.4
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
--- NOTE | 2024-07-02 19:53 | ECG_ITS ---
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 Measurements Intervals Feura Bush Rate: 99 P: 49 NC: 156 QRS: 18 QRSD: 92 T: 26 QT: 362 QTc: 418 Interpretive Statements 1100 Sinus rhythm 9110 normal ECG Compared to ECG 06/03/2024 10:42:24 No significant changes Electronically Signed On 07-03-2024 13:48:44 EDT by KERRI HOLCOMB M.D.
[2024-07-02] MEDS: METHYLPREDNISOLONE SOD SUCC PF 125 MG/2 ML VIAL IVP (20:06)
[2024-07-02] MEDS: DIAZEPAM 10 MG/2 ML SYRINGE 5 MG IV (20:06)
[2024-07-02 20:17] LABS: Basophils Absolute Auto 0.1 10^3/uL (0.0-0.1); Basophils Percent Auto 0.5 % (0.2-2.0); Hematocrit 39.5 % (36.0-48.0); Immature Granulocytes Abs Auto 0.04 10^3/uL (0.00-0.03); Immature Granulocytes Pct Auto 0.4 % (0.0-0.5); Lymphocytes Absolute Auto 3.5 10^3/uL (1.2-3.8); Lymphocytes Percent Auto 32.5 % (20.5-60.0); Mean Corpuscular HGB Conc 35.4 g/dL (29.9-35.2); Mean Corpuscular Hemoglobin 31.7 pg (26.7-34.0); Mean Corpuscular Volume 89.4 fL (81.0-99.0); Mean Platelet Volume 10.1 fL (9.5-13.5); Monocytes Absolute Auto 0.7 10^3/uL (0.3-0.8); Monocytes Percent Auto 6.3 % (1.7-12.0); Neutrophils Absolute Auto 6.4 10^3/uL (1.4-6.5); Neutrophils Percent Auto 60.3 % (43.0-75.0); Platelet Count 250 10^3/uL (150-450); Red Blood Count 4.42 10^6/uL (4.20-5.40); Red Cell Distribution Width 11.7 % (11.0-15.0); White Blood Count 10.6 10^3/uL (4.0-11.0)
[2024-07-02 20:27] LABS: Anion Gap 12.6; BUN Creatinine Ratio 14.1; Carbon Dioxide 25.1 mmol/L (21.0-32.0); Chloride 104 mmol/L (98-107); Estimated GFR (African America >60 (>=60 mL/min/1.73m^2); Estimated GFR (Non-African Ame >60 (>=60 mL/min/1.73m^2); Glucose 159 mg/dL (74-106); Magnesium 1.6 mg/dL (1.8-2.4); Potassium 3.7 mmol/L (3.5-5.1); Sodium 138 mmol/L (136-145)
[2024-07-02] MEDS: MAGNESIUM SULFATE IN WATER 2 GM/50 ML PREMIX IV (20:58)
[2024-07-02] MEDS: MECLIZINE HCL 12.5 MG TABLET 25 MG PO (21:02)
== END 2024-07-02 21:56 | disposition home or self-care (01) ==
PROVIDERS: Emergency Provider Emergency Medicine
DX: E83.42 Hypomagnesemia (principal); R42 Dizziness and giddiness; F41.9 Anxiety disorder, unspecified; R11.0 Nausea; E11.9 Type 2 diabetes mellitus without complications; Z79.84 Long term (current) use of oral hypoglycemic drugs
CPT/HCPCS: 36415; 80048; 83735; 85025; 93005; 96365; 96375; 99285; J2919; J3360; J3475